=== PATIENT | male | born 1935 | race African-American/Black ===

== ENCOUNTER → 2016-08-02 | Outpatient (CLI) | payer MEDICARE, OTHER ==
--- NOTE | 2016-08-02 10:53 | US ---
EXAMINATION TYPE: US thyroid st tissue head/neck DATE OF EXAM: 08/02/2016 10:02 AM COMPARISON: 02/21/2015 CLINICAL HISTORY: E04.1 Thyroid Nodule. GLAND SIZE: Right Lobe: 6.2 x 4.3 x 4.3cm Overall Parenchyma: heterogeneous Left Lobe: 5.0 x 1.6 x 1.5cm Overall Parenchyma: heterogeneous Isthmus Thickness: 0.4cm NODULES RIGHT: # of nodules measured on right: 1 1. 4.5 X 4.3 x 4.2 cm hypoechoic solid nodule at the mid pole with well-defined margins. This nodul e is wider than tall and shows intranodular vascularity. Prior size: 4.3 x 3.6 x 3.7cm LEFT: # of nodules measured on left: 2 1. 0.6 X 0.5 x 0.3 cm hypoechoic cystic nodule at the mid pole with well-defined margins; present wi th microcalcifications. This nodule is wider than tall and shows no intranodular vascularity. Prior size: 0.4 x 0.3 x 0.4cm 2. 0.7 x 0.5 x 0.4 cm hypoechoic cystic nodule at the mid pole with well-defined margins. This nodul e is wider than tall and shows no intranodular vascularity. Prior size: 0.6 x 0.4 x 0.5cm ISTHMUS: # of nodules measured in the isthmus: 0 TECHNOLOGIST IMPRESSION: Bilateral neck scanned, no abnormal lymphadenopathy noted. IMPRESSION: 1. Large right thyroid lobe mass present previously
== END | disposition home or self-care (01) ==
LOC: RADUSWWP 09:30
PROVIDERS: ATTEND Otolaryngology
DX: E04.2 Nontoxic multinodular goiter (principal)
CPT/HCPCS: 76536

== ENCOUNTER 2016-10-25 11:02 | Emergency (ER) | payer MEDICARE, OTHER ==
[2016-10-25 11:23] VITALS: BP 136/71; PULSE 72; RESP 20; TEMP 98.2
--- NOTE | 2016-10-25 12:48 | ED ---
General Adult HPI - General Chief complaint: ENT Stated complaint: ear pain Time Seen by Provider: 10/25/16 12:13 Source: patient, RN notes reviewed Mode of arrival: ambulatory Limitations: no limitations - History of Present Illness Initial comments: 81-year-old male presenting for neck pain and ringing in his ears for the past 3 days. Patient states she's felt some stiffness in his left neck. He states he thinks this is causing ringing of ears. He states he's had similar symptoms in the past. He has not tried any medications for this at this point. He denies any injury or fall. Denies any dizziness associated. He denies any chest pain or shortness of breath. He denies any fevers or chills. - Related Data Home Medications Medication Instructions Recorded Confirmed Verapamil Sr [Isoptin Sr] 180 mg PO DAILY 02/20/16 10/25/16 Hydrocodone/Acetaminophen [[place] 1 tab PO TID PRN 05/19/16 10/25/16 7.5-325] Levothyroxine Sodium [Synthroid] 25 mcg PO DAILY 05/19/16 10/25/16 Atorvastatin Calcium [Lipitor] 40 mg PO HS 10/25/16 10/25/16 Donepezil [Aricept] 10 mg PO HS 10/25/16 10/25/16 Previous Rx's Medication Instructions Recorded Diazepam [Valium] 5 mg PO BID PRN #8 tab 10/25/16 HYDROcodone/APAP 5-325MG [[place] 1 tab PO Q6HR PRN #12 tab 10/25/16 5-325] Ibuprofen [Motrin] 600 mg PO Q8HR PRN #24 tab 10/25/16 Allergies Allergy/AdvReac Type Severity Reaction Status Date / Time latex Allergy Rash/Hives Verified 10/25/16 12:03 Review of Systems ROS Statement: Those systems with pertinent positive or pertinent negative responses have been documented in the HPI. ROS Other: All systems not noted in ROS Statement are negative. Past Medical History Past Medical History: Cancer, Hyperlipidemia, Hypertension, Myocardial Infarction ([place]), Thyroid Disorder Additional Past Medical History / Comment(s): back pain due sciatica, lung cancer Last Myocardial Infarction Date:: History of Any Multi-Drug Resistant Organisms: None Reported Additional Past Surgical History / Comment(s): lung ca removed Past Anesthesia/Blood Transfusion Reactions: No Reported Reaction Past Psychological History: No Psychological Hx Reported Smoking Status: Former smoker Past Alcohol Use History: None Reported Past Drug Use History: None Reported General Exam - General Exam Comments Initial Comments: General: Awake and Alert. No acute distress. Does not appear acutely ill. Eyes: ROXI, EOM intact. No nystagmus. No scleral icterus. HENT: Atraumatic, normocephalic. Mucous membranes moist. Trachea midline. Neck: The neck is supple, no JVD. Mild tenderness and spasm over the left posterior aspect of the neck. No midline neck tenderness. Cardiovascular: Regular rate and rhythm. No murmur, rub, or gallop is appreciated. Distal pulses intact. Respiratory: Lungs are clear to auscultation bilaterally. No wheezes, rales, rhonchi. No respiratory distress. Gastrointestinal: Soft, Nontender. No rebound or guarding. Non-distended. No masses or organomegaly noted. No CVA tenderness. Musculoskeletal: No tenderness. Normal ROM. No gross deformity. No strength deficits. Neurological: A&Ox3. CN II-XII grossly intact, There are no obvious motor or sensory deficits. Coordination appears grossly intact. Speech is normal. Skin: Skin is warm and dry and no rashes or lesions are noted. Psychiatric: Cooperative, appropriate mood & affect, normal judgment. Limitations: no limitations Course Vital Signs 10/25/16 11:21 Temperature 98.2 F Pulse Rate 72 Respiratory 20 Rate Blood Pressure 136/71 O2 Sat by Pulse 99 Oximetry Medical Decision Making - Medical Decision Making 81-year-old male presenting for neck pain and ringing of ears. Physical exam is grossly unremarkable other than mild tenderness and spasm in his left neck area. He states this is mildly tender to palpation. He denies any chest pain or shortness of breath. No other significant symptoms associated. Had discussion for management of his symptoms with medications. Discussed possible underlying tinnitus secondary to medication side effects and to review his current medications iwth his PCP has he is unable to tell me which medications he is on during exam. 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 Patient declines any medications in the emergency room at this time. Discussed close follow-up with PCP. Discussed follow up with ENT as well if symptoms persist. Discussed concerning signs symptoms for immediate return to the ED. Patient is agreeable to plan and discharge home. Disposition Clinical Impression: Neck pain, Ear ringing Disposition: HOME SELF-CARE Condition: Stable Instructions: Acute Neck Pain (ED), Tinnitus (ED) Prescriptions: Diazepam [Valium] 5 mg PO BID PRN #8 tab PRN Reason: neck pain HYDROcodone/APAP 5-325MG [[place] 5-325] 1 tab PO Q6HR PRN #12 tab PRN Reason: Pain Ibuprofen [Motrin] 600 mg PO Q8HR PRN #24 tab PRN Reason: Pain Referrals: Socorro Beckett MD [Primary Care Provider] - 1-2 days Pablo Monroe DO [Doctor of Osteopathic Medicine] - 1-2 days Time of Disposition: 12:47
== END 2016-10-25 12:56 | disposition home or self-care (01) ==
LOC: EC 11:02
DX: M54.2 Cervicalgia (principal); M62.838 Other muscle spasm; H93.19 Tinnitus, unspecified ear; E78.5 Hyperlipidemia, unspecified; I10 Essential (primary) hypertension; E07.9 Disorder of thyroid, unspecified; Z87.891 Personal history of nicotine dependence; Z79.899 Other long term (current) drug therapy; Z91.040 Latex allergy status
CPT/HCPCS: 99282

== ENCOUNTER 2016-11-06 16:55 | Emergency (ER) | payer MEDICARE, OTHER ==
[2016-11-06 17:30] VITALS: BP 104/66; PULSE 66; RESP 20; TEMP 98.4
--- NOTE | 2016-11-06 17:59 | ED ---
General Adult HPI - General Chief complaint: Urogenital Stated complaint: Male Time Seen by Provider: 11/06/16 17:46 Source: patient, RN notes reviewed Mode of arrival: ambulatory Limitations: no limitations - History of Present Illness Initial comments: Complaint and history of present illness this is an 81-year-old male to complaint of occasionally urinating on himself. Patient reports to go to the bathroom and then 5 minutes later sit down and in small bowel, out again. This been ongoing for several days. Patient states he wants to get an antibiotic. Patient denies having any prostate problems in the past he does follow-up with family physician. He was encouraged to make sure he has prostate exams plus his PSA drawn regularly. - Related Data Home Medications Medication Instructions Recorded Confirmed Verapamil Sr [Isoptin Sr] 180 mg PO DAILY 02/20/16 11/06/16 Levothyroxine Sodium [Synthroid] 25 mcg PO DAILY 05/19/16 11/06/16 Atorvastatin Calcium [Lipitor] 40 mg PO HS 10/25/16 11/06/16 Donepezil [Aricept] 10 mg PO HS 10/25/16 11/06/16 HYDROcodone/APAP 7.5-325MG [[place] 1 tab PO TID PRN 11/06/16 11/06/16 7.5-325] Allergies Allergy/AdvReac Type Severity Reaction Status Date / Time latex Allergy Rash/Hives Verified 11/06/16 17:38 Review of Systems ROS Statement: Those systems with pertinent positive or pertinent negative responses have been documented in the HPI. Review of systems no complaint of headache or visual acuity no chest pain denies any abdominal pain denies feeling bloated. He has chronic back pain In her vagina. No peripheral problems or neurological problems. No change in appetite. All systems are reviewed. Past medical problems lung cancer with surgery. Hyperlipidemia, hypertension, previous [place], low thyroid. Surgery lung cancer removed. Family history patient states her family. Quit smoking and drinking 30 years ago. ROS Other: All systems not noted in ROS Statement are negative. Past Medical History Past Medical History: Cancer, Hyperlipidemia, Hypertension, Myocardial Infarction ([place]), Thyroid Disorder Additional Past Medical History / Comment(s): back pain due sciatica, lung cancer Last Myocardial Infarction Date:: History of Any Multi-Drug Resistant Organisms: None Reported Additional Past Surgical History / Comment(s): lung ca removed Past Anesthesia/Blood Transfusion Reactions: No Reported Reaction Past Psychological History: No Psychological Hx Reported Smoking Status: Former smoker Past Alcohol Use History: None Reported Past Drug Use History: None Reported General Exam - General Exam Comments Initial Comments: General: The patient is awake and alert, in no distress, and does not appear acutely ill. Chief complaint of occasionally urinating on himself minutes after urinating. Vital signs show temperature 98.4 pulse 66 her story rate 20 pulse ox 99% room air blood pressure 104/66 Eye: Pupils are equal, round and reactive to light, extra-ocular movements are intact ; there is normal conjunctiva bilaterally. No signs of icterus. Arcus senilis Ears, nose, mouth and throat: There are moist mucous membranes and no oral lesions. Neck: The neck is supple, there is no tenderness . Cardiovascular: There is a regular rate and rhythm. No murmur, rub or gallop is appreciated. Respiratory: Lungs are clear to auscultation, respirations are non-labored, breath sounds are equal. No wheezes, stridor, rales, or rhonchi. Gastrointestinal: Soft, non-distended, non-tender abdomen without masses or organomegaly noted. There is no rebound or guarding present. No CVA tenderness. Bowel sounds are unremarkable. Bladder scan Back: Chronic back pain from a work-related injury years ago. Musculoskeletal: Normal ROM, no tenderness, There is no pedal edema. There is no calf tenderness or swelling. Sensation intact. Neurological: No complaint of or evidence of any neuro deficits. Patient walks without balance problems. Answers questions appropriately. Patient admits he is to return to forget things Skin: Skin is warm and dry and no rashes or lesions are noted. Limitations: no limitations Course Vital Signs 11/06/16 17:28 Temperature 98.4 F Pulse Rate 66 Respiratory 20 Rate Blood Pressure 104/66 O2 Sat by Pulse 99 Oximetry Medical Decision Making - Medical Decision Making Bladder scan was performed and the patient had only approximately 20 ML's in the bladder. Urinalysis shows 5 reds 2 whites no signs of infection. he will be referred back to his family physician. - Lab Data Lab Results 11/06/16 Range/Units 15:40 Urine Color Yellow Urine Appearance Cloudy (Clear) Urine pH 6.0 (5.0-8.0) Ur Specific [place] 1.019 (1.001-1.035) Urine Protein Negative (Negative) Urine Glucose (UA) Negative (Negative) Urine Ketones Trace H (Negative) Urine Blood Trace H (Negative) Urine Nitrite Negative (Negative) Urine Bilirubin Negative (Negative) Urine Urobilinogen 3.0 (<2.0) mg/dL Ur Leukocyte Esterase Negative (Negative) Urine RBC 5 (0-5) /hpf Urine WBC 2 (0-5) /hpf Urine Mucus Rare H (None) /hpf Disposition Clinical Impression: Incontinence of urine Disposition: HOME SELF-CARE Condition: Fair Instructions: Urinary Incontinence (ED) Additional Instructions: Follow-up with your family physician, have your PSA checked and in the meanwhile consider using protection, Depends, or other type of protection. Time of Disposition: 18:20
[2016-11-06 18:00] LABS: Appearance,Urine Cloudy (Clear); Bilirubin,Urine Negative (Negative); Glucose,Urine (UA) Negative (Negative); Ketones,Urine Trace (Negative); Leukocyte Esterase,Urine Negative (Negative); Mucus,Urine Rare /hpf; Nitrite,Urine Negative (Negative); Particle Count 1744; Protein,Urine Negative (Negative); RBC,Urine 5 /hpf (0-5); Specific Gravity,Urine 1.019 (1.001-1.035); UA Billing (MACRO vs. MICRO) MICRO; WBC,Urine 2 /hpf (0-5)
== END 2016-11-06 18:27 | disposition home or self-care (01) ==
LOC: EC 16:55
DX: R32 Unspecified urinary incontinence (principal); M54.5 Low back pain; G89.29 Other chronic pain; I10 Essential (primary) hypertension; E07.9 Disorder of thyroid, unspecified; E78.5 Hyperlipidemia, unspecified; Z87.891 Personal history of nicotine dependence; Z79.899 Other long term (current) drug therapy; Z91.040 Latex allergy status; Z85.118 Personal history of other malignant neoplasm of bronchus and lung; Z98.890 Other specified postprocedural states
CPT/HCPCS: 51798; 81001; 99284

== ENCOUNTER 2017-04-10 12:57 | Emergency (ER) | payer MEDICARE, OTHER ==
[2017-04-10 13:20] VITALS: RESP 20
--- NOTE | 2017-04-10 13:21 | ED ---
General Adult HPI - General Chief complaint: Shortness of Breath Stated complaint: Difficulty Breathing Time Seen by Provider: 04/10/17 13:15 Source: patient, RN notes reviewed Mode of arrival: ambulatory - History of Present Illness Initial comments: This is an 81-year-old male who presents emergency department stating he short of breath ever since he woke up this morning. Patient denies any chest pain or palpitations. Patient denies any history of atrial fibrillation atrial flutter. Patient denies any fever chills or cough. Patient denies any leg swelling or calf tenderness. Patient denies any headache patient denies numbness weakness. Patient denies lightheadedness or dizziness. Patient denies any abdominal pain patient denies nausea vomiting diarrhea. - Related Data Home Medications Medication Instructions Recorded Confirmed Verapamil Sr [Isoptin Sr] 180 mg PO DAILY 02/20/16 04/10/17 Levothyroxine Sodium [Synthroid] 25 mcg PO DAILY 05/19/16 04/10/17 Atorvastatin Calcium [Lipitor] 40 mg PO HS 10/25/16 04/10/17 Donepezil [Aricept] 10 mg PO HS 10/25/16 04/10/17 HYDROcodone/APAP 7.5-325MG [[place] 1 tab PO TID PRN 11/06/16 04/10/17 7.5-325] Baclofen [Lioresal] 10 mg PO TID PRN 04/10/17 04/10/17 Tamsulosin HCl [Flomax] 0.4 mg PO BID 04/10/17 04/10/17 Allergies Allergy/AdvReac Type Severity Reaction Status Date / Time latex Allergy Rash/Hives Verified 04/10/17 13:48 Review of Systems ROS Statement: Those systems with pertinent positive or pertinent negative responses have been documented in the HPI. ROS Other: All systems not noted in ROS Statement are negative. Past Medical History Past Medical History: Cancer, Hyperlipidemia, Hypertension, Myocardial Infarction ([place]), Thyroid Disorder Additional Past Medical History / Comment(s): back pain due sciatica, lung cancer Last Myocardial Infarction Date:: History of Any Multi-Drug Resistant Organisms: None Reported Additional Past Surgical History / Comment(s): lung ca removed from right lung Past Anesthesia/Blood Transfusion Reactions: No Reported Reaction Past Psychological History: No Psychological Hx Reported Smoking Status: Former smoker Past Alcohol Use History: None Reported Past Drug Use History: None Reported General Exam - General Exam Comments Initial Comments: GENERAL: Patient is well-developed and well-nourished. Patient is nontoxic and well- hydrated and is in mild distress. ENT: Neck is soft and supple. No significant lymphadenopathy is noted. Oropharynx is clear. Moist mucous membranes. Neck has full range of motion without eliciting any pain. EYES: The sclera were anicteric and conjunctiva were pink and moist. Extraocular movements were intact and pupils were equal round and reactive to light. Eyelids were unremarkable. PULMONARY: Unlabored respirations. Good breath sounds bilaterally. No audible rales rhonchi or wheezing was noted. CARDIOVASCULAR: Irregular rate ABDOMEN: Soft and nontender with normal bowel sounds. No palpable organomegaly was noted. There is no palpable pulsatile mass. SKIN: Skin is clear with no lesions or rashes and otherwise unremarkable. NEUROLOGIC: Patient is alert and oriented x3. Cranial nerves II through XII are grossly intact. Motor and sensory are also intact. Normal speech, volume and content. Symmetrical smile. MUSCULOSKELETAL: Normal extremities with adequate strength and full range of motion. No lower extremity swelling or edema. No calf tenderness. LYMPHATICS: No significant lymphadenopathy is noted PSYCHIATRIC: Normal psychiatric evaluation. Course Vital Signs 04/10/17 13:12 Temperature 97.9 F Pulse Rate 93 Respiratory 20 Rate Blood Pressure 124/74 O2 Sat by Pulse 99 Oximetry Medical Decision Making - Medical Decision Making EKG shows atrial fibrillation with rapid ventricular response at 103 bpm QRS and 6 QT interval 356 QTC TC is 466. Chest x-ray shows mild pulmonary edema. Patient has new-onset atrial fibrillation/started the patient on heparin. Patient's heart rate was right around the 100 side did not start any Cardizem. His The heparin going on the floor I talked with Dr. Quinn he agreed to admit admitted the patient and I wrote admitting orders - Lab Data Result diagrams: 04/10/17 13:15 04/10/17 13:15 Lab Results 04/10/17 04/10/17 04/10/17 Range/Units 13:15 13:15 13:15 WBC 6.5 (3.8-10.6) k/uL RBC 4.53 (4.30-5.90) m/uL Hgb 14.3 (13.0-17.5) gm/dL Hct 44.1 (39.0-53.0) % MCV 97.4 (80.0-100.0) fL MCH 31.5 (25.0-35.0) pg MCHC 32.4 (31.0-37.0) g/dL RDW 15.3 (11.5-15.5) % Plt Count 179 (150-450) k/uL Neutrophils % 85 % Lymphocytes % 10 % Monocytes % 3 % Eosinophils % 0 % Basophils % 0 % Neutrophils # 5.5 (1.3-7.7) k/uL Lymphocytes # 0.7 L (1.0-4.8) k/uL Monocytes # 0.2 (0-1.0) k/uL Eosinophils # 0.0 (0-0.7) k/uL Basophils # 0.0 (0-0.2) k/uL PT (9.0-12.0) sec INR (<1.2) APTT (22.0-30.0) sec Sodium 139 (137-145) mmol/L Potassium 3.8 (3.5-5.1) mmol/L Chloride 103 (98-107) mmol/L Carbon Dioxide 24 (22-30) mmol/L Anion Gap 12 mmol/L BUN 10 (9-20) mg/dL Creatinine 0.89 (0.66-1.25) mg/dL Est GFR (MDRD) Af Amer >60 (>60 ml/min/1.73 sqM) Est GFR (MDRD) Non-Af >60 (>60 ml/min/1.73 sqM) Glucose 196 H (74-99) mg/dL Calcium 10.6 H (8.4-10.2) mg/dL Total Bilirubin 0.8 (0.2-1.3) mg/dL AST 26 (17-59) U/L ALT 32 (21-72) U/L Alkaline Phosphatase 56 (38-126) U/L Total Creatine Kinase 128 (55-170) U/L CK-MB (CK-2) 0.9 (0.0-2.4) ng/mL CK-MB (CK-2) Rel Index 0.7 Troponin I <0.012 (0.000-0.034) ng/mL NT-Pro-B Natriuret Pep pg/mL Total Protein 6.6 (6.3-8.2) g/dL Albumin 3.7 (3.5-5.0) g/dL 04/10/17 04/10/17 Range/Units 13:15 13:15 WBC (3.8-10.6) k/uL RBC (4.30-5.90) m/uL Hgb (13.0-17.5) gm/dL Hct (39.0-53.0) % MCV (80.0-100.0) fL MCH (25.0-35.0) pg MCHC (31.0-37.0) g/dL RDW (11.5-15.5) % Plt Count (150-450) k/uL Neutrophils % % Lymphocytes % % Monocytes % % Eosinophils % % Basophils % % Neutrophils # (1.3-7.7) k/uL Lymphocytes # (1.0-4.8) k/uL Monocytes # (0-1.0) k/uL Eosinophils # (0-0.7) k/uL Basophils # (0-0.2) k/uL PT 11.9 (9.0-12.0) sec INR 1.2 H (<1.2) APTT 24.2 (22.0-30.0) sec Sodium (137-145) mmol/L Potassium (3.5-5.1) mmol/L Chloride (98-107) mmol/L Carbon Dioxide (22-30) mmol/L Anion Gap mmol/L BUN (9-20) mg/dL Creatinine (0.66-1.25) mg/dL Est GFR (MDRD) Af Amer (>60 ml/min/1.73 sqM) Est GFR (MDRD) Non-Af (>60 ml/min/1.73 sqM) Glucose (74-99) mg/dL Calcium (8.4-10.2) mg/dL Total Bilirubin (0.2-1.3) mg/dL AST (17-59) U/L ALT (21-72) U/L Alkaline Phosphatase (38-126) U/L Total Creatine Kinase (55-170) U/L CK-MB (CK-2) (0.0-2.4) ng/mL CK-MB (CK-2) Rel Index Troponin I (0.000-0.034) ng/mL NT-Pro-B Natriuret Pep 1590 pg/mL Total Protein (6.3-8.2) g/dL Albumin (3.5-5.0) g/dL Critical Care Time Critical Care Time: Yes Total Critical Care Time: 35 Disposition Clinical Impression: New onset atrial fibrillation, Pulmonary edema Disposition: ADMITTED IP TO THIS HOSP Referrals: Socorro Beckett MD [Primary Care Provider] - 1-2 days Time of Disposition: 14:25
[2017-04-10 13:38] LABS: Basophils % (A) 0 %; CH 32.8; CHCM 33.9; Eosinophils % (A) 0 %; HCT 44.1 % (39.0-53.0); HDW 3.06; HGB 14.3 gm/dL (13.0-17.5); Luc # (Auto) 0.04; Luc % (Auto) 1; Lymphocytes # (A) 0.7 k/uL (1.0-4.8); Lymphocytes % (A) 10 %; MCH 31.5 pg (25.0-35.0); MCHC 32.4 g/dL (31.0-37.0); MCV 97.4 fL (80.0-100.0); Mean Platelet Volume 8.4; Monocytes # (A) 0.2 k/uL (0-1.0); Monocytes % (A) 3 %; Neutrophils # (A) 5.5 k/uL (1.3-7.7); Neutrophils % (A) 85 %; RBC 4.53 m/uL (4.30-5.90); RDW 15.3 % (11.5-15.5); WBC 6.5 k/uL (3.8-10.6); WBC (Perox) 6.55
[2017-04-10 13:48] LABS: ALT 32 U/L (21-72); AST 26 U/L (17-59); Alkaline Phosphatase 56 U/L (38-126); Anion Gap 12 mmol/L; Blood Urea Nitrogen 10 mg/dL (9-20); Calcium 10.6 mg/dL (8.4-10.2); Carbon Dioxide 24 mmol/L (22-30); Chloride 103 mmol/L (98-107); Glucose 196 mg/dL (74-99); Non-African American GFR(MDRD) >60 (>60 ml/min/1.73 sqM); Potassium 3.8 mmol/L (3.5-5.1); Sodium 139 mmol/L (137-145); Total Bilirubin 0.8 mg/dL (0.2-1.3); Total Protein 6.6 g/dL (6.3-8.2)
[2017-04-10 13:55] LABS: INR 1.2 (<1.2); Partial Thromboplastin Time 24.2 sec (22.0-30.0); Prothrombin Time 11.9 sec (9.0-12.0)
[2017-04-10 14:00] LABS: Creatine Kinase 128 U/L (55-170)
--- NOTE | 2017-04-10 14:02 | XR ---
EXAMINATION TYPE: XR chest 2V DATE OF EXAM: 04/10/2017 HISTORY: difficulty breathing. REFERENCE: Previous study dated 07/28/2015. FINDINGS: The heart is mildly enlarged. There are diffuse increased markings throughout the chest. So me of these are chronic. I do not see evidence of vascular congestion. No definite pleural fluid is s een. IMPRESSION: 1. CARDIOMEGALY. 2. INCREASED INTERSTITIAL CHANGE. AT LEAST PART OF THIS IS CHRONIC. SUPERIMPOSED EDEMA OR ATYPICAL PN EUMONIA COULD NOT BE EXCLUDED.
[2017-04-10 14:12] LABS: Creatine Kinase MB 0.9 ng/mL (0.0-2.4); Troponin I <0.012 ng/mL (0.000-0.034)
[2017-04-10] MEDS ORDERED: HEPARIN SODIUM,PORCINE 5,000 UNIT/ML 1 ML VIAL IV ONE (14:22)
[2017-04-10] MEDS ORDERED: FUROSEMIDE 10 MG/ML 4 ML VIAL IV SCH (14:30)
[2017-04-10] MEDS ORDERED: HEPARIN SODIUM,PORCINE/D5W PMX 25,000 UNIT in DEXTROSE/WATER 1 500ML.BAG IV SCH (14:30)
[2017-04-10 14:51] VITALS: BP 149/85; PULSE 108; TEMP 98.8
[2017-04-10] MEDS ORDERED: NITROGLYCERIN OINT 1 INCH/GM PACKET TOPICAL SCH (18:00)
== END 2017-04-10 15:15 | disposition left against medical advice (07) ==
LOC: EC 12:57 → UNDOADMIN 14:26 → 6SEL 14:26 → EC 15:15
DX: I48.91 Unspecified atrial fibrillation (principal); J81.1 Chronic pulmonary edema; E78.5 Hyperlipidemia, unspecified; I10 Essential (primary) hypertension; E07.9 Disorder of thyroid, unspecified; I25.2 Old myocardial infarction; Z87.891 Personal history of nicotine dependence; Z79.899 Other long term (current) drug therapy; Z91.040 Latex allergy status; Z85.118 Personal history of other malignant neoplasm of bronchus and lung; Z98.890 Other specified postprocedural states; Z53.20 Procedure and treatment not carried out because of patient's decision for unspecified reasons
CPT/HCPCS: 99285 ×2; 96374 ×2; 96375 ×2; 36415; 93005; 83880; 80053; 82550; 82553; 84484; 85025; 85610; 85730; 71020; J1644; J1940

== ENCOUNTER 2017-04-14 13:54 | Inpatient (IN) | payer MEDICARE, OTHER ==
[2017-04-14] MEDS ORDERED: SODIUM CHLORIDE 0.9% 1,000 ML in EMPTY BAG 1 BAG IV ONE (14:54)
[2017-04-14] MEDS ORDERED: ALPRAZolam 0.5 MG TAB PO PRN (14:54)
[2017-04-14] MEDS ORDERED: NITROGLYCERIN SL TABS 0.4 MG TAB SUBLINGUAL PRN (14:54)
[2017-04-14] MEDS ORDERED: ALPRAZolam 0.25 MG TAB PO PRN (14:54)
[2017-04-14] MEDS ORDERED: ATORVASTATIN 80 MG TAB PO STA (14:57)
[2017-04-14] MEDS ORDERED: ASPIRIN 325 MG TAB PO STA (14:57)
[2017-04-14] MEDS ORDERED: HEPARIN SODIUM,PORCINE 5,000 UNIT/ML 1 ML VIAL IV PRN (15:39)
[2017-04-14 15:55] LABS: Basophils % (A) 0 %; CH 32.3; CHCM 32.8; Eosinophils % (A) 0 %; HCT 42.4 % (39.0-53.0); HDW 2.99; HGB 13.4 gm/dL (13.0-17.5); Luc # (Auto) 0.05; Luc % (Auto) 0; Lymphocytes # (A) 0.8 k/uL (1.0-4.8); Lymphocytes % (A) 5 %; MCH 31.2 pg (25.0-35.0); MCHC 31.5 g/dL (31.0-37.0); Macrocytosis Slight; Mean Platelet Volume 8.4; Monocytes # (A) 0.5 k/uL (0-1.0); Monocytes % (A) 3 %; Neutrophils # (A) 14.9 k/uL (1.3-7.7); Neutrophils % (A) 91 %; RBC 4.28 m/uL (4.30-5.90); RDW 15.7 % (11.5-15.5); WBC 16.4 k/uL (3.8-10.6)
[2017-04-14] MEDS ORDERED: HEPARIN SODIUM,PORCINE/D5W PMX 25,000 UNIT in DEXTROSE/WATER 1 500ML.BAG IV SCH (16:00)
[2017-04-14 16:10] LABS: INR 1.3 (<1.2); Prothrombin Time 12.4 sec (9.0-12.0)
[2017-04-14 16:13] LABS: Anion Gap 11 mmol/L; Blood Urea Nitrogen 15 mg/dL (9-20); Calcium 10.5 mg/dL (8.4-10.2); Carbon Dioxide 25 mmol/L (22-30); Chloride 101 mmol/L (98-107); Glucose 222 mg/dL (74-99); Non-African American GFR(MDRD) >60 (>60 ml/min/1.73 sqM); Potassium 3.6 mmol/L (3.5-5.1); Sodium 137 mmol/L (137-145)
[2017-04-14] MEDS ORDERED: HYDROcodone/APAP 7.5-325MG 1 EACH TAB PO PRN (17:35)
[2017-04-14] MEDS ORDERED: BACLOFEN 10 MG TAB PO PRN (17:35)
[2017-04-14] MEDS: TAMSULOSIN 0.4 MG CAP.ER.24H PO SCH (20:28)
[2017-04-14] MEDS: DILTIAZEM ORAL 60 MG TAB PO SCH (20:28)
[2017-04-14] MEDS: DONEPEZIL 10 MG TAB PO SCH (20:28)
[2017-04-15 03:48] LABS: Basophils % (A) 0 %; CH 32.4; CHCM 33.4; Eosinophils % (A) 0 %; HCT 40.4 % (39.0-53.0); HDW 2.96; HGB 13.1 gm/dL (13.0-17.5); Luc # (Auto) 0.11; Luc % (Auto) 1; Lymphocytes # (A) 1.2 k/uL (1.0-4.8); Lymphocytes % (A) 12 %; MCH 31.6 pg (25.0-35.0); MCHC 32.3 g/dL (31.0-37.0); MCV 97.9 fL (80.0-100.0); Macrocytosis Slight; Mean Platelet Volume 7.9; Monocytes # (A) 0.5 k/uL (0-1.0); Monocytes % (A) 5 %; Neutrophils # (A) 8.7 k/uL (1.3-7.7); Neutrophils % (A) 82 %; RBC 4.13 m/uL (4.30-5.90); RDW 15.7 % (11.5-15.5); WBC 10.6 k/uL (3.8-10.6); WBC (Perox) 11.51
[2017-04-15 03:54] LABS: Anion Gap 7 mmol/L; Blood Urea Nitrogen 14 mg/dL (9-20); Calcium 9.9 mg/dL (8.4-10.2); Carbon Dioxide 28 mmol/L (22-30); Chloride 103 mmol/L (98-107); Glucose 174 mg/dL (74-99); Non-African American GFR(MDRD) >60 (>60 ml/min/1.73 sqM); Potassium 3.9 mmol/L (3.5-5.1); Sodium 138 mmol/L (137-145)
[2017-04-15] MEDS: DILTIAZEM ORAL 60 MG TAB PO SCH (06:20)
[2017-04-15] MEDS: TAMSULOSIN 0.4 MG CAP.ER.24H PO SCH ×2 (06:20→20:54)
[2017-04-15] MEDS: FUROSEMIDE 20 MG TAB PO SCH (06:20)
[2017-04-15] MEDS: LEVOTHYROXINE 25 MCG TAB PO SCH (06:20)
[2017-04-15] MEDS ORDERED: IV FLUID CONTINUATION 1,000 ML IV ONE (11:30)
[2017-04-15] MEDS ORDERED: fentaNYL (PF) 50 MCG/ML 2 ML AMP ONE (11:30)
[2017-04-15] MEDS ORDERED: LIDOCAINE 2% INJ 20 MG/ML (20 ML MDV) ONE (11:30)
[2017-04-15] MEDS ORDERED: VERAPAMIL 2.5 MG/ML 2 ML AMP ONE (11:30)
[2017-04-15] MEDS ORDERED: HEPARIN SODIUM 1,000 UN/ML (10ML VL) ONE (11:30)
[2017-04-15] MEDS ORDERED: fentaNYL (PF) 50 MCG/ML 2 ML AMP IVP ONE (11:35)
[2017-04-15] MEDS ORDERED: LIDOCAINE 2% INJ 20 MG/ML SQ ONE (11:37)
[2017-04-15] MEDS ORDERED: VERAPAMIL SYRINGE (5 MG/10 ML) INTRAARTER ONE (11:39)
[2017-04-15] MEDS ORDERED: BIVALIRUDIN BOLUS 250 MG/50 ML IV ONE (11:53)
[2017-04-15] MEDS ORDERED: BIVALIRUDIN 250 MG in SODIUM CHLORIDE 0.9% 50 ML IV ONE (11:55)
[2017-04-15] MEDS ORDERED: NITROGLYCERIN 1000MCG/10ML SYRINGE INTRACORON ONE (11:56)
[2017-04-15] MEDS ORDERED: CLOPIDOGREL 75 MG TAB ONE (12:07)
[2017-04-15] MEDS ORDERED: CLOPIDOGREL 75 MG TAB PO ONE (12:10)
[2017-04-15] MEDS ORDERED: IOHEXOL 350 MG/ML 125ML BOTTLE INJ ONE (12:19)
[2017-04-15] MEDS ORDERED: ATROPINE SULFATE 0.1 MG/ML 10ML SYRINGE IV PRN (12:31)
[2017-04-15] MEDS ORDERED: ZOLPIDEM 5 MG TAB PO PRN (12:31)
[2017-04-15] MEDS ORDERED: MAG HYDROX/AL HYDROX/SIMETH 30 ML CUP PO PRN (12:31)
[2017-04-15] MEDS ORDERED: NITROGLYCERIN SL TABS 0.4 MG TAB SUBLINGUAL PRN (12:31)
[2017-04-15] MEDS ORDERED: RX INFO: IV CONTRAST WAS GIVEN 1 EACH MISC MISCELLANE PRN (12:31)
[2017-04-15] MEDS ORDERED: SODIUM CHLORIDE 0.9% 1,000 ML IV SCH (12:45)
--- NOTE | 2017-04-15 13:03 | CC ---
CARDIAC CATHETERIZATION REPORT Mr. Segal is an 81-year-old male with a known history of mild coronary artery disease and cardiomyopathy in 2009, who presented recently to [facility] with evidence of atrial fibrillation and chest discomfort. His troponin was elevated at 2. In view of that, he was transferred to [facility] to undergo cardiac catheterization. The procedure as well as the risks and the complications were discussed with the patient who is in full understanding and agreement. 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 Using Xylocaine anesthesia in the Seldinger technique, a 6-Turkish sheath was introduced in the right radial artery. Selective right and left coronary angiography performed using a 5- Turkish 3-1/2 bend right and left Kelly catheter. Multiple views of the coronary artery including hemiaxial views were obtained. Following that, 5-Turkish tight pigtail catheter was introduced into the left ventricle and a 30-degree DENNY view of the left ventricle was obtained. Following that, catheters were removed. Images were reviewed. FINDINGS: LEFT MAIN: This is a large-size vessel trifurcating into left anterior descending artery, ramus intermedius and the left circumflex. The left main has a 10% plaque distally. LEFT ANTERIOR DESCENDING ARTERY: This is a large-size vessel reaching toward the apex with a wraparound apex segment. The left anterior descending artery gives rise to a moderately sized diagonal branch. In the mid segment, the LAD has a 20% to 30% plaque in the mid segment without any evidence of high-grade stenosis. RAMUS INTERMEDIUS: This is a moderately-sized vessel reaching to the apical lateral wall and it has no evidence of high-grade stenosis. LEFT CIRCUMFLEX: This is a nondominant vessel giving rise to 2 obtuse marginal branches. The left circumflex has no evidence of high-grade stenosis. At the first obtuse marginal branch has a plaque of 30% to 40%. RIGHT CORONARY ARTERY: This is a large dominant vessel bifurcating distally in PDA and posterolateral segment and branches. The proximal segment of the has a 60% to 70% lesion that is hazy. The rest of the vessel has no evidence of high-grade stenosis. LEFT VENTRICULOGRAM: Left ventriculogram was performed in 30-degree DENNY view and revealed a dilated left ventricle with severe global hypokinesis. Ejection fraction estimated at 20%. There was arrhythmia induced mitral regurgitation HEMODYNAMICS: There was no gradient across the aortic valve. The left ventricle end- diastolic pressure was 20 to 24 mmHg. CONCLUSION: 1. Borderline significant lesion in the proximal right coronary artery. 2. Mild disease in circumflex and the LAD. 3. Severely impaired left ventricular systolic function. RECOMMENDATION: In view of the finding and the anatomy and the presentation, I would recommend proceeding with evaluation of the right coronary artery lesion by Doppler flow wire and depending on that, further recommendation will be made. Those findings and recommendation were discussed with the patient and he was in full understanding and agreement. MMODL / IJN: [id number] /
[2017-04-15] MEDS: SPIRONOLACTONE 25 MG TAB PO SCH (13:53)
--- NOTE | 2017-04-15 14:09 | PTCA ---
PERCUTANEOUSTRANS CORORONARY ANGIOGRAPHY Mr. Segal is an 81-year-old male who presented with symptoms of chest discomfort and was found to have severe cardiomyopathy and had a troponin elevation of 2. He underwent cardiac catheterization that revealed a borderline significant lesion in the proximal right coronary artery. In view of that, recommendation was made regarding Doppler flow wire evaluation and depending on that, angioplasty and stenting if needed. Those findings and recommendations were discussed with the patient and he was in full understanding and agreement. PROCEDURE: A 6-Portuguese FR3-1/2 bend guiding catheter was introduced in the system. After cannulating the right coronary ostium, a Doppler FloWire was introduced in the distal right coronary artery. Subsequently IFR was measured and it came at 0.85. At that point, a 3.0 x 15 mm Xience Alpine stent was deployed, post dilated at 16 atmospheres. After the last inflation, after appropriate wait, the balloon and the guidewire were withdrawn back in the guiding catheter. Images were obtained and repeated. Those images reveal stable successful stenting. At that point, the guiding catheter, the balloon and the guidewire were removed. The sheath was removed. Hemostasis was obtained with deployment of a TR band. There was no immediate complication. The patient was returned to his room in stable condition. Of note, the patient no chest discomfort or EKG changes with the inflations. He received Angiomax per protocol as well as oral loading dose of clopidogrel. RESULTS: Successful stenting of the proximal right coronary artery with reduction of stenosis from 70% with an IFR to 0%. RECOMMENDATION: The patient will be continued on aspirin, Plavix, beta blockers, JUDIT inhibitor and statin. The importance of dual antiplatelet treatment was discussed with the patient, who is in full understanding and agreement. The patient will require anticoagulation as well in view of his chronic atrial fibrillation. The duration of the procedure is 42 minutes. MMODL / IJN: [id number] /
--- NOTE | 2017-04-15 14:09 | LTR ---
Dear Dr. Rose: I had the pleasure to perform cardiac catheterization with coronary angioplasty and stenting on Mr. Segal at [facility] on April 15 and a full copy of the procedure note will be forwarded to you. In brief, he was found to have borderline significant stenosis involving the proximal right coronary artery. An IFR measurement was positive for a hemodynamically significant lesion. He underwent successful stenting of that vessel. I am hopeful that this procedure will stabilize his status and thank you again for allowing me to participate in his care. Please feel free to call for any questions. Sincerely yours, MMDORYL / IJN: [id number] /
[2017-04-15 14:36] VITALS: BMI 35.9
[2017-04-15] MEDS ORDERED: IPRATROPIUM-ALBUTEROL 3 ML NEB INHALATION PRN (15:09)
--- NOTE | 2017-04-15 15:22 | P.HPIM ---
History of Present Illness H&P Date: 04/15/17 Chief Complaint: Shortness of breath 81 years old male patient of Dr. Beckett with past medical history of chronic atrial fibrillation on Peridex, hypertension, hyperlipidemia, history of myocardial infarction, stents, COPD, chronic back pain, hypothyroidism who was transferred from [facility] after patient was found to be in atrial fibrillation and complaining of chest discomfort. Patient was initially admitted 2 days ago for complaints of shortness of breath associated with atrial fibrillation with RVR. Patient was also treated with antibiotic for concern of pneumonia. Patient left the next day against medical advise only to return after having episode of double vision and presyncope like symptoms. Patient drove himself to [facility]. Patient's troponin on admission was 2. Patient was transferred from [facility] for possible catheterization for N STEMI. Patient was seen post catheterization was doing well resting comfortably on the side of the bed. Denies any shortness of breath, chest pain, swelling in his lower extremities. Review of Systems Constitutional: Denies chills, Denies fever, Denies lethargy, Denies malaise, Denies poor appetite, Denies weakness, Denies weight loss Eyes: denies decreased vision, denies diplopia, denies discharge, denies pain Ears: deny: decreased hearing Ears, nose, mouth and throat: Denies dental pain, Denies headache, Denies nasal discharge, Denies nose pain Cardiovascular: Denies chest pain, Denies decreased exercise tolerance, Denies edema, Denies high blood pressure, Denies irregular heart beat, Denies palpitations, Denies paroxysmal nocturnal dyspnea, Denies rapid heart beat, Denies shortness of breath Respiratory: Denies congestion, Denies cough, Denies cough with sputum, Denies dyspnea, Denies home oxygen, Denies wheezing Gastrointestinal: Denies abdominal pain, Denies change in bowel habits, Denies coffee ground emesis, Denies early satiety, Denies excessive gas, Denies heartburn, Denies hematemesis, Denies hematochezia, Denies loss of appetite, Denies nausea, Denies vomiting Genitourinary: Denies dysuria, Denies flank pain, Denies kidney stones, Denies menorrhagia, Denies urgency, Denies urinary frequency Musculoskeletal: Denies gait dysfunction, Denies limitation of motion, Denies morning stiffness, Denies muscle cramps Integumentary: Denies rash, Denies wounds, Denies brittle nails, Denies change in hair/nails, Denies darkening of skin Neurological: Denies balance difficulties, Denies change in speech, Denies double vision, Denies gait dysfunction, Denies loss of vision, Denies motor disturbance, Denies numbness, Denies paralysis, Denies paresthesias, Denies seizures Psychiatric: Denies anxiety, Denies depression Endocrine: Denies excessive sweating, Denies excessive thirst, Denies high blood sugars, Denies palpitations Hematologic/Lymphatic: Denies easy bruising, Denies lymphadenopathy Past Medical History Past Medical History: Coronary Artery Disease (CAD), Cancer, COPD, Dementia, GERD/Reflux, Hyperlipidemia, Hypertension, Osteoarthritis (OA), Prostate Disorder, Thyroid Disorder Additional Past Medical History / Comment(s): back pain due sciatica, lung cancer Last Myocardial Infarction Date:: History of Any Multi-Drug Resistant Organisms: None Reported Additional Past Surgical History / Comment(s): lung ca removed from right lung Past Anesthesia/Blood Transfusion Reactions: No Reported Reaction Past Psychological History: No Psychological Hx Reported Smoking Status: Former smoker (patient quit 40 years ago, smoked half a pack a day for leisure before that.) Past Alcohol Use History: None Reported Past Drug Use History: None Reported - Past Family History Father History Unknown: Yes Medications and Allergies Home Medications Medication Instructions Recorded Confirmed Type Verapamil Sr [Isoptin Sr] 180 mg PO DAILY 02/20/16 04/14/17 History Levothyroxine Sodium [Synthroid] 25 mcg PO DAILY 05/19/16 04/14/17 History Atorvastatin Calcium [Lipitor] 40 mg PO HS 10/25/16 04/14/17 History Donepezil [Aricept] 10 mg PO HS 10/25/16 04/14/17 History HYDROcodone/APAP 7.5-325MG [[place] 1 tab PO TID PRN 11/06/16 04/14/17 History 7.5-325] Baclofen [Lioresal] 10 mg PO TID PRN 04/10/17 04/14/17 History Tamsulosin HCl [Flomax] 0.4 mg PO BID 04/10/17 04/14/17 History Dabigatran [Pradaxa] 150 mg PO BID 04/14/17 04/14/17 History Diltiazem Oral [Cardizem Oral] 60 mg PO TID 04/14/17 04/14/17 History Allergies Allergy/AdvReac Type Severity Reaction Status Date / Time latex Allergy Rash/Hives Verified 04/14/17 15:31 Physical Exam Vitals: Vital Signs Temp Pulse Resp BP Pulse Ox 04/15/17 08:00 96.7 F L 87 18 113/76 100 04/15/17 04:00 97.0 F L 72 20 128/75 100 04/15/17 00:00 83 16 126/79 98 04/14/17 20:00 97.1 F L 100 18 128/82 100 04/14/17 15:07 97.0 F L 101 H 18 111/59 100 Intake and Output 04/14/17 04/15/17 04/15/17 22:59 06:59 14:59 Intake Total 357.667 179.853 Output Total 550 450 Balance -192.333 -270.147 Intake: Intake, IV Titration 120.667 179.853 Amount Heparin Sodium,Porcine/ 120.667 179.853 D5w Pmx 25,000 unit In Dextrose/Water 1 500ml. bag @ 9.346 UNITS/KG/HR 20 mls/hr IV .Q24H [facility] Rx #:[id number] Oral 237 Output: Urine 550 450 Other: Voiding Method Urinal Urinal # Voids 1 1 Weight 107 kg 104 kg - Constitutional General appearance: cooperative, no acute distress, obese - EENT Eyes: anicteric sclerae, PERRLA, normal appearance ENT: hearing grossly normal - Neck Neck: no lymphadenopathy, normal ROM, no other, no rigidity, no stridor, no thyromegaly - Respiratory Respiratory: bilateral: CTA, negative: diminished, dullness, rales, rhonchi, no wheezing - Cardiovascular Rhythm: regular Heart sounds: normal: S1, S2 Abnormal Heart Sounds: no systolic murmur, no diastolic murmur, no rub, no S3 Gallop, no S4 Gallop, no click, no other - Gastrointestinal General gastrointestinal: normal bowel sounds, soft - Integumentary Integumentary: no rash - Neurologic Neurologic: CNII-XII intact - Musculoskeletal Musculoskeletal: gait normal, strength equal bilaterally - Psychiatric Psychiatric: A&O x's 3, appropriate affect Results CBC & Chem 7: 04/15/17 03:33 04/15/17 03:33 Labs: Abnormal Lab Results - Last 24 Hours (Table) 04/14/17 04/14/17 04/14/17 Range/Units 15:04 15:04 15:04 WBC 16.4 H (3.8-10.6) k/uL RBC 4.28 L (4.30-5.90) m/uL RDW 15.7 H (11.5-15.5) % Neutrophils # 14.9 H (1.3-7.7) k/uL Lymphocytes # 0.8 L (1.0-4.8) k/uL PT 12.4 H (9.0-12.0) sec INR 1.3 H (<1.2) APTT (22.0-30.0) sec Glucose 222 H (74-99) mg/dL Calcium 10.5 H (8.4-10.2) mg/dL Troponin I (0.000-0.034) ng/mL 04/14/17 04/14/17 04/15/17 Range/Units 21:20 21:20 03:33 WBC (3.8-10.6) k/uL RBC 4.13 L (4.30-5.90) m/uL RDW 15.7 H (11.5-15.5) % Neutrophils # 8.7 H (1.3-7.7) k/uL Lymphocytes # (1.0-4.8) k/uL PT (9.0-12.0) sec INR (<1.2) APTT 35.4 H (22.0-30.0) sec Glucose (74-99) mg/dL Calcium (8.4-10.2) mg/dL Troponin I 4.060 H* (0.000-0.034) ng/mL 04/15/17 04/15/17 04/15/17 Range/Units 03:33 03:33 03:33 WBC (3.8-10.6) k/uL RBC (4.30-5.90) m/uL RDW (11.5-15.5) % Neutrophils # (1.3-7.7) k/uL Lymphocytes # (1.0-4.8) k/uL PT (9.0-12.0) sec INR (<1.2) APTT 52.2 H (22.0-30.0) sec Glucose 174 H (74-99) mg/dL Calcium (8.4-10.2) mg/dL Troponin I 2.400 H* (0.000-0.034) ng/mL Thrombosis Risk Factor Assmnt - DVT/VTE Prophylaxis DVT/VTE Prophylaxis: Pharmacologic Prophylaxis ordered (1233) - Choose All That Apply Any of the Below Risk Factors Present?: Yes Each Factor Represents 1 point: Obesity (BMI >25) Other Risk Factors: Yes Each Risk Factor Represents 3 Points: Age 75 years or older Thrombosis Risk Factor Assessment Total Risk Factor Score: 4 Thrombosis Risk Factor Assessment Level: Moderate Risk Assessment and Plan Plan: #1 Increased troponin secondary to NSTEMI - Patient underwent cardiac catheterization today, stenting of the right coronary artery - Continue Coreg, Lipitor, aspirin, Plavix - Patient is asymptomatic now, troponin downtrending, continue telemetry #2 ischemic cardiomyopathy with EF of 20% as reported by the ventriculogram with BNP 1590 - Continue Coreg, Lipitor, aspirin and Lasix 20 mg twice a day - If patient's blood pressure tolerates and will start patient on lisinopril on discharge - Continue I&O's monitoring - Daily weights #3 chronic atrial fibrillation -Continue rate control with Coreg 25 mg twice a day - Continue oral anticoagulation with PRADEXA - Patient will be on triple antibiotic coagulation may need adjustment of the anticoagulation for increased risk of bleeding #4 hypertension continue Coreg 25 mg twice a day #5 degenerative disc disease continue Tylenol 3 and baclofen #6 hyperlipidemia continue Lipitor #7 dementia continue on donepezil #8 hypothyroidism continue home Synthyroid #9 BPH continue Flomax #10 DVT prophylaxis- continue pradexa #11 anxiety continue Xanax 0.25 every 6 hours #12 COPD/acute bronchitis- patient was getting treated with steroids and DuoNeb at [facility] for increased wheezing and COPD exacerbation, continue prednisone 40 mg by mouth daily along with azithromycin 250 mg for 4 days along with by mouth #13 CODE STATUS full code Disposition- patient is a likely discharge tomorrow if remains asymptomatic
[2017-04-15] MEDS: AZITHROMYCIN 250 MG TAB PO SCH (17:16)
[2017-04-15] MEDS: CARVEDILOL 12.5 MG TAB PO SCH (17:16)
[2017-04-15] MEDS: predniSONE 20 MG TAB PO SCH (17:16)
[2017-04-15] MEDS: ATORVASTATIN 40 MG TAB PO SCH (20:53)
[2017-04-15] MEDS: HEPARIN SODIUM,PORCINE 5,000 UNIT/ML 1 ML VIAL SQ SCH (20:54)
[2017-04-15] MEDS: DONEPEZIL 10 MG TAB PO SCH (20:54)
[2017-04-16] MEDS: LEVOTHYROXINE 25 MCG TAB PO SCH (06:22)
[2017-04-16 06:55] LABS: Anion Gap 7 mmol/L; Blood Urea Nitrogen 14 mg/dL (9-20); Calcium 10.3 mg/dL (8.4-10.2); Carbon Dioxide 28 mmol/L (22-30); Chloride 102 mmol/L (98-107); Glucose 167 mg/dL (74-99); Non-African American GFR(MDRD) >60 (>60 ml/min/1.73 sqM); Potassium 4.2 mmol/L (3.5-5.1); Sodium 137 mmol/L (137-145)
[2017-04-16] MEDS: CARVEDILOL 12.5 MG TAB PO SCH ×2 (07:24→17:50)
[2017-04-16] MEDS: FUROSEMIDE 20 MG TAB PO SCH (08:11)
[2017-04-16] MEDS: HEPARIN SODIUM,PORCINE 5,000 UNIT/ML 1 ML VIAL SQ SCH (08:12)
[2017-04-16] MEDS: AZITHROMYCIN 250 MG TAB PO SCH (08:12)
[2017-04-16] MEDS: predniSONE 20 MG TAB PO SCH (08:12)
[2017-04-16] MEDS: TAMSULOSIN 0.4 MG CAP.ER.24H PO SCH ×2 (08:12→20:48)
[2017-04-16] MEDS: ASPIRIN 81 MG PO SCH (08:13)
[2017-04-16] MEDS: SPIRONOLACTONE 25 MG TAB PO SCH (08:13)
[2017-04-16] MEDS ORDERED: LOSARTAN 25 MG TAB PO SCH (09:00)
[2017-04-16] MEDS: CLOPIDOGREL 75 MG TAB PO SCH (11:40)
[2017-04-16 11:59] LABS: Glucose,Whole Blood 158 mg/dL (75-99)
--- NOTE | 2017-04-16 13:22 | P.PN ---
Progress Note - Text PROGRESS NOTE The patient was transferred because of an abnormal troponin. He underwent cardiac catheterization that showed a borderline significant lesion in the RCA was positive IFR and underwent stenting of that vessel. He has a known history of severe cardiomyopathy. He had runs of nonsustained VT that were asymptomatic. He denies any symptoms of chest pain, dizziness or significant dyspnea. He continues to be on aspirin, Lipitor 40 mg daily, Coreg 25 mg twice a day, Plavix 75 mg daily, Lasix 20 mg daily, losartan 25 mg twice a day, Aldactone 25 mg daily. PHYSICAL EXAMINATION: Blood pressure 106/57 heart rate 80 LUNGS: Clear to auscultation HEART: Irregular rate and rhythm, S1, S2. No S3. systolic murmur ABDOMEN: Soft, nontender, no organomegaly EXTREMETIES: No edema Right radial pulse intact. LAB: Selected Entries 04/16/17 12:00 Blood Pressure 106/57 [Left Arm] Laboratory Tests 04/16/17 05:37 Sodium 137 Potassium 4.2 Chloride 102 Carbon Dioxide 28 Anion Gap 7 BUN 14 Creatinine 0.90 Est GFR (MDRD) Af Amer >60 Est GFR (MDRD) Non-Af >60 IMPRESSION: 1. Non-ST segment elevation MO, status post stenting of the RCA 2. Chronic atrial fibrillation 3. Severe cardiomyopathy, nonischemic 4. Nonsustained VT PLAN: I will continue present medical regimen, add amiodarone 400 mg twice a day, increase his level of activity and depending on his progress further recommendations will be made.
[2017-04-16] MEDS: AMIODARONE 200 MG TAB PO SCH ×2 (14:51→20:47)
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
[2017-04-16] MEDS: DABIGATRAN 150 MG CAP PO SCH (20:47)
[2017-04-16] MEDS: DONEPEZIL 10 MG TAB PO SCH (20:47)
[2017-04-16] MEDS: LOSARTAN 25 MG TAB PO SCH (20:47)
[2017-04-16] MEDS: ATORVASTATIN 40 MG TAB PO SCH (20:47)
[2017-04-17 06:05] LABS: Glucose,Whole Blood 136 mg/dL (75-99)
[2017-04-17 06:28] LABS: Basophils % (A) 0 %; CH 32.5; CHCM 33.3; Eosinophils % (A) 0 %; HCT 44.1 % (39.0-53.0); HDW 2.93; HGB 13.9 gm/dL (13.0-17.5); Luc # (Auto) 0.08; Luc % (Auto) 1; Lymphocytes # (A) 1.4 k/uL (1.0-4.8); Lymphocytes % (A) 16 %; MCHC 31.6 g/dL (31.0-37.0); MCV 98.1 fL (80.0-100.0); Macrocytosis Slight; Monocytes # (A) 0.4 k/uL (0-1.0); Monocytes % (A) 5 %; Neutrophils # (A) 6.7 k/uL (1.3-7.7); Neutrophils % (A) 78 %; RBC 4.49 m/uL (4.30-5.90); RDW 15.8 % (11.5-15.5); WBC 8.6 k/uL (3.8-10.6); WBC (Perox) 8.43
[2017-04-17 06:40] LABS: ALT 40 U/L (21-72); AST 16 U/L (17-59); Alkaline Phosphatase 54 U/L (38-126); Anion Gap 7 mmol/L; Blood Urea Nitrogen 18 mg/dL (9-20); Calcium 10.8 mg/dL (8.4-10.2); Carbon Dioxide 29 mmol/L (22-30); Chloride 100 mmol/L (98-107); Glucose 154 mg/dL (74-99); Non-African American GFR(MDRD) >60 (>60 ml/min/1.73 sqM); Potassium 3.8 mmol/L (3.5-5.1); Sodium 136 mmol/L (137-145); Total Bilirubin 0.8 mg/dL (0.2-1.3); Total Protein 5.7 g/dL (6.3-8.2)
[2017-04-17] MEDS: LEVOTHYROXINE 25 MCG TAB PO SCH (06:40)
[2017-04-17] MEDS: CARVEDILOL 12.5 MG TAB PO SCH ×2 (07:00→17:31)
[2017-04-17] MEDS: DABIGATRAN 150 MG CAP PO SCH ×2 (07:42→20:15)
[2017-04-17] MEDS: CLOPIDOGREL 75 MG TAB PO SCH (07:42)
[2017-04-17] MEDS: AMIODARONE 200 MG TAB PO SCH ×2 (07:42→20:14)
[2017-04-17] MEDS: LOSARTAN 25 MG TAB PO SCH ×2 (07:43→20:15)
[2017-04-17] MEDS: predniSONE 20 MG TAB PO SCH (07:43)
[2017-04-17] MEDS: SPIRONOLACTONE 25 MG TAB PO SCH (07:43)
[2017-04-17] MEDS: TAMSULOSIN 0.4 MG CAP.ER.24H PO SCH ×2 (07:44→20:14)
[2017-04-17] MEDS: ASPIRIN 81 MG PO SCH (07:44)
[2017-04-17] MEDS: FUROSEMIDE 20 MG TAB PO SCH (07:44)
[2017-04-17] MEDS: AZITHROMYCIN 250 MG TAB PO SCH (08:14)
--- NOTE | 2017-04-17 11:14 | PN ---
PROGRESS NOTE Mr. Segal is an 81-year-old male with a known history of severe cardiomyopathy, chronic atrial fibrillation, who presented with non ST-segment elevation myocardial infarction, underwent stenting of his proximal right coronary artery. He had an episode of nonsustained ventricular tachycardia and was started on amiodarone. He is doing well this morning. He has not been ambulating, but his breathing has been stable. He has not had any significant ventricular tachycardia. He has no dizziness or palpitation. No syncope. He continues to be on aspirin once a day, amiodarone 400 mg twice a day, Lipitor 40 mg daily, Coreg 25 mg twice a day, Plavix 75 mg daily. Pradaxa 150 mg daily, furosemide 20 mg daily, losartan 25 mg twice a day, and spironolactone 25 mg daily. PHYSICAL EXAMINATION: Blood pressure 116/60 with a heart in the 80s. LUNGS: Clear. Heart irregular regular S1, S2. No S3 with systolic murmur. No diastolic murmur. ABDOMEN: Soft, nontender. EXTREMITIES: No edema. LAB DATA: Hemoglobin 13.9. BUN and creatinine of 18 and 1.0. Magnesium of 2. IMPRESSION: 1. Status post non ST-segment elevation myocardial infarction with stenting of the right coronary artery. 2. Severe cardiomyopathy. 3. Nonsustained ventricular tachycardia. 4. Chronic atrial fibrillation. RECOMMENDATION: From the cardiac standpoint, I will continue present therapy. Increase his level of activity today. If he remains stable, I would expect he should be able to be discharged home tomorrow. MMODL / IJN: [id number] /
[2017-04-17] MEDS ORDERED: BENZOCAINE/MENTHOL LOZENG 1 EACH LOZENGE MUCOUS MEM PRN (14:13)
--- NOTE | 2017-04-17 18:19 | P.PN ---
Subjective Progress Note Date: 04/17/17 81 years old male patient of Dr. Beckett with past medical history of chronic atrial fibrillation on Peridex, hypertension, hyperlipidemia, history of myocardial infarction, stents, COPD, chronic back pain, hypothyroidism who was transferred from [facility] after patient was found to be in atrial fibrillation and complaining of chest discomfort. Patient was initially admitted 2 days ago for complaints of shortness of breath associated with atrial fibrillation with RVR. Patient was also treated with antibiotic for concern of pneumonia. Patient left the next day against medical advise only to return after having episode of double vision and presyncope like symptoms. Patient drove himself to [facility]. Patient's troponin on admission was 2. Patient was transferred from [facility] for possible catheterization for NSTEMI patient underwent stenting of the RCA after an IFR and the patient was admitted to the hospital. 04/16: Patient is doing better today he denies any chest pain at this time he denies any shortness with decubitus of increased pain in the lower back due to his prior accident, patient wanted to be discharged home however he is not ready and stable to go home he does have nonsustained ventricular tachycardia for which he was started on amiodarone 400 mg orally twice every day, without position of his treatment including adding spironolactone 25 mg orally twice every day, patient is doing better he will hopefully will patient over the next 24 hours. 04/17: Patient is feeling weak and wanted t go home , I had a long conversation with him that he will need HHC before he gets discharged from the hospital , also he had a 14 run V-Tach so he was kept in the hospital. Objective - Vital Signs Vital signs: Vital Signs Temp 98 F 04/17/17 08:00 Pulse 80 04/17/17 08:00 Resp 18 04/17/17 08:00 BP 116/64 04/17/17 08:00 Pulse Ox 99 04/17/17 08:00 Intake & Output 04/16/17 04/17/17 04/17/17 18:59 06:59 18:59 Intake Total 720 360 Output Total 950 325 300 Balance -230 -325 60 Weight 104.6 kg Intake: Oral 720 360 Output: Urine 950 325 300 Other: Voiding Method Toilet Toilet # Voids 1 1 # Bowel Movements 0 0 - Exam - Constitutional General appearance: Present: mild distress, obese - EENT Eyes: Present: anicteric sclerae, EOMI, PERRLA, normal appearance. Absent: ptosis, scleral icterus ENT: Present: hard of hearing, NA/AT, normal oropharynx. Absent: thrush Ears: bilateral: normal - Neck Neck: Present: normal ROM. Absent: lymphadenopathy, rigidity Carotids: bilateral: upstroke delayed Thyroid: bilateral: normal size - Respiratory Respiratory: bilateral: diminished, negative: dullness, rales, rhonchi, wheezing , prolonged expiration - Cardiovascular Rhythm: regular Heart sounds: normal: S1, S2 Abnormal Heart Sounds: Present: systolic murmur. Absent: S3 Gallop, S4 Gallop - Gastrointestinal General gastrointestinal: Present: normal bowel sounds, soft, splenomegaly, tenderness, umbilical hernia, ventral hernia - Integumentary Integumentary: Present: normal, normal turgor - Neurologic Neurologic: Present: CNII-XII intact - Musculoskeletal Musculoskeletal: Present: generalized weakness, strength equal bilaterally - Psychiatric Psychiatric: Present: A&O x's 3, appropriate affect, intact judgment & insight - Labs CBC & Chem 7: 04/17/17 05:49 04/17/17 05:49 Labs: Abnormal Lab Results - Last 24 Hours (Table) 04/16/17 04/17/17 04/17/17 Range/Units 11:38 05:49 05:49 RDW 15.8 H (11.5-15.5) % Sodium 136 L (137-145) mmol/L Glucose 154 H (74-99) mg/dL POC Glucose (mg/dL) 158 H (75-99) mg/dL Calcium 10.8 H (8.4-10.2) mg/dL AST 16 L (17-59) U/L Total Protein 5.7 L (6.3-8.2) g/dL Albumin 3.2 L (3.5-5.0) g/dL 04/17/17 Range/Units 06:03 RDW (11.5-15.5) % Sodium (137-145) mmol/L Glucose (74-99) mg/dL POC Glucose (mg/dL) 136 H (75-99) mg/dL Calcium (8.4-10.2) mg/dL AST (17-59) U/L Total Protein (6.3-8.2) g/dL Albumin (3.5-5.0) g/dL Assessment and Plan Plan: Assessment and plan: 1. Non-ST elevation myocardial infarction status post left heart catheterization with stenting of the RCA after IFR. Continue patient on aspirin 81 mg orally once every day, Plavix 75 mg orally once every day, Lipitor 40 mg orally once every day, Coreg 25 mg orally twice every day. 2. Nonischemic cardiomyopathy. Continue Coreg 25 mg orally twice every day, spironolactone 25 mg orally twice every day, amiodarone 400 mg orally twice every day, losartan 25 mg orally once every day, Lasix 20 mg orally once every day. 3. Hypertension and hypertensive cardiovascular disease. Continue losartan 25 mg orally once every day, Coreg 25 mg orally twice every day. 4. Hypothyroidism. Continue Synthroid 25 g orally once every day. 5. COPD/acute bronchitis. Continue DuoNeb 3 mL nebulization 4 times every day , oxygen support, prednisone 40 mg orally once every day, Zithromax 250 mg orally once every day. 6. Hyperlipidemia. Continue Lipitor 40 mg orally once every day. 7. Chronic low back pain secondary to spondylolisthesis. Continue patient on [place] as well as baclofen 10 mg orally 3 times every day. 8. Enlarged prostate. Continue Flomax 0.4 mg orally twice every day. 9. Dementia. Continue patient on Aricept 10 mg orally bedtime. 10. Anxiety disorder. Continue Xanax as needed. 11. Chronic atrial fibrillation. Continue patient on Coreg 25 mg orally twice every day as well as Pradaxa 150 mg orally twice every day. 12. DVT prophylaxis. Continue patient on Pradaxa 150 mg orally twice every day. 13. GI prophylaxis. Stable. 14. Hopefully home over the next 24 hours.
[2017-04-17] MEDS: DONEPEZIL 10 MG TAB PO SCH (20:14)
[2017-04-17] MEDS: ATORVASTATIN 40 MG TAB PO SCH (20:15)
[2017-04-18 05:39] VITALS: RESP 16
[2017-04-18 06:38] LABS: Basophils % (A) 0 %; CH 31.6; CHCM 32.5; Eosinophils % (A) 0 %; HCT 43.5 % (39.0-53.0); HDW 2.88; HGB 14.1 gm/dL (13.0-17.5); Luc % (Auto) 1; Lymphocytes # (A) 1.3 k/uL (1.0-4.8); Lymphocytes % (A) 16 %; MCH 31.8 pg (25.0-35.0); MCHC 32.5 g/dL (31.0-37.0); MCV 97.9 fL (80.0-100.0); Mean Platelet Volume 7.2; Monocytes # (A) 0.5 k/uL (0-1.0); Monocytes % (A) 6 %; Neutrophils # (A) 6.2 k/uL (1.3-7.7); Neutrophils % (A) 76 %; RBC 4.45 m/uL (4.30-5.90); RDW 14.4 % (11.5-15.5); WBC 8.2 k/uL (3.8-10.6); WBC (Perox) 8.43
[2017-04-18] MEDS: LEVOTHYROXINE 25 MCG TAB PO SCH (06:43)
[2017-04-18] MEDS: CARVEDILOL 12.5 MG TAB PO SCH (06:43)
[2017-04-18 06:51] LABS: ALT 41 U/L (21-72); AST 17 U/L (17-59); Alkaline Phosphatase 49 U/L (38-126); Anion Gap 6 mmol/L; Blood Urea Nitrogen 18 mg/dL (9-20); Calcium 10.9 mg/dL (8.4-10.2); Carbon Dioxide 32 mmol/L (22-30); Chloride 99 mmol/L (98-107); Glucose 148 mg/dL (74-99); Magnesium 2.1 mg/dL (1.6-2.3); Non-African American GFR(MDRD) >60 (>60 ml/min/1.73 sqM); Potassium 4.1 mmol/L (3.5-5.1); Sodium 137 mmol/L (137-145); Total Bilirubin 0.5 mg/dL (0.2-1.3); Total Protein 5.6 g/dL (6.3-8.2)
[2017-04-18] MEDS: AMIODARONE 200 MG TAB PO SCH (09:27)
[2017-04-18] MEDS: CLOPIDOGREL 75 MG TAB PO SCH (09:27)
[2017-04-18] MEDS: AZITHROMYCIN 250 MG TAB PO SCH (09:27)
[2017-04-18] MEDS: TAMSULOSIN 0.4 MG CAP.ER.24H PO SCH (09:27)
[2017-04-18] MEDS: DABIGATRAN 150 MG CAP PO SCH (09:28)
[2017-04-18] MEDS: predniSONE 20 MG TAB PO SCH (09:28)
[2017-04-18] MEDS: SPIRONOLACTONE 25 MG TAB PO SCH (09:29)
[2017-04-18] MEDS: LOSARTAN 25 MG TAB PO SCH (09:29)
[2017-04-18] MEDS: FUROSEMIDE 20 MG TAB PO SCH (09:29)
[2017-04-18] MEDS: ASPIRIN 81 MG PO SCH (09:31)
[2017-04-18 10:47] VITALS: TEMP 97.2
[2017-04-18 11:57] VITALS: BP 102/80; PULSE 85
--- NOTE | 2017-04-18 12:45 | PN ---
PROGRESS NOTE Mr. Segal is an 81-year-old male who presented with symptoms of non ST-segment elevation, myocardial infarction, underwent stenting of the proximal right coronary artery. He has severe nonischemic cardiomyopathy as well as prior atrial fibrillation. He had runs of nonsustained ventricular tachycardia. He converted back to sinus mechanism yesterday. He is feeling better today, ambulating without difficulty. Denying any chest pain or dizziness. He continued to be on amiodarone 400 mg twice a day, aspirin 81 mg daily, Plavix 75 mg daily, Coreg 25 mg twice a day, Pradaxa 150 mg twice a day, Lasix 20 mg daily, losartan 25 mg twice a day, spironolactone 25 mg daily. PHYSICAL EXAMINATION: Blood pressure 115/70 with a heart rate in the 70s. LUNGS: No wheezes. HEART: Regular rate and rhythm, S1, S2. No S3 with systolic murmur. No diastolic murmur. ABDOMEN: Soft, nontender. EXTREMITIES: No edema. LAB DATA: Revealed BUN and creatinine of 18 and 0.95, potassium 4.1. IMPRESSION: 1. Severe nonischemic cardiomyopathy. 2. Status post stenting of the proximal right coronary artery, post non STEMI. 3. Atrial fibrillation, back in sinus mechanism. 4. Nonsustained ventricular tachycardia. RECOMMENDATION: His activity will be increased and if he remains stable, I will expect he should be able to be discharged home today and followed as an outpatient. BUSTER / ROMULO: [id number] /
--- NOTE | 2017-04-20 09:59 | P.DS ---
Providers Date of admission: 04/14/17 14:51 Expected date of discharge: 04/18/17 Attending physician: Osbaldo Rose Consults: 04/15/17 04:41 Consult Physician Routine Consulting Provider: Lance Gay Consult Reason/Comments: nstemi Do you want consulting provider notified?: Yes 04/15/17 12:31 Consult Physician Routine Consulting Provider: [facility] Consult Reason/Comments: Post Interventional patient Do you want consulting provider notified?: Already Contacted Primary care physician: [facility] Course: 81 years old male patient of Dr. Beckett with past medical history of chronic atrial fibrillation on Peridex, hypertension, hyperlipidemia, history of myocardial infarction, stents, COPD, chronic back pain, hypothyroidism who was transferred from [facility] after patient was found to be in atrial fibrillation and complaining of chest discomfort. Patient was initially admitted 2 days ago for complaints of shortness of breath associated with atrial fibrillation with RVR. Patient was also treated with antibiotic for concern of pneumonia. Patient left the next day against medical advise only to return after having episode of double vision and presyncope like symptoms. Patient drove himself to [facility]. Patient's troponin on admission was 2. Patient was transferred from [facility] for possible catheterization for NSTEMI patient underwent stenting of the RCA after an IFR and the patient was admitted to the hospital. 04/16: Patient is doing better today he denies any chest pain at this time he denies any shortness with decubitus of increased pain in the lower back due to his prior accident, patient wanted to be discharged home however he is not ready and stable to go home he does have nonsustained ventricular tachycardia for which he was started on amiodarone 400 mg orally twice every day, without position of his treatment including adding spironolactone 25 mg orally twice every day, patient is doing better he will hopefully will patient over the next 24 hours. 04/17: Patient is feeling weak and wanted t go home , I had a long conversation with him that he will need HHC before he gets discharged from the hospital , also he had a 14 run V-Tach so he was kept in the hospital. 04/18: Patient is in a sinus rhythm. He has been cleared for discharge by Dr. Rdz. Patient will be discharged home today in stable condition. Discharge diagnoses: 1. Non-ST elevation myocardial infarction status post left heart catheterization with stenting of the RCA after IFR. 2. Nonischemic cardiomyopathy. 3. Hypertension and hypertensive cardiovascular disease. 4. Hypothyroidism. 5. COPD with acute bronchitis. 6. Hyperlipidemia. 7. Chronic low back pain secondary to spondylolisthesis. 8. Enlarged prostate. 9. Dementia. 10. Anxiety disorder, generalized. 11. Chronic atrial fibrillation. Discharge plan: Home with [facility] Impression and plan of care have been directed as dictated by the signing physician. Chioma Foreman nurse practitioner acting as scribe for signing physician. Patient Condition at Discharge: Good Plan - Discharge Summary New Discharge Prescriptions: New Amiodarone [Cordarone] 400 mg PO BID #60 tab Aspirin 81 mg PO DAILY Carvedilol [Coreg*] 25 mg PO BID-W/MEALS #120 tab Clopidogrel [Plavix] 75 mg PO DAILY #30 tab Furosemide [Lasix] 20 mg PO DAILY #30 tab Losartan [Cozaar] 25 mg PO BID #30 tab Nitroglycerin Sl Tabs [Nitrostat] 0.4 mg SUBLINGUAL Q5M PRN #25 tab PRN Reason: Chest Pain Spironolactone [Aldactone] 25 mg PO DAILY #30 tab Continue Levothyroxine Sodium [Synthroid] 25 mcg PO DAILY Donepezil [Aricept] 10 mg PO HS Atorvastatin Calcium [Lipitor] 40 mg PO HS HYDROcodone/APAP 7.5-325MG [[place] 7.5-325] 1 tab PO TID PRN PRN Reason: Pain Baclofen [Lioresal] 10 mg PO TID PRN PRN Reason: Spasms Tamsulosin HCl [Flomax] 0.4 mg PO BID Dabigatran [Pradaxa] 150 mg PO BID Discontinued Verapamil Sr [Isoptin Sr] 180 mg PO DAILY Diltiazem Oral [Cardizem Oral] 60 mg PO TID Discharge Medication List Levothyroxine Sodium [Synthroid] 25 mcg PO DAILY 05/19/16 [History] Atorvastatin Calcium [Lipitor] 40 mg PO HS 10/25/16 [History] Donepezil [Aricept] 10 mg PO HS 10/25/16 [History] HYDROcodone/APAP 7.5-325MG [[place] 7.5-325] 1 tab PO TID PRN 11/06/16 [History] Baclofen [Lioresal] 10 mg PO TID PRN 04/10/17 [History] Tamsulosin HCl [Flomax] 0.4 mg PO BID 04/10/17 [History] Dabigatran [Pradaxa] 150 mg PO BID 04/14/17 [History] Amiodarone [Cordarone] 400 mg PO BID #60 tab 04/18/17 [Rx] Aspirin 81 mg PO DAILY 04/18/17 [Rx] Carvedilol [Coreg*] 25 mg PO BID-W/MEALS #120 tab 04/18/17 [Rx] Clopidogrel [Plavix] 75 mg PO DAILY #30 tab 04/18/17 [Rx] Furosemide [Lasix] 20 mg PO DAILY #30 tab 04/18/17 [Rx] Losartan [Cozaar] 25 mg PO BID #30 tab 04/18/17 [Rx] Nitroglycerin Sl Tabs [Nitrostat] 0.4 mg SUBLINGUAL Q5M PRN #25 tab 04/18/17 [Rx ] Spironolactone [Aldactone] 25 mg PO DAILY #30 tab 04/18/17 [Rx] Follow up Appointment(s)/Referral(s): Calixto Rdz MD [STAFF PHYSICIAN] - 1 Week (Spoke to clerical receptionist. They will call you with appointment time.) Socorro Beckett MD [REFERRING] - 1 Week (OFFICE IS CURRENTLY CLOSED. PLEASE CALL TO MAKE APPOINTMENT) Patient Instructions/Handouts: *[facility] - After Heart Catheterization - [facility] Instructions, Left Heart Catheterization (DC) Discharge Disposition: HOME SELF-CARE
== END 2017-04-18 13:32 | disposition home or self-care (01) | DRG 247 ==
LOC: 6SEL 14:51
PROVIDERS: ADMIT Internal Medicine Geriatric Medicine; ATTEND Internal Medicine Geriatric Medicine
PROC: B2111ZZ Fluoroscopy of Multiple Coronary Arteries using Low Osmolar Contrast (ICD-10-PCS; 2017-04-15)
PROC: B2151ZZ Fluoroscopy of Left Heart using Low Osmolar Contrast (ICD-10-PCS; 2017-04-15)
PROC: 4A023N7 Measurement of Cardiac Sampling and Pressure, Left Heart, Percutaneous Approach (ICD-10-PCS; principal; 2017-04-15 11:20)
PROC: 027034Z Dilation of Coronary Artery, One Artery with Drug-eluting Intraluminal Device, Percutaneous Approach (ICD-10-PCS; 2017-04-15 11:20)
DX: I21.4 Non-ST elevation (NSTEMI) myocardial infarction (principal); I47.2 Ventricular tachycardia; J44.0 Chronic obstructive pulmonary disease with (acute) lower respiratory infection; F03.90 Unspecified dementia, unspecified severity, without behavioral disturbance, psychotic disturbance, mood disturbance, and anxiety; J20.9 Acute bronchitis, unspecified; J44.1 Chronic obstructive pulmonary disease with (acute) exacerbation; I11.9 Hypertensive heart disease without heart failure; I10 Essential (primary) hypertension; I48.2 Chronic atrial fibrillation; I25.5 Ischemic cardiomyopathy; E78.5 Hyperlipidemia, unspecified; E03.9 Hypothyroidism, unspecified; K21.9 Gastro-esophageal reflux disease without esophagitis; I25.10 Atherosclerotic heart disease of native coronary artery without angina pectoris; F41.1 Generalized anxiety disorder; G89.29 Other chronic pain; M43.10 Spondylolisthesis, site unspecified; N40.0 Benign prostatic hyperplasia without lower urinary tract symptoms; Z79.82 Long term (current) use of aspirin; Z79.02 Long term (current) use of antithrombotics/antiplatelets; Z79.899 Other long term (current) drug therapy; Z79.01 Long term (current) use of anticoagulants; Z79.891 Long term (current) use of opiate analgesic; Z87.891 Personal history of nicotine dependence; Z85.118 Personal history of other malignant neoplasm of bronchus and lung; I25.2 Old myocardial infarction
CPT/HCPCS: 80048; 80053; 83735; 84484; 85025; 85610; 85730; 93458

== ENCOUNTER 2017-05-28 11:33 | Emergency (ER) | payer MEDICARE, OTHER ==
[2017-05-28 11:42] VITALS: RESP 18
--- NOTE | 2017-05-28 12:45 | ED ---
General Adult HPI - General Chief complaint: Recheck/Abnormal Lab/Rx Stated complaint: Body Ache Time Seen by Provider: 05/28/17 11:57 Source: patient Mode of arrival: wheelchair Limitations: no limitations - History of Present Illness Initial comments: 81-year-old male patient presents to the emergency department today for evaluation of generalized body aches. He states that he feels "sore" from his head to his toes. Patient states that symptoms started on Tuesday. He states he has also had a hoarse voice for the last couple of days. Patient denies any falls or injuries. Denies any upper respiratory symptoms. Patient was admitted at the beginning of April for A. fib, pulmonary edema, and had a second admission in April for an NSTEMI. Patient denies being placed on any new medications during those admissions. Patient denies any recent fever, chills , shortness breath, chest pain, abdominal pain, nausea, vomiting, diarrhea, constipation, back pain, numbness, tingling, headache, visual changes, hematuria , dysuria, urinary frequency, urinary urgency, or any other complaints. - Related Data Home Medications Medication Instructions Recorded Confirmed Levothyroxine Sodium [Synthroid] 25 mcg PO DAILY 05/19/16 05/28/17 Atorvastatin Calcium [Lipitor] 40 mg PO HS 10/25/16 05/28/17 Donepezil [Aricept] 10 mg PO HS 10/25/16 05/28/17 HYDROcodone/APAP 7.5-325MG [[place] 1 tab PO TID PRN 11/06/16 05/28/17 7.5-325] Baclofen [Lioresal] 10 mg PO TID PRN 04/10/17 05/28/17 Tamsulosin HCl [Flomax] 0.4 mg PO BID 04/10/17 05/28/17 Dabigatran [Pradaxa] 150 mg PO BID 04/14/17 05/28/17 Previous Rx's Medication Instructions Recorded Amiodarone [Cordarone] 400 mg PO BID #60 tab 04/18/17 Aspirin 81 mg PO DAILY 04/18/17 Carvedilol [Coreg*] 25 mg PO BID-W/MEALS #120 tab 04/18/17 Clopidogrel [Plavix] 75 mg PO DAILY #30 tab 04/18/17 Furosemide [Lasix] 20 mg PO DAILY #30 tab 04/18/17 Losartan [Cozaar] 25 mg PO BID #30 tab 04/18/17 Nitroglycerin Sl Tabs [Nitrostat] 0.4 mg SUBLINGUAL Q5M PRN #25 tab 04/18/17 Spironolactone [Aldactone] 25 mg PO DAILY #30 tab 04/18/17 Ibuprofen 400 mg PO Q8H #20 tablet 05/28/17 Allergies Allergy/AdvReac Type Severity Reaction Status Date / Time latex Allergy Rash/Hives Verified 05/28/17 12:52 Review of Systems ROS Statement: Those systems with pertinent positive or pertinent negative responses have been documented in the HPI. ROS Other: All systems not noted in ROS Statement are negative. Past Medical History Past Medical History: Coronary Artery Disease (CAD), Cancer, COPD, Dementia, GERD/Reflux, Hyperlipidemia, Hypertension, Osteoarthritis (OA), Prostate Disorder, Thyroid Disorder Additional Past Medical History / Comment(s): back pain due sciatica, lung cancer Last Myocardial Infarction Date:: History of Any Multi-Drug Resistant Organisms: None Reported Additional Past Surgical History / Comment(s): lung ca removed from right lung Past Anesthesia/Blood Transfusion Reactions: No Reported Reaction Past Psychological History: No Psychological Hx Reported Smoking Status: Former smoker Past Alcohol Use History: None Reported Past Drug Use History: None Reported - Past Family History Father History Unknown: Yes General Exam Limitations: no limitations General appearance: alert, in no apparent distress, other (This is a well- developed, well-nourished adult male patient in no acute distress. Vital signs upon presentation were temperature 97.9F, pulse 57, respirations 18, blood pressure 119/56, pulse ox 98% on room air.) Eye exam: Present: normal appearance, PERRL, EOMI. Absent: scleral icterus, conjunctival injection, periorbital swelling Respiratory exam: Present: normal lung sounds bilaterally. Absent: respiratory distress, wheezes, rales, rhonchi, stridor Cardiovascular Exam: Present: regular rate, normal rhythm, normal heart sounds. Absent: systolic murmur, diastolic murmur, rubs, gallop, clicks GI/Abdominal exam: Present: soft, normal bowel sounds. Absent: distended, tenderness, guarding, rebound, rigid Neurological exam: Present: alert, oriented X3, CN II-XII intact Psychiatric exam: Present: normal affect, normal mood Skin exam: Present: warm, dry, intact, normal color. Absent: rash Course Vital Signs 05/28/17 05/28/17 05/28/17 11:38 13:17 14:28 Temperature 97.9 F 97.8 F 97.6 F Pulse Rate 57 L 52 L 53 L Respiratory 18 18 18 Rate Blood Pressure 119/56 111/55 112/59 O2 Sat by Pulse 98 100 98 Oximetry Medical Decision Making - Medical Decision Making 81-year-old male patient presented today for evaluation of general body aches. Physical exam is unremarkable. Patient was neurologically intact. Labs were performed and did not show any acute abnormalities. Urine was sent for culture. I did inform patient of findings. He is requesting to go home. I instructed him to take anti-inflammatory pain medication for symptom relief. He is instructed to follow-up with his primary care physician for recheck in 1- 2 days. He is instructed to return here [place] for any new, worsening, or concerning symptoms. He verbalizes understanding and agrees with this plan. Note: Pharmacy did call after patient had been discharged they were concerned due to patient's use of pradaxa and Plavix. I informed them to not fill the Motrin prescription and to tell and to take Tylenol. - Lab Data Result diagrams: 05/28/17 12:35 05/28/17 12:35 Lab Results 05/28/17 05/28/17 05/28/17 Range/Units 12:35 12:35 14:05 WBC 3.5 L (3.8-10.6) k/uL RBC 4.36 (4.30-5.90) m/uL Hgb 13.9 (13.0-17.5) gm/dL Hct 41.9 (39.0-53.0) % MCV 96.1 (80.0-100.0) fL MCH 31.9 (25.0-35.0) pg MCHC 33.2 (31.0-37.0) g/dL RDW 16.4 H (11.5-15.5) % Plt Count 154 (150-450) k/uL Neutrophils % 57 % Lymphocytes % 30 % Monocytes % 9 % Eosinophils % 2 % Basophils % 0 % Neutrophils # 2.0 (1.3-7.7) k/uL Lymphocytes # 1.0 (1.0-4.8) k/uL Monocytes # 0.3 (0-1.0) k/uL Eosinophils # 0.1 (0-0.7) k/uL Basophils # 0.0 (0-0.2) k/uL Anisocytosis Slight Macrocytosis Slight ESR 9 (0-15) mm/hr Sodium 141 (137-145) mmol/L Potassium 3.3 L (3.5-5.1) mmol/L Chloride 106 (98-107) mmol/L Carbon Dioxide 28 (22-30) mmol/L Anion Gap 7 mmol/L BUN 9 (9-20) mg/dL Creatinine 0.90 (0.66-1.25) mg/dL Est GFR (MDRD) Af Amer >60 (>60 ml/min/1.73 sqM) Est GFR (MDRD) Non-Af >60 (>60 ml/min/1.73 sqM) Glucose 102 H (74-99) mg/dL Calcium 10.1 (8.4-10.2) mg/dL Total Bilirubin 0.9 (0.2-1.3) mg/dL AST 21 (17-59) U/L ALT 31 (21-72) U/L Alkaline Phosphatase 47 (38-126) U/L Creatine Kinase 80 (55-170) U/L Total Protein 5.9 L (6.3-8.2) g/dL Albumin 3.4 L (3.5-5.0) g/dL Urine Color Yellow Urine Appearance Clear (Clear) Urine pH 6.5 (5.0-8.0) Ur Specific [place] 1.011 (1.001-1.035) Urine Protein Negative (Negative) Urine Glucose (UA) Negative (Negative) Urine Ketones Negative (Negative) Urine Blood Trace H (Negative) Urine Nitrite Negative (Negative) Urine Bilirubin Negative (Negative) Urine Urobilinogen 8.0 (<2.0) mg/dL Ur Leukocyte Esterase Small H (Negative) Urine RBC 3 (0-5) /hpf Urine WBC 11 H (0-5) /hpf Ur Squamous Epith Cells <1 (0-4) /hpf Urine Mucus Rare H (None) /hpf Disposition Clinical Impression: Body aches Disposition: HOME SELF-CARE Condition: Good Instructions: Arthralgia (ED) Additional Instructions: Take medication as directed. Take pills with food. Follow-up with her primary care physician for recheck in 1-2 days. Return here immediately for any new, worsening, or concerning symptoms. Prescriptions: Ibuprofen 400 mg PO Q8H #20 tablet Referrals: Socorro Beckett MD [Primary Care Provider] - 1-2 days Time of Disposition: 14:27
[2017-05-28 12:49] LABS: Anisocytosis Slight; Basophils % (A) 0 %; CH 32.2; CHCM 33.8; Eosinophils # (A) 0.1 k/uL (0-0.7); Eosinophils % (A) 2 %; HCT 41.9 % (39.0-53.0); HDW 3.12; HGB 13.9 gm/dL (13.0-17.5); Luc # (Auto) 0.07; Luc % (Auto) 2; Lymphocytes % (A) 30 %; MCH 31.9 pg (25.0-35.0); MCHC 33.2 g/dL (31.0-37.0); MCV 96.1 fL (80.0-100.0); Macrocytosis Slight; Mean Platelet Volume 8.2; Monocytes # (A) 0.3 k/uL (0-1.0); Monocytes % (A) 9 %; Neutrophils % (A) 57 %; RBC 4.36 m/uL (4.30-5.90); RDW 16.4 % (11.5-15.5); WBC 3.5 k/uL (3.8-10.6); WBC (Perox) 3.47
[2017-05-28 12:59] LABS: ALT 31 U/L (21-72); AST 21 U/L (17-59); Alkaline Phosphatase 47 U/L (38-126); Anion Gap 7 mmol/L; Blood Urea Nitrogen 9 mg/dL (9-20); Calcium 10.1 mg/dL (8.4-10.2); Carbon Dioxide 28 mmol/L (22-30); Chloride 106 mmol/L (98-107); Creatine Kinase 80 U/L (55-170); Glucose 102 mg/dL (74-99); Non-African American GFR(MDRD) >60 (>60 ml/min/1.73 sqM); Potassium 3.3 mmol/L (3.5-5.1); Sodium 141 mmol/L (137-145); Total Bilirubin 0.9 mg/dL (0.2-1.3); Total Protein 5.9 g/dL (6.3-8.2)
[2017-05-28 14:04] LABS: Erythrocyte Sedimentation Rate 9 mm/hr (0-15)
[2017-05-28 14:22] LABS: Appearance,Urine Clear (Clear); Bilirubin,Urine Negative (Negative); Glucose,Urine (UA) Negative (Negative); Ketones,Urine Negative (Negative); Leukocyte Esterase,Urine Small (Negative); Mucus,Urine Rare /hpf; Nitrite,Urine Negative (Negative); PH, Urine 6.5 (5.0-8.0); Particle Count 666; Protein,Urine Negative (Negative); RBC,Urine 3 /hpf (0-5); Specific Gravity,Urine 1.011 (1.001-1.035); Squamous Epithelial Cell,Urine <1 /hpf (0-4); UA Billing (MACRO vs. MICRO) MICRO; WBC,Urine 11 /hpf (0-5)
[2017-05-28 14:29] VITALS: BP 112/59; PULSE 53; TEMP 97.6
== END 2017-05-28 14:35 | disposition home or self-care (01) ==
LOC: EC 11:33
DX: R52 Pain, unspecified (principal); I25.10 Atherosclerotic heart disease of native coronary artery without angina pectoris; E78.5 Hyperlipidemia, unspecified; I10 Essential (primary) hypertension; E07.9 Disorder of thyroid, unspecified; F03.90 Unspecified dementia, unspecified severity, without behavioral disturbance, psychotic disturbance, mood disturbance, and anxiety; Z85.118 Personal history of other malignant neoplasm of bronchus and lung; Z87.891 Personal history of nicotine dependence; Z91.040 Latex allergy status; Z79.02 Long term (current) use of antithrombotics/antiplatelets; Z79.899 Other long term (current) drug therapy
CPT/HCPCS: 36415; 80053; 81001; 82550; 85025; 85652; 99283

== ENCOUNTER 2018-03-14 22:08 | Inpatient (IN) | payer MEDICARE, OTHER ==
--- NOTE | 2018-03-14 22:38 | ED ---
General Adult HPI - General Chief complaint: Altered Mental Status Stated complaint: Infection Time Seen by Provider: 03/14/18 22:19 Source: EMS, RN notes reviewed, old records reviewed Mode of arrival: EMS Limitations: altered mental status - History of Present Illness Initial comments: This is an 82-year-old male the ER with history of dementia presenting with cough congestion fever. Patient's poor historian unable to obtain give accurate history. Patient's history is obtained from EMS and patient's staff, patient's chart - Related Data Home Medications Medication Instructions Recorded Confirmed Levothyroxine Sodium [Synthroid] 25 mcg PO DAILY@0600 05/19/16 03/14/18 Atorvastatin Calcium [Lipitor] 40 mg PO HS@209910/25/16 03/14/18 Donepezil [Aricept] 10 mg PO HS@209910/25/16 03/14/18 HYDROcodone/APAP 7.5-325MG [[place] 1 tab PO TID PRN 11/06/16 03/14/18 7.5-325] Baclofen [Lioresal] 10 mg PO TID@0600,1400,2200 04/10/17 03/14/18 Tamsulosin HCl [Flomax] 0.4 mg PO BID@0900,2100 04/10/17 03/14/18 Dabigatran [Pradaxa] 150 mg PO BID@0900,2100 04/14/17 03/14/18 Fluticasone Nasal [place] [Flonase 2 spr EA NOSTRIL BID@0900,2100 07/06/17 Nasal [place]] Potassium Chloride ER [K-Dur 20] 20 meq PO BID@0900,1700 07/06/17 03/14/18 Acetaminophen [Tylenol Arthritis] 650 mg PO Q4HR PRN 03/14/18 03/14/18 Amiodarone [Cordarone] 200 mg PO DAILY@0900 03/14/18 03/14/18 Cefuroxime Axetil [Ceftin] 500 mg PO BID@0600,1800 03/14/18 03/14/18 Clopidogrel [Plavix] 75 mg PO DAILY@0900 03/14/18 03/14/18 Ergocalciferol [Vitamin D2] 50,000 unit PO Q14D 03/14/18 03/14/18 Etidronate Disodium 200 mg PO DAILY@0900 03/14/18 03/14/18 Furosemide [Lasix] 40 mg PO BID@0600,1400 03/14/18 03/14/18 Glimepiride [Amaryl] 1 mg PO DAILY@0603/14/18 03/14/18 INSULIN LISPRO (HumaLOG) [HumaLOG] See Protocol SQ TID@0800,1200,1700 03/14/18 03/14/18 Lactulose 20 gm PO BID@0600,1700 03/14/18 03/14/18 Losartan Potassium 50 mg PO DAILY@0903/14/18 03/14/18 Melatonin 10 mg PO HS@209903/14/18 03/14/18 Menthol [Nice Cough Drops] 1 lozenge PO Q2H PRN 03/14/18 03/14/18 Metoprolol Tartrate [Lopressor] 25 mg PO BID@0900,2100 03/14/18 03/14/18 Nitroglycerin [Nitroglycerin 1 spray TRANSLINGU Q5M PRN 03/14/18 03/14/18 400MCG [place]] Primidone [Mysoline] 50 mg PO BID@0900,2100 03/14/18 03/14/18 Sennosides [Senna] 8.6 mg PO DAILY PRN 03/14/18 03/14/18 Spironolactone [Aldactone] 25 mg PO DAILY@0903/14/18 03/14/18 Allergies Allergy/AdvReac Type Severity Reaction Status Date / Time latex Allergy Rash/Hives Verified 03/14/18 22:18 Review of Systems ROS Statement: Those systems with pertinent positive or pertinent negative responses have been documented in the HPI. ROS Other: All systems not noted in ROS Statement are negative. Past Medical History Past Medical History: Atrial Fibrillation, Coronary Artery Disease (CAD), Cancer , Chest Pain / Angina, COPD, Dementia, GERD/Reflux, Hyperlipidemia, Hypertension , Osteoarthritis (OA), Prostate Disorder, Thyroid Disorder Additional Past Medical History / Comment(s): back pain due sciatica, rt lung cancer, kidney stone, nstemi Last Myocardial Infarction Date:: History of Any Multi-Drug Resistant Organisms: None Reported Past Surgical History: Heart Catheterization With Stent Additional Past Surgical History / Comment(s): lung ca removed from right lung( lobectomy), necksx d/t to fx, "stent rt groin" Past Anesthesia/Blood Transfusion Reactions: No Reported Reaction Date of Last Stent Placement:: 2016 Past Psychological History: No Psychological Hx Reported Smoking Status: Former smoker - Past Family History Father History Unknown: Yes Mother History Unknown: Yes General Exam Limitations: altered mental status General appearance: alert, in no apparent distress, lethargic, in distress Head exam: Present: atraumatic, normocephalic, normal inspection Eye exam: Present: normal appearance, PERRL, EOMI. Absent: scleral icterus, conjunctival injection, periorbital swelling ENT exam: Present: normal exam, mucous membranes moist Neck exam: Present: normal inspection. Absent: tenderness, meningismus, lymphadenopathy Respiratory exam: Present: normal lung sounds bilaterally, rhonchi, accessory muscle use, decreased breath sounds, prolonged expiratory. Absent: respiratory distress, wheezes, rales, stridor Cardiovascular Exam: Present: normal rhythm, tachycardia, normal heart sounds. Absent: systolic murmur, diastolic murmur, rubs, gallop, clicks GI/Abdominal exam: Present: soft, normal bowel sounds. Absent: distended, tenderness, guarding, rebound, rigid Extremities exam: Present: normal inspection, full ROM, normal capillary refill. Absent: tenderness, pedal edema, joint swelling, calf tenderness Back exam: Present: normal inspection Neurological exam: Present: alert, oriented X3, CN II-XII intact Psychiatric exam: Present: normal affect, normal mood Skin exam: Present: warm, dry, intact, normal color. Absent: rash Course Vital Signs 03/14/18 03/14/18 03/14/18 22:09 23:10 23:19 Temperature 100.3 F H Pulse Rate 86 100 69 Respiratory 18 20 20 Rate Blood Pressure 85/52 89/53 105/56 O2 Sat by Pulse 96 99 99 Oximetry 03/14/18 23:27 Temperature Pulse Rate Respiratory 20 Rate Blood Pressure O2 Sat by Pulse Oximetry EKG Findings - EKG Comments: EKG Findings:: EKG shows sinus rhythm rate of 79, W[place] 228, QRS 160, QTc 467 Medical Decision Making - Medical Decision Making 82-year-old male the ER for evaluation of altered mental state positive fever positive septic infection. Patient will be admitted for IV antibiotics. - Lab Data Result diagrams: 03/14/18 22:35 03/14/18 22:35 Lab Results 03/14/18 03/14/18 03/14/18 Range/Units 22:35 22:35 22:35 WBC 15.4 H (3.8-10.6) k/uL RBC 3.77 L (4.30-5.90) m/uL Hgb 10.2 L (13.0-17.5) gm/dL Hct 33.0 L (39.0-53.0) % MCV 87.7 (80.0-100.0) fL MCH 27.0 (25.0-35.0) pg MCHC 30.8 L (31.0-37.0) g/dL RDW 14.0 (11.5-15.5) % Plt Count 252 (150-450) k/uL Neutrophils % 88 % Lymphocytes % 6 % Monocytes % 5 % Eosinophils % 0 % Basophils % 0 % Neutrophils # 13.5 H (1.3-7.7) k/uL Lymphocytes # 0.9 L (1.0-4.8) k/uL Monocytes # 0.8 (0-1.0) k/uL Eosinophils # 0.0 (0-0.7) k/uL Basophils # 0.0 (0-0.2) k/uL Hypochromasia Marked Poikilocytosis Slight PT (9.0-12.0) sec INR (<1.2) APTT (22.0-30.0) sec Sodium 133 L (137-145) mmol/L Potassium 5.0 (3.5-5.1) mmol/L Chloride 100 (98-107) mmol/L Carbon Dioxide 25 (22-30) mmol/L Anion Gap 8 mmol/L BUN 24 H (9-20) mg/dL Creatinine 1.40 H (0.66-1.25) mg/dL Est GFR (CKD-EPI)AfAm 54 (>60 ml/min/1.73 sqM) Est GFR (CKD-EPI)NonAf 47 (>60 ml/min/1.73 sqM) Glucose 236 H (74-99) mg/dL Plasma Lactic Acid Soto (0.7-2.0) mmol/L Calcium 11.9 H (8.4-10.2) mg/dL Phosphorus 3.2 (2.5-4.5) mg/dL Magnesium 1.8 (1.6-2.3) mg/dL Total Bilirubin 0.6 (0.2-1.3) mg/dL AST 22 (17-59) U/L ALT 30 (21-72) U/L Alkaline Phosphatase 55 (38-126) U/L Total Creatine Kinase 79 (55-170) U/L CK-MB (CK-2) <0.2 (0.0-2.4) ng/mL CK-MB (CK-2) Rel Index Troponin I <0.012 (0.000-0.034) ng/mL Total Protein 6.4 (6.3-8.2) g/dL Albumin 3.5 (3.5-5.0) g/dL 03/14/18 03/14/18 Range/Units 22:35 22:35 WBC (3.8-10.6) k/uL RBC (4.30-5.90) m/uL Hgb (13.0-17.5) gm/dL Hct (39.0-53.0) % MCV (80.0-100.0) fL MCH (25.0-35.0) pg MCHC (31.0-37.0) g/dL RDW (11.5-15.5) % Plt Count (150-450) k/uL Neutrophils % % Lymphocytes % % Monocytes % % Eosinophils % % Basophils % % Neutrophils # (1.3-7.7) k/uL Lymphocytes # (1.0-4.8) k/uL Monocytes # (0-1.0) k/uL Eosinophils # (0-0.7) k/uL Basophils # (0-0.2) k/uL Hypochromasia Poikilocytosis PT 12.2 H (9.0-12.0) sec INR 1.3 H (<1.2) APTT 33.8 H (22.0-30.0) sec Sodium (137-145) mmol/L Potassium (3.5-5.1) mmol/L Chloride (98-107) mmol/L Carbon Dioxide (22-30) mmol/L Anion Gap mmol/L BUN (9-20) mg/dL Creatinine (0.66-1.25) mg/dL Est GFR (CKD-EPI)AfAm (>60 ml/min/1.73 sqM) Est GFR (CKD-EPI)NonAf (>60 ml/min/1.73 sqM) Glucose (74-99) mg/dL Plasma Lactic Acid Soto 2.1 H* (0.7-2.0) mmol/L Calcium (8.4-10.2) mg/dL Phosphorus (2.5-4.5) mg/dL Magnesium (1.6-2.3) mg/dL Total Bilirubin (0.2-1.3) mg/dL AST (17-59) U/L ALT (21-72) U/L Alkaline Phosphatase (38-126) U/L Total Creatine Kinase (55-170) U/L CK-MB (CK-2) (0.0-2.4) ng/mL CK-MB (CK-2) Rel Index Troponin I (0.000-0.034) ng/mL Total Protein (6.3-8.2) g/dL Albumin (3.5-5.0) g/dL - Radiology Data Radiology results: report reviewed (Chest x-ray is positive for pneumonia), image reviewed Disposition Clinical Impression: Altered mental status, Febrile illness, acute, Dehydration, Renal insufficiency , Nosocomial pneumonia Disposition: ADMITTED IP TO THIS HOSP Condition: Fair Is patient prescribed a controlled substance at d/c from ED?: No Referrals: Katharine Israel MD [Primary Care Provider] - 1-2 days
[2018-03-14] MEDS ORDERED: PIPERACILLIN-TAZOBACTAM 3.375 GM in DEXTROSE/WATER 1 50ML.BAG IVPB STA (22:40)
[2018-03-14] MEDS ORDERED: IBUPROFEN 600 MG TAB PO STA (22:40)
[2018-03-14] MEDS ORDERED: ACETAMINOPHEN TAB 500 MG TAB PO STA (22:40)
[2018-03-14] MEDS ORDERED: SODIUM CHLORIDE 0.9% 1,000 ML IV STA ×2 (22:40)
[2018-03-14 23:00] LABS: Basophils % (A) 0 %; Eosinophils % (A) 0 %; HGB 10.2 gm/dL (13.0-17.5); Hypochromasia Marked; Lymphocytes # (A) 0.9 k/uL (1.0-4.8); Lymphocytes % (A) 6 %; MCHC 30.8 g/dL (31.0-37.0); MCV 87.7 fL (80.0-100.0); Mean Platelet Volume 7.4; Monocytes # (A) 0.8 k/uL (0-1.0); Monocytes % (A) 5 %; Neutrophils # (A) 13.5 k/uL (1.3-7.7); Neutrophils % (A) 88 %; Platelet Count 252 k/uL (150-450); Poikilocytosis Slight; RBC 3.77 m/uL (4.30-5.90); WBC 15.4 k/uL (3.8-10.6)
[2018-03-14 23:03] LABS: INR 1.3 (<1.2); Partial Thromboplastin Time 33.8 sec (22.0-30.0); Prothrombin Time 12.2 sec (9.0-12.0)
[2018-03-14 23:12] LABS: Albumin 3.5 g/dL (3.5-5.0); Calcium 11.9 mg/dL (8.4-10.2); Magnesium 1.8 mg/dL (1.6-2.3); Phosphorus 3.2 mg/dL (2.5-4.5); Total Bilirubin 0.6 mg/dL (0.2-1.3); Total Protein 6.4 g/dL (6.3-8.2)
[2018-03-14 23:23] LABS: Creatine Kinase 79 U/L (55-170)
[2018-03-14 23:36] LABS: Creatine Kinase MB <0.2 ng/mL (0.0-2.4); Troponin I <0.012 ng/mL (0.000-0.034)
[2018-03-14] MEDS ORDERED: LEVOFLOXACIN 750MG-D5W PMX 750 MG in DEXTROSE/WATER 1 150ML.BAG IVPB STA (23:53)
[2018-03-15] MEDS: SODIUM CHLORIDE 0.9% 1,000 ML IV SCH ×3 (00:08→18:32)
[2018-03-15] MEDS: SODIUM CHLORIDE 0.9% 500 ML IV SCH ×3 (00:08→01:45)
--- NOTE | 2018-03-15 00:13 | XR ---
EXAMINATION TYPE: XR chest 2V DATE OF EXAM: 03/14/2018 COMPARISON: 07/06/2017 HISTORY: Fever and cough TECHNIQUE: Frontal and lateral views of the chest are obtained. FINDINGS: There is poor inspiration. There are calcified granulomata at the pulmonary dafne. Thoracic aorta is atheromatous. There is no heart failure. There is crowding of the lung markings. There are chest leads. IMPRESSION: Poor inspiration that is slightly worse than last exam. No gross heart failure. 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
[2018-03-15 00:16] LABS: Amorphous Sediment,Urine Occasional /hpf; Appearance,Urine Cloudy (Clear); Bacteria,Urine Rare /hpf; Bilirubin,Urine Negative (Negative); Blood,Urine Moderate (Negative); Color,Urine Yellow; Glucose,Urine (UA) Negative (Negative); Hyaline Casts,Urine 130 /lpf (0-2); Ketones,Urine Negative (Negative); Leukocyte Esterase,Urine Large (Negative); Mucus,Urine Rare /hpf; Nitrite,Urine Negative (Negative); Protein,Urine 1+ (Negative); RBC,Urine 9 /hpf (0-5); Specific Gravity,Urine 1.017 (1.001-1.035); WBC,Urine 58 /hpf (0-5)
[2018-03-15] MEDS ORDERED: HYDROcodone/APAP 7.5-325MG 1 EACH TAB PO PRN (07:02)
[2018-03-15] MEDS: PIPERACILLIN-TAZOBACTAM 3.375 GM in DEXTROSE/WATER 1 50ML.BAG IVPB SCH ×2 (07:26→15:10)
[2018-03-15 07:56] LABS: Glucose,Whole Blood 104 mg/dL (75-99)
[2018-03-15] MEDS: INSULIN ASPART 100 UNIT/ML 1 ML 10 ML VIAL SQ SCH ×4 (08:27→21:07)
[2018-03-15] MEDS ORDERED: ENOXAPARIN 40 MG/0.4 ML SYRINGE SQ SCH (09:00)
[2018-03-15] MEDS ORDERED: PANTOPRAZOLE 40 MG/10 ML VIAL IV SCH (09:00)
[2018-03-15] MEDS ORDERED: LOSARTAN 50 MG TAB PO SCH (09:00)
[2018-03-15] MEDS: [UNRECOGNIZED DRUG - OTHER] PO SCH (09:19)
[2018-03-15] MEDS: SPIRONOLACTONE 25 MG TAB PO SCH ×2 (09:20→09:37)
[2018-03-15] MEDS: PRIMIDONE 50 MG TAB PO SCH ×2 (09:21→20:18)
[2018-03-15] MEDS: METOPROLOL TARTRATE 25 MG TAB PO SCH ×3 (09:21→20:16)
[2018-03-15] MEDS: TAMSULOSIN 0.4 MG CAP.ER.24H PO SCH ×2 (09:21→20:16)
[2018-03-15] MEDS: DABIGATRAN 150 MG CAP PO SCH ×2 (09:21→20:17)
[2018-03-15] MEDS: POTASSIUM CHLORIDE ER 20 MEQ TAB.ER PO SCH ×2 (09:22→18:27)
[2018-03-15] MEDS: AMIODARONE 200 MG TAB PO SCH ×2 (09:23→09:32)
[2018-03-15] MEDS: CLOPIDOGREL 75 MG TAB PO SCH (09:33)
[2018-03-15] MEDS: FLUTICASONE 50MCG/SPRAY NASAL 16GM EA NOSTRIL SCH ×2 (09:41→20:18)
[2018-03-15 10:04] LABS: Basophils % (A) 0 %; Eosinophils # (A) 0.1 k/uL (0-0.7); Eosinophils % (A) 1 %; HCT 28.3 % (39.0-53.0); HGB 8.7 gm/dL (13.0-17.5); Hypochromasia Marked; Lymphocytes # (A) 1.1 k/uL (1.0-4.8); Lymphocytes % (A) 11 %; MCH 27.1 pg (25.0-35.0); MCHC 30.8 g/dL (31.0-37.0); MCV 88.1 fL (80.0-100.0); Mean Platelet Volume 8.3; Monocytes # (A) 0.6 k/uL (0-1.0); Monocytes % (A) 6 %; Neutrophils # (A) 7.8 k/uL (1.3-7.7); Neutrophils % (A) 79 %; Platelet Count 196 k/uL (150-450); RBC 3.21 m/uL (4.30-5.90); RDW 14.2 % (11.5-15.5); WBC 9.8 k/uL (3.8-10.6)
[2018-03-15 10:17] LABS: Albumin 2.8 g/dL (3.5-5.0); Calcium 10.6 mg/dL (8.4-10.2); Potassium 4.3 mmol/L (3.5-5.1); Total Bilirubin 0.4 mg/dL (0.2-1.3); Total Protein 5.5 g/dL (6.3-8.2)
--- NOTE | 2018-03-15 11:16 | P.HPIM ---
History of Present Illness H&P Date: 03/15/18 This is an 82-year-old male patient of Dr. Israel with a past medical history of CAD s/p stent RCA April 2017, hypertension, hyperlipidemia, paroxysmal atrial fibrillation, GERD, chronic kidney disease, lung cancer s/p right lobectomy. Patient was transferred from [facility] in 2016 underwent stenting of the RCA , had non sustained V tach during that admission comes in this time with complaints of cough congestion and fever for last few days. Patient is a poor historian, and nobody is available at bedside to provide any history. He does appear very weak and is confused and lethargic and dozes off to sleep within few minutes of conversation. Patient had a temp of 100.3 on admission, blood pressure 85/52, pulse of 86 respiratory rate 20. EKG was obtained which showed sinus rhythm with a QTC of 469. Chest x-ray was obtained which suggested old granulomatous disease with poor inspiration effort and crowding of the lung parenchyma. Repeat chest x-ray ordered this morning. Urinalysis suggestive signs of infection with a WBC 58, positive leukocyte esterase and nitrates and hyaline cast. Patient received 1 L of IV fluid and was initiated on 100 mL/h of normal saline. Lactic acid on admission was 2. one which improved to 1.6 including resuscitation. Labs including CBC suggested leukocyte of 15.5, creatinine 1.4, glucose 236, calcium 11.9, troponin 1 is negative. Patient appears dehydrated on the labs are being continued on 75 mL/h of IV fluids. Antibiotics initiated in the form of Zosyn and levofloxacin. Review of Systems Constitutional: Reports anorexia, Reports daytime sleepiness, Reports fatigue, Reports fever, Reports lethargy, Reports poor appetite, Reports weakness Eyes: denies blurred vision, denies decreased vision, denies diplopia, denies dry eye Ears: deny: decreased hearing Ears, nose, mouth and throat: Denies ant. neck pain, Denies dental pain, Denies dysphagia, Denies epistaxis, Denies headache, Denies hoarseness, Denies nasal congestion, Denies nasal discharge, Denies nose pain, Denies post-nasal drip Cardiovascular: Reports decreased exercise tolerance, Reports dyspnea on exertion, Reports shortness of breath, Denies chest pain, Denies irregular heart beat, Denies leg edema, Denies lightheadedness, Denies orthopnea, Denies palpitations, Denies syncope Respiratory: Reports congestion, Reports cough, Reports cough with sputum, Reports dyspnea, Reports excessive sputum, Denies home oxygen, Denies wheezing Gastrointestinal: Reports constipation, Denies bloating, Denies BRBPR, Denies change in bowel habits, Denies nausea, Denies vomiting Genitourinary: Denies dysuria, Denies flank pain, Denies urinary frequency, Denies urinary hesitancy Musculoskeletal: Reports limitation of motion, Denies arm numbness/tingling, Denies atrophy, Denies fractures, Denies frequent falls Musculoskeletal: absent: ankle pain, elbow pain, foot pain Integumentary: Denies change in hair/nails, Denies foot/leg ulcers, Denies lesions, Denies rash Neurological: Reports confusion, Reports gait dysfunction, Denies ataxia, Denies change in speech, Denies convulsions, Denies double vision, Denies motor disturbance, Denies numbness, Denies paralysis, Denies paresthesias, Denies seizures Psychiatric: Reports change in appetite, Reports change in sleep habits, Reports disorientation, Denies anxiety attacks Endocrine: Denies excessive sweating, Denies excessive thirst, Denies fatigue Past Medical History Past Medical History: Atrial Fibrillation, Coronary Artery Disease (CAD), Cancer , Chest Pain / Angina, COPD, Dementia, GERD/Reflux, Hyperlipidemia, Hypertension , Osteoarthritis (OA), Prostate Disorder, Thyroid Disorder Additional Past Medical History / Comment(s): back pain due sciatica, rt lung cancer, kidney stone, nstemi Last Myocardial Infarction Date:: History of Any Multi-Drug Resistant Organisms: None Reported Past Surgical History: Heart Catheterization With Stent Additional Past Surgical History / Comment(s): lung ca removed from right lung( lobectomy), necksx d/t to fx, "stent rt groin" Past Anesthesia/Blood Transfusion Reactions: No Reported Reaction Date of Last Stent Placement:: 2016 Past Psychological History: No Psychological Hx Reported Additional Psychological History / Comment(s): pt stated he lives alone inown home, still drives. Smoking Status: Former smoker Past Alcohol Use History: None Reported, Occasional Additional Past Alcohol Use History / Comment(s): started smoking 1952 and quit 1967, past occ alcohol -none now Past Drug Use History: None Reported - Past Family History Father History Unknown: Yes Mother History Unknown: Yes Medications and Allergies Home Medications Medication Instructions Recorded Confirmed Type Levothyroxine Sodium [Synthroid] 25 mcg PO DAILY@0600 05/19/16 03/14/18 History Atorvastatin Calcium [Lipitor] 40 mg PO HS@209910/25/16 03/14/18 History Donepezil [Aricept] 10 mg PO HS@209910/25/16 03/14/18 History HYDROcodone/APAP 7.5-325MG [Treichlers 1 tab PO TID PRN 11/06/16 03/14/18 History 7.5-325] Baclofen [Lioresal] 10 mg PO TID@0600,1400,2200 04/10/17 03/14/18 History Tamsulosin HCl [Flomax] 0.4 mg PO BID@0900,2100 04/10/17 03/14/18 History Dabigatran [Pradaxa] 150 mg PO BID@0900,2100 04/14/17 03/14/18 History Fluticasone Nasal [place] [Flonase 2 spr EA NOSTRIL BID@0900,2100 07/06/17 History Nasal [place]] Potassium Chloride ER [K-Dur 20] 20 meq PO BID@0900,1700 07/06/17 03/14/18 History Acetaminophen [Tylenol Arthritis] 650 mg PO Q4HR PRN 03/14/18 03/14/18 History Amiodarone [Cordarone] 200 mg PO DAILY@0900 03/14/18 03/14/18 History Cefuroxime Axetil [Ceftin] 500 mg PO BID@0600,1800 03/14/18 03/14/18 History Clopidogrel [Plavix] 75 mg PO DAILY@89903/14/18 03/14/18 History Ergocalciferol [Vitamin D2] 50,000 unit PO Q14D 03/14/18 03/14/18 History Etidronate Disodium 200 mg PO DAILY@89903/14/18 03/14/18 History Furosemide [Lasix] 40 mg PO BID@0600,1400 03/14/18 03/14/18 History Glimepiride [Amaryl] 1 mg PO DAILY@0600 03/14/18 03/14/18 History INSULIN LISPRO (HumaLOG) [HumaLOG] See Protocol SQ TID@0800,1200,1700 03/14/18 03/14/18 History Lactulose 20 gm PO BID@0600,1700 03/14/18 03/14/18 History Losartan Potassium 50 mg PO DAILY@89903/14/18 03/14/18 History Melatonin 10 mg PO HS@209903/14/18 03/14/18 History Menthol [Nice Cough Drops] 1 lozenge PO Q2H PRN 03/14/18 03/14/18 History Metoprolol Tartrate [Lopressor] 25 mg PO BID@0900,209903/14/18 03/14/18 History Nitroglycerin [Nitroglycerin 1 spray TRANSLINGU Q5M PRN 03/14/18 03/14/18 History 400MCG [place]] Primidone [Mysoline] 50 mg PO BID@0900,209903/14/18 03/14/18 History Sennosides [Senna] 8.6 mg PO DAILY PRN 03/14/18 03/14/18 History Spironolactone [Aldactone] 25 mg PO DAILY@89903/14/18 03/14/18 History Allergies Allergy/AdvReac Type Severity Reaction Status Date / Time latex Allergy Rash/Hives Verified 03/14/18 22:18 Physical Exam Vitals: Vital Signs Temp Pulse Pulse Resp BP BP Pulse Ox 03/15/18 06:42 97.7 F 64 16 96/48 100 03/15/18 01:47 75 18 03/15/18 01:10 98 F 92 22 107/63 100 03/15/18 00:36 99.1 F 60 18 109/53 100 03/15/18 00:08 99 F 62 18 97/54 100 03/14/18 23:27 20 03/14/18 23:19 69 20 105/56 99 03/14/18 23:10 100 20 89/53 99 03/14/18 22:09 100.3 F H 86 18 85/52 96 Intake and Output 03/14/18 03/15/18 03/15/18 22:59 06:59 14:59 Intake Total 1849 Output Total 25 Balance 1824 Intake: Intake, IV Titration 1849 Amount Levofloxacin 750Mg-D5w 100 Pmx 750 mg In Dextrose/ Water 1 150ml.bag @ 100 mls/hr IVPB ONCE STA Rx#: [id number] Sodium Chloride 0.9% 1, 200 000 ml @ 100 mls/hr IV . Q10H STA Rx#:[id number] Sodium Chloride 0.9% 1, 500 000 ml @ 150 mls/hr IV . Q6H40M JUSTICE Rx#:[id number] Sodium Chloride 0.9% 1, 999 000 ml @ 999 mls/hr IV . Q1H1M STA Rx#:[id number] Sodium Chloride 0.9% 500 50 ml @ 1000 mls/hr IV Q35M JUSTICE Rx#:[id number] Output: Urine 25 Straight 25 Other: Voiding Method Diaper Incontinent Weight 113.398 kg 114.5 kg - Constitutional General appearance: mild distress, obese - EENT Eyes: no abnormal pupil, no anicteric sclerae, EOMI, PERRLA Ears: bilateral: normal - Neck Neck: no lymphadenopathy, normal ROM Carotids: bilateral: upstroke normal - Respiratory Respiratory: bilateral: diminished, dullness, negative: CTA, rales, rhonchi, wheezing, prolonged expiration - Cardiovascular Rhythm: regular Heart sounds: normal: S1, S2 Abnormal Heart Sounds: systolic murmur, no rub, no S3 Gallop, no S4 Gallop, no click - Gastrointestinal General gastrointestinal: no distended, normal bowel sounds, soft, no tenderness - Integumentary Integumentary: no calor, no cellulitis, no cyanotic, no decreased turgor, normal , normal turgor - Neurologic Neurologic: CNII-XII intact - Musculoskeletal Musculoskeletal: generalized weakness, strength equal bilaterally - Psychiatric Psychiatric: no A&O x's 3 (Patient is drowsy oriented 1), no intact judgment & insight Results CBC & Chem 7: 03/15/18 09:38 03/15/18 09:38 Labs: Abnormal Lab Results - Last 24 Hours (Table) 03/14/18 03/14/18 03/14/18 Range/Units 22:35 22:35 22:35 WBC 15.4 H (3.8-10.6) k/uL RBC 3.77 L (4.30-5.90) m/uL Hgb 10.2 L (13.0-17.5) gm/dL Hct 33.0 L (39.0-53.0) % MCHC 30.8 L (31.0-37.0) g/dL Neutrophils # 13.5 H (1.3-7.7) k/uL Lymphocytes # 0.9 L (1.0-4.8) k/uL PT (9.0-12.0) sec INR (<1.2) APTT (22.0-30.0) sec Sodium 133 L (137-145) mmol/L BUN 24 H (9-20) mg/dL Creatinine 1.40 H (0.66-1.25) mg/dL Glucose 236 H (74-99) mg/dL POC Glucose (mg/dL) (75-99) mg/dL Plasma Lactic Acid Soto 2.1 H* (0.7-2.0) mmol/L Calcium 11.9 H (8.4-10.2) mg/dL Urine Protein (Negative) Urine Blood (Negative) Ur Leukocyte Esterase (Negative) Urine RBC (0-5) /hpf Urine WBC (0-5) /hpf Urine WBC Clumps (None) /hpf Amorphous Sediment (None) /hpf Urine Bacteria (None) /hpf Hyaline Casts (0-2) /lpf Urine Mucus (None) /hpf 03/14/18 03/14/18 03/15/18 Range/Units 22:35 23:59 07:46 WBC (3.8-10.6) k/uL RBC (4.30-5.90) m/uL Hgb (13.0-17.5) gm/dL Hct (39.0-53.0) % MCHC (31.0-37.0) g/dL Neutrophils # (1.3-7.7) k/uL Lymphocytes # (1.0-4.8) k/uL PT 12.2 H (9.0-12.0) sec INR 1.3 H (<1.2) APTT 33.8 H (22.0-30.0) sec Sodium (137-145) mmol/L BUN (9-20) mg/dL Creatinine (0.66-1.25) mg/dL Glucose (74-99) mg/dL POC Glucose (mg/dL) 104 H (75-99) mg/dL Plasma Lactic Acid Soto (0.7-2.0) mmol/L Calcium (8.4-10.2) mg/dL Urine Protein 1+ H (Negative) Urine Blood Moderate H (Negative) Ur Leukocyte Esterase Large H (Negative) Urine RBC 9 H (0-5) /hpf Urine WBC 58 H (0-5) /hpf Urine WBC Clumps Many H (None) /hpf Amorphous Sediment Occasional H (None) /hpf Urine Bacteria Rare H (None) /hpf Hyaline Casts 130 H (0-2) /lpf Urine Mucus Rare H (None) /hpf Thrombosis Risk Factor Assmnt - DVT/VTE Prophylaxis DVT/VTE Prophylaxis: Pharmacologic Prophylaxis ordered - Choose All That Apply Any of the Below Risk Factors Present?: Yes Each Factor Represents 1 point: Acute CA, Medical pt on bed rest, Obesity (BMI > 25), Sepsis (< 1month) Other Risk Factors: Yes Each Risk Factor Represents 2 Points: Patient confined to bed Each Risk Factor Represents 3 Points: Age 75 years or older Other congenital or acquired thrombophilia - If yes, enter type in comment: No Thrombosis Risk Factor Assessment Total Risk Factor Score: 9 Thrombosis Risk Factor Assessment Level: High Risk Assessment and Plan Plan: #1 acute shortness of breath with cough production. Differential include acute CHF exacerbation versus community-acquired pneumonia as patient had an episode of fever. Chest x-ray didn't show any consolidation but did have central lung parenchyma that appeared Congested. BNP ordered stopped repeat echocardiogram. Previous echocardiogram suggested EF for 20-25%. #2 sepsis likely secondary to TIA about the differential included community- acquired pneumonia. Chest x-ray ordered continue Zosyn. Urine culture pending blood culture ordered. Lactic acid 2.1 on admission came down to 1.6. Patient is confused likely secondary to sepsis and dehydration #3 dehydration. Continue fluids at 50 mL per hour gentle hydration as patient has a history of CHF. Status. 1 L of IV fluids #4 history of coronary artery disease status post stenting of RCA in April 2017 - Continue Coreg, Lipitor, aspirin, Plavix - continue telemetry #5 ischemic cardiomyopathy with EF of 20% as reported by the ventriculogram with BNP pending - Continue metoprolol , Lipitor, aspirin -Blood pressure on the lower side, hold losartan, spironolactone and Lasix - Continue I&O's monitoring - Daily weights #6 chronic atrial fibrillation -Continue rate control with metoprolol twice a day - Continue oral anticoagulation with PRADEXA - Patient will be on triple coagulation may need adjustment of the anticoagulation for increased risk of bleeding #7 hypertension continue metoprolol 25 mg twice a day and hold losartan, spironolactone and Lasix for low blood pressure #8 degenerative disc disease continue Tylenol 3 and baclofen #9 hyperlipidemia continue Lipitor #10 dementia continue on donepezil #11 hypothyroidism continue home Synthyroid #12 BPH continue Flomax BID #13 acute kidney injury likely secondary from dehydration. Continue fluids at 50 mL per hour #14 DVT prophylaxis- continue pradexa #15 type 2 diabetes hold Amaryl continue insulin sliding scale while in the hospital #16 hypercalcemia PTH ordered. Currently on bisphosphonate etidronate for osteoporosis #13 CODE STATUS full code Disposition-patient be hospital 1-2 inpatient nights for stabilization
[2018-03-15 11:40] LABS: Glucose,Whole Blood 181 mg/dL (75-99)
--- NOTE | 2018-03-15 12:08 | XR ---
EXAMINATION TYPE: XR chest 1V portable DATE OF EXAM: 03/15/2018 COMPARISON: 03/14/2018 HISTORY: Cough TECHNIQUE: Single frontal view of the chest is obtained. FINDINGS: Elevated right hemidiaphragm with limited inspiration. Atherosclerotic change aorta. Right -sided subsegmental consolidation. Prominence the upper mediastinum on the right. Suspect calcified l ymph nodes in the left hilum. Underlying COPD suspected. No pneumothorax. Surgical clips in the right hilum noted. IMPRESSION: 1. Persistent elevated right hemidiaphragm suspected right basilar atelectasis or infiltrate with tin y effusion.
[2018-03-15] MEDS: BACLOFEN 10 MG TAB PO SCH ×2 (13:32→20:15)
[2018-03-15] MEDS ORDERED: FUROSEMIDE 40 MG TAB PO SCH (14:00)
[2018-03-15 16:09] LABS: Hemoglobin A1C 7.7 % (4.0-6.0)
[2018-03-15 17:36] LABS: Glucose,Whole Blood 148 mg/dL (75-99)
[2018-03-15] MEDS: LACTULOSE 20 GM/30 ML CUP PO SCH (18:27)
[2018-03-15] MEDS: DONEPEZIL 10 MG TAB PO SCH (20:16)
[2018-03-15] MEDS: ATORVASTATIN 40 MG TAB PO SCH (20:16)
[2018-03-15] MEDS: MELATONIN 5 MG TABLET PO SCH (20:17)
[2018-03-15 20:54] LABS: Glucose,Whole Blood 214 mg/dL (75-99)
[2018-03-16] MEDS: PIPERACILLIN-TAZOBACTAM 3.375 GM in DEXTROSE/WATER 1 50ML.BAG IVPB SCH ×4 (00:20→22:17)
[2018-03-16] MEDS: SODIUM CHLORIDE 0.9% 1,000 ML IV SCH (00:22)
[2018-03-16] MEDS: LACTULOSE 20 GM/30 ML CUP PO SCH ×2 (05:58→15:42)
[2018-03-16] MEDS: LEVOTHYROXINE 25 MCG TAB PO SCH (05:59)
[2018-03-16] MEDS ORDERED: GLIMEPIRIDE 1 MG TAB PO SCH (06:00)
[2018-03-16] MEDS: BACLOFEN 10 MG TAB PO SCH ×3 (06:35→21:36)
[2018-03-16 07:42] LABS: Glucose,Whole Blood 124 mg/dL (75-99)
[2018-03-16] MEDS: INSULIN ASPART 100 UNIT/ML 1 ML 10 ML VIAL SQ SCH ×4 (07:49→21:36)
[2018-03-16 07:50] LABS: Basophils % (A) 0 %; Eosinophils # (A) 0.5 k/uL (0-0.7); Eosinophils % (A) 5 %; HCT 28.5 % (39.0-53.0); HGB 8.8 gm/dL (13.0-17.5); Hypochromasia Marked; Lymphocytes # (A) 1.2 k/uL (1.0-4.8); Lymphocytes % (A) 13 %; MCH 27.7 pg (25.0-35.0); MCV 89.2 fL (80.0-100.0); Mean Platelet Volume 7.5; Monocytes # (A) 0.4 k/uL (0-1.0); Monocytes % (A) 5 %; Neutrophils # (A) 6.6 k/uL (1.3-7.7); Neutrophils % (A) 74 %; Platelet Count 196 k/uL (150-450); Poikilocytosis Slight; RDW 13.8 % (11.5-15.5); WBC 8.9 k/uL (3.8-10.6)
[2018-03-16 08:04] LABS: Albumin 2.7 g/dL (3.5-5.0); Calcium 10.6 mg/dL (8.4-10.2); Potassium 4.7 mmol/L (3.5-5.1); Total Bilirubin 0.3 mg/dL (0.2-1.3); Total Protein 5.3 g/dL (6.3-8.2)
[2018-03-16] MEDS: METOPROLOL TARTRATE 25 MG TAB PO SCH ×2 (08:11→22:08)
[2018-03-16] MEDS: AMIODARONE 200 MG TAB PO SCH (08:11)
[2018-03-16] MEDS: FLUTICASONE 50MCG/SPRAY NASAL 16GM EA NOSTRIL SCH ×2 (08:11→20:18)
[2018-03-16] MEDS: [UNRECOGNIZED DRUG - OTHER] PO SCH (08:11)
[2018-03-16] MEDS: DABIGATRAN 150 MG CAP PO SCH ×2 (08:12→20:17)
[2018-03-16] MEDS: POTASSIUM CHLORIDE ER 20 MEQ TAB.ER PO SCH ×2 (08:12→15:42)
[2018-03-16] MEDS: PANTOPRAZOLE 40 MG TABLET PO SCH (08:12)
[2018-03-16] MEDS: TAMSULOSIN 0.4 MG CAP.ER.24H PO SCH ×2 (08:12→20:18)
[2018-03-16] MEDS: PRIMIDONE 50 MG TAB PO SCH ×2 (08:13→20:18)
[2018-03-16] MEDS: CLOPIDOGREL 75 MG TAB PO SCH (08:13)
[2018-03-16] MEDS: SENNOSIDES 8.6 MG TAB PO SCH (08:13)
[2018-03-16] MEDS: ACETAMINOPHEN TAB 325 MG TAB PO PRN (08:16)
--- NOTE | 2018-03-16 11:20 | ECHOF ---
Referral Reason:SOB MEASUREMENTS -------- HEIGHT: 175.3 cm WEIGHT: 114.3 kg BP: 96/48 RVIDd: 3.2 cm (< 3.3) IVSd: 1.2 cm (0.6 - 1.1) LVIDd: 5.6 cm (3.9 - 5.3) LVPWd: 1.2 cm (0.6 - 1.1) IVSs: 1.5 cm LVIDs: 4.9 cm LVPWs: 1.7 cm LA Diam: 3.9 cm (2.7 - 3.8) LAESV Index (A-L): 40.56 ml/m Ao Diam: 3.5 cm (2.0 - 3.7) AV Cusp: 2.3 cm (1.5 - 2.6) MV EXCURSION: 16.963 mm (> 18.000) MV EF SLOPE: 44 mm/s (70 - 150) EPSS: 1.5 cm MV E Kilo: 0.95 m/s MV DecT: 305 ms MV A Kilo: 1.40 m/s MV E/A Ratio: 0.68 RAP: 5.00 mmHg RVSP: 17.49 mmHg FINDINGS -------- Sinus rhythm. This was a technically adequate study. The left ventricular size is normal. There is borderline concentric left ventricular hypertrophy. There is moderate global hypokinesis of LV . Overall left ventricular systolic function is mild-mo derately impaired with, an EF between 40 - 45 %. The right ventricle is normal in size. LA is severely dilated >40 ml/m2 The right atrium is normal in size. There is mild aortic valve sclerosis. Trace to mild aortic regurgitation. The mitral valve is normal. Mild tricuspid regurgitation present. Right ventricular systolic pressure is normal at < 35 mmHg. Trace/mild (physiologic) pulmonic regurgitation. The aortic root size is normal. IVC Not well visulized. There is no pericardial effusion. CONCLUSIONS -------- 1. Sinus rhythm. 2. This was a technically adequate study. 3. The left ventricular size is normal. 4. There is borderline concentric left ventricular hypertrophy. 5. Overall left ventricular systolic function is mild-moderately impaired with, an EF between 40 - 45 %. 6. The right ventricle is normal in size. 7. LA is severely dilated >40 ml/m2 8. The right atrium is normal in size. 9. There is mild aortic valve sclerosis. 10. Trace to mild aortic regurgitation. 11. The mitral valve is normal. 12. Mild tricuspid regurgitation present. 13. Right ventricular systolic pressure is normal at < 35 mmHg. 14. Trace/mild (physiologic) pulmonic regurgitation. 15. The aortic root size is normal. 16. IVC Not well visulized. 17. There is no pericardial effusion. ALL AROUND GEAR MACHINE OPERATOR: Mariella Monique RDCS
--- NOTE | 2018-03-16 12:16 | P.PN ---
Subjective This is an 82-year-old male patient of Dr. Israel with a past medical history of CAD s/p stent RCA April 2017, hypertension, hyperlipidemia, paroxysmal atrial fibrillation, GERD, chronic kidney disease, lung cancer s/p right lobectomy. Patient was transferred from [facility] in 2016 underwent stenting of the RCA , had non sustained V tach during that admission comes in this time with complaints of cough congestion and fever for last few days. Patient is a poor historian, and nobody is available at bedside to provide any history. He does appear very weak and is confused and lethargic and dozes off to sleep within few minutes of conversation. Patient had a temp of 100.3 on admission, blood pressure 85/52, pulse of 86 respiratory rate 20. EKG was obtained which showed sinus rhythm with a QTC of 469. Chest x-ray was obtained which suggested old granulomatous disease with poor inspiration effort and crowding of the lung parenchyma. Repeat chest x-ray ordered this morning. Urinalysis suggestive signs of infection with a WBC 58, positive leukocyte esterase and nitrates and hyaline cast. Patient received 1 L of IV fluid and was initiated on 100 mL/h of normal saline. Lactic acid on admission was 2. one which improved to 1.6 including resuscitation. Labs including CBC suggested leukocyte of 15.5, creatinine 1.4, glucose 236, calcium 11.9, troponin 1 is negative. Patient appears dehydrated on the labs are being continued on 75 mL/h of IV fluids. Antibiotics initiated in the form of Zosyn and levofloxacin. 03/16: Patient evaluated today on morning rounds. He is much more alert then yesterday, he is still confused, but alert and answering questions. Blood cultures show no growth to date. He still has low grade fever of 99.5, blood pressure stable at 109/55. He remains on Zosyn. Repeat chest xray showed persistent elevated right hemidiaphragm with suspected right basilar atelectasis or infiltrate with tiny effusion. Flu swab negative for A and B, procalcitonin was elevated. Echocardiogram showed borderline concentric left ventricular hypertrophy, EF of 40-45%, LA is severely dilated, mild aortic regurgitation and mild tricuspid regurgitation. Objective - Vital Signs Vital signs: Vital Signs Temp 99.5 F 03/16/18 06:52 Pulse 69 03/16/18 06:52 Resp 16 03/16/18 06:52 BP 109/55 03/16/18 06:52 Pulse Ox 100 03/16/18 06:52 Intake & Output 03/15/18 03/16/18 03/16/18 18:59 06:59 18:59 Intake Total 580 Balance 580 Intake: Intake, IV Titration 100 Amount Piperacillin-Tazobactam 3 100 .375 gm In Dextrose/Water 1 50ml.bag @ 12.5 mls/hr IVPB Q8H [facility] Rx#: [id number] Oral 480 Other: Voiding Method Diaper Incontinent # Voids 3 # Bowel Movements 0 - Exam - Constitutional General appearance: mild distress, obese - EENT Eyes: no abnormal pupil, no anicteric sclerae, EOMI, PERRLA Ears: bilateral: normal - Neck Neck: no lymphadenopathy, normal ROM Carotids: bilateral: upstroke normal - Respiratory Respiratory: bilateral: diminished, dullness, negative: CTA, rales, rhonchi, wheezing, prolonged expiration - Cardiovascular Rhythm: regular Heart sounds: normal: S1, S2 Abnormal Heart Sounds: systolic murmur, no rub, no S3 Gallop, no S4 Gallop, no click - Gastrointestinal General gastrointestinal: no distended, normal bowel sounds, soft, no tenderness - Integumentary Integumentary: no calor, no cellulitis, no cyanotic, no decreased turgor, normal , normal turgor - Neurologic Neurologic: CNII-XII intact - Musculoskeletal Musculoskeletal: generalized weakness, strength equal bilaterally - Psychiatric Psychiatric: no A&O x's 3 (Patient is drowsy oriented 1), no intact judgment & insight - Labs CBC & Chem 7: 03/16/18 07:19 03/16/18 07:19 Labs: Abnormal Lab Results - Last 24 Hours (Table) 03/14/18 03/15/18 03/15/18 Range/Units 22:35 09:38 09:38 RBC 3.21 L (4.30-5.90) m/uL Hgb 8.7 L (13.0-17.5) gm/dL Hct 28.3 L (39.0-53.0) % MCHC 30.8 L (31.0-37.0) g/dL Neutrophils # 7.8 H (1.3-7.7) k/uL Sodium 136 L (137-145) mmol/L BUN 21 H (9-20) mg/dL Glucose (74-99) mg/dL POC Glucose (mg/dL) (75-99) mg/dL Hemoglobin A1c 7.7 H (4.0-6.0) % Calcium 10.6 H (8.4-10.2) mg/dL Total Protein 5.5 L (6.3-8.2) g/dL Albumin 2.8 L (3.5-5.0) g/dL Procalcitonin (0.02-0.09) ng/mL 03/15/18 03/15/18 03/15/18 Range/Units 09:38 11:36 17:33 RBC (4.30-5.90) m/uL Hgb (13.0-17.5) gm/dL Hct (39.0-53.0) % MCHC (31.0-37.0) g/dL Neutrophils # (1.3-7.7) k/uL Sodium (137-145) mmol/L BUN (9-20) mg/dL Glucose (74-99) mg/dL POC Glucose (mg/dL) 181 H 148 H (75-99) mg/dL Hemoglobin A1c (4.0-6.0) % Calcium (8.4-10.2) mg/dL Total Protein (6.3-8.2) g/dL Albumin (3.5-5.0) g/dL Procalcitonin 0.15 H (0.02-0.09) ng/mL 03/15/18 03/16/18 03/16/18 Range/Units 20:53 07:19 07:19 RBC 3.20 L (4.30-5.90) m/uL Hgb 8.8 L (13.0-17.5) gm/dL Hct 28.5 L (39.0-53.0) % MCHC (31.0-37.0) g/dL Neutrophils # (1.3-7.7) k/uL Sodium (137-145) mmol/L BUN (9-20) mg/dL Glucose 115 H (74-99) mg/dL POC Glucose (mg/dL) 214 H (75-99) mg/dL Hemoglobin A1c (4.0-6.0) % Calcium 10.6 H (8.4-10.2) mg/dL Total Protein 5.3 L (6.3-8.2) g/dL Albumin 2.7 L (3.5-5.0) g/dL Procalcitonin (0.02-0.09) ng/mL 03/16/18 Range/Units 07:20 RBC (4.30-5.90) m/uL Hgb (13.0-17.5) gm/dL Hct (39.0-53.0) % MCHC (31.0-37.0) g/dL Neutrophils # (1.3-7.7) k/uL Sodium (137-145) mmol/L BUN (9-20) mg/dL Glucose (74-99) mg/dL POC Glucose (mg/dL) 124 H (75-99) mg/dL Hemoglobin A1c (4.0-6.0) % Calcium (8.4-10.2) mg/dL Total Protein (6.3-8.2) g/dL Albumin (3.5-5.0) g/dL Procalcitonin (0.02-0.09) ng/mL Microbiology - Last 24 Hours (Table) 03/14/18 22:35 Blood Culture - Preliminary Blood No Growth after 24 hours 03/14/18 23:59 Urine Culture - Preliminary Urine,Catheterized Assessment and Plan Plan: #1 acute shortness of breath with cough production. Differential include acute CHF exacerbation versus community-acquired pneumonia as patient had an episode of fever. Repeat chest xray showed infiltrate with effusion, echocardiogram shows EF of 40-45%. #2 sepsis likely secondary to TIA about the differential included community- acquired pneumonia. Chest x-ray ordered continue Zosyn. Urine culture pending blood culture ordered. Lactic acid 2.1 on admission came down to 1.6. Patient is confused likely secondary to sepsis and dehydration #3 dehydration. Continue fluids at 50 mL per hour gentle hydration as patient has a history of CHF. Status. 1 L of IV fluids #4 history of coronary artery disease status post stenting of RCA in April 2017 - Continue Coreg, Lipitor, aspirin, Plavix - continue telemetry #5 ischemic cardiomyopathy with EF of 40-45% as reported by echocardiogram - Continue metoprolol , Lipitor, aspirin -Blood pressure on the lower side, hold losartan, spironolactone and Lasix - Continue I&O's monitoring - Daily weights #6 chronic atrial fibrillation -Continue rate control with metoprolol twice a day - Continue oral anticoagulation with PRADEXA - Patient will be on triple coagulation may need adjustment of the anticoagulation for increased risk of bleeding #7 hypertension continue metoprolol 25 mg twice a day and hold losartan, spironolactone and Lasix for low blood pressure #8 degenerative disc disease continue Tylenol 3 and baclofen #9 hyperlipidemia continue Lipitor #10 dementia continue on donepezil #11 hypothyroidism continue home Synthyroid #12 BPH continue Flomax BID #13 acute kidney injury likely secondary from dehydration. Continue fluids at 50 mL per hour #14 DVT prophylaxis- continue pradexa #15 type 2 diabetes hold Amaryl continue insulin sliding scale while in the hospital #16 hypercalcemia PTH ordered. Currently on bisphosphonate etidronate for osteoporosis #13 CODE STATUS full code The above impression and plan of care have been discussed and directed by signing physician. Yahaira Hernandez nurse practitioner acting as scribe for signing physician.
[2018-03-16 12:50] LABS: Glucose,Whole Blood 175 mg/dL (75-99)
[2018-03-16] MEDS: FUROSEMIDE 40 MG TAB PO SCH (15:42)
[2018-03-16 17:19] LABS: Glucose,Whole Blood 133 mg/dL (75-99)
[2018-03-16] MEDS: DONEPEZIL 10 MG TAB PO SCH (20:17)
[2018-03-16] MEDS: ATORVASTATIN 40 MG TAB PO SCH (20:17)
[2018-03-16] MEDS: MELATONIN 5 MG TABLET PO SCH (20:18)
[2018-03-16 21:15] LABS: Glucose,Whole Blood 156 mg/dL (75-99)
[2018-03-17] MEDS ORDERED: LEVOFLOXACIN 750MG-D5W PMX 750 MG in DEXTROSE/WATER 1 150ML.BAG IVPB SCH (02:00)
[2018-03-17] MEDS: LEVOTHYROXINE 25 MCG TAB PO SCH (06:23)
[2018-03-17] MEDS: LACTULOSE 20 GM/30 ML CUP PO SCH ×2 (06:23→17:23)
[2018-03-17] MEDS: BACLOFEN 10 MG TAB PO SCH ×3 (06:23→21:11)
[2018-03-17] MEDS: PIPERACILLIN-TAZOBACTAM 3.375 GM in DEXTROSE/WATER 1 50ML.BAG IVPB SCH ×3 (06:23→22:44)
[2018-03-17 07:13] LABS: Glucose,Whole Blood 117 mg/dL (75-99)
[2018-03-17] MEDS: METOPROLOL TARTRATE 25 MG TAB PO SCH ×2 (08:17→21:11)
[2018-03-17] MEDS: POTASSIUM CHLORIDE ER 20 MEQ TAB.ER PO SCH ×2 (08:18→17:23)
[2018-03-17] MEDS: SENNOSIDES 8.6 MG TAB PO SCH (08:18)
[2018-03-17] MEDS: FLUTICASONE 50MCG/SPRAY NASAL 16GM EA NOSTRIL SCH ×2 (08:18→21:12)
[2018-03-17] MEDS: PANTOPRAZOLE 40 MG TABLET PO SCH (08:18)
[2018-03-17] MEDS: FUROSEMIDE 40 MG TAB PO SCH ×2 (08:18→15:36)
[2018-03-17] MEDS: DABIGATRAN 150 MG CAP PO SCH ×2 (08:18→21:11)
[2018-03-17] MEDS: PRIMIDONE 50 MG TAB PO SCH ×2 (08:18→21:11)
[2018-03-17] MEDS: TAMSULOSIN 0.4 MG CAP.ER.24H PO SCH ×2 (08:18→21:11)
[2018-03-17] MEDS: AMIODARONE 200 MG TAB PO SCH (08:18)
[2018-03-17] MEDS: INSULIN ASPART 100 UNIT/ML 1 ML 10 ML VIAL SQ SCH ×4 (08:19→21:12)
[2018-03-17] MEDS: CLOPIDOGREL 75 MG TAB PO SCH (08:19)
[2018-03-17 08:21] LABS: Basophils % (A) 0 %; Eosinophils # (A) 0.4 k/uL (0-0.7); Eosinophils % (A) 5 %; HCT 30.3 % (39.0-53.0); HGB 9.3 gm/dL (13.0-17.5); Hypochromasia Marked; Lymphocytes # (A) 1.1 k/uL (1.0-4.8); Lymphocytes % (A) 16 %; MCH 26.9 pg (25.0-35.0); MCHC 30.6 g/dL (31.0-37.0); MCV 87.8 fL (80.0-100.0); Mean Platelet Volume 7.6; Monocytes # (A) 0.3 k/uL (0-1.0); Monocytes % (A) 5 %; Neutrophils % (A) 71 %; Platelet Count 209 k/uL (150-450); RBC 3.45 m/uL (4.30-5.90); WBC 7.1 k/uL (3.8-10.6)
[2018-03-17 08:42] LABS: Albumin 3.1 g/dL (3.5-5.0); Potassium 4.1 mmol/L (3.5-5.1); Total Bilirubin 0.5 mg/dL (0.2-1.3)
[2018-03-17] MEDS: [UNRECOGNIZED DRUG - OTHER] PO SCH (10:06)
[2018-03-17 11:39] LABS: Glucose,Whole Blood 176 mg/dL (75-99)
--- NOTE | 2018-03-17 11:48 | P.DS ---
Providers Date of admission: 03/14/18 23:50 Attending physician: Katharine Israel Primary care physician: Katharine Israel [facility] Course: This is an 82-year-old male patient of Dr. Israel with a past medical history of CAD s/p stent RCA April 2017, hypertension, hyperlipidemia, paroxysmal atrial fibrillation, GERD, chronic kidney disease, lung cancer s/p right lobectomy. Patient was transferred from [facility] in 2016 underwent stenting of the RCA , had non sustained V tach during that admission comes in this time with complaints of cough congestion and fever for last few days. Patient is a poor historian, and nobody is available at bedside to provide any history. He does appear very weak and is confused and lethargic and dozes off to sleep within few minutes of conversation. Patient had a temp of 100.3 on admission, blood pressure 85/52, pulse of 86 respiratory rate 20. EKG was obtained which showed sinus rhythm with a QTC of 469. Chest x-ray was obtained which suggested old granulomatous disease with poor inspiration effort and crowding of the lung parenchyma. Repeat chest x-ray ordered this morning. Urinalysis suggestive signs of infection with a WBC 58, positive leukocyte esterase and nitrates and hyaline cast. Patient received 1 L of IV fluid and was initiated on 100 mL/h of normal saline. Lactic acid on admission was 2. one which improved to 1.6 including resuscitation. Labs including CBC suggested leukocyte of 15.5, creatinine 1.4, glucose 236, calcium 11.9, troponin 1 is negative. Patient appears dehydrated on the labs are being continued on 75 mL/h of IV fluids. Antibiotics initiated in the form of Zosyn and levofloxacin. 03/16: Patient evaluated today on morning rounds. He is much more alert then yesterday, he is still confused, but alert and answering questions. Blood cultures show no growth to date. He still has low grade fever of 99.5, blood pressure stable at 109/55. He remains on Zosyn. Repeat chest xray showed persistent elevated right hemidiaphragm with suspected right basilar atelectasis or infiltrate with tiny effusion. Flu swab negative for A and B, procalcitonin was elevated. Echocardiogram showed borderline concentric left ventricular hypertrophy, EF of 40-45%, LA is severely dilated, mild aortic regurgitation and mild tricuspid regurgitation. 03/17: Patient doing much better today, he remain afebrile. Mental status is at baseline. Blood cultures show no growth to date, urine culture positive for Escherichia coli. He will be discharged back to [facility] today with Ceftin. Discharge Diagnoses: #1 acute shortness of breath with cough production. #2 sepsis secondary to UTI #3 dehydration. #4 history of coronary artery disease status post stenting of RCA in April 2017 #5 ischemic cardiomyopathy #6 chronic atrial fibrillation #7 hypertension continue #8 degenerative disc disease #9 hyperlipidemia #10 dementia #11 hypothyroidism #12 BPH #13 acute kidney injury #14 type 2 diabetes hold #15 hypercalcemia The above impression and plan of care have been discussed and directed by signing physician. Yahaira Hernandez nurse practitioner acting as scribe for signing physician. Patient Condition at Discharge: Good Plan - Discharge Summary New Discharge Prescriptions: Continue Levothyroxine Sodium [Synthroid] 25 mcg PO DAILY@0600 Donepezil [Aricept] 10 mg PO HS@2100 Atorvastatin Calcium [Lipitor] 40 mg PO HS@2100 HYDROcodone/APAP 7.5-325MG [[place] 7.5-325] 1 tab PO TID PRN PRN Reason: Pain Baclofen [Lioresal] 10 mg PO TID@0600,1400,2200 Tamsulosin HCl [Flomax] 0.4 mg PO BID@0900,2100 Dabigatran [Pradaxa] 150 mg PO BID@0900,2100 Potassium Chloride ER [K-Dur 20] 20 meq PO BID@0900,1700 Fluticasone Nasal [place] [Flonase Nasal [place]] 2 spr EA NOSTRIL BID@0900,2100 Nitroglycerin [Nitroglycerin 400MCG [place]] 1 spray TRANSLINGU Q5M PRN PRN Reason: CHEST PAIN Menthol [Nice Cough Drops] 1 lozenge PO Q2H PRN PRN Reason: Sore Throat Acetaminophen [Tylenol Arthritis] 650 mg PO Q4HR PRN PRN Reason: Pain INSULIN LISPRO (HumaLOG) [humaLOG] See Protocol SQ TID@0800,1200,1700 Primidone [Mysoline] 50 mg PO BID@0900,2100 Metoprolol Tartrate [Lopressor] 25 mg PO BID@0900,2100 Lactulose 20 gm PO BID@0600,1700 Furosemide [Lasix] 40 mg PO BID@0600,1400 Spironolactone [Aldactone] 25 mg PO DAILY@0900 Melatonin 10 mg PO HS@2100 Losartan Potassium 50 mg PO DAILY@0900 Glimepiride [Amaryl] 1 mg PO DAILY@0600 Etidronate Disodium 200 mg PO DAILY@0900 Ergocalciferol [Vitamin D2 (DRISDOL)] 50,000 unit PO Q14D Clopidogrel [Plavix] 75 mg PO DAILY@0900 Amiodarone [Cordarone] 200 mg PO DAILY@0900 Sennosides [Senna] 8.6 mg PO DAILY PRN PRN Reason: Constipation Cefuroxime Axetil [Ceftin] 500 mg PO BID@0600,1800 #20 Discharge Medication List Levothyroxine Sodium [Synthroid] 25 mcg PO DAILY@0600 05/19/16 [History] Atorvastatin Calcium [Lipitor] 40 mg PO HS@209910/25/16 [History] Donepezil [Aricept] 10 mg PO HS@209910/25/16 [History] HYDROcodone/APAP 7.5-325MG [[place] 7.5-325] 1 tab PO TID PRN 11/06/16 [History] Baclofen [Lioresal] 10 mg PO TID@0600,1400,2200 04/10/17 [History] Tamsulosin HCl [Flomax] 0.4 mg PO BID@0900,2100 04/10/17 [History] Dabigatran [Pradaxa] 150 mg PO BID@0900,2100 04/14/17 [History] Fluticasone Nasal [place] [Flonase Nasal [place]] 2 spr EA NOSTRIL BID@0900,2100 [History] Potassium Chloride ER [K-Dur 20] 20 meq PO BID@0900,1700 07/06/17 [History] Acetaminophen [Tylenol Arthritis] 650 mg PO Q4HR PRN 03/14/18 [History] Amiodarone [Cordarone] 200 mg PO DAILY@0900 03/14/18 [History] Clopidogrel [Plavix] 75 mg PO DAILY@89903/14/18 [History] Ergocalciferol [Vitamin D2 (DRISDOL)] 50,000 unit PO Q14D 03/14/18 [History] Etidronate Disodium 200 mg PO DAILY@0903/14/18 [History] Furosemide [Lasix] 40 mg PO BID@0600,1400 03/14/18 [History] Glimepiride [Amaryl] 1 mg PO DAILY@59903/14/18 [History] INSULIN LISPRO (HumaLOG) [humaLOG] See Protocol SQ TID@0800,1200,1700 03/14/18 [ History] Lactulose 20 gm PO BID@0600,1700 03/14/18 [History] Losartan Potassium 50 mg PO DAILY@89903/14/18 [History] Melatonin 10 mg PO HS@209903/14/18 [History] Menthol [Nice Cough Drops] 1 lozenge PO Q2H PRN 03/14/18 [History] Metoprolol Tartrate [Lopressor] 25 mg PO BID@899,209903/14/18 [History] Nitroglycerin [Nitroglycerin 400MCG [place]] 1 spray TRANSLINGU Q5M PRN 03/14/18 [ History] Primidone [Mysoline] 50 mg PO BID@899,209903/14/18 [History] Sennosides [Senna] 8.6 mg PO DAILY PRN 03/14/18 [History] Spironolactone [Aldactone] 25 mg PO DAILY@89903/14/18 [History] Cefuroxime Axetil [Ceftin] 500 mg PO BID@0600,1800 #20 03/17/18 [Rx] Follow up Appointment(s)/Referral(s): Katharine Israel MD [Primary Care Provider] - 1-[address] [facility] [place], [NON-STAFF] - 1 Week Patient Instructions/Handouts: Urinary Tract Infection in Men (DC) Activity/Diet/Wound Care/Special Instructions: Cardiac, diabetic diet. 1:1 feed. Up with assist. Fall precautions. Discharge Disposition: TRANSFER TO SNF/ECF
[2018-03-17] MEDS: SPIRONOLACTONE 25 MG TAB PO SCH (12:40)
[2018-03-17] MEDS: LOSARTAN 50 MG TAB PO SCH (12:40)
[2018-03-17 17:14] LABS: Glucose,Whole Blood 158 mg/dL (75-99)
[2018-03-17] MEDS: ATORVASTATIN 40 MG TAB PO SCH (21:11)
[2018-03-17] MEDS: DONEPEZIL 10 MG TAB PO SCH (21:11)
[2018-03-17] MEDS: MELATONIN 5 MG TABLET PO SCH (21:11)
[2018-03-17 21:16] LABS: Glucose,Whole Blood 175 mg/dL (75-99)
[2018-03-18] MEDS: LEVOTHYROXINE 25 MCG TAB PO SCH (06:24)
[2018-03-18] MEDS: BACLOFEN 10 MG TAB PO SCH ×2 (06:24→13:16)
[2018-03-18] MEDS: LACTULOSE 20 GM/30 ML CUP PO SCH (06:24)
[2018-03-18 06:31] VITALS: BP 121/68; PULSE 60; RESP 20; TEMP 99.2
[2018-03-18 07:21] LABS: Glucose,Whole Blood 114 mg/dL (75-99)
[2018-03-18] MEDS: INSULIN ASPART 100 UNIT/ML 1 ML 10 ML VIAL SQ SCH ×2 (07:29→13:17)
[2018-03-18] MEDS: CLOPIDOGREL 75 MG TAB PO SCH (07:54)
[2018-03-18] MEDS: SPIRONOLACTONE 25 MG TAB PO SCH (07:55)
[2018-03-18] MEDS: DABIGATRAN 150 MG CAP PO SCH (07:55)
[2018-03-18] MEDS: PANTOPRAZOLE 40 MG TABLET PO SCH (07:55)
[2018-03-18] MEDS: PRIMIDONE 50 MG TAB PO SCH (07:55)
[2018-03-18] MEDS: AMIODARONE 200 MG TAB PO SCH (07:55)
[2018-03-18] MEDS: FUROSEMIDE 40 MG TAB PO SCH (07:55)
[2018-03-18] MEDS: TAMSULOSIN 0.4 MG CAP.ER.24H PO SCH (07:55)
[2018-03-18] MEDS: FLUTICASONE 50MCG/SPRAY NASAL 16GM EA NOSTRIL SCH (07:56)
[2018-03-18] MEDS: [UNRECOGNIZED DRUG - OTHER] PO SCH (07:56)
[2018-03-18] MEDS: LOSARTAN 50 MG TAB PO SCH (07:56)
[2018-03-18] MEDS: POTASSIUM CHLORIDE ER 20 MEQ TAB.ER PO SCH (07:57)
[2018-03-18] MEDS: SENNOSIDES 8.6 MG TAB PO SCH (07:57)
[2018-03-18 08:24] LABS: Basophils % (A) 0 %; Eosinophils # (A) 0.3 k/uL (0-0.7); Eosinophils % (A) 6 %; HCT 31.8 % (39.0-53.0); HGB 9.8 gm/dL (13.0-17.5); Hypochromasia Marked; Lymphocytes # (A) 1.3 k/uL (1.0-4.8); Lymphocytes % (A) 25 %; MCH 26.9 pg (25.0-35.0); MCHC 30.7 g/dL (31.0-37.0); MCV 87.8 fL (80.0-100.0); Mean Platelet Volume 7.9; Monocytes # (A) 0.4 k/uL (0-1.0); Monocytes % (A) 7 %; Neutrophils # (A) 3.1 k/uL (1.3-7.7); Neutrophils % (A) 59 %; Platelet Count 222 k/uL (150-450); RBC 3.62 m/uL (4.30-5.90); RDW 13.9 % (11.5-15.5); WBC 5.2 k/uL (3.8-10.6)
[2018-03-18 08:30] LABS: Albumin 3.2 g/dL (3.5-5.0); Calcium 11.2 mg/dL (8.4-10.2); Potassium 4.1 mmol/L (3.5-5.1); Total Bilirubin 0.4 mg/dL (0.2-1.3); Total Protein 6.1 g/dL (6.3-8.2)
[2018-03-18] MEDS: METOPROLOL TARTRATE 25 MG TAB PO SCH (08:30)
[2018-03-18] MEDS: ACETAMINOPHEN TAB 325 MG TAB PO PRN (08:31)
[2018-03-18] MEDS: PIPERACILLIN-TAZOBACTAM 3.375 GM in DEXTROSE/WATER 1 50ML.BAG IVPB SCH ×2 (10:36→14:52)
--- NOTE | 2018-03-18 12:11 | P.PN ---
Subjective Progress Note Date: 03/18/18 Principal diagnosis: Sepsis Patient continued to be hemodynamically stable overnight no major events reported by nursing staff patient is denying pain at this point following simple commands Objective - Vital Signs Vital signs: Vital Signs Temp 99.2 F 03/18/18 06:00 Pulse 60 03/18/18 06:00 Resp 20 03/18/18 06:00 BP 121/68 03/18/18 06:00 Pulse Ox 98 03/18/18 06:00 Intake & Output 03/17/18 03/18/18 03/18/18 18:59 06:59 18:59 Intake Total 50 100 50 Balance 50 100 50 Weight 114.5 kg 114.5 kg Intake: Intake, IV Titration 50 50 Amount Piperacillin-Tazobactam 3 50 50 .375 gm In Dextrose/Water 1 50ml.bag @ 12.5 mls/hr IVPB Q8H [facility] Rx#: [id number] Oral 100 Other: Voiding Method Diaper Diaper Diaper Incontinent Incontinent Incontinent # Voids 1 1 - Exam Gen.: in stated age, no acute distress Heart: Normal S1-S2 Lungs: Clear to auscultation bilaterally Abdomen: Soft, no tenderness, positive bowel sounds in all 4 quadrant no guarding or rebound Skin: No new rash Psych: Alert and following commands Neuro: No focal deficit - Labs CBC & Chem 7: 03/18/18 07:54 03/18/18 07:54 Labs: Abnormal Lab Results - Last 24 Hours (Table) 03/17/18 03/17/18 03/18/18 Range/Units 17:11 21:01 07:11 RBC (4.30-5.90) m/uL Hgb (13.0-17.5) gm/dL Hct (39.0-53.0) % MCHC (31.0-37.0) g/dL Sodium (137-145) mmol/L Glucose (74-99) mg/dL POC Glucose (mg/dL) 158 H 175 H 114 H (75-99) mg/dL Calcium (8.4-10.2) mg/dL Total Protein (6.3-8.2) g/dL Albumin (3.5-5.0) g/dL 03/18/18 03/18/18 Range/Units 07:54 07:54 RBC 3.62 L (4.30-5.90) m/uL Hgb 9.8 L (13.0-17.5) gm/dL Hct 31.8 L (39.0-53.0) % MCHC 30.7 L (31.0-37.0) g/dL Sodium 135 L (137-145) mmol/L Glucose 118 H (74-99) mg/dL POC Glucose (mg/dL) (75-99) mg/dL Calcium 11.2 H (8.4-10.2) mg/dL Total Protein 6.1 L (6.3-8.2) g/dL Albumin 3.2 L (3.5-5.0) g/dL Microbiology - Last 24 Hours (Table) 03/14/18 22:35 Blood Culture - Preliminary Blood No Growth after 72 hours 03/14/18 23:59 Urine Culture - Final Urine,Catheterized Escherichia coli Assessment and Plan Assessment: 1. Sepsis resolved. 2. He hydration improved. 3. Coronary artery disease area compensated. 4. Ischemic cardiomyopathy with ejection fraction 20%. Continue cardio protective medication. 5. Chronic atrial fibrillation. Rate is controlled we will continue per DEXA. 6. Debility and deconditioning area Plan for discharge to a rehab facility is arranged by case management or appropriate documentation signed and patient is scheduled to leave this afternoon
[2018-03-18 12:16] LABS: Glucose,Whole Blood 185 mg/dL (75-99)
--- NOTE | 2018-03-21 14:47 | CDI ---
Documentation Clarification Form Date: 03/21/2018 2:36:55 PM From: CHRISTY Rodriguez; Petra Mata Emergency Service Worker Phone: If you have a question about this query, please contact Petra Mata Emergency Service Worker at [phone] between 8am and 5pm. Admit Date: 03/14/2018 11:50:00 PM Patient Name: Jerman Segal Visit Number: [id number] Discharge Date: 03/18/2018 ATTENTION: The Clinical Documentation Specialists (CDI) and [facility] Coding Staff appreciate your assistance in clarifying documentation. Please respond to the clarification below the line at the bottom and electronically sign. The CDI & [facility] Coding staff will review the response and follow-up if needed. Please note: Queries are made part of the Legal Health Record. If you have any questions, please contact the author of this message via ITS. Minda Gonzales MD The patient is admitted with acute shortness of breath and cough production. CHF exacerbation versus pneumonia is in the differential diagnosis on the H&P. Patient history/risk factors: Admitted with sepsis due to UTI. Clinical Indicators: Dehydration, fever. Radiology findings: Chest x-ray right basilar atelectasis or infiltrate with tiny effusion. Vital Signs: temp 99.1, pulse 60, resp, 18, BP 109/53 Treatment: Zosyn. In your professional opinion, can you please clarify? Pneumonia ruled in? Pneumonia ruled out? Other, please specify Unable to determine pneumonia ruled in MTDD
--- NOTE | 2018-03-21 14:48 | CDI ---
Documentation Clarification Form Date: 03/21/2018 2:20:23 PM From: CHRISTY Rodriguez; Petra Mata Activities Aide Phone: If you have a question about this query, please contact Petra Mata Activities Aide at [phone] between 8am and 5pm. Admit Date: 03/14/2018 11:50:00 PM Patient Name: Jerman Segal Visit Number: [id number] Discharge Date: 03/18/2018 ATTENTION: The Clinical Documentation Specialists (CDI) and [facility] Coding Staff appreciate your assistance in clarifying documentation. Please respond to the clarification below the line at the bottom and electronically sign. The CDI & [facility] Coding staff will review the response and follow-up if needed. Please note: Queries are made part of the Legal Health Record. If you have any questions, please contact the author of this message via ITS. Minda Gonzales MD History/Risk Factors:. Admitted with acute shortness of breath with cough production, and sepsis due to UTI. Differential DX on H&P is acute CHF exacerbation versus pneumonia. Clinical Indicators: Dehydration, fever. BNP: 457 Echocardiogram Results: EF between 40-45% Chest X Ray: Persistent elevated right hemidiaphragm, suspected right basilar atelectasis or infiltrate and tiny effusions. In your professional opinion, can you please clarify? CHF exacerbation ruled in CHF exacerbation ruled out Please also clarify the dysfunction and acuity of the CHF: Systolic Heart Failure: Acute Chronic Acute on Chronic Diastolic Heart Failure: Acute Chronic Acute on Chronic Systolic & Diastolic Heart Failure: Acute Chronic Acute on Chronic Heart Failure Unable to Determine Other, please specify MTDD
== END 2018-03-18 15:49 | DRG 871 ==
LOC: EC 22:08 → 4MS4W 23:50
PROVIDERS: ADMIT Family Medicine; ATTEND Family Medicine
DX: A41.9 Sepsis, unspecified organism (principal); J18.9 Pneumonia, unspecified organism; I13.0 Hypertensive heart and chronic kidney disease with heart failure and stage 1 through stage 4 chronic kidney disease, or unspecified chronic kidney disease; N17.9 Acute kidney failure, unspecified; N39.0 Urinary tract infection, site not specified; J44.0 Chronic obstructive pulmonary disease with (acute) lower respiratory infection; E03.9 Hypothyroidism, unspecified; E11.22 Type 2 diabetes mellitus with diabetic chronic kidney disease; E78.5 Hyperlipidemia, unspecified; E83.52 Hypercalcemia; E86.0 Dehydration; F03.90 Unspecified dementia, unspecified severity, without behavioral disturbance, psychotic disturbance, mood disturbance, and anxiety; I08.2 Rheumatic disorders of both aortic and tricuspid valves; I25.10 Atherosclerotic heart disease of native coronary artery without angina pectoris; I25.2 Old myocardial infarction; I25.5 Ischemic cardiomyopathy; I48.2 Chronic atrial fibrillation; I50.9 Heart failure, unspecified; K21.9 Gastro-esophageal reflux disease without esophagitis; M81.0 Age-related osteoporosis without current pathological fracture; N18.9 Chronic kidney disease, unspecified; N40.0 Benign prostatic hyperplasia without lower urinary tract symptoms; Y95 Nosocomial condition; Z79.02 Long term (current) use of antithrombotics/antiplatelets; Z79.4 Long term (current) use of insulin; Z85.118 Personal history of other malignant neoplasm of bronchus and lung; Z87.442 Personal history of urinary calculi; Z87.891 Personal history of nicotine dependence; Z95.5 Presence of coronary angioplasty implant and graft; Z91.040 Latex allergy status; B96.20 Unspecified Escherichia coli [E. coli] as the cause of diseases classified elsewhere
CPT/HCPCS: 36415; 51701; 71045; 71046; 80053; 81001; 82550; 82553; 83036; 83605; 83735; 83880; 83970; 84100; 84145; 84484; 85025; 85610; 85730; 87040; 87077; 87086; 87186; 87502; 93005; 93306; 96365; 96366; 99285

== ENCOUNTER → 2018-10-19 | Outpatient (CLI) | payer MEDICARE, OTHER ==
--- NOTE | 2018-10-19 15:44 | CT ---
EXAMINATION TYPE: CT chest wo con DATE OF EXAM: 10/19/2018 COMPARISON: 07/06/2017 HISTORY: Personal history of other malignant neoplasm CT DLP: 196 mGycm, Automated exposure control for dose reduction was used. CONTRAST: None TECHNIQUE: Axial images were obtained at 1 mm thick sections at 10 mm intervals. This will limit po rtions of the examination which may not be visualized within the bjuka-qa-ubyk. Images were obtained in the prone and supine views. FINDINGS: Right lobe thyroid is enlarged. Within the iveuk-cq-kout is measures 4.3 x 4.0 cm. Conside r follow-up with ultrasound. This may be causing tracheal deviation towards the left. No suspicious lung nodules or focal infiltrates are present. No enlarged mediastinal or hilar adenopathy is evident. The ascending aorta diameter at the level o f the main pulmonary artery is 4.2 cm. The main pulmonary artery diameter at the bifurcation is 2.8 cm. Coronary artery calcifications present. Limited CT sections are obtained through the upper abdomen. Large cyst is likely within the caudate l obe liver measuring 3.5 cm. This was present previously IMPRESSIONS: 1. No suspicious acute changes high-resolution CT chest. 2. Probable large hepatic cyst. 3. Enlarged right lobe thyroid, doesn't previously. Follow-up with ultrasound. 4. This is a high resolution CT chest which has skipped areas which may make early metastatic lesions not visualized. If there is clinical concern for metastasis, standard CT chest with contrast would b e recommended. 5. Enlarging ascending thoracic aortic aneurysm currently measuring 4.2 cm AP. This has enlarged from 3.7 cm.
== END | disposition home or self-care (01) ==
LOC: RADCTMAIN 13:29
PROVIDERS: ATTEND Family Medicine
DX: D02.20 Carcinoma in situ of unspecified bronchus and lung (principal); E04.9 Nontoxic goiter, unspecified; I71.2 Thoracic aortic aneurysm, without rupture
CPT/HCPCS: 71250

== ENCOUNTER 2018-11-17 16:23 | Emergency (ER) | payer MEDICARE, OTHER ==
[2018-11-17] MEDS ORDERED: SODIUM CHLORIDE 0.9% 1,000 ML IV STA (16:49)
--- NOTE | 2018-11-17 17:19 | ED ---
Fall HPI - General Chief Complaint: Fall Stated Complaint: fall Time Seen by Provider: 11/17/18 16:36 Source: EMS, RN notes reviewed, old records reviewed, Caregiver Mode of arrival: EMS Limitations: physical limitation - History of Present Illness Initial Comments: This is a 83-year-old male the ER for evaluation. Patient comes in for evaluation found down. Patient's poor strain history obtained from patient's family EMS as well as transfer paperwork. Patient was trying to get himself into his bed was unable to make needed fall. Patient himself is without complaint no headache no chest pain or shortness breath or abdominal pain. 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: yes, by living facility staff Place Fall Occurred: assisted/SNF Loss of Consciousness: none Prolonged Down Time?: no Symptoms Prior to Fall: none Location: head (Laceration) Severity: mild Context: tripped/slipped Associated Symptoms: denies - Related Data Home Medications Medication Instructions Recorded Confirmed Levothyroxine Sodium [Synthroid] 25 mcg PO DAILY@0600 05/19/16 11/17/18 Atorvastatin Calcium [Lipitor] 40 mg PO HS@209910/25/16 11/17/18 Donepezil [Aricept] 10 mg PO HS@209910/25/16 11/17/18 Baclofen [Lioresal] 10 mg PO TID@0600,1400,2200 04/10/17 11/17/18 Tamsulosin HCl [Flomax] 0.4 mg PO BID@0900,209904/10/17 11/17/18 Dabigatran [Pradaxa] 150 mg PO BID@0900,209904/14/17 11/17/18 Potassium Chloride ER [K-Dur 20] 20 meq PO TID@0900,1300,2100 07/06/17 11/17/18 Acetaminophen [Tylenol Arthritis] 650 mg PO Q4HR PRN 03/14/18 11/17/18 Amiodarone [Cordarone] 200 mg PO DAILY@0900 03/14/18 11/17/18 Clopidogrel [Plavix] 75 mg PO DAILY@0900 03/14/18 11/17/18 Ergocalciferol [Vitamin D2 50,000 unit PO FR@0900 09/04/18 05/10/19 (DRISDOL)] Lactulose 20 gm PO BID@0600,1700 03/14/18 11/17/18 Melatonin 10 mg PO HS@209903/14/18 11/17/18 Metoprolol Tartrate [Lopressor] 25 mg PO BID@0900,209903/14/18 11/17/18 Nitroglycerin [Nitroglycerin 1 spray TRANSLINGU Q5M PRN 03/14/18 11/17/18 400MCG Maddock] Primidone [Mysoline] 50 mg PO BID@0900,209903/14/18 11/17/18 Sennosides [Senna] 8.6 mg PO DAILY PRN 03/14/18 11/17/18 Alendronate Sodium 70 mg PO TH@59909/28/18 11/17/18 Budesonide [Pulmicort] 0.5 mg INHALATION BID@00,209909/28/18 11/17/18 Carboxymethylcellulose Sodium 1 drop BOTH EYES BID@00,209909/28/18 11/17/18 [Refresh Tears] Cetirizine HCl 10 mg PO HS@209909/28/18 11/17/18 Cinacalcet HCl [Sensipar] 60 mg PO DAILY@89909/28/18 11/17/18 INSULIN ASPART (NovoLOG) [NovoLOG See Protocol SQ TID@0900,1300,1900 09/28/18 11/17/18 (formulary)] Metolazone [Zaroxolyn] 2.5 mg PO TUTH@89909/28/18 11/17/18 Midodrine HCl [ProAmatine] 10 mg PO TID@0900,1300,209909/28/18 11/17/18 Montelukast [Singulair] 10 mg PO HS@209909/28/18 11/17/18 Polyethylene Glycol 3350 17 gm PO WESA@89909/28/18 11/17/18 guaiFENesin-DM 100-10MG/5ML 10 ml PO Q6H PRN 09/28/18 11/17/18 [Robitussin DM] Dronabinol [Marinol] 2.5 mg PO DAILY@1100 11/17/18 11/17/18 Famotidine [Pepcid] 20 mg PO DAILY@0900 11/17/18 11/17/18 Hydrophilic Cream [Triad Cream] 1 applic TOPICAL Q72H 11/17/18 11/17/18 Insulin Glargine,Hum.rec.anlog 17 unit SQ HS@2100 11/17/18 11/17/18 [Basaglar Amirapen U-100] Previous Rx's Medication Instructions Recorded Furosemide [Lasix] 40 mg PO BID@0900,1400 #0 10/02/18 HYDROcodone/APAP 7.5-325MG [[place] 1 tab PO TID@0600,1400,2200 PRN #9 10/02/18 7.5-325] tab Ipratropium-Albuterol Nebulize 3 ml INHALATION RT-TID ampul.neb 10/02/18 [Duoneb 0.5 mg-3 mg/3 ml Soln] Spironolactone [Aldactone] 12.5 mg PO DAILY@0900 #0 10/02/18 Allergies Allergy/AdvReac Type Severity Reaction Status Date / Time latex Allergy Rash/Hives Verified 11/17/18 17:06 Review of Systems ROS Statement: Those systems with pertinent positive or pertinent negative responses have been documented in the HPI. ROS Other: All systems not noted in ROS Statement are negative. Past Medical History Past Medical History: Atrial Fibrillation, Coronary Artery Disease (CAD), Cance r, Chest Pain / Angina, COPD, Dementia, Diabetes Mellitus, GERD/Reflux, Hyperlipidemia, Hypertension, Memory Impairment, Osteoarthritis (OA), Prostate Disorder, Thyroid Disorder Additional Past Medical History / Comment(s): Back pain r/t sciatica, right lung cancer, kidney stone, NSTEMI, dysphagia, BPH, hypothyroid, dementia, hyperparathyroidism, impaired gait. Last Myocardial Infarction Date:: History of Any Multi-Drug Resistant Organisms: None Reported Past Surgical History: Heart Catheterization With Stent Additional Past Surgical History / Comment(s): Lung ca removed from right lung (lobectomy), neck sx d/t to fx, stent to right groin. Past Anesthesia/Blood Transfusion Reactions: No Reported Reaction Date of Last Stent Placement:: 2016 Past Psychological History: No Psychological Hx Reported Smoking Status: Former smoker Past Alcohol Use History: None Reported, Occasional Past Drug Use History: None Reported - Past Family History Father History Unknown: Yes Mother History Unknown: Yes General Exam - General Exam Comments Initial Comments: 1 cm laceration above left eye Limitations: altered mental status General appearance: alert, in no apparent distress Head exam: Present: atraumatic, normocephalic, normal inspection Eye exam: Present: normal appearance, PERRL, EOMI. Absent: scleral icterus, conjunctival injection, periorbital swelling ENT exam: Present: normal exam, mucous membranes moist Neck exam: Present: normal inspection. Absent: tenderness, meningismus, lymphadenopathy Respiratory exam: Present: normal lung sounds bilaterally. Absent: respiratory distress, wheezes, rales, rhonchi, stridor Cardiovascular Exam: Present: regular rate, normal rhythm, normal heart sounds. Absent: systolic murmur, diastolic murmur, rubs, gallop, clicks GI/Abdominal exam: Present: soft, normal bowel sounds. Absent: distended, tenderness, guarding, rebound, rigid Extremities exam: Present: normal inspection, full ROM, normal capillary refill. Absent: tenderness, pedal edema, joint swelling, calf tenderness Back exam: Present: normal inspection Neurological exam: Present: alert, oriented X3, CN II-XII intact Psychiatric exam: Present: normal affect, normal mood Skin exam: Present: warm, dry, intact, normal color. Absent: rash Course Vital Signs 11/17/18 11/17/18 11/17/18 16:24 17:29 19:11 Temperature 99.2 F 98.4 F Pulse Rate 67 66 66 Respiratory 16 18 17 Rate Blood Pressure 130/64 131/66 128/67 O2 Sat by Pulse 98 99 99 Oximetry - Reevaluation(s) Reevaluation #1: 11/17/18 19:47 medical record reviewed Medical Decision Making - Medical Decision Making 81 male the ER for evaluation, patient had troponin fall with unknown downtime. Patient is laceration above left eye with no other injury noted. Lab work and CT scans are normal patient can be discharged home - Lab Data Result diagrams: 11/17/18 17:15 11/17/18 17:15 Lab Results 11/17/18 11/17/18 11/17/18 Range/Units 17:15 17:15 17:15 WBC 7.2 (3.8-10.6) k/uL RBC 4.07 L (4.30-5.90) m/uL Hgb 12.2 L (13.0-17.5) gm/dL Hct 38.5 L (39.0-53.0) % MCV 94.5 (80.0-100.0) fL MCH 29.8 (25.0-35.0) pg MCHC 31.6 (31.0-37.0) g/dL RDW 15.8 H (11.5-15.5) % Plt Count 256 (150-450) k/uL Neutrophils % 66 % Lymphocytes % 19 % Monocytes % 6 % Eosinophils % 5 % Basophils % 0 % Neutrophils # 4.8 (1.3-7.7) k/uL Lymphocytes # 1.4 (1.0-4.8) k/uL Monocytes # 0.4 (0-1.0) k/uL Eosinophils # 0.4 (0-0.7) k/uL Basophils # 0.0 (0-0.2) k/uL Hypochromasia Slight PT (9.0-12.0) sec INR (<1.2) APTT (22.0-30.0) sec Sodium 139 (137-145) mmol/L Potassium 3.7 (3.5-5.1) mmol/L Chloride 101 (98-107) mmol/L Carbon Dioxide 31 H (22-30) mmol/L Anion Gap 7 mmol/L BUN 26 H (9-20) mg/dL Creatinine 1.14 (0.66-1.25) mg/dL Est GFR (CKD-EPI)AfAm 69 (>60 ml/min/1.73 sqM) Est GFR (CKD-EPI)NonAf 60 (>60 ml/min/1.73 sqM) Glucose 183 H (74-99) mg/dL Calcium 10.0 (8.4-10.2) mg/dL Phosphorus 2.9 (2.5-4.5) mg/dL Magnesium 1.3 L (1.6-2.3) mg/dL Total Bilirubin 0.5 (0.2-1.3) mg/dL AST 32 (17-59) U/L ALT 25 (21-72) U/L Alkaline Phosphatase 61 (38-126) U/L Creatine Kinase 49 L (55-170) U/L CK-MB (CK-2) <0.2 (0.0-2.4) ng/mL Troponin I <0.012 (0.000-0.034) ng/mL Total Protein 7.2 (6.3-8.2) g/dL Albumin 4.1 (3.5-5.0) g/dL 11/17/18 Range/Units 17:15 WBC (3.8-10.6) k/uL RBC (4.30-5.90) m/uL Hgb (13.0-17.5) gm/dL Hct (39.0-53.0) % MCV (80.0-100.0) fL MCH (25.0-35.0) pg MCHC (31.0-37.0) g/dL RDW (11.5-15.5) % Plt Count (150-450) k/uL Neutrophils % % Lymphocytes % % Monocytes % % Eosinophils % % Basophils % % Neutrophils # (1.3-7.7) k/uL Lymphocytes # (1.0-4.8) k/uL Monocytes # (0-1.0) k/uL Eosinophils # (0-0.7) k/uL Basophils # (0-0.2) k/uL Hypochromasia PT 11.8 (9.0-12.0) sec INR 1.1 (<1.2) APTT 36.9 H (22.0-30.0) sec Sodium (137-145) mmol/L Potassium (3.5-5.1) mmol/L Chloride (98-107) mmol/L Carbon Dioxide (22-30) mmol/L Anion Gap mmol/L BUN (9-20) mg/dL Creatinine (0.66-1.25) mg/dL Est GFR (CKD-EPI)AfAm (>60 ml/min/1.73 sqM) Est GFR (CKD-EPI)NonAf (>60 ml/min/1.73 sqM) Glucose (74-99) mg/dL Calcium (8.4-10.2) mg/dL Phosphorus (2.5-4.5) mg/dL Magnesium (1.6-2.3) mg/dL Total Bilirubin (0.2-1.3) mg/dL AST (17-59) U/L ALT (21-72) U/L Alkaline Phosphatase (38-126) U/L Creatine Kinase (55-170) U/L CK-MB (CK-2) (0.0-2.4) ng/mL Troponin I (0.000-0.034) ng/mL Total Protein (6.3-8.2) g/dL Albumin (3.5-5.0) g/dL - Radiology Data Radiology results: report reviewed (CT brain cspine is negative for acute disease, CXR pelvisXR engative for traumatc disease), image reviewed Disposition Clinical Impression: Fall, Scalp laceration Disposition: HOME SELF-CARE Condition: Good Instructions (If sedation given, give patient instructions): Fall Prevention for Older Adults (ED), Laceration (ED) Is patient prescribed a controlled substance at d/c from ED?: No Referrals: Katharine Israel MD [Primary Care Provider] - 1-2 days
[2018-11-17 17:26] LABS: Basophils % (A) 0 %; Eosinophils # (A) 0.4 k/uL (0-0.7); Eosinophils % (A) 5 %; HCT 38.5 % (39.0-53.0); HGB 12.2 gm/dL (13.0-17.5); Hypochromasia Slight; Lymphocytes # (A) 1.4 k/uL (1.0-4.8); Lymphocytes % (A) 19 %; MCH 29.8 pg (25.0-35.0); MCHC 31.6 g/dL (31.0-37.0); MCV 94.5 fL (80.0-100.0); Mean Platelet Volume 8.6; Monocytes # (A) 0.4 k/uL (0-1.0); Monocytes % (A) 6 %; Neutrophils # (A) 4.8 k/uL (1.3-7.7); Neutrophils % (A) 66 %; Platelet Count 256 k/uL (150-450); RBC 4.07 m/uL (4.30-5.90); RDW 15.8 % (11.5-15.5); WBC 7.2 k/uL (3.8-10.6)
[2018-11-17 17:34] LABS: INR 1.1 (<1.2); Partial Thromboplastin Time 36.9 sec (22.0-30.0); Prothrombin Time 11.8 sec (9.0-12.0)
[2018-11-17 17:39] LABS: Albumin 4.1 g/dL (3.5-5.0); Magnesium 1.3 mg/dL (1.6-2.3); Phosphorus 2.9 mg/dL (2.5-4.5); Potassium 3.7 mmol/L (3.5-5.1); Total Bilirubin 0.5 mg/dL (0.2-1.3); Total Protein 7.2 g/dL (6.3-8.2)
[2018-11-17 17:51] LABS: Creatine Kinase MB <0.2 ng/mL (0.0-2.4); Troponin I <0.012 ng/mL (0.000-0.034)
--- NOTE | 2018-11-17 18:21 | CT ---
EXAMINATION TYPE: CT brain [place] wo con DATE OF EXAM: 11/17/2018 COMPARISON: CT brain 05/02/2015 CT scan cervical spine 04/04/2013. HISTORY: Fall today with frontal laceration CT DLP: 1537 mGycm Automated exposure control for dose reduction was used. TECHNIQUE: CT scan of the head and cervical spine are performed without contrast. FINDINGS: There is diffuse cerebral cortical atrophy. There is enlargement of the ventricles. There is no mass effect nor midline shift. There is no sign of intracranial hemorrhage. There is more noti ceable encephalomalacia right temporal and parietal lobe. Calvarium is intact. There is mucosal thick ening right maxillary sinus. There are spondylotic changes in the mid cervical spine. Vertebra have normal alignment. Disc spaces are fairly normal for age. Posterior elements are intact. I see no focal bone destruction in the cerv ical spine. The skull base is intact. IMPRESSION: Cerebral atrophy. Hydrocephalus. There is moderate atrophy and overall not a significant change in th e appearance of the brain compared to old exam. No acute intracranial abnormality. There are mild spondylotic changes in the cervical spine for the patient's age. No fracture. No signi ficant change.
[2018-11-17] MEDS ORDERED: MAGNESIUM OXIDE 400 MG TAB PO STA (19:02)
--- NOTE | 2018-11-17 19:10 | XR ---
EXAMINATION TYPE: XR pelvis AP view DATE OF EXAM: 11/17/2018 COMPARISON: 09/28/2018 HISTORY: Pain TECHNIQUE: Single view FINDINGS: Pelvic ring is intact. Proximal femurs are intact. There is no sign of hip dysplasia. There is mild acetabular spurring. Sacroiliac joints are intact. IMPRESSION: No acute abnormality of the pelvis. No fracture.
--- NOTE | 2018-11-17 19:26 | XR ---
EXAMINATION TYPE: XR chest 1V DATE OF EXAM: 11/17/2018 COMPARISON: 09/28/2018 HISTORY: Chest pain TECHNIQUE: Single frontal view of the chest is obtained. FINDINGS: There is slight elevated right diaphragm. Thoracic aorta is atheromatous. There is no hear t failure. Heart appears slightly enlarged. There is calcified granulomata at the pulmonary dafne. IMPRESSION: Chronic elevated right diaphragm that could relate to paralysis. No acute lung disease. Old granulomatous disease. There is overall improved aeration of the lungs compared to last exam.
[2018-11-17] MEDS ORDERED: TOPICAL SKIN ADHESIVE 1 EACH AMP TOPICAL ONE (20:03)
[2018-11-17 21:09] VITALS: BP 122/78; PULSE 68; RESP 18; TEMP 97.9
== END 2018-11-17 21:01 | disposition home or self-care (01) ==
LOC: EC 16:23
DX: S01.01XA Laceration without foreign body of scalp, initial encounter (principal); S01.81XA Laceration without foreign body of other part of head, initial encounter; F03.90 Unspecified dementia, unspecified severity, without behavioral disturbance, psychotic disturbance, mood disturbance, and anxiety; E11.9 Type 2 diabetes mellitus without complications; J44.9 Chronic obstructive pulmonary disease, unspecified; I10 Essential (primary) hypertension; E21.3 Hyperparathyroidism, unspecified; I48.91 Unspecified atrial fibrillation; I25.119 Atherosclerotic heart disease of native coronary artery with unspecified angina pectoris; N40.0 Benign prostatic hyperplasia without lower urinary tract symptoms; E78.5 Hyperlipidemia, unspecified; E03.9 Hypothyroidism, unspecified; I25.2 Old myocardial infarction; K21.9 Gastro-esophageal reflux disease without esophagitis; Z87.891 Personal history of nicotine dependence; Z91.040 Latex allergy status; Z79.4 Long term (current) use of insulin; Z79.01 Long term (current) use of anticoagulants; Z79.02 Long term (current) use of antithrombotics/antiplatelets; Z79.51 Long term (current) use of inhaled steroids; Z79.890 Hormone replacement therapy; Z79.899 Other long term (current) drug therapy; Z85.118 Personal history of other malignant neoplasm of bronchus and lung; Z90.2 Acquired absence of lung [part of]; Z95.5 Presence of coronary angioplasty implant and graft; Z87.39 Personal history of other diseases of the musculoskeletal system and connective tissue; W01.0XXA Fall on same level from slipping, tripping and stumbling without subsequent striking against object, initial encounter; Y93.89 Activity, other specified; Y92.129 Unspecified place in nursing home as the place of occurrence of the external cause
CPT/HCPCS: 36415; 70450; 71045; 72125; 72170; 80053; 82550; 82553; 83605; 83735; 84100; 84484; 85025; 85610; 85730; 93005; 96360; 99285

== ENCOUNTER 2019-07-22 11:30 | Inpatient (IN) | payer MEDICARE, OTHER ==
[2019-07-22 20:52] LABS: Glucose,Whole Blood 116 mg/dL (75-99)
[2019-07-22] MEDS ORDERED: oxyCODONE-APAP 5-325MG 1 EACH TAB PO PRN (22:33)
[2019-07-22] MEDS ORDERED: NALOXONE 0.4 MG/ML 1 ML VIAL IV PRN (22:33)
[2019-07-22] MEDS: PIPERACILLIN-TAZOBACTAM 3.375 GM in SODIUM CHLORIDE 0.9% 100 ML IVPB SCH (23:16)
[2019-07-22] MEDS: DEXTROSE 5% IN WATER 1,000 ML IV SCH (23:17)
[2019-07-22] MEDS ORDERED: ACETAMINOPHEN TAB 325 MG TAB PO PRN (23:33)
[2019-07-22] MEDS ORDERED: SENNOSIDES 8.6 MG TAB PO PRN (23:57)
[2019-07-23] MEDS: MELATONIN 3 MG TABLET PO SCH ×2 (00:41→21:07)
[2019-07-23] MEDS: ATORVASTATIN 40 MG TAB PO SCH ×2 (00:41→21:07)
[2019-07-23] MEDS: DONEPEZIL 10 MG TAB PO SCH ×2 (00:41→21:07)
[2019-07-23] MEDS: DABIGATRAN 150 MG CAP PO SCH ×3 (00:42→21:27)
[2019-07-23] MEDS: METOPROLOL TARTRATE 25 MG TAB PO SCH ×3 (00:43→21:07)
[2019-07-23 06:09] LABS: Glucose,Whole Blood 133 mg/dL (75-99)
[2019-07-23 06:19] LABS: Basophils % (A) 0 %; Eosinophils # (A) 0.1 k/uL (0-0.7); Eosinophils % (A) 2 %; HCT 32.9 % (39.0-53.0); HGB 9.7 gm/dL (13.0-17.5); Hypochromasia Marked; Lymphocytes # (A) 1.2 k/uL (1.0-4.8); Lymphocytes % (A) 20 %; MCH 27.2 pg (25.0-35.0); MCHC 29.3 g/dL (31.0-37.0); MCV 92.7 fL (80.0-100.0); Mean Platelet Volume 7.6; Monocytes # (A) 0.3 k/uL (0-1.0); Monocytes % (A) 5 %; Neutrophils # (A) 4.3 k/uL (1.3-7.7); Neutrophils % (A) 70 %; Platelet Count 261 k/uL (150-450); RBC 3.55 m/uL (4.30-5.90); RDW 15.8 % (11.5-15.5); WBC 6.2 k/uL (3.8-10.6)
[2019-07-23] MEDS: INSULIN ASPART (NovoLOG) 100 UNIT/ML VIAL SQ SCH ×4 (06:29→21:07)
[2019-07-23] MEDS: LEVOTHYROXINE 25 MCG TAB PO SCH (06:34)
[2019-07-23] MEDS: MIDODRINE 5 MG TAB PO SCH ×3 (06:34→17:39)
[2019-07-23 06:35] LABS: African American GFR (CKD) >90 (>60 ml/min/1.73 sqM); Anion Gap 2 mmol/L; Blood Urea Nitrogen 14 mg/dL (9-20); Calcium 11.9 mg/dL (8.4-10.2); Carbon Dioxide 29 mmol/L (22-30); Chloride 114 mmol/L (98-107); Glucose 124 mg/dL (74-99); Non-African American GFR(CKD) 80 (>60 ml/min/1.73 sqM); Sodium 145 mmol/L (137-145)
[2019-07-23] MEDS ORDERED: BUDESONIDE 0.25 MG/2 ML NEBU INHALATION SCH (08:00)
[2019-07-23] MEDS: BUDESONIDE 0.5 MG/2 ML NEBU INHALATION SCH ×2 (08:00→21:09)
[2019-07-23] MEDS: IPRATROPIUM-ALBUTEROL 3 ML NEB INHALATION SCH ×4 (08:00→21:08)
[2019-07-23] MEDS: PIPERACILLIN-TAZOBACTAM 3.375 GM in SODIUM CHLORIDE 0.9% 100 ML IVPB SCH ×2 (08:53→15:50)
[2019-07-23] MEDS: LACTULOSE 20 GM/30 ML CUP PO SCH ×2 (08:53→21:07)
[2019-07-23] MEDS: PRIMIDONE 250 MG TAB PO SCH ×2 (08:54→17:40)
[2019-07-23] MEDS: MAGNESIUM OXIDE 400 MG TAB PO SCH ×2 (08:55→21:07)
[2019-07-23] MEDS: FUROSEMIDE 40 MG TAB PO SCH ×2 (08:55→17:39)
[2019-07-23] MEDS: CLOPIDOGREL 75 MG TAB PO SCH (08:55)
[2019-07-23] MEDS: AMIODARONE 200 MG TAB PO SCH (08:55)
[2019-07-23] MEDS: LISINOPRIL 2.5 MG TAB PO SCH (08:55)
[2019-07-23] MEDS: FAMOTIDINE 20 MG TAB PO SCH (08:55)
[2019-07-23] MEDS: TAMSULOSIN 0.4 MG CAP.ER.24H PO SCH ×2 (08:55→17:39)
[2019-07-23] MEDS: ALLOPURINOL 300 MG TAB PO SCH (08:55)
[2019-07-23] MEDS: SPIRONOLACTONE 25 MG TAB PO SCH (08:56)
[2019-07-23] MEDS ORDERED: METOPROLOL TARTRATE 25 MG TAB PO SCH (09:00)
--- NOTE | 2019-07-23 09:14 | CT ---
EXAMINATION TYPE: CT chest wo con DATE OF EXAM: 07/23/2019 COMPARISON: CT chest October 19, 2018 and older study 2015 and 2012 HISTORY: Aspiration pneumonia CT DLP: 417.3 mGycm. Automated Exposure Control for Dose Reduction was Utilized. TECHNIQUE: CT scan of the thorax is performed without IV contrast. Exam was performed under high-res olution protocol with attempted 1 mm sequences in 10 mm intervals utilizing prone and supine techniqu e. FINDINGS: Examination was suboptimal as patient unable to perform prone imaging today. In addition serafin victoria is unable to lift arms over head for ideal imaging and to hold still due to Parkinson's. LUNGS: Technique limits evaluation for nodules. In addition there is motion artifact degradation pres ent. There is background low lung volumes and elevated right hemidiaphragm redemonstrated. Focus of l inear scarring right lower lung near elevated anterior aspect right hemidiaphragm again seen. No sign ificant peripheral fibrosis or reticulation identified. No new suspicious focal consolidation. No ple ural effusion or pneumothorax. Background Mild emphysematous change redemonstrated. MEDIASTINUM: No significant pericardial effusion is seen. Cardiomegaly is redemonstrated. Coronary artery calcification again seen which is noted marked underlying coronary artery disease. Surgical c hanges right hilar regions are present. Persistent heterogeneous enlarged right thyroid lobe or goite r causing mass effect on trachea. OTHER: Significant bilateral gynecomastia shows increased prominence from older studies. The gallblad lissette has distended margins. Low dense lesions scattered throughout the liver favor simple thin-walled cyst. Low dense thickening through both adrenal glands favored benign lipid rich hyperplasia. IMPRESSION: Suboptimal study. Surgical changes to right lung with mild fibrosis. No significant new p eripheral fibrosis. No suspicious consolidation to suggest acute pneumonia. Mild emphysematous change with chronic changes redemonstrated.
[2019-07-23 11:50] LABS: Glucose,Whole Blood 150 mg/dL (75-99)
[2019-07-23 11:57] VITALS: BMI 37.3
[2019-07-23 12:00] LABS: Glucose,Whole Blood 210 mg/dL (75-99)
[2019-07-23] MEDS: CINACALCET 30 MG TAB PO SCH (12:19)
--- NOTE | 2019-07-23 14:55 | P.HPIM ---
History of Present Illness H&P Date: 07/23/19 This is an 84-year-old male patient of Dr. Israel resides at home with son LUIS ANTONIO, with a past medical history of CAD s/p stent RCA April 2017, hypertension, hyperlipidemia, paroxysmal atrial fibrillation, GERD, chronic kidney disease, lung cancer s/p right lobectomy Parkinson's. He was transferred from [facility], secondary to LUIS ANTONIO 's behavior. Apparently the son was given a No trespassing [employer] as he was very belligerent and confrontational to nursing staff and medical personnel at [facility]. Patient was being treated for aspiration pneumonia, he had a modified by swallow eval that shows mechanical soft diet, nectar thick liquids, pills to be taken with applesauce, whole not crushed. Speech therapy is also following patient over there, patient is basically bed bound with transfers [facility], otherwise he sees me in the office to a wheelchair transportation through bus , for which he misses often his visits with me. Patient denies any pain or dysarthria, patient is nonverbal however he shakes yesterday no to your answers, he can follow commands, at baseline. Upon his transfer here, we have requested speech to see him, as he often chokes on liquid s, CAT scan of the chest showing focus of linear scarring right lower lung, with elevated right hemidiaphragm, no significant peripheral fibrosis or reticulation, no new suspicious focal consolidation, no pleural effusion, no pneumothorax, background mild COPD changes, there is cardiomegaly without any pericardial effusion, coronary calcifications seen, enlarged right thyroid lobe or goiter causing mass effect on the trachea which is persistent, bilateral gynecomastia has increased, gallbladder has distended margins, pindolol to assist in the liver, adrenals favoring benign lipid rich hyperplasia, there is surgical changes to the right lung with mild fibrosis. Labs shows WBC 6.2, hemoglobin 9.7, creatinine 0.9, glucose between 130 to 210, pro-calcitonin is 0.05normal, calcium elevated at 11.9. Review of Systems ROS unobtainable: due to mental status Constitutional: Reports as per HPI, Reports anorexia, Reports chills, Reports chronic headaches, Reports chronic pain, Reports daytime sleepiness, Reports fatigue, Reports fever, Reports lethargy, Reports malaise, Reports night sweats, Reports poor appetite, Reports sweats, Reports weakness, Reports weight gain, Reports weight loss Ears, nose, mouth and throat: Reports as per HPI Cardiovascular: Reports as per HPI Respiratory: Reports as per HPI, Reports cough, Denies congestion, Denies cough with sputum, Denies dyspnea, Denies excessive sputum, Denies hemoptysis, Denies home oxygen, Denies pain, Denies pain on inspiration, Denies pleurisy, Denies respiratory infections, Denies sleep apnea, Denies snoring, Denies wheezing Gastrointestinal: Reports as per HPI, Denies abdominal pain, Denies belching, Denies bloating, Denies BRBPR, Denies change in bowel habits, Denies coffee ground emesis, Denies constipation, Denies diarrhea, Denies dyspepsia, Denies early satiety, Denies heartburn, Denies indigestion, Denies jaundice, Denies lactose intolerance, Denies loss of appetite, Denies melena, Denies nausea, Denies vomiting Genitourinary: Reports as per HPI Musculoskeletal: Reports as per HPI Integumentary: Reports as per HPI Neurological: Reports as per HPI, Reports gait dysfunction, Reports hearing difficulties, Reports lack of coordination, Reports memory loss Psychiatric: Reports as per HPI Endocrine: Reports as per HPI Hematologic/Lymphatic: Reports as per HPI Allergic/Immunologic: Reports as per HPI Past Medical History Past Medical History: Atrial Fibrillation, Coronary Artery Disease (CAD), Cancer, Chest Pain / Angina, COPD, Dementia, Diabetes Mellitus, GERD/Reflux, Hyperlipidemia, Hypertension, Memory Impairment, Osteoarthritis (OA), Prostate Disorder, Thyroid Disorder Additional Past Medical History / Comment(s): Back pain r/t sciatica, right lung cancer, kidney stone, NSTEMI, dysphagia, BPH, hypothyroid, dementia, hyperparathyroidism, impaired gait. Last Myocardial Infarction Date:: History of Any Multi-Drug Resistant Organisms: None Reported Past Surgical History: Heart Catheterization With Stent Additional Past Surgical History / Comment(s): Lung ca removed from right lung (lobectomy), neck sx d/t to fx, stent to right groin. Past Anesthesia/Blood Transfusion Reactions: No Reported Reaction Date of Last Stent Placement:: 2016 Past Psychological History: No Psychological Hx Reported Additional Psychological History / Comment(s): Pt. resides at [facility]. Son is legal guardian. Patient dementia - very poor historian. Smoking Status: Former smoker Past Alcohol Use History: None Reported, Occasional Additional Past Alcohol Use History / Comment(s): Started smoking 1952 and quit 1967, past occasional alcohol - none now Past Drug Use History: None Reported - Past Family History Father History Unknown: Yes Mother History Unknown: Yes Medications and Allergies Home Medications Medication Instructions Recorded Confirmed Type Levothyroxine Sodium [Synthroid] 25 mcg PO DAILY@0600 05/19/16 07/23/19 History Atorvastatin Calcium [Lipitor] 40 mg PO HS@209910/25/16 07/23/19 History Donepezil [Aricept] 10 mg PO HS@209910/25/16 07/23/19 History Baclofen [Lioresal] 10 mg PO TID@0600,1400,2200 04/10/17 07/23/19 History Tamsulosin HCl [Flomax] 0.4 mg PO BID@0900,209904/10/17 07/23/19 History Dabigatran [Pradaxa] 150 mg PO BID@0900,209904/14/17 07/23/19 History Potassium Chloride ER [K-Dur 20] 20 meq PO TID@0900,1300,2100 07/06/17 07/23/19 History Amiodarone [Cordarone] 200 mg PO DAILY@0900 03/14/18 07/23/19 History Clopidogrel [Plavix] 75 mg PO DAILY@0900 03/14/18 07/23/19 History Ergocalciferol [Vitamin D2 50,000 unit PO FR@89903/14/18 07/23/19 History (DRISDOL)] Melatonin 10 mg PO HS@209903/14/18 07/23/19 History Metoprolol Tartrate [Lopressor] 25 mg PO BID@0900,209903/14/18 07/23/19 History Nitroglycerin [Nitroglycerin 1 spray TRANSLINGU Q5M PRN 03/14/18 07/23/19 History 400MCG [place]] Alendronate Sodium 70 mg PO TH@0600 09/28/18 07/23/19 History Budesonide [Pulmicort] 0.5 mg INHALATION RT-BID 09/28/18 07/23/19 History Carboxymethylcellulose Sodium 1 drop BOTH EYES BID@0900,209909/28/18 07/23/19 History [Refresh Tears] Cinacalcet HCl [Sensipar] 60 mg PO DAILY@0900 09/28/18 07/23/19 History INSULIN ASPART (NovoLOG) [NovoLOG See Protocol SQ TID@0900,1300,1900 09/28/18 07/23/19 History (formulary)] Metolazone [Zaroxolyn] 2.5 mg PO TUTH@0909/28/18 07/23/19 History Midodrine HCl [ProAmatine] 10 mg PO TID@0900,1300,209909/28/18 07/23/19 History Montelukast [Singulair] 10 mg PO HS@209909/28/18 07/23/19 History Ipratropium-Albuterol Nebulize 3 ml INHALATION RT-TID ampul.neb 10/02/18 07/23/19 Rx [Duoneb 0.5 mg-3 mg/3 ml Soln] Spironolactone [Aldactone] 12.5 mg PO DAILY@0900 #0 10/02/18 07/23/19 Rx Famotidine [Pepcid] 20 mg PO DAILY@0900 11/17/18 07/23/19 History Insulin Glargine,Hum.rec.anlog 17 unit SQ HS@209911/17/18 07/23/19 History [Basaglar Kwikpen U-100] Allopurinol [Zyloprim] 300 mg PO DAILY 07/23/19 07/23/19 History Furosemide [Lasix] 40 mg PO BID 07/23/19 07/23/19 History HYDROcodone/APAP 7.5-325MG [[place] 1 tab PO BID 07/23/19 07/23/19 History 7.5-325] Magnesium Oxide [Mag-Ox] 400 mg PO BID 07/23/19 07/23/19 History Pramox-Calamine 1-8% Lotion 1 applic TOPICAL HS 07/23/19 07/23/19 History [Caladryl] Primidone [Mysoline] 250 mg PO TID 07/23/19 07/23/19 History Allergies Allergy/AdvReac Type Severity Reaction Status Date / Time latex Allergy Rash/Hives Verified 01/13/20 12:10 Physical Exam Vitals: Vital Signs Temp Pulse Pulse Resp BP Pulse Ox 07/23/19 11:42 70 07/23/19 11:33 72 07/23/19 11:30 60 18 135/64 93 L 07/23/19 08:50 99 F 72 16 143/63 99 07/23/19 08:13 74 07/23/19 08:03 76 07/23/19 03:20 98.4 F 71 18 117/57 98 07/23/19 00:00 97 07/22/19 23:12 98.4 F 79 18 132/76 100 07/22/19 20:32 97.9 F 81 16 115/56 98 Intake and Output 07/22/19 07/23/19 07/23/19 22:59 06:59 14:59 Intake Total 100 160 Balance 100 160 Intake: Intake, IV Titration 100 160 Amount Dextrose 5% in Water 1, 60 000 ml @ 20 mls/hr IV . Q24H [facility] Rx#:[id number] Piperacillin-Tazobactam 3 100 100 .375 gm In Sodium Chloride 0.9% 100 ml @ 25 mls/hr IVPB Q8HR [facility] Rx# :[id number] Oral 0 Other: # Voids 2 Weight 93.7 kg 118 kg 118 kg - Constitutional General appearance: cooperative, no acute distress - EENT Eyes: anicteric sclerae, EOMI, PERRLA, dentition normal, normal appearance ENT: hard of hearing, NA/AT, normal oropharynx - Neck Neck: normal ROM - Respiratory Respiratory: bilateral: CTA, negative: diminished, dullness, rales - Cardiovascular Rhythm: regular Heart sounds: normal: S1, S2 Abnormal Heart Sounds: no systolic murmur, no diastolic murmur, no rub, no S3 Gallop, no S4 Gallop, no click, no other - Gastrointestinal General gastrointestinal: normal bowel sounds, soft - Integumentary Integumentary: decreased turgor, normal - Musculoskeletal Musculoskeletal: gait normal, strength equal bilaterally - Psychiatric Psychiatric: A&O x's 3 (x1 non verbal) Results CBC & Chem 7: 07/23/19 05:59 07/23/19 05:59 Labs: Abnormal Lab Results - Last 24 Hours (Table) 07/22/19 07/23/19 07/23/19 Range/Units 20:51 05:59 05:59 RBC 3.55 L (4.30-5.90) m/uL Hgb 9.7 L (13.0-17.5) gm/dL Hct 32.9 L (39.0-53.0) % MCHC 29.3 L (31.0-37.0) g/dL RDW 15.8 H (11.5-15.5) % Chloride 114 H (98-107) mmol/L Glucose 124 H (74-99) mg/dL POC Glucose (mg/dL) 116 H (75-99) mg/dL Calcium 11.9 H (8.4-10.2) mg/dL 07/23/19 07/23/19 07/23/19 Range/Units 06:08 11:38 11:58 RBC (4.30-5.90) m/uL Hgb (13.0-17.5) gm/dL Hct (39.0-53.0) % MCHC (31.0-37.0) g/dL RDW (11.5-15.5) % Chloride (98-107) mmol/L Glucose (74-99) mg/dL POC Glucose (mg/dL) 133 H 150 H 210 H (75-99) mg/dL Calcium (8.4-10.2) mg/dL Laboratory Results WBC 6.2 k/uL (3.8-10.6) 07/23/19 05:59 RBC 3.55 m/uL (4.30-5.90) L 07/23/19 05:59 Hgb 9.7 gm/dL (13.0-17.5) L 07/23/19 05:59 Hct 32.9 % (39.0-53.0) L 07/23/19 05:59 MCV 92.7 fL (80.0-100.0) 07/23/19 05:59 MCH 27.2 pg (25.0-35.0) 07/23/19 05:59 MCHC 29.3 g/dL (31.0-37.0) L 07/23/19 05:59 RDW 15.8 % (11.5-15.5) H 07/23/19 05:59 Plt Count 261 k/uL (150-450) 07/23/19 05:59 Neutrophils % 70 % 07/23/19 05:59 Lymphocytes % 20 % 07/23/19 05:59 Monocytes % 5 % 07/23/19 05:59 Eosinophils % 2 % 07/23/19 05:59 Basophils % 0 % 07/23/19 05:59 Neutrophils # 4.3 k/uL (1.3-7.7) 07/23/19 05:59 Lymphocytes # 1.2 k/uL (1.0-4.8) 07/23/19 05:59 Monocytes # 0.3 k/uL (0-1.0) 07/23/19 05:59 Eosinophils # 0.1 k/uL (0-0.7) 07/23/19 05:59 Basophils # 0.0 k/uL (0-0.2) 07/23/19 05:59 Hypochromasia Marked 07/23/19 05:59 Sodium 145 mmol/L (137-145) 07/23/19 05:59 Potassium 4.0 mmol/L (3.5-5.1) 07/23/19 05:59 Chloride 114 mmol/L (98-107) H 07/23/19 05:59 Carbon Dioxide 29 mmol/L (22-30) 07/23/19 05:59 Anion Gap 2 mmol/L 07/23/19 05:59 BUN 14 mg/dL (9-20) 07/23/19 05:59 Creatinine 0.86 mg/dL (0.66-1.25) 07/23/19 05:59 Est GFR (CKD-EPI)AfAm >90 (>60 ml/min/1.73 sqM) 07/23/19 05:59 Est GFR (CKD-EPI)NonAf 80 (>60 ml/min/1.73 sqM) 07/23/19 05:59 Glucose 124 mg/dL (74-99) H 07/23/19 05:59 POC Glucose (mg/dL) 210 mg/dL (75-99) H 07/23/19 11:58 POC Glu Community Education Coordinator ANABELL Brown Nalini 07/23/19 11:58 Calcium 11.9 mg/dL (8.4-10.2) H 07/23/19 05:59 Procalcitonin 0.05 ng/mL (0.02-0.09) 07/23/19 05:59 Thrombosis Risk Factor Assmnt - DVT/VTE Prophylaxis DVT/VTE Prophylaxis: Pharmacologic Prophylaxis ordered - Choose All That Apply Any of the Below Risk Factors Present?: Yes Each Factor Represents 1 point: Sepsis (< 1month), Serious lung disease incl. pneumonia (< 1month) Other Risk Factors: No Each Risk Factor Represents 2 Points: Patient confined to bed Each Risk Factor Represents 3 Points: Age 75 years or older Other congenital or acquired thrombophilia - If yes, enter type in comment: No Thrombosis Risk Factor Assessment Total Risk Factor Score: 7 Thrombosis Risk Factor Assessment Level: High Risk Assessment and Plan Plan: 1. Right lower lobe pneumonia, possible aspiration. Patient is on IV Zosyn, pro-calcitonin level is normal, he failed his modified barium swallow eval performed at [facility], patient requires mechanical soft diet, with nectar thickened liquids, no straws, meds can be taken whole with apple sauce. PT OT is going to see the patient while here, CAT scan of the chest failed to reveal any new consolidation, 2. Hypercalcemia, unknown etiology, PTH to be done, thyroid ultrasound to be done, this was addressed during his last few years, and is on Sensipar 60 mg daily, Lasix 40 mg daily, hold off any calcium supplementation 3. Chronic atrial fibrillation. Continue. Amiodarone 200 mg daily, Pradaxa 150 mg twice daily, Lopressor 25 mg twice daily. 4. Ischemic cardiomyopathy with known EF of 20% with chronic systolic heart failure and history of non-ST elevated myocardial infarction. Continue Lasix decreased to 80 mg daily versus twice daily, continue Lopressor, Zaroxolyn and Plavix, Pradaxa. stents placed on April 2017 currently asymptomatic 5. Right Large goiter suspected, with slight mass effect to the trachea, a thyroid ultrasound to be done, 5. Hypertension, hypertensive cardiovascular disease. Patient is currently on beta draining at the senior care. Continue Lopressor. 6. Hyperlipidemia. Continue atorvastatin 40 mg at bedtime. 7. Benign prostatic hypertrophy. Continue Flomax. 8. Hypothyroidism. Continue levothyroxine 25 g daily. 9. Coronary artery disease status post stent. 10. COPD. Continue Singulair, DuoNeb treatments and Pulmicort. 11. Gastroesophageal reflux disease, gastrointestinal prophylaxis. Pepcid. 12. Chronic back pain. On [place] when necessary 13. History of lung cancer status post right lobectomy. 14. Parkinson's with Dementia no behaviors,. Continue Aricept 10 mg at bedtime. Mysoline 250 mg 3 times a day 15. Diabetes mellitus type 2. NovoLog scale for now. Patient is normally on scheduled NovoLog but will be held due to poor oral intake. 16. DVT prophylaxis. Continue Pradaxa. CODE STATUS: Full code
--- NOTE | 2019-07-23 16:32 | US ---
EXAMINATION TYPE: US thyroid st tissue head/neck DATE OF EXAM: 07/23/2019 COMPARISON: Previous dated 08/02/2016 CLINICAL HISTORY: large goiter. Extremely difficult and limited exam due to patient's inability to mo ve or turn his head and deep thyroid position GLAND SIZE: Right Lobe: 6.1 x 4.6 x5.0 cm Overall Parenchyma: Very little thyroid tissue visualized Left Lobe: 4.7 x 1.6 x 1.6 cm Overall Parenchyma: homogeneous Isthmus Thickness: 0.7 cm NODULES RIGHT: # of nodules measured on right: 1 1. 4.7 X 4.3 x 4.2 cm hypoechoic solid nodule at the mid pole with well-defined margins; . This no dule is wider than tall and shows intranodular vascularity. Prior size: 4.5 X 4.3 x 4.2 cm LEFT: # of nodules measured on left: 1 1. 0.6 X 0.6 x 0.4 cm hypoechoic cystic nodule at the mid pole with well-defined margins; . This n odule is wider than tall and shows no intranodular vascularity. Prior size: 0.6 X 0.5 x 0.3 cm ISTHMUS: # of nodules measured in the isthmus: 0 IMPRESSION: Multinodular goiter. Dominant nodule within the right lobe of the gland
[2019-07-23 16:55] LABS: Glucose,Whole Blood 128 mg/dL (75-99)
[2019-07-23 20:33] LABS: Glucose,Whole Blood 264 mg/dL (75-99)
[2019-07-24] MEDS: PRIMIDONE 250 MG TAB PO SCH ×4 (00:41→20:37)
[2019-07-24] MEDS: MONTELUKAST 10 MG TAB PO SCH ×2 (00:41→20:37)
[2019-07-24] MEDS: PIPERACILLIN-TAZOBACTAM 3.375 GM in SODIUM CHLORIDE 0.9% 100 ML IVPB SCH ×2 (00:41→09:30)
[2019-07-24] MEDS: DEXTROSE 5% IN WATER 1,000 ML IV SCH (00:42)
[2019-07-24 06:14] LABS: Glucose,Whole Blood 134 mg/dL (75-99)
[2019-07-24] MEDS: MIDODRINE 5 MG TAB PO SCH ×3 (06:32→17:00)
[2019-07-24] MEDS: INSULIN ASPART (NovoLOG) 100 UNIT/ML VIAL SQ SCH ×4 (06:32→21:58)
[2019-07-24] MEDS: LEVOTHYROXINE 25 MCG TAB PO SCH (06:32)
[2019-07-24] MEDS: BUDESONIDE 0.5 MG/2 ML NEBU INHALATION SCH ×2 (07:59→18:47)
[2019-07-24] MEDS: IPRATROPIUM-ALBUTEROL 3 ML NEB INHALATION SCH ×4 (07:59→18:47)
[2019-07-24] MEDS: FAMOTIDINE 20 MG TAB PO SCH (09:30)
[2019-07-24] MEDS: CLOPIDOGREL 75 MG TAB PO SCH (09:30)
[2019-07-24] MEDS: LACTULOSE 20 GM/30 ML CUP PO SCH ×2 (09:30→20:37)
[2019-07-24] MEDS: MAGNESIUM OXIDE 400 MG TAB PO SCH ×2 (09:30→20:37)
[2019-07-24] MEDS: LISINOPRIL 2.5 MG TAB PO SCH (09:30)
[2019-07-24] MEDS: FUROSEMIDE 40 MG TAB PO SCH ×2 (09:30→17:00)
[2019-07-24] MEDS: AMIODARONE 200 MG TAB PO SCH (09:30)
[2019-07-24] MEDS: ALLOPURINOL 300 MG TAB PO SCH (09:30)
[2019-07-24] MEDS: TAMSULOSIN 0.4 MG CAP.ER.24H PO SCH ×2 (09:30→17:00)
[2019-07-24] MEDS: DABIGATRAN 150 MG CAP PO SCH ×2 (09:30→20:37)
[2019-07-24] MEDS: SPIRONOLACTONE 25 MG TAB PO SCH (09:30)
[2019-07-24] MEDS: METOPROLOL TARTRATE 25 MG TAB PO SCH ×2 (09:30→20:37)
--- NOTE | 2019-07-24 10:56 | P.CONS ---
History of Present Illness - Reason for Consult Consult date: 07/24/19 Wound care - History of Present Illness This is a 84-year-old patient of Dr. Zacarias being seen by wound care for a nonhealing ulceration to the sacrum. Patient also has a healed ulceration to the right hip. Patient's past medical history is significant for coronary artery disease with stent to the RCA a in April 2017, hypertension, hyperlipidemia, proximal arterial fibrillation, GERD, chronic kidney disease, lung cancer status post right lobe lobectomy, Parkinson's. Patient was transferred from [facility] due to the patient's POA's behavior. She was being treated for aspiration pneumonia. Patient states that the ulceration to his sacrum has been there for a couple years now. It heals and then reappears. Patient spends the majority of this time sitting or lying in bed. Patient denies that any treatment has been done recently. Ulceration to the sacrum measures approximately 3 x 4 x 0.1 cm with subcutaneous layer exposed, wound bed shows granulation throughout with adherent Slough, no undermining or tunneling noted. Periwound is attached to wound VAC. Right hip ulceration is healed. Review of Systems Review Of Systems: Constitutional: No fever, no chills, no night sweats. No weight change. No weakness, fatigue or lethargy. No daytime sleepiness. Integumentary:reports wounds, no lesions. No rash or pruritus. No unusual bruising. No change in hair or nails. Past Medical History Past Medical History: Atrial Fibrillation, Coronary Artery Disease (CAD), Cancer, Chest Pain / Angina, COPD, Dementia, Diabetes Mellitus, GERD/Reflux, Hyperlipidemia, Hypertension, Memory Impairment, Osteoarthritis (OA), Prostate Disorder, Thyroid Disorder Additional Past Medical History / Comment(s): Back pain r/t sciatica, right lung cancer, kidney stone, NSTEMI, dysphagia, BPH, hypothyroid, dementia, hyperparathyroidism, impaired gait. Last Myocardial Infarction Date:: History of Any Multi-Drug Resistant Organisms: None Reported Past Surgical History: Heart Catheterization With Stent Additional Past Surgical History / Comment(s): Lung ca removed from right lung (lobectomy), neck sx d/t to fx, stent to right groin. Past Anesthesia/Blood Transfusion Reactions: No Reported Reaction Date of Last Stent Placement:: 2016 Past Psychological History: No Psychological Hx Reported Additional Psychological History / Comment(s): Pt. resides at [facility]. Son is legal guardian. Patient dementia - very poor historian. Smoking Status: Former smoker Past Alcohol Use History: None Reported, Occasional Additional Past Alcohol Use History / Comment(s): Started smoking 1952 and quit 1967, past occasional alcohol - none now Past Drug Use History: None Reported - Past Family History Father History Unknown: Yes Mother History Unknown: Yes Medications and Allergies Home Medications Medication Instructions Recorded Confirmed Type Levothyroxine Sodium [Synthroid] 25 mcg PO DAILY@0600 05/19/16 07/23/19 History Atorvastatin Calcium [Lipitor] 40 mg PO HS@209910/25/16 07/23/19 History Donepezil [Aricept] 10 mg PO HS@209910/25/16 07/23/19 History Baclofen [Lioresal] 10 mg PO TID@0600,1400,2200 04/10/17 07/23/19 History Tamsulosin HCl [Flomax] 0.4 mg PO BID@0900,209904/10/17 07/23/19 History Dabigatran [Pradaxa] 150 mg PO BID@0900,2100 04/14/17 07/23/19 History Potassium Chloride ER [K-Dur 20] 20 meq PO TID@0900,1300,2100 07/06/17 07/23/19 History Amiodarone [Cordarone] 200 mg PO DAILY@0900 03/14/18 07/23/19 History Clopidogrel [Plavix] 75 mg PO DAILY@89903/14/18 07/23/19 History Ergocalciferol [Vitamin D2 50,000 unit PO FR@89903/14/18 07/23/19 History (DRISDOL)] Melatonin 10 mg PO HS@209903/14/18 07/23/19 History Metoprolol Tartrate [Lopressor] 25 mg PO BID@0900,209903/14/18 07/23/19 History Nitroglycerin [Nitroglycerin 1 spray TRANSLINGU Q5M PRN 03/14/18 07/23/19 History 400MCG [place]] Alendronate Sodium 70 mg PO TH@0600 09/28/18 07/23/19 History Budesonide [Pulmicort] 0.5 mg INHALATION RT-BID 09/28/18 07/23/19 History Carboxymethylcellulose Sodium 1 drop BOTH EYES BID@0900,2100 09/28/18 07/23/19 History [Refresh Tears] Cinacalcet HCl [Sensipar] 60 mg PO DAILY@0900 09/28/18 07/23/19 History INSULIN ASPART (NovoLOG) [NovoLOG See Protocol SQ TID@0900,1300,1900 09/28/18 07/23/19 History (formulary)] Metolazone [Zaroxolyn] 2.5 mg PO TUTH@0900 09/28/18 07/23/19 History Midodrine HCl [ProAmatine] 10 mg PO TID@0900,1300,209909/28/18 07/23/19 History Montelukast [Singulair] 10 mg PO HS@209909/28/18 07/23/19 History Ipratropium-Albuterol Nebulize 3 ml INHALATION RT-TID ampul.neb 10/02/18 07/23/19 Rx [Duoneb 0.5 mg-3 mg/3 ml Soln] Spironolactone [Aldactone] 12.5 mg PO DAILY@0900 #0 10/02/18 07/23/19 Rx Famotidine [Pepcid] 20 mg PO DAILY@0900 11/17/18 07/23/19 History Insulin Glargine,Hum.rec.anlog 17 unit SQ HS@209911/17/18 07/23/19 History [Basaglar Kwikpen U-100] Allopurinol [Zyloprim] 300 mg PO DAILY 07/23/19 07/23/19 History Furosemide [Lasix] 40 mg PO BID 07/23/19 07/23/19 History HYDROcodone/APAP 7.5-325MG [[place] 1 tab PO BID 07/23/19 07/23/19 History 7.5-325] Magnesium Oxide [Mag-Ox] 400 mg PO BID 07/23/19 07/23/19 History Pramox-Calamine 1-8% Lotion 1 applic TOPICAL HS 07/23/19 07/23/19 History [Caladryl] Primidone [Mysoline] 250 mg PO TID 07/23/19 07/23/19 History Allergies Allergy/AdvReac Type Severity Reaction Status Date / Time latex Allergy Rash/Hives Verified 07/23/19 12:10 Physical Exam Vitals: Vital Signs Temp Pulse Pulse Resp BP Pulse Ox 07/24/19 08:11 66 07/24/19 07:59 68 07/24/19 04:00 98.4 F 73 16 115/56 97 07/24/19 00:00 99.6 F 70 16 118/56 97 07/23/19 21:38 98.8 F 92 16 131/60 98 07/23/19 21:18 72 07/23/19 21:09 70 07/23/19 16:06 68 07/23/19 15:55 66 07/23/19 15:45 98.3 F 64 16 108/63 97 07/23/19 11:42 70 07/23/19 11:33 72 07/23/19 11:30 60 18 135/64 93 L Intake and Output 07/23/19 07/24/19 07/24/19 22:59 06:59 14:59 Intake Total 120 150 120 Balance 120 150 120 Intake: Intake, IV Titration 100 Amount Dextrose 5% in Water 1, 100 000 ml @ 20 mls/hr IV . Q24H [facility] Rx#:[id number] Oral 120 50 120 Other: Voiding Method Diaper Incontinent Incontinent # Voids 2 1 Weight 113.5 kg Physical exam: General Appearance: Alert, cooperative, no distress, appears stated age. Skin: See HPI all other Skin color, texture, tugor normal, no rashes or lesions. Results CBC & Chem 7: 07/23/19 05:59 07/23/19 05:59 Labs: Abnormal Lab Results - Last 24 Hours (Table) 07/23/19 07/23/19 07/23/19 Range/Units 11:38 11:58 16:54 POC Glucose (mg/dL) 150 H 210 H 128 H (75-99) mg/dL Ionized Calcium Jun (4.5-5.3) mg/dL 07/23/19 07/24/19 07/24/19 Range/Units 20:32 05:45 06:13 POC Glucose (mg/dL) 264 H 134 H (75-99) mg/dL Ionized Calcium Jun 7.0 H* (4.5-5.3) mg/dL Assessment and Plan (1) Pressure ulcer of sacral region, stage 2 Current Visit: Yes Status: Acute Code(s): L89.152 - PRESSURE ULCER OF SACRAL REGION, STAGE 2 SNOMED Code(s): 358111808 (2) Pressure ulcer of trochanteric region of right hip, stage 1 Current Visit: Yes Status: Acute Code(s): L89.211 - PRESSURE ULCER OF RIGHT HIP, STAGE 1 SNOMED Code(s): 194985000 Plan: Apply Honey alginate, saline moistened gauze, dry gauze, border gauze foam. Change Tuesday. May change outer foam dressing if soiled keep Honey alginate and place until time to change. Continue to offload utilize waffle cushion for sitting. Discussed with patient he may follow up in outpatient setting with the wound care center. Thank you for the consultation any questions please contact the wound care center. DNP note has been reviewed and discussed with Dr. Guillaume and the impression and plan of care has been directed as dictated.
[2019-07-24 11:34] LABS: Glucose,Whole Blood 154 mg/dL (75-99)
[2019-07-24] MEDS: CINACALCET 30 MG TAB PO SCH ×2 (12:51→20:37)
--- NOTE | 2019-07-24 14:51 | P.PN ---
Subjective Progress Note Date: 07/24/19 This is an 84-year-old male patient of Dr. Israel resides at home with son LUIS ANTONIO, with a past medical history of CAD s/p stent RCA April 2017, hypertension, hyperlipidemia, paroxysmal atrial fibrillation, GERD, chronic kidney disease, lung cancer s/p right lobectomy Parkinson's. He was transferred from [facility], secondary to LUIS ANTONIO 's behavior. Apparently the son was given a No trespassing [employer] as he was very belligerent and confrontational to nursing staff and medical personnel at [facility]. Patient was being treated for aspiration pneumonia, he had a modified by swallow eval that shows mechanical soft diet, nectar thick liquids, pills to be taken with applesauce, whole not crushed. Speech therapy is also following patient over there, patient is basically bed bound with transfers [facility], otherwise he sees me in the office to a wheelchair transportation through bus , for which he misses often his visits with me. Patient denies any pain or dysarthria, patient is nonverbal however he shakes yesterday no to your answers, he can follow commands, at baseline. Upon his transfer here, we have requested speech to see him, as he often chokes on liquids, CAT scan of the chest showing focus of linear scarring right lower lung, with elevated right hemidiaphragm, no significant peripheral fibrosis or reticulation, no new suspicious focal consolidation, no pleural effusion, no pneumothorax, background mild COPD changes, there is cardiomegaly without any pericardial effusion, coronary calcifications seen, enlarged right thyroid lobe or goiter causing mass effect on the trachea which is persistent, bilateral gynecomastia has increased, gallbladder has distended margins, pindolol to assist in the liver, adrenals favoring benign lipid rich hyperplasia, there is surgical changes to the right lung with mild fibrosis. Labs shows WBC 6.2, hemoglobin 9.7, creatinine 0.9, glucose between 130 to 210, pro-calcitonin is 0.05normal, calcium elevated at 11.9. 07/24: Discussed case with manager rn case, patient lives at home with son and and they provide 24-hour care, patient is wheelchair bound. Plan is for patient to return home with family. He has been afebrile, blood pressure 115/56, pulse ox 97% on room air, heart rate 68. Ionized calcium is 7.0, blood sugars running between 134 and 264. Parathyroid hormone intact is 230.8. Semsipar 60mg daily increased to twice daily. Patient has been evaluated by PT, OT and speech therapy. Speech therapy is recommending chopped diet, nectar thick liquids, sitting upright 90, no straws, liquids from cups, small bites and sips, direct supervision. Family will be picking the patient up tomorrow. Review of Systems ROS unobtainable: due to mental status Objective - Vital Signs Vital signs: Vital Signs Temp 98.9 F 07/24/19 12:00 Pulse 64 07/24/19 12:08 Resp 16 07/24/19 12:00 BP 118/59 07/24/19 12:00 Pulse Ox 95 07/24/19 12:00 Intake & Output 07/23/19 07/24/19 07/24/19 18:59 06:59 18:59 Intake Total 380 150 240 Balance 380 150 240 Weight 118 kg 113.5 kg Intake: Intake, IV Titration 260 100 Amount Dextrose 5% in Water 1, 160 100 000 ml @ 20 mls/hr IV . Q24H [facility] Rx#:[id number] Piperacillin-Tazobactam 3 100 .375 gm In Sodium Chloride 0.9% 100 ml @ 25 mls/hr IVPB Q8HR [facility] Rx# :[id number] Oral 120 50 240 Other: Voiding Method Incontinent Incontinent # Voids 2 1 - Exam - Constitutional General appearance: cooperative, no acute distress - EENT Eyes: anicteric sclerae, EOMI, PERRLA, dentition normal, normal appearance ENT: hard of hearing, NA/AT, normal oropharynx - Neck Neck: normal ROM - Respiratory Respiratory: bilateral: CTA, negative: diminished, dullness, rales - Cardiovascular Rhythm: regular Heart sounds: normal: S1, S2 Abnormal Heart Sounds: no systolic murmur, no diastolic murmur, no rub, no S3 Gallop, no S4 Gallop, no click, no other - Gastrointestinal General gastrointestinal: normal bowel sounds, soft - Integumentary Integumentary: decreased turgor, normal - Musculoskeletal Musculoskeletal: gait normal, strength equal bilaterally - Psychiatric Psychiatric: A&O x's 1 non verbal - Labs CBC & Chem 7: 07/23/19 05:59 07/23/19 05:59 Labs: Abnormal Lab Results - Last 24 Hours (Table) 07/23/19 07/23/19 07/24/19 Range/Units 16:54 20:32 05:45 POC Glucose (mg/dL) 128 H 264 H (75-99) mg/dL Ionized Calcium Jun (4.5-5.3) mg/dL PTH Intact 230.8 H (14.0-72.0) pg/mL 07/24/19 07/24/19 07/24/19 Range/Units 05:45 06:13 11:33 POC Glucose (mg/dL) 134 H 154 H (75-99) mg/dL Ionized Calcium Jun 7.0 H* (4.5-5.3) mg/dL PTH Intact (14.0-72.0) pg/mL Assessment and Plan Plan: 1. Aspiration tracheobronchitis with possible chemical pneumonitis, right lower lobe pneumonia has been ruled out. Continue mechanical soft diet, with nectar thickened liquids, no straws, meds can be taken whole with apple sauce. CAT scan of the chest failed to reveal any new consolidation. Zosyn transitioned to Augmentin 2. Hypercalcemia, unknown etiology, PTH to be done, thyroid ultrasound to be done, this was addressed during his last few years, and is on Sensipar 60 mg daily, Lasix 40 mg daily, hold off any calcium supplementation 3. Chronic atrial fibrillation. Continue. Amiodarone 200 mg daily, Pradaxa 150 mg twice daily, Lopressor 25 mg twice daily. 4. Ischemic cardiomyopathy with known EF of 20% with chronic systolic heart failure and history of non-ST elevated myocardial infarction. Continue Lasix 40 mg daily twice daily, continue Lopressor, Zaroxolyn and Plavix, Pradaxa. stents placed on April 2017 currently asymptomatic 5. 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 5. Hypertension, hypertensive cardiovascular disease. Continue Lopressor. 6. Hyperlipidemia. Continue atorvastatin 40 mg at bedtime. 7. Benign prostatic hypertrophy. Continue Flomax. 8. Hypothyroidism. Continue levothyroxine 25 g daily. 9. Coronary artery disease status post stent. 10. COPD. Continue Singulair, DuoNeb treatments and Pulmicort. 11. Gastroesophageal reflux disease, gastrointestinal prophylaxis. Pepcid. 12. Chronic back pain. On [place] when necessary 13. History of lung cancer status post right lobectomy. 14. Parkinson's with Dementia no behaviors,. Continue Aricept 10 mg at bedtime. Mysoline 250 mg 3 times a day 15. Diabetes mellitus type 2. NovoLog scale for now. Patient is normally on scheduled NovoLog but will be held due to poor oral intake. 16. DVT prophylaxis. Continue Pradaxa. CODE STATUS: NO code Discharge plan: Home with family, 24-hour care on Tuesday Impression and plan of care have been directed as dictated by the signing physician. Cihoma Foreman nurse practitioner acting as scribe for signing physician.
[2019-07-24 16:37] LABS: Glucose,Whole Blood 155 mg/dL (75-99)
[2019-07-24] MEDS: AMOXIC-POT CLAV 200-28.5MG/5ML 100 ML BOTTLE PO SCH (20:36)
[2019-07-24] MEDS: ATORVASTATIN 40 MG TAB PO SCH (20:37)
[2019-07-24] MEDS: DONEPEZIL 10 MG TAB PO SCH (20:37)
[2019-07-24] MEDS: MELATONIN 3 MG TABLET PO SCH (20:37)
[2019-07-24 22:08] LABS: Glucose,Whole Blood 230 mg/dL (75-99)
[2019-07-25 07:28] LABS: Glucose,Whole Blood 141 mg/dL (75-99)
[2019-07-25] MEDS: LISINOPRIL 2.5 MG TAB PO SCH (07:53)
[2019-07-25] MEDS: LACTULOSE 20 GM/30 ML CUP PO SCH (07:55)
[2019-07-25] MEDS: DABIGATRAN 150 MG CAP PO SCH (07:55)
[2019-07-25] MEDS: CINACALCET 30 MG TAB PO SCH (07:55)
[2019-07-25] MEDS: INSULIN ASPART (NovoLOG) 100 UNIT/ML VIAL SQ SCH ×2 (07:55→13:17)
[2019-07-25] MEDS: MIDODRINE 5 MG TAB PO SCH ×2 (07:55→13:16)
[2019-07-25] MEDS: PRIMIDONE 250 MG TAB PO SCH (07:56)
[2019-07-25] MEDS: SPIRONOLACTONE 25 MG TAB PO SCH (07:56)
[2019-07-25] MEDS: FAMOTIDINE 20 MG TAB PO SCH (07:56)
[2019-07-25] MEDS: METOPROLOL TARTRATE 25 MG TAB PO SCH (07:56)
[2019-07-25] MEDS: TAMSULOSIN 0.4 MG CAP.ER.24H PO SCH (07:56)
[2019-07-25] MEDS: ALLOPURINOL 300 MG TAB PO SCH (07:57)
[2019-07-25] MEDS: FUROSEMIDE 40 MG TAB PO SCH (07:57)
[2019-07-25] MEDS: AMIODARONE 200 MG TAB PO SCH (07:57)
[2019-07-25] MEDS: LEVOTHYROXINE 25 MCG TAB PO SCH (07:57)
[2019-07-25] MEDS: MAGNESIUM OXIDE 400 MG TAB PO SCH (07:57)
[2019-07-25] MEDS: CLOPIDOGREL 75 MG TAB PO SCH (07:57)
[2019-07-25 08:05] VITALS: RESP 17; TEMP 98.6
[2019-07-25] MEDS: IPRATROPIUM-ALBUTEROL 3 ML NEB INHALATION SCH ×2 (09:08→12:16)
[2019-07-25] MEDS: BUDESONIDE 0.5 MG/2 ML NEBU INHALATION SCH (09:08)
[2019-07-25] MEDS: AMOXIC-POT CLAV 200-28.5MG/5ML 100 ML BOTTLE PO SCH (11:57)
[2019-07-25 12:00] LABS: Glucose,Whole Blood 221 mg/dL (75-99)
[2019-07-25 12:29] VITALS: PULSE 72
[2019-07-25 13:16] VITALS: BP 112/61
--- NOTE | 2019-07-25 15:34 | P.DS ---
Providers Date of admission: 07/22/19 19:12 Expected date of discharge: 07/25/19 Attending physician: Katharine Israel Primary care physician: Katharine Israel [facility] Course: This is an 84-year-old male patient of Dr. Israel resides at home with son LUIS ANTONIO, with a past medical history of CAD s/p stent RCA April 2017, hypertension, hyperlipidemia, paroxysmal atrial fibrillation, GERD, chronic kidney disease, lung cancer s/p right lobectomy Parkinson's. He was transferred from [facility], secondary to LUIS ANTONIO 's behavior. Apparently the son was given a No trespassing [employer]pace as he was very belligerent and confrontational to nursing [facility] and medical personnel at [facility]. Patient was being treated for aspiration pneumonia, he had a modified by swallow eval that shows mechanical soft diet, nectar thick liquids, pills to be taken with applesauce, whole not crushed. Speech therapy is also following patient over there, patient is basically bed bound with transfers [facility], otherwise he sees me in the office to a wheelchair transportation through bus , for which he misses often his visits with me. Patient denies any pain or dysarthria, patient is nonverbal however he shakes yesterday no to your answers, he can follow commands, at baseline. Upon his transfer here, we have requested speech to see him, as he often chokes on liquids, CAT scan of the chest showing focus of linear scarring right lower l trang, with elevated right hemidiaphragm, no significant peripheral fibrosis or reticulation, no new suspicious focal consolidation, no pleural effusion, no pneumothorax, background mild COPD changes, there is cardiomegaly without any pericardial effusion, coronary calcifications seen, enlarged right thyroid lobe or goiter causing mass effect on the trachea which is persistent, bilateral gynecomastia has increased, gallbladder has distended margins, pindolol to assist in the liver, adrenals favoring benign lipid rich hyperplasia, there is surgical changes to the right lung with mild fibrosis. Labs shows WBC 6.2, hemoglobin 9.7, creatinine 0.9, glucose between 130 to 210, pro-calcitonin is 0.05normal, calcium elevated at 11.9. 07/24: Discussed case with nurse outreach case manager, patient lives at home with son and and they provide 24-hour care, patient is wheelchair bound. Plan is for patient to return home with family. He has been afebrile, blood pressure 115/56, pulse ox 97% on room air, heart rate 68. Ionized calcium is 7.0, blood sugars running between 134 and 264. Parathyroid hormone intact is 230.8. Semsipar 60mg daily increased to twice daily. Patient has been evaluated by PT, OT and speech therapy. Speech therapy is recommending chopped diet, nectar thick liquids, sitting upright 90, no straws, liquids from cups, small bites and sips, direct supervision. Family will be picking the patient up tomorrow. 07/25: Patient is scheduled for discharge home today. Yesterday, nurse outreach case managertool crib manager alternating pressure. In pump secondary to immobility from dementia. Otherwise patient has all DME in place. The patient has no new concerns today. Home care will be arranged as well as wheelchair van by nurse outreach case manager. Patient will be discharged home today in stable condition. Discharge diagnoses: 1. Aspiration tracheobronchitis with possible chemical pneumonitis, right lower lobe pneumonia has been ruled out. 2. Hypercalcemia, secondary to hyperparathyroidism 3. Chronic atrial fibrillation. 4. Ischemic cardiomyopathy with known EF of 20% with chronic systolic heart failure and history of non-ST elevated myocardial infarction. 5. 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 5. Hypertension, hypertensive cardiovascular disease. 6. Hyperlipidemia. 7. Benign prostatic hypertrophy. 8. Hypothyroidism. 9. Coronary artery disease status post stent. 10. COPD. 11. Gastroesophageal reflux disease 12. Chronic back pain. 13. History of lung cancer status post right lobectomy. 14. Parkinson's with Dementia 15. Diabetes mellitus type 2. 16. Chronic kidney disease stage I Discharge plan: Home with family, 24-hour supervision, VNA Impression and plan of care have been directed as dictated by the signing physician. Chioma Foreman nurse practitioner acting as scribe for signing physician. Patient Condition at Discharge: Good Plan - Discharge Summary New Discharge Prescriptions: New Amoxic-Pot Clav 600-42.9MG/5Ml [Augmentin 600-42.9 mg/5 ml Liquid] 5 ml PO Q12H #100 ml Sennosides [Senokot] 8.6 mg PO DAILY PRN tab PRN Reason: Constipation Lisinopril [Zestril] 2.5 mg PO DAILY #30 tab Continue Levothyroxine Sodium [Synthroid] 25 mcg PO DAILY@0600 Donepezil [Aricept] 10 mg PO HS@2100 Atorvastatin Calcium [Lipitor] 40 mg PO HS@2100 Baclofen [Lioresal] 10 mg PO TID@0600,1400,2200 Tamsulosin HCl [Flomax] 0.4 mg PO BID@0900,2100 Dabigatran [Pradaxa] 150 mg PO BID@0900,2100 Potassium Chloride ER [K-Dur 20] 20 meq PO TID@0900,1300,2100 Nitroglycerin [Nitroglycerin 400MCG [place]] 1 spray TRANSLINGU Q5M PRN PRN Reason: CHEST PAIN Metoprolol Tartrate [Lopressor] 25 mg PO BID@0900,2100 Melatonin 10 mg PO HS@2100 Ergocalciferol [Vitamin D2 (DRISDOL)] 50,000 unit PO FR@0900 Clopidogrel [Plavix] 75 mg PO DAILY@0900 Amiodarone [Cordarone] 200 mg PO DAILY@0900 INSULIN ASPART (NovoLOG) [NovoLOG (formulary)] See Protocol SQ TID@0900,1300,1900 Midodrine HCl [ProAmatine] 10 mg PO TID@0900,1300,2100 Carboxymethylcellulose Sodium [Refresh Tears] 1 drop BOTH EYES BID@0900,2100 Budesonide [Pulmicort] 0.5 mg INHALATION RT-BID Metolazone [Zaroxolyn] 2.5 mg PO TUTH@0900 Montelukast [Singulair] 10 mg PO HS@2100 Ipratropium-Albuterol Nebulize [Duoneb 0.5 mg-3 mg/3 ml Soln] 3 ml INHALATION RT-TID ampul.neb Spironolactone [Aldactone] 12.5 mg PO DAILY@0900 #0 Insulin Glargine,Hum.rec.anlog [Basaglar Kwikpen U-100] 17 unit SQ HS@2100 Famotidine [Pepcid] 20 mg PO DAILY@0900 Allopurinol [Zyloprim] 300 mg PO DAILY Furosemide [Lasix] 40 mg PO BID HYDROcodone/APAP 7.5-325MG [[place] 7.5-325] 1 tab PO BID Magnesium Oxide [Mag-Ox] 400 mg PO BID Pramox-Calamine 1-8% Lotion [Caladryl] 1 applic TOPICAL HS Primidone [Mysoline] 250 mg PO TID Changed Cinacalcet HCl [Sensipar] 60 mg PO BID #0 Discontinued Alendronate Sodium 70 mg PO TH@0600 Discharge Medication List Levothyroxine Sodium [Synthroid] 25 mcg PO DAILY@0600 05/19/16 [History] Atorvastatin Calcium [Lipitor] 40 mg PO HS@209910/25/16 [History] Donepezil [Aricept] 10 mg PO HS@209910/25/16 [History] Baclofen [Lioresal] 10 mg PO TID@0600,1400,2200 04/10/17 [History] Tamsulosin HCl [Flomax] 0.4 mg PO BID@0900,209904/10/17 [History] Dabigatran [Pradaxa] 150 mg PO BID@0900,209904/14/17 [History] Potassium Chloride ER [K-Dur 20] 20 meq PO TID@0900,1300,209907/06/17 [History] Amiodarone [Cordarone] 200 mg PO DAILY@0903/14/18 [History] Clopidogrel [Plavix] 75 mg PO DAILY@89903/14/18 [History] Ergocalciferol [Vitamin D2 (DRISDOL)] 50,000 unit PO FR@89903/14/18 [History] Melatonin 10 mg PO HS@209903/14/18 [History] Metoprolol Tartrate [Lopressor] 25 mg PO BID@0900,209903/14/18 [History] Nitroglycerin [Nitroglycerin 400MCG [place]] 1 spray TRANSLINGU Q5M PRN 03/14/18 [History] Budesonide [Pulmicort] 0.5 mg INHALATION RT-BID 09/28/18 [History] Carboxymethylcellulose Sodium [Refresh Tears] 1 drop BOTH EYES BID@00,209909/28/18 [History] INSULIN ASPART (NovoLOG) [NovoLOG (formulary)] See Protocol SQ TID@0900,1300,1900 09/28/18 [History] Metolazone [Zaroxolyn] 2.5 mg PO TUTH@0909/28/18 [History] Midodrine HCl [ProAmatine] 10 mg PO TID@0900,1300,2100 09/28/18 [History] Montelukast [Singulair] 10 mg PO HS@209909/28/18 [History] Ipratropium-Albuterol Nebulize [Duoneb 0.5 mg-3 mg/3 ml Soln] 3 ml INHALATION RT-TID ampul.neb 10/02/18 [Rx] Spironolactone [Aldactone] 12.5 mg PO DAILY@0900 #0 10/02/18 [Rx] Famotidine [Pepcid] 20 mg PO DAILY@0900 11/17/18 [History] Insulin Glargine,Hum.rec.anlog [Basaglar Kwikpen U-100] 17 unit SQ HS@209911/17/18 [History] Allopurinol [Zyloprim] 300 mg PO DAILY 07/23/19 [History] Furosemide [Lasix] 40 mg PO BID 07/23/19 [History] HYDROcodone/APAP 7.5-325MG [[place] 7.5-325] 1 tab PO BID 07/23/19 [History] Magnesium Oxide [Mag-Ox] 400 mg PO BID 07/23/19 [History] Pramox-Calamine 1-8% Lotion [Caladryl] 1 applic TOPICAL HS 07/23/19 [History] Primidone [Mysoline] 250 mg PO TID 07/23/19 [History] Amoxic-Pot Clav 600-42.9MG/5Ml [Augmentin 600-42.9 mg/5 ml Liquid] 5 ml PO Q12H #100 ml 07/24/19 [Rx] Cinacalcet HCl [Sensipar] 60 mg PO BID #0 07/24/19 [Rx] Lisinopril [Zestril] 2.5 mg PO DAILY #30 tab 07/24/19 [Rx] Sennosides [Senokot] 8.6 mg PO DAILY PRN tab 07/24/19 [Rx] Follow up Appointment(s)/Referral(s): Katharine Israel MD [Primary Care Provider] - 1 Week (office will call with appointment time) Activity/Diet/Wound Care/Special Instructions: [facility]: #[phone] Patient requires an alternating pressure pad and pump secondary to immobility from dementia Chopped diet with nectar-thick liquids, no straws, one-to-one supervision Discharge Disposition: HOME WITH HOME HEALTH SERVICES
[2019-07-25 21:19] LABS: Hemoglobin A1C 6.4 % (4.0-6.0)
[2019-07-27] MEDS ORDERED: ERGOCALCIFEROL 50,000 UNIT CAP PO SCH (09:00)
== END 2019-07-25 15:35 | disposition home health service (06) | DRG 178 ==
LOC: 3SCARD 19:12 → INTOOBSV 19:12 → OBSVTOIN 22:33 → 4SSUR 07-24 21:33
PROVIDERS: ADMIT Family Medicine; ATTEND Family Medicine
DX: J69.0 Pneumonitis due to inhalation of food and vomit (principal); I13.0 Hypertensive heart and chronic kidney disease with heart failure and stage 1 through stage 4 chronic kidney disease, or unspecified chronic kidney disease; I50.22 Chronic systolic (congestive) heart failure; J68.0 Bronchitis and pneumonitis due to chemicals, gases, fumes and vapors; L89.152 Pressure ulcer of sacral region, stage 2; L89.211 Pressure ulcer of right hip, stage 1; E11.22 Type 2 diabetes mellitus with diabetic chronic kidney disease; F02.80 Dementia in other diseases classified elsewhere, unspecified severity, without behavioral disturbance, psychotic disturbance, mood disturbance, and anxiety; G20 Parkinson's disease; E03.9 Hypothyroidism, unspecified; E04.9 Nontoxic goiter, unspecified; E21.3 Hyperparathyroidism, unspecified; E78.5 Hyperlipidemia, unspecified; G89.29 Other chronic pain; I25.10 Atherosclerotic heart disease of native coronary artery without angina pectoris; I25.2 Old myocardial infarction; I25.5 Ischemic cardiomyopathy; I48.0 Paroxysmal atrial fibrillation; J44.9 Chronic obstructive pulmonary disease, unspecified; K21.9 Gastro-esophageal reflux disease without esophagitis; N18.1 Chronic kidney disease, stage 1; N40.0 Benign prostatic hyperplasia without lower urinary tract symptoms; M19.90 Unspecified osteoarthritis, unspecified site; R13.10 Dysphagia, unspecified; R26.9 Unspecified abnormalities of gait and mobility; M54.9 Dorsalgia, unspecified; R32 Unspecified urinary incontinence; H91.90 Unspecified hearing loss, unspecified ear; J84.10 Pulmonary fibrosis, unspecified; Z74.01 Bed confinement status; Z79.01 Long term (current) use of anticoagulants; Z79.02 Long term (current) use of antithrombotics/antiplatelets; Z79.890 Hormone replacement therapy; Z79.899 Other long term (current) drug therapy; Z79.4 Long term (current) use of insulin; Z91.040 Latex allergy status; Z99.3 Dependence on wheelchair; Z85.118 Personal history of other malignant neoplasm of bronchus and lung; Z87.442 Personal history of urinary calculi; Z87.891 Personal history of nicotine dependence; Z90.2 Acquired absence of lung [part of]; Z95.5 Presence of coronary angioplasty implant and graft
CPT/HCPCS: 71250; 76536; 80048; 82330; 83036; 83970; 84145; 85025; 94640

== ENCOUNTER 2019-08-03 13:23 | Inpatient (IN) | payer MEDICARE, OTHER ==
[2019-08-05] MEDS ORDERED: METOPROLOL TARTRATE 5 MG/5 ML VIAL IVP PRN (16:31)
[2019-08-05] MEDS ORDERED: DEXTROSE 5% IN WATER 1,000 ML IV ONE (16:32)
[2019-08-05] MEDS ORDERED: HEPARIN SODIUM,PORCINE 5,000 UNIT/ML 1 ML VIAL IV ONE (16:35)
[2019-08-05] MEDS ORDERED: HEPARIN SODIUM,PORCINE 5,000 UNIT/ML 1 ML VIAL IV PRN (16:35)
[2019-08-05] MEDS ORDERED: HEPARIN SOD,PORK IN 0.45% NACL 25,000 UNIT in 0.45% NACL 1 250ML.BAG IV SCH (16:45)
[2019-08-05 16:53] LABS: Glucose,Whole Blood 114 mg/dL (75-99)
[2019-08-05 17:27] LABS: INR 1.5 (<1.2); Prothrombin Time 14.9 sec (9.0-12.0)
[2019-08-05] MEDS: INSULIN ASPART (NovoLOG) 100 UNIT/ML VIAL SQ SCH (18:22)
[2019-08-05 20:27] LABS: Glucose,Whole Blood 138 mg/dL (75-99)
[2019-08-06 06:07] LABS: Glucose,Whole Blood 144 mg/dL (75-99)
[2019-08-06] MEDS: INSULIN ASPART (NovoLOG) 100 UNIT/ML VIAL SQ SCH ×5 (06:15→20:38)
[2019-08-06 06:41] LABS: Basophils % (A) 1 %; Eosinophils # (A) 0.2 k/uL (0-0.7); Eosinophils % (A) 4 %; HCT 31.6 % (39.0-53.0); HGB 9.4 gm/dL (13.0-17.5); Hypochromasia Marked; Lymphocytes # (A) 1.4 k/uL (1.0-4.8); Lymphocytes % (A) 23 %; MCH 27.2 pg (25.0-35.0); MCHC 29.6 g/dL (31.0-37.0); MCV 91.7 fL (80.0-100.0); Mean Platelet Volume 7.8; Monocytes # (A) 0.2 k/uL (0-1.0); Monocytes % (A) 4 %; Neutrophils % (A) 67 %; Platelet Count 280 k/uL (150-450); RBC 3.44 m/uL (4.30-5.90); RDW 15.8 % (11.5-15.5)
[2019-08-06 07:41] LABS: ALT 9 U/L (4-49); AST 20 U/L (17-59); African American GFR (CKD) >90 (>60 ml/min/1.73 sqM); Albumin 2.5 g/dL (3.5-5.0); Alkaline Phosphatase 53 U/L (38-126); Anion Gap 2 mmol/L; Blood Urea Nitrogen 5 mg/dL (9-20); Calcium 10.8 mg/dL (8.4-10.2); Carbon Dioxide 27 mmol/L (22-30); Chloride 113 mmol/L (98-107); Glucose 142 mg/dL (74-99); Non-African American GFR(CKD) 88 (>60 ml/min/1.73 sqM); Potassium 3.9 mmol/L (3.5-5.1); Sodium 142 mmol/L (137-145); Total Bilirubin 0.3 mg/dL (0.2-1.3); Total Protein 5.6 g/dL (6.3-8.2)
[2019-08-06] MEDS ORDERED: LEVOTHYROXINE IVP 100 MCG/5 ML VIAL IV SCH (09:00)
[2019-08-06 11:18] VITALS: BMI 27.1
[2019-08-06 11:55] LABS: Glucose,Whole Blood 209 mg/dL (75-99)
--- NOTE | 2019-08-06 12:45 | P.CONS ---
History of Present Illness - Reason for Consult Consult date: 08/06/19 Wound care - History of Present Illness This is an 84-year-old patient of Dr. Israel'eddie being seen by the wound care for nonhealing ulcerations of the sacrum. Patient's past medical history significant for coronary artery disease with stent to RCA in April 2017, hypertension, hyperlipidemia, proximal atrial fibrillation, GERD, chronic kidney disease, lung cancer status post right lobectomy, and Parkinson's. The patient has been previously seen apparently 2 weeks ago for the same nonhealing ulceration. At the time is recommended to utilize honey alginate and to see wound care center on outpatient basis for treatment. Patient patient declined outpatient wound care treatment. No dressings were continued upon discharge. Patient states that the ulceration has been there for a few years. It will heal and then reappear. Patient spends the majority of his time sitting or lying in bed. He does not utilize any offloading equipment. Review of Systems Review Of Systems: Constitutional: No fever, no chills, no night sweats. No weight change. No weakness, fatigue or lethargy. No daytime sleepiness. Integumentary:reports wounds, no lesions. No rash or pruritus. No unusual bruising. No change in hair or nails. Past Medical History Past Medical History: Atrial Fibrillation, Coronary Artery Disease (CAD), Cancer, Chest Pain / Angina, COPD, Dementia, Diabetes Mellitus, GERD/Reflux, Hyperlipidemia, Hypertension, Memory Impairment, Osteoarthritis (OA), Prostate Disorder, Thyroid Disorder Additional Past Medical History / Comment(s): Back pain r/t sciatica, right lung cancer, kidney stone, NSTEMI, dysphagia, BPH, hypothyroid, dementia, hyperparathyroidism, impaired gait. Last Myocardial Infarction Date:: History of Any Multi-Drug Resistant Organisms: None Reported Past Surgical History: Heart Catheterization With Stent Additional Past Surgical History / Comment(s): Lung ca removed from right lung (lobectomy), neck sx d/t to fx, stent to right groin. Past Anesthesia/Blood Transfusion Reactions: No Reported Reaction Date of Last Stent Placement:: 2016 Past Psychological History: No Psychological Hx Reported Additional Psychological History / Comment(s): Patient lives at home with sonJerman. Per son since last discharge the patient has been "comatosed" and not able to eat, drink and or talk. Patient is now choking on his own secretions Smoking Status: Former smoker Past Alcohol Use History: None Reported, Occasional Additional Past Alcohol Use History / Comment(s): Started smoking 1952 and quit 1967, past occasional alcohol - none now Past Drug Use History: None Reported - Past Family History Father History Unknown: Yes Mother History Unknown: Yes Medications and Allergies Home Medications Medication Instructions Recorded Confirmed Type Levothyroxine Sodium [Synthroid] 25 mcg PO DAILY@0600 05/19/16 08/05/19 History Atorvastatin Calcium [Lipitor] 40 mg PO HS@209910/25/16 08/05/19 History Donepezil [Aricept] 10 mg PO HS@209910/25/16 08/05/19 History Baclofen [Lioresal] 10 mg PO TID@0600,1400,2200 04/10/17 08/05/19 History Tamsulosin HCl [Flomax] 0.4 mg PO BID@0900,209904/10/17 08/05/19 History Dabigatran [Pradaxa] 150 mg PO BID@0900,209904/14/17 08/05/19 History Potassium Chloride ER [K-Dur 20] 20 meq PO TID@0900,1300,2100 07/06/17 08/05/19 History Amiodarone [Cordarone] 200 mg PO DAILY@0900 03/14/18 08/05/19 History Clopidogrel [Plavix] 75 mg PO DAILY@0900 03/14/18 08/05/19 History Ergocalciferol [Vitamin D2 50,000 unit PO FR@89903/14/18 08/05/19 History (DRISDOL)] Melatonin 10 mg PO HS@209903/14/18 08/05/19 History Metoprolol Tartrate [Lopressor] 25 mg PO BID@0900,209903/14/18 08/05/19 History Nitroglycerin [Nitroglycerin 1 spray TRANSLINGU Q5M PRN 03/14/18 08/05/19 History 400MCG [place]] Budesonide [Pulmicort] 0.5 mg INHALATION RT-BID 09/28/18 08/05/19 History Carboxymethylcellulose Sodium 1 drop BOTH EYES BID@0900,209909/28/18 08/05/19 History [Refresh Tears] INSULIN ASPART (NovoLOG) [NovoLOG See Protocol SQ TID@0900,1300,1900 09/28/18 08/05/19 History (formulary)] Metolazone [Zaroxolyn] 2.5 mg PO TUTH@0900 09/28/18 08/05/19 History Midodrine HCl [ProAmatine] 10 mg PO TID@0900,1300,2100 09/28/18 08/05/19 History Montelukast [Singulair] 10 mg PO HS@209909/28/18 08/05/19 History Ipratropium-Albuterol Nebulize 3 ml INHALATION RT-TID ampul.neb 10/02/18 08/05/19 Rx [Duoneb 0.5 mg-3 mg/3 ml Soln] Spironolactone [Aldactone] 12.5 mg PO DAILY@0900 #0 10/02/18 08/05/19 Rx Famotidine [Pepcid] 20 mg PO DAILY@0900 11/17/18 08/05/19 History Insulin Glargine,Hum.rec.anlog 17 unit SQ HS@209911/17/18 08/05/19 History [Basaglar Kwikpen U-100] Allopurinol [Zyloprim] 300 mg PO DAILY 07/23/19 08/05/19 History Furosemide [Lasix] 40 mg PO BID 07/23/19 08/05/19 History HYDROcodone/APAP 7.5-325MG [[place] 1 tab PO BID 07/23/19 08/05/19 History 7.5-325] Magnesium Oxide [Mag-Ox] 400 mg PO BID 07/23/19 08/05/19 History Pramox-Calamine 1-8% Lotion 1 applic TOPICAL HS 07/23/19 08/05/19 History [Caladryl] Primidone [Mysoline] 250 mg PO TID 07/23/19 08/05/19 History Cinacalcet HCl [Sensipar] 60 mg PO BID #0 07/24/19 08/05/19 Rx Lisinopril [Zestril] 2.5 mg PO DAILY #30 tab 07/24/19 08/05/19 Rx Sennosides [Senokot] 8.6 mg PO DAILY PRN tab 07/24/19 08/05/19 Rx Allergies Allergy/AdvReac Type Severity Reaction Status Date / Time latex Allergy Rash/Hives Verified 08/05/19 18:20 Physical Exam Vitals: Vital Signs Temp Pulse Resp BP Pulse Ox 08/06/19 08:00 98.9 F 77 20 108/58 100 08/06/19 04:00 98.7 F 73 18 114/57 98 08/06/19 00:00 98.5 F 84 18 136/72 93 L 08/05/19 20:00 99.1 F 85 18 134/69 94 L 08/05/19 16:00 18 08/05/19 15:40 99.2 F 80 18 101/59 92 L Intake and Output 08/05/19 08/06/19 08/06/19 22:59 06:59 14:59 Intake Total 122.358 Output Total 1500 Balance -1500 122.358 Intake: Intake, IV Titration 122.358 Amount Heparin Sod,Pork in 0.45% 122.358 NaCl 25,000 unit In 0.45 % NaCl 1 250ml.bag @ 11. 63 UNITS/KG/HR 10.002 mls /hr IV .Q24H [facility] Rx#: [id number] Output: Urine 1500 Other: Voiding Method Indwelling Catheter Indwelling Catheter Indwelling Catheter Weight 86 kg 86 kg Physical exam: General Appearance: Alert, cooperative, no distress, appears stated age. Skin: Sacral ulceration: Measuring approximately 3 x 4 x 0.1 width subcutaneous layer exposed, wound bed shows granulation throughout with adherent Slough. No undermining or tunneling noted. The wound edges attached to the wound bed. all other Skin color, texture, tugor normal, no rashes or lesions. Neurologic: Alert oriented x3 Results CBC & Chem 7: 08/06/19 06:09 08/06/19 06:09 Labs: Abnormal Lab Results - Last 24 Hours (Table) 08/05/19 08/05/19 08/05/19 Range/Units 16:51 16:56 20:27 RBC (4.30-5.90) m/uL Hgb (13.0-17.5) gm/dL Hct (39.0-53.0) % MCHC (31.0-37.0) g/dL RDW (11.5-15.5) % PT 14.9 H (9.0-12.0) sec INR 1.5 H (<1.2) APTT 41.0 H (22.0-30.0) sec Chloride (98-107) mmol/L BUN (9-20) mg/dL Glucose (74-99) mg/dL POC Glucose (mg/dL) 114 H 138 H (75-99) mg/dL Calcium (8.4-10.2) mg/dL Total Protein (6.3-8.2) g/dL Albumin (3.5-5.0) g/dL 08/06/19 08/06/19 08/06/19 Range/Units 01:15 06:06 06:09 RBC 3.44 L (4.30-5.90) m/uL Hgb 9.4 L (13.0-17.5) gm/dL Hct 31.6 L (39.0-53.0) % MCHC 29.6 L (31.0-37.0) g/dL RDW 15.8 H (11.5-15.5) % PT (9.0-12.0) sec INR (<1.2) APTT 68.1 H (22.0-30.0) sec Chloride (98-107) mmol/L BUN (9-20) mg/dL Glucose (74-99) mg/dL POC Glucose (mg/dL) 144 H (75-99) mg/dL Calcium (8.4-10.2) mg/dL Total Protein (6.3-8.2) g/dL Albumin (3.5-5.0) g/dL 08/06/19 08/06/19 Range/Units 06:09 11:54 RBC (4.30-5.90) m/uL Hgb (13.0-17.5) gm/dL Hct (39.0-53.0) % MCHC (31.0-37.0) g/dL RDW (11.5-15.5) % PT (9.0-12.0) sec INR (<1.2) APTT (22.0-30.0) sec Chloride 113 H (98-107) mmol/L BUN 5 L (9-20) mg/dL Glucose 142 H (74-99) mg/dL POC Glucose (mg/dL) 209 H (75-99) mg/dL Calcium 10.8 H (8.4-10.2) mg/dL Total Protein 5.6 L (6.3-8.2) g/dL Albumin 2.5 L (3.5-5.0) g/dL Assessment and Plan Assessment: 1. Pressure ulcer of sacral region, stage II Plan: Apply honey alginate, saline moistened gauze, dry gauze, border gauze foam. Change Tuesday. May change the outer foam dressing if soiled. Keep honey alginate in place until it is time for the dressing change. Utilize offloading equipment such as waffle cushion for sitting Turn every 2 hours. Further recommend outpatient wound care therapy. Thank you kindly for the consultation. Any questions please contact the wound care center. DNP note has been reviewed and discussed with Dr. Guillaume and the impression and plan of care has been directed as dictated.
--- NOTE | 2019-08-06 13:19 | P.HPIM ---
History of Present Illness H&P Date: 08/06/19 Chief Complaint: Metabolic encephalopathy, transferred from [facility] This is an 84-year-old male patient of Dr. Israel resides at home with son LUIS ANTONIO, with a past medical history of CAD s/p stent RCA April 2017, hypertension, hyperlipidemia, paroxysmal atrial fibrillation, GERD, chronic kidney disease, lung cancer s/p right lobectomy, chronic back pain, COPD, dementia, diabetes mellitus type 2, benign prostatic hypertrophy, hyperlipidemia, chronic systolic heart failure with EF of 20-25 %, Parkinson's. Patient was recently admitted at [facility] from July 22 - July 25 as he was transferred from [facility], secondary to LUIS ANTONIO 's behavior at [facility] and there was a no trespassing order on the [place]. He was very belligerent and confrontational to nursing staff and medical personnel at [facility]. Patient was treated for aspiration tracheobronchitis with possible chemical pneumonitis and discharged to return home on July 25. Patient had VNA and 24-hour supervision in place. Patient presented to [facility] on August 01 as patient had lab work that revealed a sodium of 161, chloride 123, creatinine 1.3, CO2 32, glucose 188, albumin 2.3. WBC 14.4, hemoglobin 10.4, platelet count 351. Magnesium 1.9, phosphorus 1.5. ABGs pH 7.4 pCO2 43, O2 99.9, bicarb 27, base excess 2.5. Osmolality 246, urine osmolality 607, urine creatinine 158, urine sodium 14, urinalysis negative for infection. Urine drug screen positive for barbiturates. Chest x-ray showed persistent suboptimal expiratory effort with slight diminution in the density at the lung bases compared to prior study. Persistent triangular density in the retrocardiac region on the left side. This raises possibility of atelectasis or infiltrate. No pneumothorax. CAT scan of the brain revealed no acute findings. There is possible normal pressure hydrocephalus. Persistent atrophy. Patient was admitted to the hospital and seen by nephrology. Patient had decreased responsiveness and obtundation and was monitored in the intensive care unit. Patient was placed on IV fluids at D5 W to improve sodium.. Over the following days, patient had improvement of his mental status and was able to answer questions and follow simple commands. The patient had a Peres catheter placed at [facility]. He was noted to have tremors of the right hand. He failed speech bedside swallow and was started on Lovenox for DVT prophylaxis. Patient was transferred to [facility] as a direct admit for neurology evaluation of metabolic encephalopathy. Patient was also noted to have a stage II/3 decubitus ulcer to large area of both buttocks and Wound Care Team is following the patient. Speech therapy is on consult and social work consult in place with concern for patient's current living situation. EEG has been ordered. Patient does meet criteria for palliative care but son was very resistant to this on last admission. Patient is followed by case management social worker and social work. Review of Systems ROS unobtainable: due to mental status Past Medical History Past Medical History: Atrial Fibrillation, Coronary Artery Disease (CAD), Cancer, Chest Pain / Angina, COPD, Dementia, Diabetes Mellitus, GERD/Reflux, Hyperlipidemia, Hypertension, Memory Impairment, Osteoarthritis (OA), Prostate Disorder, Thyroid Disorder Additional Past Medical History / Comment(s): Back pain r/t sciatica, right lung cancer, kidney stone, NSTEMI, dysphagia, BPH, hypothyroid, dementia, hyperp arathyroidism, impaired gait. Last Myocardial Infarction Date:: History of Any Multi-Drug Resistant Organisms: None Reported Past Surgical History: Heart Catheterization With Stent Additional Past Surgical History / Comment(s): Lung ca removed from right lung (lobectomy), neck sx d/t to fx, stent to right groin. Past Anesthesia/Blood Transfusion Reactions: No Reported Reaction Date of Last Stent Placement:: 2016 Past Psychological History: No Psychological Hx Reported Additional Psychological History / Comment(s): Patient lives at home with sonJerman. Per son since last discharge the patient has been "comatosed" and not able to eat, drink and or talk. Patient is now choking on his own secretions Smoking Status: Former smoker Past Alcohol Use History: None Reported, Occasional Additional Past Alcohol Use History / Comment(s): Started smoking 1952 and quit 1967, past occasional alcohol - none now Past Drug Use History: None Reported - Past Family History Father History Unknown: Yes Mother History Unknown: Yes Medications and Allergies Home Medications Medication Instructions Recorded Confirmed Type Levothyroxine Sodium [Synthroid] 25 mcg PO DAILY@0600 05/19/16 08/05/19 History Atorvastatin Calcium [Lipitor] 40 mg PO HS@209910/25/16 08/05/19 History Donepezil [Aricept] 10 mg PO HS@209910/25/16 08/05/19 History Baclofen [Lioresal] 10 mg PO TID@0600,1400,2200 04/10/17 08/05/19 History Tamsulosin HCl [Flomax] 0.4 mg PO BID@0900,209904/10/17 08/05/19 History Dabigatran [Pradaxa] 150 mg PO BID@0900,209904/14/17 08/05/19 History Potassium Chloride ER [K-Dur 20] 20 meq PO TID@0900,1300,209907/06/17 08/05/19 History Amiodarone [Cordarone] 200 mg PO DAILY@89903/14/18 08/05/19 History Clopidogrel [Plavix] 75 mg PO DAILY@89903/14/18 08/05/19 History Ergocalciferol [Vitamin D2 50,000 unit PO FR@89903/14/18 08/05/19 History (DRISDOL)] Melatonin 10 mg PO HS@209903/14/18 08/05/19 History Metoprolol Tartrate [Lopressor] 25 mg PO BID@0900,209903/14/18 08/05/19 History Nitroglycerin [Nitroglycerin 1 spray TRANSLINGU Q5M PRN 03/14/18 08/05/19 History 400MCG [place]] Budesonide [Pulmicort] 0.5 mg INHALATION RT-BID 09/28/18 08/05/19 History Carboxymethylcellulose Sodium 1 drop BOTH EYES BID@0900,209909/28/18 08/05/19 History [Refresh Tears] INSULIN ASPART (NovoLOG) [NovoLOG See Protocol SQ TID@0900,1300,1900 09/28/18 08/05/19 History (formulary)] Metolazone [Zaroxolyn] 2.5 mg PO TUTH@0900 09/28/18 08/05/19 History Midodrine HCl [ProAmatine] 10 mg PO TID@0900,1300,209909/28/18 08/05/19 History Montelukast [Singulair] 10 mg PO HS@2100 09/28/18 08/05/19 History Ipratropium-Albuterol Nebulize 3 ml INHALATION RT-TID ampul.neb 10/02/18 08/05/19 Rx [Duoneb 0.5 mg-3 mg/3 ml Soln] Spironolactone [Aldactone] 12.5 mg PO DAILY@0900 #0 10/02/18 08/05/19 Rx Famotidine [Pepcid] 20 mg PO DAILY@0900 11/17/18 08/05/19 History Insulin Glargine,Hum.rec.anlog 17 unit SQ HS@209911/17/18 08/05/19 History [Basaglar Kwikpen U-100] Allopurinol [Zyloprim] 300 mg PO DAILY 07/23/19 08/05/19 History Furosemide [Lasix] 40 mg PO BID 07/23/19 08/05/19 History HYDROcodone/APAP 7.5-325MG [[place] 1 tab PO BID 07/23/19 08/05/19 History 7.5-325] Magnesium Oxide [Mag-Ox] 400 mg PO BID 07/23/19 08/05/19 History Pramox-Calamine 1-8% Lotion 1 applic TOPICAL HS 07/23/19 08/05/19 History [Caladryl] Primidone [Mysoline] 250 mg PO TID 07/23/19 08/05/19 History Cinacalcet HCl [Sensipar] 60 mg PO BID #0 07/24/19 08/05/19 Rx Lisinopril [Zestril] 2.5 mg PO DAILY #30 tab 07/24/19 08/05/19 Rx Sennosides [Senokot] 8.6 mg PO DAILY PRN tab 07/24/19 08/05/19 Rx Allergies Allergy/AdvReac Type Severity Reaction Status Date / Time latex Allergy Rash/Hives Verified 08/05/19 18:20 Physical Exam Vitals: Vital Signs Temp Pulse Resp BP Pulse Ox 08/06/19 08:00 98.9 F 77 20 108/58 100 08/06/19 04:00 98.7 F 73 18 114/57 98 08/06/19 00:00 98.5 F 84 18 136/72 93 L 08/05/19 20:00 99.1 F 85 18 134/69 94 L 08/05/19 16:00 18 08/05/19 15:40 99.2 F 80 18 101/59 92 L Intake and Output 08/05/19 08/06/19 08/06/19 22:59 06:59 14:59 Intake Total 122.358 Output Total 1500 Balance -1500 122.358 Intake: Intake, IV Titration 122.358 Amount Heparin Sod,Pork in 0.45% 122.358 NaCl 25,000 unit In 0.45 % NaCl 1 250ml.bag @ 11. 63 UNITS/KG/HR 10.002 mls /hr IV .Q24H [facility] Rx#: [id number] Output: Urine 1500 Other: Voiding Method Indwelling Catheter Indwelling Catheter Indwelling Catheter Weight 86 kg 86 kg - Constitutional General appearance: cooperative, no acute distress - EENT Eyes: anicteric sclerae, EOMI, PERRLA, dentition normal, normal appearance ENT: hard of hearing, NA/AT, normal oropharynx - Neck Neck: normal ROM - Respiratory Respiratory: bilateral: CTA, negative: diminished, dullness, rales - Cardiovascular Rhythm: regular Heart sounds: normal: S1, S2 Abnormal Heart Sounds: no systolic murmur, no diastolic murmur, no rub, no S3 Gallop, no S4 Gallop, no click, no other - Gastrointestinal General gastrointestinal: normal bowel sounds, soft - Integumentary Integumentary: decreased turgor, normal - Musculoskeletal Musculoskeletal: gait normal, strength equal bilaterally - Psychiatric Psychiatric: A&O x's 1 non verbal Results CBC & Chem 7: 08/06/19 06:09 08/06/19 06:09 Labs: Abnormal Lab Results - Last 24 Hours (Table) 08/05/19 08/05/19 08/05/19 Range/Units 16:51 16:56 20:27 RBC (4.30-5.90) m/uL Hgb (13.0-17.5) gm/dL Hct (39.0-53.0) % MCHC (31.0-37.0) g/dL RDW (11.5-15.5) % PT 14.9 H (9.0-12.0) sec INR 1.5 H (<1.2) APTT 41.0 H (22.0-30.0) sec Chloride (98-107) mmol/L BUN (9-20) mg/dL Glucose (74-99) mg/dL POC Glucose (mg/dL) 114 H 138 H (75-99) mg/dL Calcium (8.4-10.2) mg/dL Total Protein (6.3-8.2) g/dL Albumin (3.5-5.0) g/dL 08/06/19 08/06/19 08/06/19 Range/Units 01:15 06:06 06:09 RBC 3.44 L (4.30-5.90) m/uL Hgb 9.4 L (13.0-17.5) gm/dL Hct 31.6 L (39.0-53.0) % MCHC 29.6 L (31.0-37.0) g/dL RDW 15.8 H (11.5-15.5) % PT (9.0-12.0) sec INR (<1.2) APTT 68.1 H (22.0-30.0) sec Chloride (98-107) mmol/L BUN (9-20) mg/dL Glucose (74-99) mg/dL POC Glucose (mg/dL) 144 H (75-99) mg/dL Calcium (8.4-10.2) mg/dL Total Protein (6.3-8.2) g/dL Albumin (3.5-5.0) g/dL 08/06/19 08/06/19 Range/Units 06:09 11:54 RBC (4.30-5.90) m/uL Hgb (13.0-17.5) gm/dL Hct (39.0-53.0) % MCHC (31.0-37.0) g/dL RDW (11.5-15.5) % PT (9.0-12.0) sec INR (<1.2) APTT (22.0-30.0) sec Chloride 113 H (98-107) mmol/L BUN 5 L (9-20) mg/dL Glucose 142 H (74-99) mg/dL POC Glucose (mg/dL) 209 H (75-99) mg/dL Calcium 10.8 H (8.4-10.2) mg/dL Total Protein 5.6 L (6.3-8.2) g/dL Albumin 2.5 L (3.5-5.0) g/dL Thrombosis Risk Factor Assmnt - DVT/VTE Prophylaxis DVT/VTE Prophylaxis: Pharmacologic Prophylaxis ordered - Choose All That Apply Each Factor Represents 1 point: Medical pt on bed rest Other Risk Factors: Yes Each Risk Factor Represents 2 Points: Patient confined to bed Each Risk Factor Represents 3 Points: Age 75 years or older Other congenital or acquired thrombophilia - If yes, enter type in comment: No Thrombosis Risk Factor Assessment Total Risk Factor Score: 6 Thrombosis Risk Factor Assessment Level: High Risk Assessment and Plan Plan: 1. Acute metabolic encephalopathy. Patient was seen at [facility] and transferred here for neurology evaluation. EEG ordered. CAT scan done at [facility] showed no acute findings. 2. Hyperkalemia contributing to mental status changes. Sodium is currently normal. 3. Acute kidney injury with chronic kidney disease stage II, stable. 4. Recent hospitalization for aspiration tracheobronchitis with possible chemical pneumonitis, right lower lobe pneumonia has been ruled out. 5. Stage II decubitus ulcer to bilateral buttocks. Wound Center team consult appreciated. Local wound care. Peres catheter to be maintained to aid in healing. 6. Hypercalcemia, chronic secondary to primary hyperparathyroidism. 7. Paroxysmal atrial fibrillation. Hold Amiodarone 200 mg daily, Pradaxa 150 mg twice daily, Lopressor 25 mg twice daily. Patient is currently on IV Lopressor for rate control and heparin drip. 8. Ischemic cardiomyopathy with known EF of 20% with chronic systolic heart failure and history of non-ST elevated myocardial infarction. Hold Lasix 40 mg daily twice daily, continue Lopressor, Zaroxolyn and Plavix, Pradaxa. stents placed on April 2017 currently asymptomatic 9. 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 10. Hypertension, hypertensive cardiovascular disease. Continue Lopressor. 11. Hyperlipidemia. Hold atorvastatin 40 mg at bedtime. 12. Benign prostatic hypertrophy. Hold Flomax. 13. Hypothyroidism. Continue levothyroxine 12.5 g daily. 14. Coronary artery disease status post stent. 15. COPD. Continue Singulair, DuoNeb treatments and Pulmicort. 16. Gastroesophageal reflux disease, gastrointestinal prophylaxis. Pepcid IV. 17. Chronic back pain. 18. History of lung cancer status post right lobectomy. 19. Parkinson's with Dementia no behaviors. Hold Aricept 10 mg at bedtime, Mysoline 250 mg 3 times a day 20. Diabetes mellitus type 2. NovoLog scale for now. Patient is normally on scheduled NovoLog but will be held due to poor oral intake. 21. Poor oral intake, moderate protein calorie malnutrition. Patient was on Marinol as outpatient. 22. DVT prophylaxis. Continue heparin CODE STATUS: Full code Patient met the hospital for a minimum of 2 nights stay. Discharge plan: To be determined. Social work and case management social worker following. Patient was previously discharged to home with family, 24-hour care on Tuesday Impression and plan of care have been directed as dictated by the signing physician. Chioma Foreman nurse practitioner acting as scribe for signing physician.
[2019-08-06] MEDS ORDERED: SENNOSIDES 8.6 MG TAB PO PRN (13:33)
[2019-08-06] MEDS ORDERED: BACLOFEN 10 MG TAB PO PRN (13:33)
--- NOTE | 2019-08-06 15:23 | P.CNPUL ---
History of Present Illness Consult date: 08/06/19 Reason for consult: pneumonia Chief complaint: Shortness of breath, pneumonia History of present illness: This is a 84-year-old male well-known to me seen and evaluated examined on third floor patient well-known to me from [facility] admitted with severe altered mental status changes and hypernatremia, patient transferred to [facility] from [facility] per family wishes, patient with a past medical history of CAD s/p stent RCA April 2017, hypertension, hyperlipidemia, paroxysmal atrial fibrillation, GERD, chronic kidney disease, lung cancer s/p right lobectomy, chronic back pain, COPD, dementia, diabetes mellitus type 2, benign prostatic hypertrophy, hyperlipidemia, chronic systolic heart failure with EF of 20-25 %, Parkinson's. Patient was recently admitted at [facility] from July 22 - July 25 as he was transferred from [facility], secondary to POA 's behavior at [facility] and there was a no trespassing order on the POA. He was very belligerent and confrontational to nursing staff and medical personnel at [facility]. Patient was treated for aspiration tracheobronchitis with possible chemical pneumonitis and discharged to return home on July 25. Patient had VNA and 24-hour supervision in place. Patient presented to [facility] on August 01 as patient had lab work that revealed a sodium of 161, chloride 123, creatinine 1.3, CO2 32, glucose 188, albumin 2.3. WBC 14.4, hemoglobin 10.4, platelet count 351. Magnesium 1.9, phosphorus 1.5. ABGs pH 7.4 pCO2 43, O2 99.9, bicarb 27, base excess 2.5. Osmolality 246, urine osmolality 607, urine creatinine 158, urine sodium 14, urinalysis negative for infection. Urine drug screen positive for barbiturates. Chest x-ray showed persistent suboptimal expiratory effort with slight diminution in the density at the lung bases compared to prior study. Persistent triangular density in the retrocardiac region on the left side. This raises possibility of atelectasis or infiltrate. No pneumothorax. CAT scan of the brain revealed no acute findings. There is possible normal pressure hydrocephalus. Persistent atrophy. Patient was admitted to the hospital and seen by nephrology. Patient had decreased responsiveness and obtundation and was monitored in the intensive care unit. Patient was placed on IV fluids at D5 W to improve sodium.. Over the following days, patient had improvement of his mental status and was able to answer questions and follow simple commands. The patient had a Peres catheter placed at [facility]. He was noted to have tremors of the right hand. He failed speech bedside swallow and was started on Lovenox for DVT prophylaxis. Patient was transferred to [facility] as a direct admit for neurology evaluation of metabolic encephalopathy. Patient was also noted to have a stage II/3 decubitus ulcer to large area of both buttocks and Wound Care Team is following the patient. Speech therapy is on consult and social work consult in place with concern for patient's current living situation. EEG has been ordered. Patient does meet criteria for palliative care but son was very resistant to this on last admission. Patient is followed by casework specialist and social work. Review of Systems All systems: negative Past Medical History Past Medical History: Atrial Fibrillation, Coronary Artery Disease (CAD), Cancer, Chest Pain / Angina, COPD, Dementia, Diabetes Mellitus, GERD/Reflux, Hyperlipidemia, Hypertension, Memory Impairment, Osteoarthritis (OA), Prostate Disorder, Thyroid Disorder Additional Past Medical History / Comment(s): Back pain r/t sciatica, right lung cancer, kidney stone, NSTEMI, dysphagia, BPH, hypothyroid, dementia, hyperparathyroidism, impaired gait. Last Myocardial Infarction Date:: History of Any Multi-Drug Resistant Organisms: None Reported Past Surgical History: Heart Catheterization With Stent Additional Past Surgical History / Comment(s): Lung ca removed from right lung (lobectomy), neck sx d/t to fx, stent to right groin. Past Anesthesia/Blood Transfusion Reactions: No Reported Reaction Date of Last Stent Placement:: 2016 Past Psychological History: No Psychological Hx Reported Additional Psychological History / Comment(s): Patient lives at home with sonJerman. Per son since last discharge the patient has been "comatosed" and not able to eat, drink and or talk. Patient is now choking on his own secretions Smoking Status: Former smoker Past Alcohol Use History: None Reported, Occasional Additional Past Alcohol Use History / Comment(s): Started smoking 1952 and quit 1967, past occasional alcohol - none now Past Drug Use History: None Reported - Past Family History Father History Unknown: Yes Mother History Unknown: Yes Medications and Allergies Home Medications Medication Instructions Recorded Confirmed Type Levothyroxine Sodium [Synthroid] 25 mcg PO DAILY@0600 05/19/16 08/05/19 History Atorvastatin Calcium [Lipitor] 40 mg PO HS@209910/25/16 08/05/19 History Donepezil [Aricept] 10 mg PO HS@209910/25/16 08/05/19 History Baclofen [Lioresal] 10 mg PO TID@0600,1400,2200 04/10/17 08/05/19 History Tamsulosin HCl [Flomax] 0.4 mg PO BID@0900,209904/10/17 08/05/19 History Dabigatran [Pradaxa] 150 mg PO BID@0900,209904/14/17 08/05/19 History Potassium Chloride ER [K-Dur 20] 20 meq PO TID@0900,1300,2100 07/06/17 08/05/19 History Amiodarone [Cordarone] 200 mg PO DAILY@0900 03/14/18 08/05/19 History Clopidogrel [Plavix] 75 mg PO DAILY@0900 03/14/18 08/05/19 History Ergocalciferol [Vitamin D2 50,000 unit PO FR@89903/14/18 08/05/19 History (DRISDOL)] Melatonin 10 mg PO HS@209903/14/18 08/05/19 History Metoprolol Tartrate [Lopressor] 25 mg PO BID@0900,209903/14/18 08/05/19 History Nitroglycerin [Nitroglycerin 1 spray TRANSLINGU Q5M PRN 03/14/18 08/05/19 History 400MCG [place]] Budesonide [Pulmicort] 0.5 mg INHALATION RT-BID 09/28/18 08/05/19 History Carboxymethylcellulose Sodium 1 drop BOTH EYES BID@0900,209909/28/18 08/05/19 History [Refresh Tears] INSULIN ASPART (NovoLOG) [NovoLOG See Protocol SQ TID@0900,1300,1900 09/28/18 08/05/19 History (formulary)] Metolazone [Zaroxolyn] 2.5 mg PO TUTH@0900 09/28/18 08/05/19 History Midodrine HCl [ProAmatine] 10 mg PO TID@0900,1300,2100 09/28/18 08/05/19 History Montelukast [Singulair] 10 mg PO HS@209909/28/18 08/05/19 History Ipratropium-Albuterol Nebulize 3 ml INHALATION RT-TID ampul.neb 10/02/18 08/05/19 Rx [Duoneb 0.5 mg-3 mg/3 ml Soln] Spironolactone [Aldactone] 12.5 mg PO DAILY@0900 #0 10/02/18 08/05/19 Rx Famotidine [Pepcid] 20 mg PO DAILY@0900 11/17/18 08/05/19 History Insulin Glargine,Hum.rec.anlog 17 unit SQ HS@209911/17/18 08/05/19 History [Basaglar Kwikpen U-100] Allopurinol [Zyloprim] 300 mg PO DAILY 07/23/19 08/05/19 History Furosemide [Lasix] 40 mg PO BID 07/23/19 08/05/19 History HYDROcodone/APAP 7.5-325MG [[place] 1 tab PO BID 07/23/19 08/05/19 History 7.5-325] Magnesium Oxide [Mag-Ox] 400 mg PO BID 07/23/19 08/05/19 History Pramox-Calamine 1-8% Lotion 1 applic TOPICAL HS 07/23/19 08/05/19 History [Caladryl] Primidone [Mysoline] 250 mg PO TID 07/23/19 08/05/19 History Cinacalcet HCl [Sensipar] 60 mg PO BID #0 07/24/19 08/05/19 Rx Lisinopril [Zestril] 2.5 mg PO DAILY #30 tab 07/24/19 08/05/19 Rx Sennosides [Senokot] 8.6 mg PO DAILY PRN tab 07/24/19 08/05/19 Rx Allergies Allergy/AdvReac Type Severity Reaction Status Date / Time latex Allergy Rash/Hives Verified 08/05/19 18:20 Physical Exam Vitals: Vital Signs Temp Pulse Resp BP Pulse Ox 08/06/19 12:00 98.4 F 78 20 116/64 95 08/06/19 08:00 98.9 F 77 20 108/58 100 08/06/19 04:00 98.7 F 73 18 114/57 98 08/06/19 00:00 98.5 F 84 18 136/72 93 L 08/05/19 20:00 99.1 F 85 18 134/69 94 L 08/05/19 16:00 18 08/05/19 15:40 99.2 F 80 18 101/59 92 L Intake and Output 08/06/19 08/06/19 08/06/19 06:59 14:59 22:59 Intake Total 122.358 Output Total 1500 Balance -1500 122.358 Intake: Intake, IV Titration 122.358 Amount Heparin Sod,Pork in 0.45% 122.358 NaCl 25,000 unit In 0.45 % NaCl 1 250ml.bag @ 11. 63 UNITS/KG/HR 10.002 mls /hr IV .Q24H [facility] Rx#: [id number] Output: Urine 1500 Other: Voiding Method Indwelling Catheter Indwelling Catheter Weight 86 kg - Constitutional General appearance: cooperative, no acute distress - EENT Eyes: anicteric sclerae, EOMI, PERRLA, dentition normal, normal appearance ENT: hard of hearing, NA/AT, normal oropharynx - Neck Neck: normal ROM - Respiratory Respiratory: bilateral: CTA, negative: diminished, dullness, rales - Cardiovascular Rhythm: regular Heart sounds: normal: S1, S2 Abnormal Heart Sounds: no systolic murmur, no diastolic murmur, no rub, no S3 Gallop, no S4 Gallop, no click, no other - Gastrointestinal General gastrointestinal: normal bowel sounds, soft - Integumentary Integumentary: decreased turgor, normal - Musculoskeletal Musculoskeletal: gait normal, strength equal bilaterally - Psychiatric Psychiatric: A&O x's 1 non verbal Results - Laboratory Findings CBC and BMP: 08/06/19 06:09 08/06/19 06:09 PT/INR, D-dimer PT 14.9 sec (9.0-12.0) H 08/05/19 16:56 INR 1.5 (<1.2) H 08/05/19 16:56 Abnormal lab findings: Abnormal Labs 01/26/20 01/26/20 01/26/20 16:51 16:56 20:27 RBC Hgb Hct MCHC RDW PT 14.9 H INR 1.5 H APTT 41.0 H Chloride BUN Glucose POC Glucose (mg/dL) 114 H 138 H Calcium Total Protein Albumin 08/06/19 08/06/19 08/06/19 01:15 06:06 06:09 RBC 3.44 L Hgb 9.4 L Hct 31.6 L MCHC 29.6 L RDW 15.8 H PT INR APTT 68.1 H Chloride BUN Glucose POC Glucose (mg/dL) 144 H Calcium Total Protein Albumin 08/06/19 08/06/19 06:09 11:54 RBC Hgb Hct MCHC RDW PT INR APTT Chloride 113 H BUN 5 L Glucose 142 H POC Glucose (mg/dL) 209 H Calcium 10.8 H Total Protein 5.6 L Albumin 2.5 L Assessment and Plan Assessment: Altered mental status and anabolic encephalopathy, workup is in process patient is undergoing EEG Electrolyte imbalance with severe hypernatremia and hyperkalemia, sodium has improved and normalize mild elevation in potassium has been noted which is being observed Stage II chronic renal disease Aspiration pneumonia Hyperparathyroidism and hypercalcemia Ischemic cardiomyopathy with baseline ejection fraction 20% Sacral decubitus ulcer Paroxysmal atrial fibrillation Plan: Continue breathing treatments continue home medications Observe off of antibiotics Repeat chest x-ray tomorrow Further workup and plan of care as per clinical response of the patient Time with Patient: Greater than 30
[2019-08-06] MEDS: DABIGATRAN 150 MG CAP PO SCH (16:04)
[2019-08-06] MEDS: MIDODRINE 5 MG TAB PO SCH (16:04)
[2019-08-06] MEDS: PRIMIDONE 250 MG TAB PO SCH ×2 (16:04→20:46)
[2019-08-06] MEDS: FUROSEMIDE 40 MG TAB PO SCH (16:04)
[2019-08-06 17:15] LABS: Glucose,Whole Blood 111 mg/dL (75-99)
--- NOTE | 2019-08-06 17:56 | XR ---
EXAMINATION TYPE: XR chest 1V DATE OF EXAM: 08/06/2019 COMPARISON: Prior chest x-ray 11/17/2018 HISTORY: Congestive heart failure TECHNIQUE: Single frontal view of the chest is obtained. FINDINGS: Findings are stable. Right hemidiaphragm remains elevated. Heart is enlarged. Aorta is den se and aneurysmal. No evident pneumothorax or pleural effusion. Calcified left hilar node again noted . Deviated trachea is due to patient's thyroid goiter. Postop changes noted in the right hilar region . No evident airspace disease. IMPRESSION: Postop changes, cardiomegaly, aortic aneurysm. Old granulomatous disease.
[2019-08-06] MEDS: BUDESONIDE 0.5 MG/2 ML NEBU INHALATION SCH (20:18)
[2019-08-06] MEDS: IPRATROPIUM-ALBUTEROL 3 ML NEB INHALATION PRN (20:18)
--- NOTE | 2019-08-06 20:23 | P.CNNES ---
History of Present Illness Consult date: 08/06/19 Reason for Consult: AMS, R-sided tremor History of Present Illness: HISTORY OF PRESENT ILLNESS: Thank you for allowing me to evaluate Mr. Jerman Segal. Mr. Segal is an 84 year-old man with PMhx of Atrial fibrillation, coronary artery disease, chest pain, COPD, dementia, diabetes, GERD, hyperlipidemia, hypertension, osteoarthritis, hypothyroidism, back pain, lung cancer, BPH, hyperparathyroidism, Parkinson's, consulting Neurology for AMS and R hand tremor. No family at bedside for corroborating information. Patient is able to say his name only. Follow most simple commands. Per note, patient was transferred from [facility] as he was being belligerent. Patient recently admitted to [facility] for metabolic encephalopathy, and mental status improved. Unknown baseline but patient with dementia. PAST MEDICAL HISTORY: Atrial fibrillation, coronary artery disease, chest pain, COPD, dementia, di abetes, GERD, hyperlipidemia, hypertension, osteoarthritis, hypothyroidism, back pain, lung cancer, BPH, hyperparathyroidism, Parkinson/s PAST SURGICAL HISTORY: Heart catheterization with stent, right lung lobectomy, neck surgery due to fracture, stent in the right groin HOME MEDICATIONS: [place], spironolactone, symmetrical, primidone, KCl, Singulair, midodrine, metoprolol, metolazone, melatonin, magnesium oxide, lisinopril, levothyroxine, DuoNeb, insulin, Lasix, famotidine, vitamin D, donepezil, dabigatran, Plavix, Cinacalcet, budesonide, baclofen, atorvastatin, amiodarone, allopurinol ALLERGIES: Latex SOCIAL HISTORY: Former smoker, occasional alcohol use, no illicit drug abuse history REVIEW OF SYSTEMS: The 14 systems are reviewed and no additional points are identified compared to the review of systems documented history and physical PHYSICAL EXAMINATION: VITAL SIGNS: T 98.9 HR 77 RR 20 BP 108/58 O2 sat 100% on RA GEN.: NAD HEENT: NCAT, sclera without icterus NECK: Supple SKIN AND EXTREMITIES: Warm to touch, no edema NEURO: MENTAL STATUS: Patient alert and oriented to self only. Following most simple commands CRANIAL NERVES II THROUGH XII: II: Pupils are equal and reactive to light symmetrically. Visual monique are intact to confrontation. III, IV, : No ptosis. Extraocular movements full. V: Facial sensation intact from V1-3. VII. No clear facial asymmetry. IX, X: Symmetric palate elevation. XI: Shoulder shrug intact. XII: Tongue midline, tongue tremor when patient tries to move his tongue MOTOR: Increased tone in b/l UE. Resting tremor L hand more than R hand, but improved with time during evaluation. Moves all 4 extremities against gravity, but b/l UE more spontaneously than LE SENSORY: Intact to light touch in all 4 extremities REFLEXES: 1+ throughout. Toes are downgoing. COORDINATION: Finger to nose intact with his RUE. LUE less agile. No dysmetria. GAIT: not assessed DIAGNOSTIC TESTING: LABORATORY: WBC 6.0 Hgb 9.4 Platelet 280 Na 142 K 3.9 Cl 113 CO2 27 BUN 5 Cr 0.69 IMAGING: No head imaging available at this time ASSESSMENT: 84 year-old man with PMhx of Atrial fibrillation, coronary artery disease, chest pain, COPD, dementia, diabetes, GERD, hyperlipidemia, hypertension, osteoarthritis, hypothyroidism, back pain, lung cancer, BPH, hyperparathyroidism, Parkinson's, consulting Neurology for AMS and R hand abbi mor. Patient with underlying dementia, and R-hand tremor likely from patient's history of Parkinson's. Possible metabolic etiology of increased confusion, but will need to speak to son about patient's baseline. RECOMMENDATIONS: 1. f/u final EEG read 2. will order TSH, vitamin B12, ammonia 3. Neurology will continue to follow Past Medical History Past Medical History: Atrial Fibrillation, Coronary Artery Disease (CAD), C ancer, Chest Pain / Angina, COPD, Dementia, Diabetes Mellitus, GERD/Reflux, Hyperlipidemia, Hypertension, Memory Impairment, Osteoarthritis (OA), Prostate Disorder, Thyroid Disorder Additional Past Medical History / Comment(s): Back pain r/t sciatica, right lung cancer, kidney stone, NSTEMI, dysphagia, BPH, hypothyroid, dementia, hyperparathyroidism, impaired gait. Last Myocardial Infarction Date:: History of Any Multi-Drug Resistant Organisms: None Reported Past Surgical History: Heart Catheterization With Stent Additional Past Surgical History / Comment(s): Lung ca removed from right lung (lobectomy), neck sx d/t to fx, stent to right groin. Past Anesthesia/Blood Transfusion Reactions: No Reported Reaction Date of Last Stent Placement:: 2016 Past Psychological History: No Psychological Hx Reported Additional Psychological History / Comment(s): Patient lives at home with son, Jerman. Per son since last discharge the patient has been "comatosed" and not able to eat, drink and or talk. Patient is now choking on his own secretions Smoking Status: Former smoker Past Alcohol Use History: None Reported, Occasional Additional Past Alcohol Use History / Comment(s): Started smoking 1952 and quit 1967, past occasional alcohol - none now Past Drug Use History: None Reported - Past Family History Father History Unknown: Yes Mother History Unknown: Yes Medications and Allergies Home Medications Medication Instructions Recorded Confirmed Type Levothyroxine Sodium [Synthroid] 25 mcg PO DAILY@0600 05/19/16 08/05/19 History Atorvastatin Calcium [Lipitor] 40 mg PO HS@209910/25/16 08/05/19 History Donepezil [Aricept] 10 mg PO HS@209910/25/16 08/05/19 History Baclofen [Lioresal] 10 mg PO TID@0600,1400,2200 04/10/17 08/05/19 History Tamsulosin HCl [Flomax] 0.4 mg PO BID@0900,209904/10/17 08/05/19 History Dabigatran [Pradaxa] 150 mg PO BID@0900,209904/14/17 08/05/19 History Potassium Chloride ER [K-Dur 20] 20 meq PO TID@0900,1300,2100 07/06/17 08/05/19 History Amiodarone [Cordarone] 200 mg PO DAILY@89903/14/18 08/05/19 History Clopidogrel [Plavix] 75 mg PO DAILY@89903/14/18 08/05/19 History Ergocalciferol [Vitamin D2 50,000 unit PO FR@89903/14/18 08/05/19 History (DRISDOL)] Melatonin 10 mg PO HS@209903/14/18 08/05/19 History Metoprolol Tartrate [Lopressor] 25 mg PO BID@0900,209903/14/18 08/05/19 History Nitroglycerin [Nitroglycerin 1 spray TRANSLINGU Q5M PRN 03/14/18 08/05/19 History 400MCG [place]] Budesonide [Pulmicort] 0.5 mg INHALATION RT-BID 09/28/18 08/05/19 History Carboxymethylcellulose Sodium 1 drop BOTH EYES BID@0900,2100 09/28/18 08/05/19 History [Refresh Tears] INSULIN ASPART (NovoLOG) [NovoLOG See Protocol SQ TID@0900,1300,1900 09/28/18 08/05/19 History (formulary)] Metolazone [Zaroxolyn] 2.5 mg PO TUTH@0900 09/28/18 08/05/19 History Midodrine HCl [ProAmatine] 10 mg PO TID@0900,1300,209909/28/18 08/05/19 History Montelukast [Singulair] 10 mg PO HS@209909/28/18 08/05/19 History Ipratropium-Albuterol Nebulize 3 ml INHALATION RT-TID ampul.neb 10/02/18 08/05/19 Rx [Duoneb 0.5 mg-3 mg/3 ml Soln] Spironolactone [Aldactone] 12.5 mg PO DAILY@0900 #0 10/02/18 08/05/19 Rx Famotidine [Pepcid] 20 mg PO DAILY@0900 11/17/18 08/05/19 History Insulin Glargine,Hum.rec.anlog 17 unit SQ HS@209911/17/18 08/05/19 History [Basaglar Kwikpen U-100] Allopurinol [Zyloprim] 300 mg PO DAILY 07/23/19 08/05/19 History Furosemide [Lasix] 40 mg PO BID 07/23/19 08/05/19 History HYDROcodone/APAP 7.5-325MG [[place] 1 tab PO BID 07/23/19 08/05/19 History 7.5-325] Magnesium Oxide [Mag-Ox] 400 mg PO BID 07/23/19 08/05/19 History Pramox-Calamine 1-8% Lotion 1 applic TOPICAL HS 07/23/19 08/05/19 History [Caladryl] Primidone [Mysoline] 250 mg PO TID 07/23/19 08/05/19 History Cinacalcet HCl [Sensipar] 60 mg PO BID #0 07/24/19 08/05/19 Rx Lisinopril [Zestril] 2.5 mg PO DAILY #30 tab 07/24/19 08/05/19 Rx Sennosides [Senokot] 8.6 mg PO DAILY PRN tab 07/24/19 08/05/19 Rx Allergies Allergy/AdvReac Type Severity Reaction Status Date / Time latex Allergy Rash/Hives Verified 08/05/19 18:20 Physical Examination - Vital Signs Vital Signs: Vital Signs Temp Pulse Resp BP Pulse Ox 08/06/19 08:00 98.9 F 77 20 108/58 100 08/06/19 04:00 98.7 F 73 18 114/57 98 08/06/19 00:00 98.5 F 84 18 136/72 93 L 08/05/19 20:00 99.1 F 85 18 134/69 94 L 08/05/19 16:00 18 08/05/19 15:40 99.2 F 80 18 101/59 92 L Intake and Output 08/05/19 08/06/19 08/06/19 22:59 06:59 14:59 Intake Total 122.358 Output Total 1500 Balance -1500 122.358 Intake: Intake, IV Titration 122.358 Amount Heparin Sod,Pork in 0.45% 122.358 NaCl 25,000 unit In 0.45 % NaCl 1 250ml.bag @ 11. 63 UNITS/KG/HR 10.002 mls /hr IV .Q24H [facility] Rx#: [id number] Output: Urine 1500 Other: Voiding Method Indwelling Catheter Indwelling Catheter Weight 86 kg Results - Laboratory Findings CBC and BMP: 08/06/19 06:09 08/06/19 06:09 Abnormal Lab Findings: Abnormal Labs 08/05/19 08/05/19 08/05/19 16:51 16:56 20:27 RBC Hgb Hct MCHC RDW PT 14.9 H INR 1.5 H APTT 41.0 H Chloride BUN Glucose POC Glucose (mg/dL) 114 H 138 H Calcium Total Protein Albumin 08/06/19 08/06/19 08/06/19 01:15 06:06 06:09 RBC 3.44 L Hgb 9.4 L Hct 31.6 L MCHC 29.6 L RDW 15.8 H PT INR APTT 68.1 H Chloride BUN Glucose POC Glucose (mg/dL) 144 H Calcium Total Protein Albumin 08/06/19 06:09 RBC Hgb Hct MCHC RDW PT INR APTT Chloride 113 H BUN 5 L Glucose 142 H POC Glucose (mg/dL) Calcium 10.8 H Total Protein 5.6 L Albumin 2.5 L
[2019-08-06 20:30] LABS: Glucose,Whole Blood 148 mg/dL (75-99)
[2019-08-06] MEDS: DONEPEZIL 10 MG TAB PO SCH (20:46)
[2019-08-06] MEDS: MONTELUKAST 10 MG TAB PO SCH (20:46)
[2019-08-06] MEDS: METOPROLOL TARTRATE 25 MG TAB PO SCH (20:46)
[2019-08-06] MEDS: INSULIN DETEMIR (LEVEMIR) 100 UNIT/ML SYR SQ SCH (20:46)
[2019-08-06] MEDS: MELATONIN 5 MG TABLET PO SCH (20:46)
[2019-08-06] MEDS: MAGNESIUM OXIDE 400 MG TAB PO SCH (20:46)
[2019-08-06] MEDS: POTASSIUM CHLORIDE ER 20 MEQ TAB.ER PO SCH (20:46)
[2019-08-06] MEDS: TAMSULOSIN 0.4 MG CAP.ER.24H PO SCH (20:46)
[2019-08-06] MEDS: ATORVASTATIN 40 MG TAB PO SCH (20:46)
[2019-08-06] MEDS: ARTIFICIAL TEARS-HYPROMELLOSE DROPS 15 ML BTL BOTH EYES SCH (20:55)
--- NOTE | 2019-08-06 21:49 | CONS ---
CONSULTATION REASON FOR CONSULT: Hypernatremia. HISTORY OF PRESENT ILLNESS: Patient is an 84-year-old male who was admitted with mental status changes. The patient initially presented to [facility] and was found to have a sodium of 161. He has cardiomyopathy with EF of 20-25%. During his admission there patient was being treated for possible pneumonia as well. He is maintained on D5W. Mentation seems to have improved. He had been belligerent. Sodium this morning was down to 142. The patient is also maintained on oral Lasix. His blood pressure has been marginal with systolic around 101-122 mmHg. The patient has an indwelling Peres catheter with 24 hour urine output of about 1500 mL. There is no ongoing diarrhea, nausea, vomiting. PAST MEDICAL HISTORY: Significant for hypertension, history of lung cancer status post right lobectomy, chronic back pain, COPD, atrial fibrillation, type 2 diabetes, BPH, hypertension, systolic heart failure, cardiomyopathy, EF 20-25%, dementia, recent hospitalization for altered mentation to [facility]. PAST SURGICAL HISTORY: Cardiac catheterization, coronary stent placement, right lobectomy for cancer, neck surgery for fracture. SOCIAL HISTORY: Negative for smoking, drug abuse or alcohol abuse. Patient is a former smoker. MEDICATIONS: Medications prior to admission included Synthroid, Lipitor, Aricept, Flomax, Pradaxa, amiodarone, Plavix, Lopressor melatonin, Pulmicort, insulin, Zaroxolyn, midodrine, Singulair, Aldactone Pepcid, Zyloprim, Lasix, magnesium oxide, Sensipar, Zestril, Senokot. ALLERGIES: LATEX causes rash and hives. PHYSICAL EXAMINATION: On examination, patient is currently comfortable, he is not in any acute distress. Blood pressure this morning was 108/58, heart rate 77 per minute, he is afebrile. Examination of the heart S1, S2. Examination of the lungs, bilateral breath sounds are heard. Abdomen is soft, nontender. Examination of the lower extremities shows no evidence of edema. CUSTOMER ACCOUNT REPRESENTATIVE exam shows patient does respond slightly to verbal stimuli, however, he is not able to carry on a conversation with me this morning. LABS: Show sodium 142, potassium 3.9, chloride, CO2 113, BUN 5, creatinine 0.69. ASSESSMENT: 1. Hypernatremia, currently improved. D5W is now discontinued. Repeat labs in a.m. The patient is maintained on p.o. Lasix which we can continue for now. I will check a chest x-ray in a.m. along with repeat electrolyte panel. 2. Metabolic encephalopathy, now improved. 3. Paroxysmal atrial fibrillation maintained on anticoagulation and amiodarone. 4. Cardiomyopathy, ejection fraction 20-25%. 5. Recent aspiration pneumonia. 6. Hypercalcemia associated with primary hyperparathyroidism, maintained on Sensipar. Currently, calcium is 10.8. I will continue with the current dose of Sensipar. 7. Hypertension, maintained on low-dose JUDIT inhibitors. PLAN: May continue with the Lasix. Repeat labs in a.m. Repeat chest x-ray in a.m. MMODL / IJN: [id number] /
--- NOTE | 2019-08-07 01:26 | EEG ---
ELECTROENCEPHALOGRAM REPORT PROCEDURE DATE: 08/06/2019. ELECTROENCEPHALOGRAM (EEG) REPORT: TECHNIQUE: A routine 18 channel EEG was performed with video using the 10/20 international electrode placement system. HISTORY: Tremors. CURRENT MEDICATIONS: Synthroid, NovoLog, heparin. Please note that per site damage prevention technician annotation, the patient was noted to be sweaty. Impedances were also suboptimal during this recording. Consequently, quality of this recording was limited for the above-mentioned reasons. In addition, muscle artifact was seen during the recording. STUDY DURATION: 25 minutes. During the course of this recording, the patient was noted to have a right hand tremor at 14:03:55, a left hand tremor at 14:08:23, a right hand tremor at 14:10:16 and again another right hand tremor at 14:11:27. Muscle artifact was seen at these points. There was no associated epileptiform activity. BACKGROUND: The background activity consisted of 7 to 8 hertz rhythmic waveforms, symmetrically seen through both posterior quadrants. ACTIVATION: Hyperventilation: Not performed. Photic stimulation: Not performed. Sleep: Drowsy. ABNORMALITIES: None. IMPRESSION: Normal EEG. No epileptiform activity was present. No seizures were recorded. Please note that background frequencies did not exceed 8 hertz. This can be considered within normal limits given the patient's age. Numerous episodes of left hand as well as right hand tremoring were recorded. These were not associated with epileptiform activity. CHRISTINL / IJN: [id number] /
[2019-08-07 06:10] LABS: Glucose,Whole Blood 139 mg/dL (75-99)
[2019-08-07] MEDS: INSULIN ASPART (NovoLOG) 100 UNIT/ML VIAL SQ SCH ×4 (06:15→21:28)
[2019-08-07] MEDS: LEVOTHYROXINE 25 MCG TAB PO SCH (06:17)
[2019-08-07] MEDS: MIDODRINE 5 MG TAB PO SCH ×3 (06:17→17:50)
[2019-08-07 06:42] LABS: Anisocytosis Slight; HCT 32.6 % (39.0-53.0); HGB 9.6 gm/dL (13.0-17.5); Hypochromasia Marked; MCH 27.2 pg (25.0-35.0); MCHC 29.3 g/dL (31.0-37.0); MCV 92.8 fL (80.0-100.0); Mean Platelet Volume 7.9; Platelet Count 271 k/uL (150-450); RBC 3.52 m/uL (4.30-5.90); RDW 16.4 % (11.5-15.5); WBC 6.4 k/uL (3.8-10.6)
[2019-08-07 06:58] LABS: African American GFR (CKD) >90 (>60 ml/min/1.73 sqM); Anion Gap 4 mmol/L; Blood Urea Nitrogen 6 mg/dL (9-20); Calcium 11.2 mg/dL (8.4-10.2); Carbon Dioxide 30 mmol/L (22-30); Chloride 111 mmol/L (98-107); Glucose 129 mg/dL (74-99); Non-African American GFR(CKD) 83 (>60 ml/min/1.73 sqM); Sodium 145 mmol/L (137-145)
--- NOTE | 2019-08-07 08:10 | XR ---
EXAMINATION TYPE: XR chest 1V portable DATE OF EXAM: 08/07/2019 COMPARISON: Prior chest x-ray 08/06/2019 HISTORY: Pneumonia TECHNIQUE: Single frontal view of the chest is obtained. FINDINGS: Findings are similar to prior exam. The heart is enlarged. There is evidence of old granul omatous disease. Right hemidiaphragm remains elevated. No evident pneumothorax or pleural effusion. N o evident airspace disease. Aorta is dense and dilated. Coronary present in the superior mediastinum on the right. Patient is rotated. There may be minimal subsegmental basilar atelectatic changes. Post op changes noted in the right. IMPRESSION: Cardiomegaly and aortic aneurysm.
[2019-08-07] MEDS: IPRATROPIUM-ALBUTEROL 3 ML NEB INHALATION PRN ×2 (08:22→15:08)
[2019-08-07] MEDS: BUDESONIDE 0.5 MG/2 ML NEBU INHALATION SCH ×2 (08:22→20:34)
[2019-08-07] MEDS ORDERED: FAMOTIDINE 20 MG TAB PO SCH (09:00)
[2019-08-07] MEDS ORDERED: FAMOTIDINE 20 MG/2 ML VIAL IV SCH (09:00)
[2019-08-07] MEDS: METOPROLOL TARTRATE 25 MG TAB PO SCH ×2 (09:39→21:28)
[2019-08-07] MEDS: TAMSULOSIN 0.4 MG CAP.ER.24H PO SCH ×2 (09:39→21:27)
[2019-08-07] MEDS: CLOPIDOGREL 75 MG TAB PO SCH (09:39)
[2019-08-07] MEDS: SPIRONOLACTONE 25 MG TAB PO SCH (09:39)
[2019-08-07] MEDS: AMIODARONE 200 MG TAB PO SCH (09:39)
[2019-08-07] MEDS: POTASSIUM CHLORIDE ER 20 MEQ TAB.ER PO SCH ×3 (09:39→21:27)
[2019-08-07] MEDS: ALLOPURINOL 300 MG TAB PO SCH (09:40)
[2019-08-07] MEDS: PRIMIDONE 250 MG TAB PO SCH ×3 (09:40→21:25)
[2019-08-07] MEDS: ARTIFICIAL TEARS-HYPROMELLOSE DROPS 15 ML BTL BOTH EYES SCH ×2 (09:40→21:28)
[2019-08-07] MEDS: DABIGATRAN 150 MG CAP PO SCH ×2 (09:40→21:25)
[2019-08-07] MEDS: METOLAZONE 2.5 MG TAB PO SCH (09:52)
[2019-08-07] MEDS: FUROSEMIDE 40 MG TAB PO SCH ×2 (09:52→17:50)
[2019-08-07] MEDS: MAGNESIUM OXIDE 400 MG TAB PO SCH ×2 (09:52→21:28)
[2019-08-07 12:02] LABS: Glucose,Whole Blood 169 mg/dL (75-99)
[2019-08-07] MEDS: LISINOPRIL 2.5 MG TAB PO SCH (12:45)
--- NOTE | 2019-08-07 14:33 | P.PN ---
Subjective Progress Note Date: 08/07/19 This is an 84-year-old male patient of Dr. Israel resides at home with son LUIS ANTONIO, with a past medical history of CAD s/p stent RCA April 2017, hypertension, hyperlipidemia, paroxysmal atrial fibrillation, GERD, chronic kidney disease, lung cancer s/p right lobectomy, chronic back pain, COPD, dementia, diabetes mellitus type 2, benign prostatic hypertrophy, hyperlipidemia, chronic systolic heart failure with EF of 20-25 %, Parkinson's. Patient was recently admitted at [facility] from July 22 - July 25 as he was transferred from [facility], secondary to POEllyn 's behavior at [facility] and there was a no trespassing order on the A. He was very belligerent and confrontational to nursing staff and medical personnel at [facility]. Patient was treated for aspiration tracheobronchitis with possible chemical pneumonitis and discharged to return home on July 25. Patient had VNA and 24-hour supervision in place. Patient presented to [facility] on August 01 as patient had lab work that revealed a sodium of 161, chloride 123, creatinine 1.3, CO2 32, glucose 188, albumin 2.3. WBC 14.4, hemoglobin 10.4, platelet count 351. Magnesium 1.9, phosphorus 1.5. ABGs pH 7.4 pCO2 43, O2 99.9, bicarb 27, base excess 2.5. Osmolality 246, urine osmolality 607, urine creatinine 158, urine sodium 14, urinalysis negative for infection. Urine drug screen positive for barbiturates. Chest x-ray showed persistent suboptimal expiratory effort with slight diminution in the density at the lung bases compared to prior study. P ersistent triangular density in the retrocardiac region on the left side. This raises possibility of atelectasis or infiltrate. No pneumothorax. CAT scan of the brain revealed no acute findings. There is possible normal pressure hydrocephalus. Persistent atrophy. Patient was admitted to the hospital and seen by nephrology. Patient had decreased responsiveness and obtundation and was monitored in the intensive care unit. Patient was placed on IV fluids at D5 W to improve sodium.. Over the following days, patient had improvement of his mental status and was able to answer questions and follow simple commands. The patient had a Peres catheter placed at [facility]. He was noted to have tremors of the right hand. He failed speech bedside swallow and was started on Lovenox for DVT prophylaxis. Patient was transferred to [facility] as a direct admit for neurology evaluation of metabolic encephalopathy. Patient was also noted to have a stage II/3 decubitus ulcer to large area of both buttocks and Wound Care Team is following the patient. Speech therapy is on consult and social work consult in place with concern for patient's current living situation. EEG has been ordered. Patient does meet criteria for palliative care but son was very resistant to this on last admission. Patient is followed by rifle case repairer and social work. 08/07: The patient is awake with eyes open. He is nodding to answer questions. He has been afebrile, heart rate 85, blood pressure 147/77, pulse ox 100% on room air. Repeat lab work reveals that he DC 6.4, hemoglobin 9.6, creatinine 0.81, blood sugars running between 129-169, ammonia level less than 9, calcium 11.2. Patient has been seen in consultation by neurology, Dr. Rosa with recommendations for EEG, TSH vitamin B12, ammonia level. EEG was normal. Chest x-ray reveals cardiomegaly and aortic aneurysm. Discharge plan will be to [facility]. PT and OT have been added. Anticipate discharge tomorrow. Objective - Vital Signs Vital signs: Vital Signs Temp 99 F 08/07/19 08:00 Pulse 86 08/07/19 08:36 Resp 20 08/07/19 08:00 BP 125/73 08/07/19 08:00 Pulse Ox 95 08/07/19 08:00 Intake & Output 08/06/19 08/07/19 08/07/19 18:59 06:59 18:59 Intake Total 986.358 240 Output Total 400 700 Balance 586.358 -460 Weight 86 kg Intake: IV 664 Dextrose 5% in Water 1, 600 000 ml @ 75 mls/hr IV . [id number] ONE Rx#:[id number] Heparin Sod,Pork in 0.45% 64 NaCl 25,000 unit In 0.45 % NaCl 1 250ml.bag @ 11. 63 UNITS/KG/HR 10.002 mls /hr IV .Q24H [facility] Rx#: [id number] Intake, IV Titration 122.358 Amount Heparin Sod,Pork in 0.45% 122.358 NaCl 25,000 unit In 0.45 % NaCl 1 250ml.bag @ 11. 63 UNITS/KG/HR 10.002 mls /hr IV .Q24H [facility] Rx#: [id number] Oral 200 240 Output: Urine 400 700 Other: Voiding Method Indwelling Catheter Indwelling Catheter # Bowel Movements 1 - Exam - Constitutional General appearance: cooperative, no acute distress - EENT Eyes: anicteric sclerae, EOMI, PERRLA, dentition normal, normal appearance ENT: hard of hearing, NA/AT, normal oropharynx - Neck Neck: normal ROM - Respiratory Respiratory: bilateral: CTA, negative: diminished, dullness, rales - Cardiovascular Rhythm: regular Heart sounds: normal: S1, S2 Abnormal Heart Sounds: no systolic murmur, no diastolic murmur, no rub, no S3 Gallop, no S4 Gallop, no click, no other - Gastrointestinal General gastrointestinal: normal bowel sounds, soft - Integumentary Integumentary: decreased turgor, normal - Musculoskeletal Musculoskeletal: gait normal, strength equal bilaterally - Psychiatric Psychiatric: A&O x's 1 non verbal, nods to answer questions - Labs CBC & Chem 7: 08/07/19 05:36 08/07/19 05:36 Labs: Abnormal Lab Results - Last 24 Hours (Table) 08/06/19 08/06/19 08/06/19 Range/Units 11:54 15:03 16:56 RBC (4.30-5.90) m/uL Hgb (13.0-17.5) gm/dL Hct (39.0-53.0) % MCHC (31.0-37.0) g/dL RDW (11.5-15.5) % APTT 78.5 H (22.0-30.0) sec Chloride (98-107) mmol/L BUN (9-20) mg/dL Glucose (74-99) mg/dL POC Glucose (mg/dL) 209 H 111 H (75-99) mg/dL Calcium (8.4-10.2) mg/dL 08/06/19 08/07/19 08/07/19 Range/Units 20:28 05:36 05:36 RBC 3.52 L (4.30-5.90) m/uL Hgb 9.6 L (13.0-17.5) gm/dL Hct 32.6 L (39.0-53.0) % MCHC 29.3 L (31.0-37.0) g/dL RDW 16.4 H (11.5-15.5) % APTT (22.0-30.0) sec Chloride 111 H (98-107) mmol/L BUN 6 L (9-20) mg/dL Glucose 129 H (74-99) mg/dL POC Glucose (mg/dL) 148 H (75-99) mg/dL Calcium 11.2 H (8.4-10.2) mg/dL 08/07/19 Range/Units 06:09 RBC (4.30-5.90) m/uL Hgb (13.0-17.5) gm/dL Hct (39.0-53.0) % MCHC (31.0-37.0) g/dL RDW (11.5-15.5) % APTT (22.0-30.0) sec Chloride (98-107) mmol/L BUN (9-20) mg/dL Glucose (74-99) mg/dL POC Glucose (mg/dL) 139 H (75-99) mg/dL Calcium (8.4-10.2) mg/dL Assessment and Plan Plan: 1. Acute metabolic encephalopathy. Patient was seen at [facility] and transferred here for neurology evaluation. EEG as above. CAT scan done at [facility] showed no acute findings. Consult with neurology appreciated. 2. Hypernatremia contributing to mental status changes. Sodium is currently normal. 3. Acute kidney injury with chronic kidney disease stage II, stable. 4. Recent hospitalization for aspiration tracheobronchitis with possible chemical pneumonitis, right lower lobe pneumonia has been ruled out. 5. Stage II decubitus ulcer to bilateral buttocks. Wound Center team consult appreciated. Local wound care. Peres catheter to be maintained to aid in healing. 6. Hypercalcemia, chronic secondary to primary hyperparathyroidism. 7. Paroxysmal atrial fibrillation. Hold Amiodarone 200 mg daily, Pradaxa 150 mg twice daily, Lopressor 25 mg twice daily. Patient is currently on IV Lopressor for rate control and heparin drip. 8. Ischemic cardiomyopathy with known EF of 20% with chronic systolic heart failure and history of non-ST elevated myocardial infarction. Hold Lasix 40 mg daily twice daily, continue Lopressor, Zaroxolyn and Plavix, Pradaxa. stents placed on April 2017 currently asymptomatic 9. 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 10. Hypertension, hypertensive cardiovascular disease. Continue Lopressor. 11. Hyperlipidemia. Hold atorvastatin 40 mg at bedtime. 12. Benign prostatic hypertrophy. Hold Flomax. 13. Hypothyroidism. Continue levothyroxine 12.5 g daily. 14. Coronary artery disease status post stent. 15. COPD. Continue Singulair, DuoNeb treatments and Pulmicort. 16. Gastroesophageal reflux disease, gastrointestinal prophylaxis. Pepcid IV. 17. Chronic back pain. 18. History of lung cancer status post right lobectomy. 19. Parkinson's with Dementia no behaviors. Hold Aricept 10 mg at bedtime, Mysoline 250 mg 3 times a day 20. Diabetes mellitus type 2. NovoLog scale for now. Patient is normally on scheduled NovoLog but will be held due to poor oral intake. 21. Poor oral intake, moderate protein calorie malnutrition. Patient was on Marinol as outpatient. 22. DVT prophylaxis. Continue heparin CODE STATUS: Full code Patient met the hospital for a minimum of 2 nights stay. Discharge plan: [place] on Tuesday. PT and OT added.. Social work and rifle case repairer following. Patient was previously discharged to home with family, 24- hour care on Tuesday Impression and plan of care have been directed as dictated by the signing physician. Chioma Foreman nurse practitioner acting as scribe for signing physician.
[2019-08-07 16:55] LABS: T4, Free (Free Thyroxine) 2.4 ng/dL (0.78-2.19)
[2019-08-07 17:00] LABS: Glucose,Whole Blood 173 mg/dL (75-99)
--- NOTE | 2019-08-07 20:27 | PN ---
PROGRESS NOTE Patient is seen for followup for hypernatremia. His serum sodium has improved significantly. Currently patient is being diuresed and his sodium is staying at 142 to 145 mEq/L. PHYSICAL EXAMINATION: On examination this morning, mentation has improved. Blood pressure was 147/77, heart rate 85 per minute. Patient is afebrile. EXAMINATION OF THE HEART: S1 and S2. EXAMINATION OF LUNGS: Bilateral breath sounds are heard. ABDOMEN: Soft, non-tender. Examination of lower extremities shows edema 1+ bilaterally. Patient is not moving his left leg. He does have weakness on his upper extremities as well, left more than the right. But he is able to move his upper extremities. LABS: Sodium 145, potassium 4.0, chloride 111, BUN 6, creatinine 0.8, hemoglobin 9.6 g/dL. Calcium was 11.2. ASSESSMENT: 1. Hypernatremia associated with free water deficit, currently improved. 2. Hypercalcemia, not on any calcium supplements. I will check a PTH level and serum and urine immunofixation. 3. Mental status changes associated with severe hypernatremia, currently improved. 4. Recent hospitalization with tracheobronchitis. 5. Paroxysmal atrial fibrillation. 6. Severe cardiomyopathy, ejection fraction 25%. PLAN: Check PTH levels, vitamin D levels, serum and urine immunofixation. May continue with the Lasix for now. If calcium level continues to worsen, I will give a dose of pamidronate. The patient does have a history of lung cancer, status post right lobectomy previously. MMODL / IJN: [id number] /
[2019-08-07 20:31] LABS: Glucose,Whole Blood 156 mg/dL (75-99)
--- NOTE | 2019-08-07 21:00 | P.PN ---
Progress Note - Text Progress Note Date: 08/07/19 SUBJECTIVE/INTERVAL EVENTS: No acute overnight events. Patient more alert today. Able to say place. Denies pain. PHYSICAL EXAMINATION: VITAL SIGNS: T 98.8 HR 85 RR 20 BP 147/77 O2 sat 100% on RA GEN.: NAD HEENT: NCAT, sclera without icterus NECK: Supple SKIN AND EXTREMITIES: Warm to touch, no edema NEURO: MENTAL STATUS: Patient alert and oriented to self and place. Following most simple commands CRANIAL NERVES II THROUGH XII: II: Pupils are equal and reactive to light symmetrically. Visual monique are intact to confrontation. III, IV, : No ptosis. Extraocular movements full. V: Facial sensation intact from V1-3. VII. No clear facial asymmetry. IX, X: Symmetric palate elevation. XI: Shoulder shrug intact. XII: Tongue midline, tongue tremor when patient tries to move his tongue MOTOR: Increased tone in b/l UE. No tremor noted today. Moves all 4 extremities against gravity, but b/l UE more spontaneously than LE SENSORY: Intact to light touch in all 4 extremities REFLEXES: 1+ throughout. Toes are downgoing. COORDINATION: Finger to nose intact with his RUE. LUE less agile. No dysmetria. GAIT: not assessed DIAGNOSTIC TESTING: LABORATORY: WBC 6.0 Hgb 9.4 Platelet 280 Na 142 K 3.9 Cl 113 CO2 27 BUN 5 Cr 0.69 IMAGING: No head imaging available at this time EEG 08/06/2019: Normal EEG ASSESSMENT: 84 year-old man with PMhx of Atrial fibrillation, coronary artery disease, chest pain, COPD, dementia, diabetes, GERD, hyperlipidemia, hypertension, osteoarthritis, hypothyroidism, back pain, lung cancer, BPH, hyperpar athyroidism, Parkinson's, consulting Neurology for AMS and R hand tremor. Patient with underlying dementia, and R-hand tremor likely from patient's history of Parkinson's. Possible metabolic etiology of increased confusion, but will need to speak to son about patient's baseline. EEG unremarkable. RECOMMENDATIONS: 1. TSH 0.222 (low) fT4 2.40 (high), vitamin B12 977, ammonia <9 2. Recommend primary team to work-up patient for abnormal TSH/fT4 levels 3. Neurology will sign off at this time. Please feel free to contact Neurology again if with additional questions or concerns.
[2019-08-07] MEDS: INSULIN DETEMIR (LEVEMIR) 100 UNIT/ML SYR SQ SCH (21:25)
[2019-08-07] MEDS: MONTELUKAST 10 MG TAB PO SCH (21:27)
[2019-08-07] MEDS: MELATONIN 5 MG TABLET PO SCH (21:27)
[2019-08-07] MEDS: ATORVASTATIN 40 MG TAB PO SCH (21:27)
[2019-08-07] MEDS: DONEPEZIL 10 MG TAB PO SCH (21:27)
[2019-08-08 05:43] LABS: Glucose,Whole Blood 113 mg/dL (75-99)
[2019-08-08] MEDS: INSULIN ASPART (NovoLOG) 100 UNIT/ML VIAL SQ SCH ×4 (06:25→20:46)
[2019-08-08] MEDS: MIDODRINE 5 MG TAB PO SCH ×3 (06:25→17:18)
[2019-08-08] MEDS: LEVOTHYROXINE 25 MCG TAB PO SCH (06:25)
[2019-08-08] MEDS: IPRATROPIUM-ALBUTEROL 3 ML NEB INHALATION PRN ×2 (08:03→19:55)
[2019-08-08] MEDS: BUDESONIDE 0.5 MG/2 ML NEBU INHALATION SCH ×2 (08:03→19:55)
[2019-08-08] MEDS: AMIODARONE 200 MG TAB PO SCH (09:56)
[2019-08-08] MEDS: ALLOPURINOL 300 MG TAB PO SCH (09:56)
[2019-08-08] MEDS: METOPROLOL TARTRATE 25 MG TAB PO SCH ×2 (09:56→20:44)
[2019-08-08] MEDS: LISINOPRIL 2.5 MG TAB PO SCH (09:56)
[2019-08-08] MEDS: SPIRONOLACTONE 25 MG TAB PO SCH (09:56)
[2019-08-08] MEDS: CLOPIDOGREL 75 MG TAB PO SCH (09:56)
[2019-08-08] MEDS: TAMSULOSIN 0.4 MG CAP.ER.24H PO SCH ×2 (09:57→20:44)
[2019-08-08] MEDS: PRIMIDONE 250 MG TAB PO SCH ×3 (09:57→20:44)
[2019-08-08] MEDS: FAMOTIDINE 20 MG TAB PO SCH (09:57)
[2019-08-08] MEDS: MAGNESIUM OXIDE 400 MG TAB PO SCH ×2 (09:57→20:44)
[2019-08-08] MEDS: POTASSIUM CHLORIDE ER 20 MEQ TAB.ER PO SCH ×3 (09:57→20:44)
[2019-08-08] MEDS: ARTIFICIAL TEARS-HYPROMELLOSE DROPS 15 ML BTL BOTH EYES SCH ×2 (09:57→20:43)
[2019-08-08] MEDS: DABIGATRAN 150 MG CAP PO SCH ×2 (09:57→20:44)
[2019-08-08] MEDS: FUROSEMIDE 40 MG TAB PO SCH ×2 (09:57→17:19)
--- NOTE | 2019-08-08 11:26 | P.PN ---
Subjective Progress Note Date: 08/07/19 Principal diagnosis: Altered mental status and anabolic encephalopathy, workup is in process patient is undergoing EEG Electrolyte imbalance with severe hypernatremia and hyperkalemia, sodium has improved and normalize mild elevation in potassium has been noted which is being observed Stage II chronic renal disease Aspiration pneumonia Hyperparathyroidism and hypercalcemia Ischemic cardiomyopathy with baseline ejection fraction 20% Sacral decubitus ulcer Paroxysmal atrial fibrillation 08/07/2019, patient seen eval examined during the rounds labs reviewed medications reviewed awake and alert, responding to simple question, remains afebrile and hemodynamically stable at room air oxygen is 98 200%, labs reviewed, This is a 84-year-old male well-known to me seen and evaluated examined on third floor patient well-known to me from [facility] admitted with severe altered mental status changes and hypernatremia, patient transferred to [facility] from [facility] per family wishes, patient with a past medical history of CAD s/p stent RCA April 2017, hypertension, hyperlipidemia, paroxysmal atrial fibrillation, GERD, chronic kidney disease, lung cancer s/p right lobectomy, chronic back pain, COPD, dementia, diabetes mellitus type 2, benign prostatic hypertrophy, hyperlipidemia, chronic systolic heart failure with EF of 20-25 %, Parkinson's. Patient was recently admitted at [facility] from July 22 - July 25 as he was transferred from [facility], secondary to POA 's behavior at [facility] and there was a no trespassing order on the POA. He was very belligerent and confrontational to nursing staff and medical personnel at [facility]. Patient was treated for aspiration tracheobronchitis with possible chemical pneumonitis and discharged to return home on July 25. Patient had VNA and 24-hour supervision in place. Patient presented to [facility] on August 01 as patient had lab work that revealed a sodium of 161, chloride 123, creatinine 1.3, CO2 32, glucose 188, albumin 2.3. WBC 14.4, hemoglobin 10.4, platelet count 351. Magnesium 1.9, phosphorus 1.5. ABGs pH 7.4 pCO2 43, O2 99.9, bicarb 27, base excess 2.5. Osmolality 246, urine osmolality 607, urine creatinine 158, urine sodium 14, urinalysis negative for infection. Urine drug screen positive for barbiturates. Chest x-ray showed persistent suboptimal expiratory effort with slight diminution in the density at the lung bases compared to prior study. Persistent triangular density in the retrocardiac region on the left side. This raises possibility of atelectasis or infiltrate. No pneumothorax. CAT scan of the brain revealed no acute findings. There is possible normal pressure hydrocephalus. Persistent atrophy. Patient was admitted to the hospital and seen by nephrology. Patient had decreased responsiveness and obtundation and was monitored in the intensive care unit. Patient was placed on IV fluids at D5 W to improve sodium.. Over the following days, patient had improvement of his mental status and was able to answer questions and follow simple commands. The patient had a Peres catheter placed at [facility]. He was noted to have tremors of the right hand. He failed speech bedside swallow and was started on Lovenox for DVT prophylaxis. Patient was transferred to [facility] as a direct admit for neurology evaluation of metabolic encephalopathy. Patient was also noted to have a stage II/3 decubitus ulcer to large area of both buttocks and Wound Care Team is following the patient. Speech therapy is on consult and social work consult in place with concern for patient's current living situation. EEG has been ordered. Patient does meet criteria for palliative care but son was very resistant to this on last a dmission. Patient is followed by machine adjuster leader case trim and social work. Objective - Vital Signs Vital signs: Vital Signs Temp 98.6 F 08/07/19 15:38 Pulse 87 08/07/19 15:38 Resp 20 08/07/19 15:38 BP 108/65 08/07/19 15:38 Pulse Ox 94 L 08/07/19 15:38 Intake & Output 08/06/19 08/07/19 08/07/19 18:59 06:59 18:59 Intake Total 986.358 240 100 Output Total 400 700 Balance 586.358 -460 100 Weight 86 kg Intake: IV 664 Dextrose 5% in Water 1, 600 000 ml @ 75 mls/hr IV . [id number] ONE Rx#:[id number] Heparin Sod,Pork in 0.45% 64 NaCl 25,000 unit In 0.45 % NaCl 1 250ml.bag @ 11. 63 UNITS/KG/HR 10.002 mls /hr IV .Q24H [facility] Rx#: [id number] Intake, IV Titration 122.358 Amount Heparin Sod,Pork in 0.45% 122.358 NaCl 25,000 unit In 0.45 % NaCl 1 250ml.bag @ 11. 63 UNITS/KG/HR 10.002 mls /hr IV .Q24H [facility] Rx#: [id number] Oral 200 240 100 Output: Urine 400 700 Other: Voiding Method Indwelling Catheter Indwelling Catheter Indwelling Catheter # Bowel Movements 1 1 - Exam - Constitutional General appearance: cooperative, no acute distress - EENT Eyes: anicteric sclerae, EOMI, PERRLA, dentition normal, normal appearance ENT: hard of hearing, NA/AT, normal oropharynx - Neck Neck: normal ROM - Respiratory Respiratory: bilateral: CTA, negative: diminished, dullness, rales - Cardiovascular Rhythm: regular Heart sounds: normal: S1, S2 Abnormal Heart Sounds: no systolic murmur, no diastolic murmur, no rub, no S3 Gallop, no S4 Gallop, no click, no other - Gastrointestinal General gastrointestinal: normal bowel sounds, soft - Integumentary Integumentary: decreased turgor, normal - Musculoskeletal Musculoskeletal: gait normal, strength equal bilaterally - Psychiatric Psychiatric: A&O x's 1 non verbal - Labs CBC & Chem 7: 08/07/19 05:36 08/07/19 05:36 Labs: Abnormal Lab Results - Last 24 Hours (Table) 08/06/19 08/07/19 08/07/19 Range/Units 20:28 05:36 05:36 RBC 3.52 L (4.30-5.90) m/uL Hgb 9.6 L (13.0-17.5) gm/dL Hct 32.6 L (39.0-53.0) % MCHC 29.3 L (31.0-37.0) g/dL RDW 16.4 H (11.5-15.5) % Chloride 111 H (98-107) mmol/L BUN 6 L (9-20) mg/dL Glucose 129 H (74-99) mg/dL POC Glucose (mg/dL) 148 H (75-99) mg/dL Calcium 11.2 H (8.4-10.2) mg/dL TSH (0.465-4.680) mIU/L Free T4 (0.78-2.19) ng/dL 08/07/19 08/07/19 08/07/19 Range/Units 06:09 11:45 13:34 RBC (4.30-5.90) m/uL Hgb (13.0-17.5) gm/dL Hct (39.0-53.0) % MCHC (31.0-37.0) g/dL RDW (11.5-15.5) % Chloride (98-107) mmol/L BUN (9-20) mg/dL Glucose (74-99) mg/dL POC Glucose (mg/dL) 139 H 169 H (75-99) mg/dL Calcium (8.4-10.2) mg/dL TSH 0.222 L (0.465-4.680) mIU/L Free T4 2.40 H (0.78-2.19) ng/dL 08/07/19 Range/Units 16:57 RBC (4.30-5.90) m/uL Hgb (13.0-17.5) gm/dL Hct (39.0-53.0) % MCHC (31.0-37.0) g/dL RDW (11.5-15.5) % Chloride (98-107) mmol/L BUN (9-20) mg/dL Glucose (74-99) mg/dL POC Glucose (mg/dL) 173 H (75-99) mg/dL Calcium (8.4-10.2) mg/dL TSH (0.465-4.680) mIU/L Free T4 (0.78-2.19) ng/dL Assessment and Plan Assessment: Altered mental status and anabolic encephalopathy, workup is in process patient is undergoing EEG Electrolyte imbalance with severe hypernatremia and hyperkalemia, sodium has improved and normalize mild elevation in potassium has been noted which is being observed Stage II chronic renal disease Aspiration pneumonia Hyperparathyroidism and hypercalcemia Ischemic cardiomyopathy with baseline ejection fraction 20% Sacral decubitus ulcer Paroxysmal atrial fibrillation Plan: Continue breathing treatments continue home medications Observe off of antibiotics Repeat chest x-ray reviewed, continue show cardiomegaly no active infiltrate with aneurysm-like changes Further workup and plan of care as per clinical response of the patient Time with Patient: Greater than 30
--- NOTE | 2019-08-08 11:27 | P.PN ---
Subjective Progress Note Date: 08/08/19 Principal diagnosis: Altered mental status and anabolic encephalopathy, workup is in process patient is undergoing EEG Electrolyte imbalance with severe hypernatremia and hyperkalemia, sodium has improved and normalize mild elevation in potassium has been noted which is being observed Stage II chronic renal disease Aspiration pneumonia Hyperparathyroidism and hypercalcemia Ischemic cardiomyopathy with baseline ejection fraction 20% Sacral decubitus ulcer Paroxysmal atrial fibrillation 08/08/2019, patient appears well sitting upright on the bed remains on room air, denies any shortness of breath denies any cough or sputum production, mostly nonverbal but does respond in no [facility] more awake and alert than previously my agree with discharge planning 08/07/2019, patient seen eval examined during the rounds labs reviewed medications reviewed awake and alert, responding to simple question, remains afebrile and hemodynamically stable at room air oxygen is 98 100%, labs reviewed, This is a 84-year-old male well-known to me seen and evaluated examined on third floor patient well-known to me from [facility] admitted with severe altered mental status changes and hypernatremia, patient transferred to [facility] from [facility] per family wishes, patient with a past medical history of CAD s/p stent RCA April 2017, hypertension, hyperlipidemia, paroxysmal atrial fibrillation, GERD, chronic kidney disease, lung cancer s/p right lobectomy, chronic back pain, COPD, dementia, diabetes mellitus type 2, benign prostatic hypertrophy, hyperlipidemia, chronic systolic heart failure with EF of 20-25 %, Parkinson's. Patient was recently admitted at [facility] from July 22 - July 25 as he was transferred from [facility], secondary to POA 's behavior at [facility] and there was a no trespassing order on the POA. He was very belligerent and confrontational to nursing staff and medical personnel at [facility]. Patient was treated for aspiration tracheobronchitis with possible chemical pneumonitis and discharged to return home on July 25. Patient had VNA and 24-hour supervision in place. Patient presented to [facility] on August 01 as patient had lab work that revealed a sodium of 161, chloride 123, creatinine 1.3, CO2 32, glucose 188, albumin 2.3. WBC 14.4, hemoglobin 10.4, platelet count 351. Magnesium 1.9, phosphorus 1.5. ABGs pH 7.4 pCO2 43, O2 99.9, bicarb 27, base excess 2.5. Osmolality 246, urine osmolality 607, urine creatinine 158, urine sodium 14, urinalysis negative for infection. Urine drug screen positive for barbiturates. Chest x-ray showed persistent suboptimal expiratory effort with slight diminution in the density at the lung bases compared to prior study. Persistent triangular density in the retrocardiac region on the left side. This raises possibility of atelectasis or infiltrate. No pneumothorax. CAT scan of the brain revealed no acute findings. There is possible normal pressure hydrocephalus. Persistent atrophy. Patient was admitted to the hospital and seen by nephrology. Patient had decreased responsiveness and obtundation and was monitored in the intensive care unit. Patient was placed on IV fluids at D5 W to improve sodium.. Over the following days, patient had improvement of his mental status and was able to answer questions and follow simple commands. The patient had a Peres catheter placed at [facility]. He was noted to have tremors of the right hand. He failed speech bedside swallow and was started on Lovenox for DVT prophylaxis. Patient was transferred to [facility] as a direct admit for neurology evaluation of metabolic enceph alopathy. Patient was also noted to have a stage II/3 decubitus ulcer to large area of both buttocks and Wound Care Team is following the patient. Speech therapy is on consult and social work consult in place with concern for patient's current living situation. EEG has been ordered. Patient does meet criteria for palliative care but son was very resistant to this on last admission. Patient is followed by piano case and bench assembler and social work. Objective - Vital Signs Vital signs: Vital Signs Temp 98.6 F 08/08/19 08:30 Pulse 94 08/08/19 08:30 Resp 18 08/08/19 08:30 BP 121/68 08/08/19 08:30 Pulse Ox 98 08/08/19 08:30 Intake & Output 08/07/19 08/08/19 08/08/19 18:59 06:59 18:59 Intake Total 100 Output Total 600 2250 Balance -500 -2250 Weight 43.5 kg Intake: Oral 100 Output: Urine 600 2250 Other: Voiding Method Indwelling Catheter Indwelling Catheter Indwelling Catheter - Exam - Constitutional General appearance: cooperative, no acute distress - EENT Eyes: anicteric sclerae, EOMI, PERRLA, dentition normal, normal appearance ENT: hard of hearing, NA/AT, normal oropharynx - Neck Neck: normal ROM - Respiratory Respiratory: bilateral: CTA, negative: diminished, dullness, rales - Cardiovascular Rhythm: regular Heart sounds: normal: S1, S2 Abnormal Heart Sounds: no systolic murmur, no diastolic murmur, no rub, no S3 Gallop, no S4 Gallop, no click, no other - Gastrointestinal General gastrointestinal: normal bowel sounds, soft - Integumentary Integumentary: decreased turgor, normal - Musculoskeletal Musculoskeletal: gait normal, strength equal bilaterally - Psychiatric Psychiatric: A&O x's 1 non verbal - Labs CBC & Chem 7: 08/07/19 05:36 08/07/19 05:36 Labs: Abnormal Lab Results - Last 24 Hours (Table) 08/07/19 08/07/19 08/07/19 Range/Units 05:36 11:45 13:34 POC Glucose (mg/dL) 169 H (75-99) mg/dL Vitamin B12 977.0 H (200.0-944.0) pg/mL TSH 0.222 L (0.465-4.680) mIU/L Free T4 2.40 H (0.78-2.19) ng/dL PTH Intact 220.6 H (14.0-72.0) pg/mL 08/07/19 08/07/19 08/08/19 Range/Units 16:57 20:29 05:42 POC Glucose (mg/dL) 173 H 156 H 113 H (75-99) mg/dL Vitamin B12 (200.0-944.0) pg/mL TSH (0.465-4.680) mIU/L Free T4 (0.78-2.19) ng/dL PTH Intact (14.0-72.0) pg/mL Assessment and Plan Assessment: Altered mental status and anabolic encephalopathy, workup is in process patient is undergoing EEG Electrolyte imbalance with severe hypernatremia and hyperkalemia, sodium has improved and normalize mild elevation in potassium has been noted which is being observed Stage II chronic renal disease Aspiration pneumonia Hyperparathyroidism and hypercalcemia Ischemic cardiomyopathy with baseline ejection fraction 20% Sacral decubitus ulcer Paroxysmal atrial fibrillation Plan: Continue breathing treatments continue home medications Observe off of antibiotics Repeat chest x-ray reviewed, continue show cardiomegaly no active infiltrate with aneurysm-like changes Further workup and plan of care as per clinical response of the patient Time with Patient: Greater than 30
[2019-08-08 11:30] LABS: Glucose,Whole Blood 210 mg/dL (75-99)
--- NOTE | 2019-08-08 12:30 | CDI ---
Documentation Clarification Form Date: 08/08/2019 12:24:10 PM From: Cary Ramirez RN, CCDS Admit Date: 08/05/2019 03:28:00 PM Patient Name: Jerman Segal Visit Number: [id number] ATTENTION: The Clinical Documentation Specialists (CDI) and [facility] Coding Staff appreciate your assistance in clarifying documentation. Please respond to the clarification below the line at the bottom and electronically sign. The CDI & [facility] Coding staff will review the response and follow-up if needed. Please note: Queries are made part of the Legal Health Record. If you have any questions, please contact the author of this message via ITS. Dr. Katharine Ragland declining Hgb and Hct have been noted and lacks specificity to accurately reflect your patients severity of condition and clarification is needed. History/Risk Factors: Stage 2 chronic renal disease, hyperparathyroidism, Atrial Fib on Po Plavix and pradaxa Clinical indicators: Hemoglobin: 9.4/9.6 Hematocrit: 31.6/32.6 Treatment: monitoring labs In order to capture the severity of condition, please clarify the clinical significance of the low Hgb and Hct and etiology if known: Acute blood loss anemia Acute on chronic blood loss anemia Chronic blood loss anemia Iron deficiency anemia Drug induced anemia Anemia due to malignancy Nutritional anemia Anemia of chronic kidney disease Unable to determine Other, please specify (Last Revision: April 2017) anemia due to chronic kidney dis MTDD
--- NOTE | 2019-08-08 13:35 | P.DS ---
Providers Date of admission: 08/05/19 15:28 Expected date of discharge: 08/08/19 Attending physician: Katharine Israel Consults: 08/05/19 16:40 Consult Physician Routine Consulting Provider: Junior Cruz Consult Reason/Comments: hyponatremia Do you want consulting provider notified?: Yes 08/05/19 16:41 Consult Physician Routine Consulting Provider: Derek Amin Consult Reason/Comments: Pneumonia Do you want consulting provider notified?: Yes 08/05/19 16:43 Consult Physician Routine Consulting Provider: Mayra Parkinson Consult Reason/Comments: Altered mental status; tremors right side Do you want consulting provider notified?: Yes Primary care physician: Katharine Israel [facility] Course: This is an 84-year-old male patient of Dr. Israel resides at home with son LUIS ANTONIO, with a past medical history of CAD s/p stent RCA April 2017, hypertension, hyperlipidemia, paroxysmal atrial fibrillation, GERD, chronic kidney disease, lung cancer s/p right lobectomy, chronic back pain, COPD, dementia, diabetes mellitus type 2, benign prostatic hypertrophy, hyperlipidemia, chronic systolic heart failure with EF of 20-25 %, Parkinson's. Patient was recently admitted at [facility] from July 22 - July 25 as he was transferred from [facility], secondary to LUIS ANTONIO 's behavior at [facility] and there was a no trespassing order on the [facility]. He was very belligerent and confrontational to nursing staff and medical personnel at [facility]. Patient was treated for aspiration tracheobronchitis with possible chemical pneumonitis and discharged to return home on July 25. Patient had VNA and 24-hour supervision in place. Patient presented to [facility] on August 01 as patient had lab work that revealed a sodium of 161, chloride 123, creatinine 1.3, CO2 32, glucose 188, albumin 2.3. WBC 14.4, hemoglobin 10.4, platelet count 351. Magnesium 1.9, phosphorus 1.5. ABGs pH 7.4 pCO2 43, O2 99.9, bicarb 27, base excess 2.5. Osmolality 246, urine osmolality 607, urine creatinine 158, urine sodium 14, urinalysis negative for infection. Urine drug screen positive for barbiturates. Chest x-ray showed persistent suboptimal expiratory effort with slight diminution in the density at the lung bases compared to prior study. Persistent triangular density in the retrocardiac region on the left side. This raises possibility of atelectasis or infiltrate. No pneumothorax. CAT scan of the brain revealed no acute findings. There is possible normal pressure hydrocephalus. Persistent atrophy. Patient was admitted to the hospital and seen by nephrology. Patient had decreased responsiveness and obtundation and was monitored in the intensive care unit. Patient was placed on IV fluids at D5 W to improve sodium.. Over the following days, patient had improvement of his mental status and was able to answer questions and follow simple commands. The patient had a Peres catheter placed at [facility]. He was noted to have tremors of the right hand. He failed speech bedside swallow and was started on Lovenox for DVT prophylaxis. Patient was transferred to [facility] as a direct admit for neurology evaluation of metabolic encephalopathy. Patient was also noted to have a stage II/3 decubitus ulcer to large area of both buttocks and Wound Care Team is following the patient. Speech therapy is on consult and social work consult in place with concern for patient's current living situation. EEG has been ordered. Patient does meet criteria for palliative care but son was very resistant to this on last admission. Patient is followed by case planner and social work. 08/07: The patient is awake with eyes open. He is nodding to answer questions. He has been afebrile, heart rate 85, blood pressure 147/77, pulse ox 100% on room air. Repeat lab work reveals that he DC 6.4, hemoglobin 9.6, creatinine 0.81, blood sugars running between 129-169, ammonia level less than 9, calcium 11.2. Patient has been seen in consultation by neurology, Dr. Rosa with recommendations for EEG, TSH vitamin B12, ammonia level. EEG was normal. Chest x-ray reveals cardiomegaly and aortic aneurysm. Discharge plan will be to [facility]. PT and OT have been added. Anticipate discharge tomorrow. 08/08: TSH 0.222, free T4 2 0.4, vitamin B12 977, ammonia level less than 9. Amrita rologist recommended follow-up on TSH. Patient hasn't seen and followed by nephrology. One dose of pamidronate ordered. Parathyroid hormone intact is 220.6. Patient's mental status is back to baseline. [facility] has reviewed case and will not accept patient. Patient is being evaluated by [facility] for subacute rehab. Son is in agreement. Patient will be discharged once arrangements are completed. Discharge diagnoses: 1. Acute metabolic encephalopathy secondary to hypernatremia. 2. Hypernatremia contributing to mental status changes. 3. Acute kidney injury with chronic kidney disease stage II, stable. 4. Recent hospitalization for aspiration tracheobronchitis with possible chemical pneumonitis, right lower lobe pneumonia has been ruled out. 5. Stage II decubitus ulcer to bilateral buttocks. 6. Hypercalcemia, chronic secondary to primary hyperparathyroidism. 7. Paroxysmal atrial fibrillation. 8. Ischemic cardiomyopathy with known EF of 20% with chronic systolic heart failure and history of non-ST elevated myocardial infarction. 9. 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 10. Hypertension, hypertensive cardiovascular disease. 11. Hyperlipidemia. 12. Benign prostatic hypertrophy. 13. Hypothyroidism. 14. Coronary artery disease status post stent. 15. COPD. 16. Gastroesophageal reflux disease 17. Chronic back pain. 18. History of lung cancer status post right lobectomy. 19. Parkinson's with Dementia 20. Diabetes mellitus type 2. 21. Poor oral intake, moderate protein calorie malnutrition. 22. Anemia of chronic disease. Discharge plan: Subacute rehab Impression and plan of care have been directed as dictated by the signing physician. Chioma Foreman nurse practitioner acting as scribe for signing physician. Plan - Discharge Summary Discharge Rx Participant: Yes New Discharge Prescriptions: Continue Levothyroxine Sodium [Synthroid] 25 mcg PO DAILY@0600 Donepezil [Aricept] 10 mg PO HS@2100 Atorvastatin Calcium [Lipitor] 40 mg PO HS@2100 Baclofen [Lioresal] 10 mg PO TID@0600,1400,2200 Tamsulosin HCl [Flomax] 0.4 mg PO BID@0900,2100 Dabigatran [Pradaxa] 150 mg PO BID@0900,2100 Potassium Chloride ER [K-Dur 20] 20 meq PO TID@0900,1300,2100 Nitroglycerin [Nitroglycerin 400MCG Delmar] 1 spray TRANSLINGU Q5M PRN PRN Reason: CHEST PAIN Metoprolol Tartrate [Lopressor] 25 mg PO BID@0900,2100 Melatonin 10 mg PO HS@2100 Ergocalciferol [Vitamin D2 (DRISDOL)] 50,000 unit PO FR@0900 Clopidogrel [Plavix] 75 mg PO DAILY@0900 Amiodarone [Cordarone] 200 mg PO DAILY@0900 INSULIN ASPART (NovoLOG) [NovoLOG (formulary)] See Protocol SQ TID@0900,1300,1900 Midodrine HCl [ProAmatine] 10 mg PO TID@0900,1300,2100 Carboxymethylcellulose Sodium [Refresh Tears] 1 drop BOTH EYES BID@0900,2100 Budesonide [Pulmicort] 0.5 mg INHALATION RT-BID Metolazone [Zaroxolyn] 2.5 mg PO TUTH@0900 Montelukast [Singulair] 10 mg PO HS@2100 Ipratropium-Albuterol Nebulize [Duoneb 0.5 mg-3 mg/3 ml Soln] 3 ml INHALATION RT-TID ampul.neb Spironolactone [Aldactone] 12.5 mg PO DAILY@0900 #0 Insulin Glargine,Hum.rec.anlog [Basaglar Kwikpen U-100] 17 unit SQ HS@2100 Famotidine [Pepcid] 20 mg PO DAILY@0900 Allopurinol [Zyloprim] 300 mg PO DAILY Furosemide [Lasix] 40 mg PO BID Magnesium Oxide [Mag-Ox] 400 mg PO BID Pramox-Calamine 1-8% Lotion [Caladryl] 1 applic TOPICAL HS Primidone [Mysoline] 250 mg PO TID Sennosides [Senokot] 8.6 mg PO DAILY PRN tab PRN Reason: Constipation Lisinopril [Zestril] 2.5 mg PO DAILY #30 tab Cinacalcet HCl [Sensipar] 60 mg PO BID #0 Discontinued HYDROcodone/APAP 7.5-325MG [Wilmot 7.5-325] 1 tab PO BID Discharge Medication List Levothyroxine Sodium [Synthroid] 25 mcg PO DAILY@0600 05/19/16 [History] Atorvastatin Calcium [Lipitor] 40 mg PO HS@2100 10/25/16 [History] Donepezil [Aricept] 10 mg PO HS@2100 10/25/16 [History] Baclofen [Lioresal] 10 mg PO TID@0600,1400,2200 04/10/17 [History] Tamsulosin HCl [Flomax] 0.4 mg PO BID@09,209904/10/17 [History] Dabigatran [Pradaxa] 150 mg PO BID@0900,209904/14/17 [History] Potassium Chloride ER [K-Dur 20] 20 meq PO TID@0900,1300,209907/06/17 [History] Amiodarone [Cordarone] 200 mg PO DAILY@89903/14/18 [History] Clopidogrel [Plavix] 75 mg PO DAILY@89903/14/18 [History] Ergocalciferol [Vitamin D2 (DRISDOL)] 50,000 unit PO FR@89903/14/18 [History] Melatonin 10 mg PO HS@209903/14/18 [History] Metoprolol Tartrate [Lopressor] 25 mg PO BID@899,209903/14/18 [History] Nitroglycerin [Nitroglycerin 400MCG Delmar] 1 spray TRANSLINGU Q5M PRN 03/14/18 [History] Budesonide [Pulmicort] 0.5 mg INHALATION RT-BID 09/28/18 [History] Carboxymethylcellulose Sodium [Refresh Tears] 1 drop BOTH EYES BID@899,209909/28/18 [History] INSULIN ASPART (NovoLOG) [NovoLOG (formulary)] See Protocol SQ TID@0900,1300,1900 09/28/18 [History] Metolazone [Zaroxolyn] 2.5 mg PO TUTH@89909/28/18 [History] Midodrine HCl [ProAmatine] 10 mg PO TID@0900,1300,209909/28/18 [History] Montelukast [Singulair] 10 mg PO HS@209909/28/18 [History] Ipratropium-Albuterol Nebulize [Duoneb 0.5 mg-3 mg/3 ml Soln] 3 ml INHALATION RT-TID ampul.neb 10/02/18 [Rx] Spironolactone [Aldactone] 12.5 mg PO DAILY@0900 #0 10/02/18 [Rx] Famotidine [Pepcid] 20 mg PO DAILY@0900 11/17/18 [History] Insulin Glargine,Hum.rec.anlog [Luchoagltheodore Zepeda U-100] 17 unit SQ HS@2100 11/17/18 [History] Allopurinol [Zyloprim] 300 mg PO DAILY 07/23/19 [History] Furosemide [Lasix] 40 mg PO BID 07/23/19 [History] Magnesium Oxide [Mag-Ox] 400 mg PO BID 07/23/19 [History] Pramox-Calamine 1-8% Lotion [Caladryl] 1 applic TOPICAL HS 07/23/19 [History] Primidone [Mysoline] 250 mg PO TID 07/23/19 [History] Cinacalcet HCl [Sensipar] 60 mg PO BID #0 07/24/19 [Rx] Lisinopril [Zestril] 2.5 mg PO DAILY #30 tab 07/24/19 [Rx] Sennosides [Senokot] 8.6 mg PO DAILY PRN tab 07/24/19 [Rx] Follow up Appointment(s)/Referral(s): Katharine Israel MD [Primary Care Provider] - 1 Week (at [facility] or one week after discharge is patient goes to [facility]) Discharge Disposition: TRANSFER TO SNF/ECF
[2019-08-08 16:28] LABS: Glucose,Whole Blood 207 mg/dL (75-99)
--- NOTE | 2019-08-08 18:10 | PN ---
PROGRESS NOTE Patient is seen for followup for hypernatremia. His sodium levels have improved significantly. Mentation is also improved. I do not have any labs from today. Currently patient is maintained on a small dose of oral Lasix. PHYSICAL EXAMINATION: On examination, blood pressure was 121/68, heart rate 94 per minute. He is afebrile. EXAMINATION OF THE HEART: S1 and S2. EXAMINATION OF LUNGS: Decreased breath sounds at bases. ABDOMEN: Soft, non-tender. Examination of lower extremities shows no trace edema bilaterally. CAR CHASER exam shows patient has generalized weakness. However, he is not able to move his left leg at all. LABS: Not available from today. Yesterday sodium was 145. ASSESSMENT: 1. Hypernatremia associated with free water deficit, now improved. 2. Mild hypervolemia, maintained on small dose of Lasix. Repeat labs in a.m. if patient is not discharged today. Otherwise, follow up with labs to be done as outpatient. 3. Encephalopathy associated with electrolyte disorders, currently improved. 4. Paroxysmal atrial fibrillation. 5. Cardiomyopathy; ejection fraction 25%. MMODL / IJN: [id number] /
[2019-08-08 20:29] LABS: Glucose,Whole Blood 227 mg/dL (75-99)
[2019-08-08] MEDS: MONTELUKAST 10 MG TAB PO SCH (20:44)
[2019-08-08] MEDS: MELATONIN 5 MG TABLET PO SCH (20:44)
[2019-08-08] MEDS: DONEPEZIL 10 MG TAB PO SCH (20:44)
[2019-08-08] MEDS: ATORVASTATIN 40 MG TAB PO SCH (20:44)
[2019-08-08] MEDS: INSULIN DETEMIR (LEVEMIR) 100 UNIT/ML SYR SQ SCH (20:55)
[2019-08-09 07:07] LABS: Glucose,Whole Blood 218 mg/dL (75-99)
[2019-08-09] MEDS: INSULIN ASPART (NovoLOG) 100 UNIT/ML VIAL SQ SCH ×4 (07:58→20:58)
[2019-08-09] MEDS: SPIRONOLACTONE 25 MG TAB PO SCH (07:59)
[2019-08-09] MEDS: METOPROLOL TARTRATE 25 MG TAB PO SCH ×2 (07:59→20:59)
[2019-08-09] MEDS: LEVOTHYROXINE 25 MCG TAB PO SCH (07:59)
[2019-08-09] MEDS: MAGNESIUM OXIDE 400 MG TAB PO SCH ×2 (07:59→20:59)
[2019-08-09] MEDS: LISINOPRIL 2.5 MG TAB PO SCH (07:59)
[2019-08-09] MEDS: MIDODRINE 5 MG TAB PO SCH ×3 (07:59→16:58)
[2019-08-09] MEDS: CLOPIDOGREL 75 MG TAB PO SCH (07:59)
[2019-08-09] MEDS: ALLOPURINOL 300 MG TAB PO SCH (07:59)
[2019-08-09] MEDS: FAMOTIDINE 20 MG TAB PO SCH (07:59)
[2019-08-09] MEDS: AMIODARONE 200 MG TAB PO SCH (07:59)
[2019-08-09] MEDS: ARTIFICIAL TEARS-HYPROMELLOSE DROPS 15 ML BTL BOTH EYES SCH ×2 (08:00→20:57)
[2019-08-09] MEDS: DABIGATRAN 150 MG CAP PO SCH ×2 (08:00→20:58)
[2019-08-09] MEDS: PRIMIDONE 250 MG TAB PO SCH ×3 (08:00→20:59)
[2019-08-09] MEDS: TAMSULOSIN 0.4 MG CAP.ER.24H PO SCH ×2 (08:00→20:59)
[2019-08-09] MEDS: FUROSEMIDE 40 MG TAB PO SCH ×2 (08:00→16:59)
[2019-08-09] MEDS: METOLAZONE 2.5 MG TAB PO SCH (08:00)
[2019-08-09] MEDS: POTASSIUM CHLORIDE ER 20 MEQ TAB.ER PO SCH ×3 (08:00→20:59)
[2019-08-09] MEDS: IPRATROPIUM-ALBUTEROL 3 ML NEB INHALATION PRN (09:10)
[2019-08-09] MEDS: BUDESONIDE 0.5 MG/2 ML NEBU INHALATION SCH ×2 (09:10→18:58)
[2019-08-09 12:00] LABS: Glucose,Whole Blood 197 mg/dL (75-99)
--- NOTE | 2019-08-09 15:18 | P.PN ---
Subjective Progress Note Date: 08/09/19 Principal diagnosis: Altered mental status and anabolic encephalopathy, workup is in process patient is undergoing EEG Electrolyte imbalance with severe hypernatremia and hyperkalemia, sodium has improved and normalize mild elevation in potassium has been noted which is being observed Stage II chronic renal disease Aspiration pneumonia Hyperparathyroidism and hypercalcemia Ischemic cardiomyopathy with baseline ejection fraction 20% Sacral decubitus ulcer Paroxysmal atrial fibrillation 08/09/2019, patient seen eval examined during the rounds labs reviewed medications reviewed, mental status is back to baseline agree with discharge to [facility] 08/08/2019, patient appears well sitting upright on the bed remains on room air, denies any shortness of breath denies any cough or sputum production, mostly nonverbal but does respond in no [facility] more awake and alert than previously my agree with discharge planning 08/07/2019, patient seen eval examined during the rounds labs reviewed medications reviewed awake and alert, responding to simple question, remains afebrile and hemodynamically stable at room air oxygen is 98 100%, labs reviewed, This is a 84-year-old male well-known to me seen and evaluated examined on third floor patient well-known to me from [facility] admitted with severe altered mental status changes and hypernatremia, patient transferred to [facility] from [facility] per family wishes, patient with a past me dical history of CAD s/p stent RCA April 2017, hypertension, hyperlipidemia, paroxysmal atrial fibrillation, GERD, chronic kidney disease, lung cancer s/p right lobectomy, chronic back pain, COPD, dementia, diabetes mellitus type 2, benign prostatic hypertrophy, hyperlipidemia, chronic systolic heart failure with EF of 20-25 %, Parkinson's. Patient was recently admitted at [facility] from July 22 - July 25 as he was transferred from [facility], secondary to POA 's behavior at [facility] and there was a no trespassing order on the POA. He was very belligerent and confrontational to nursing staff and medical personnel at [facility]. Patient was treated for aspiration tracheobronchitis with possible chemical pneumonitis and discharged to return home on July 25. Patient had VNA and 24-hour supervision in place. Patient presented to [facility] on August 01 as patient had lab work that revealed a sodium of 161, chloride 123, creatinine 1.3, CO2 32, glucose 188, albumin 2.3. WBC 14.4, hemoglobin 10.4, platelet count 351. Magnesium 1.9, phosphorus 1.5. ABGs pH 7.4 pCO2 43, O2 99.9, bicarb 27, base e xcess 2.5. Osmolality 246, urine osmolality 607, urine creatinine 158, urine sodium 14, urinalysis negative for infection. Urine drug screen positive for barbiturates. Chest x-ray showed persistent suboptimal expiratory effort with slight diminution in the density at the lung bases compared to prior study. Persistent triangular density in the retrocardiac region on the left side. This raises possibility of atelectasis or infiltrate. No pneumothorax. CAT scan of the brain revealed no acute findings. There is possible normal pressure hydrocephalus. Persistent atrophy. Patient was admitted to the hospital and seen by nephrology. Patient had decreased responsiveness and obtundation and was monitored in the intensive care unit. Patient was placed on IV fluids at D5 W to improve sodium.. Over the following days, patient had improvement of his mental status and was able to answer questions and follow simple commands. The patient had a Peres catheter placed at [facility]. He was noted to have tremors of the right hand. He failed speech bedside swallow and was st arted on Lovenox for DVT prophylaxis. Patient was transferred to [facility] as a direct admit for neurology evaluation of metabolic encephalopathy. Patient was also noted to have a stage II/3 decubitus ulcer to large area of both buttocks and Wound Care Team is following the patient. Speech therapy is on consult and social work consult in place with concern for patient's current living situation. EEG has been ordered. Patient does meet criteria for palliative care but son was very resistant to this on last admission. Patient is followed by case finishing machine adjuster and social work. Objective - Vital Signs Vital signs: Vital Signs Temp 98 F 08/09/19 08:05 Pulse 69 08/09/19 09:24 Resp 16 08/09/19 08:05 BP 106/62 08/09/19 08:05 Pulse Ox 100 08/09/19 09:30 Intake & Output 08/08/19 08/09/19 08/09/19 18:59 06:59 18:59 Intake Total 840 100 Output Total 775 100 Balance 65 -100 100 Intake: Oral 840 100 Output: Urine 775 100 Other: Voiding Method Indwelling Catheter Indwelling Catheter Indwelling Catheter # Voids 1 - Exam - Constitutional General appearance: cooperative, no acute distress - EENT Eyes: anicteric sclerae, EOMI, PERRLA, dentition normal, normal appearance ENT: hard of hearing, NA/AT, normal oropharynx - Neck Neck: normal ROM - Respiratory Respiratory: bilateral: CTA, negative: diminished, dullness, rales - Cardiovascular Rhythm: regular Heart sounds: normal: S1, S2 Abnormal Heart Sounds: no systolic murmur, no diastolic murmur, no rub, no S3 Gallop, no S4 Gallop, no click, no other - Gastrointestinal General gastrointestinal: normal bowel sounds, soft - Integumentary Integumentary: decreased turgor, normal - Musculoskeletal Musculoskeletal: gait normal, strength equal bilaterally - Psychiatric Psychiatric: A&O x's 1 non verbal - Labs CBC & Chem 7: 08/07/19 05:36 08/07/19 05:36 Labs: Abnormal Lab Results - Last 24 Hours (Table) 08/08/19 08/08/19 08/09/19 Range/Units 16:26 20:28 06:55 POC Glucose (mg/dL) 207 H 227 H 218 H (75-99) mg/dL 08/09/19 Range/Units 11:58 POC Glucose (mg/dL) 197 H (75-99) mg/dL Assessment and Plan Assessment: Altered mental status and anabolic encephalopathy, workup is in process patient is undergoing EEG Electrolyte imbalance with severe hypernatremia and hyperkalemia, sodium has improved and normalize mild elevation in potassium has been noted which is being observed Stage II chronic renal disease Aspiration pneumonia Hyperparathyroidism and hypercalcemia Ischemic cardiomyopathy with baseline ejection fraction 20% Sacral decubitus ulcer Paroxysmal atrial fibrillation Plan: Continue breathing treatments continue home medications Observe off of antibiotics Repeat chest x-ray reviewed, continue show cardiomegaly no active infiltrate with aneurysm-like changes Further workup and plan of care as per clinical response of the patient
--- NOTE | 2019-08-09 15:55 | P.PN ---
Subjective Progress Note Date: 08/08/19 This is an 84-year-old male patient of Dr. Israel resides at home with son LUIS ANTONIO, with a past medical history of CAD s/p stent RCA April 2017, hypertension, hyperlipidemia, paroxysmal atrial fibrillation, GERD, chronic kidney disease, lung cancer s/p right lobectomy, chronic back pain, COPD, dementia, diabetes mellitus type 2, benign prostatic hypertrophy, hyperlipidemia, chronic systolic heart failure with EF of 20-25 %, Parkinson's. Patient was recently admitted at [facility] from July 22 - July 25 as he was transferred from [facility], secondary to POEllyn 's behavior at [facility] and there was a no trespassing order on the A. He was very belligerent and confrontational to nursing staff and medical personnel at [facility]. Patient was treated for aspiration tracheobronchitis with possible chemical pneumonitis and discharged to return home on July 25. Patient had VNA and 24-hour supervision in place. Patient presented to [facility] on August 01 as patient had lab work that revealed a sodium of 161, chloride 123, creatinine 1.3, CO2 32, glucose 188, albumin 2.3. WBC 14.4, hemoglobin 10.4, platelet count 351. Magnesium 1.9, phosphorus 1.5. ABGs pH 7.4 pCO2 43, O2 99.9, bicarb 27, base excess 2.5. Osmolality 246, urine osmolality 607, urine creatinine 158, urine sodium 14, urinalysis negative for infection. Urine drug screen positive for barbiturates. Chest x-ray showed persistent suboptimal expiratory effort with slight diminution in the density at the lung bases compared to prior study. P ersistent triangular density in the retrocardiac region on the left side. This raises possibility of atelectasis or infiltrate. No pneumothorax. CAT scan of the brain revealed no acute findings. There is possible normal pressure hydrocephalus. Persistent atrophy. Patient was admitted to the hospital and seen by nephrology. Patient had decreased responsiveness and obtundation and was monitored in the intensive care unit. Patient was placed on IV fluids at D5 W to improve sodium.. Over the following days, patient had improvement of his mental status and was able to answer questions and follow simple commands. The patient had a Peres catheter placed at [facility]. He was noted to have tremors of the right hand. He failed speech bedside swallow and was started on Lovenox for DVT prophylaxis. Patient was transferred to [facility] as a direct admit for neurology evaluation of metabolic encephalopathy. Patient was also noted to have a stage II/3 decubitus ulcer to large area of both buttocks and Wound Care Team is following the patient. Speech therapy is on consult and social work consult in place with concern for patient's current living situation. EEG has been ordered. Patient does meet criteria for palliative care but son was very resistant to this on last admission. Patient is followed by family preservation caseworker and social work. 08/07: The patient is awake with eyes open. He is nodding to answer questions. He has been afebrile, heart rate 85, blood pressure 147/77, pulse ox 100% on room air. Repeat lab work reveals that he DC 6.4, hemoglobin 9.6, creatinine 0.81, blood sugars running between 129-169, ammonia level less than 9, calcium 11.2. Patient has been seen in consultation by neurology, Dr. Rosa with recommendations for EEG, TSH vitamin B12, ammonia level. EEG was normal. Chest x-ray reveals cardiomegaly and aortic aneurysm. Discharge plan will be to [facility]. PT and OT have been added. Anticipate discharge tomorrow. 08/08: TSH 0.222, free T4 2 0.4, vitamin B12 977, ammonia level less than 9. Neurologist recommended follow-up on TSH. Patient hasn't seen and followed by nephrology. One dose of pamidronate ordered. Parathyroid hormone intact is 220.6. Patient's mental status is back to baseline. [facility] has reviewed case and will not accept patient. Patient is being evaluated by [facility] for subacute rehab. Son is in agreement. Patient will be discharged once arrangements are completed. Objective - Vital Signs Vital signs: Vital Signs Temp 98 F 08/09/19 08:05 Pulse 71 08/09/19 09:14 Resp 16 08/09/19 08:05 BP 106/62 08/09/19 08:05 Pulse Ox 100 08/09/19 08:05 Intake & Output 08/08/19 08/09/19 08/09/19 18:59 06:59 18:59 Intake Total 840 Output Total 775 100 Balance 65 -100 Intake: Oral 840 Output: Urine 775 100 Other: Voiding Method Indwelling Catheter Indwelling Catheter # Voids 1 - Exam - Constitutional General appearance: cooperative, no acute distress, patient resting comfortably - EENT Eyes: anicteric sclerae, EOMI, PERRLA, dentition normal, normal appearance ENT: hard of hearing, NA/AT, normal oropharynx - Neck Neck: normal ROM - Respiratory Respiratory: bilateral: CTA, negative: diminished, dullness, rales - Cardiovascular Rhythm: regular Heart sounds: normal: S1, S2 Abnormal Heart Sounds: no systolic murmur, no diastolic murmur, no rub, no S3 Gallop, no S4 Gallop, no click, no other - Gastrointestinal General gastrointestinal: normal bowel sounds, soft - Integumentary Integumentary: decreased turgor, normal - Musculoskeletal Musculoskeletal: gait normal, strength equal bilaterally - Psychiatric Psychiatric: A&O x's 1 non verbal, nods to answer questions - Labs CBC & Chem 7: 08/07/19 05:36 08/07/19 05:36 Labs: Abnormal Lab Results - Last 24 Hours (Table) 08/08/19 08/08/19 08/08/19 Range/Units 11:29 16:26 20:28 POC Glucose (mg/dL) 210 H 207 H 227 H (75-99) mg/dL 08/09/19 Range/Units 06:55 POC Glucose (mg/dL) 218 H (75-99) mg/dL Assessment and Plan Plan: 1. Acute metabolic encephalopathy. Patient was seen at [facility] and transferred here for neurology evaluation. EEG as above. CAT scan done at [facility] showed no acute findings. Consult with neurology appreciated. 2. Hypernatremia contributing to mental status changes. Sodium is currently normal. 3. Acute kidney injury with chronic kidney disease stage II, stable. 4. Recent hospitalization for aspiration tracheobronchitis with possible chemical pneumonitis, right lower lobe pneumonia has been ruled out. 5. Stage II decubitus ulcer to bilateral buttocks. Wound Center team consult appreciated. Local wound care. Peres catheter to be maintained to aid in healing. 6. Hypercalcemia, chronic secondary to primary hyperparathyroidism. 7. Paroxysmal atrial fibrillation. Hold Amiodarone 200 mg daily, Pradaxa 150 mg twice daily, Lopressor 25 mg twice daily. Patient is currently on IV Lopressor for rate control and heparin drip. 8. Ischemic cardiomyopathy with known EF of 20% with chronic systolic heart failure and history of non-ST elevated myocardial infarction. Hold Lasix 40 mg daily twice daily, continue Lopressor, Zaroxolyn and Plavix, Pradaxa. stents placed on April 2017 currently asymptomatic 9. 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 10. Hypertension, hypertensive cardiovascular disease. Continue Lopressor. 11. Hyperlipidemia. Hold atorvastatin 40 mg at bedtime. 12. Benign prostatic hypertrophy. Hold Flomax. 13. Hypothyroidism. Continue levothyroxine 12.5 g daily. 14. Coronary artery disease status post stent. 15. COPD. Continue Singulair, DuoNeb treatments and Pulmicort. 16. Gastroesophageal reflux disease, gastrointestinal prophylaxis. Pepcid IV. 17. Chronic back pain. 18. History of lung cancer status post right lobectomy. 19. Parkinson's with Dementia no behaviors. Hold Aricept 10 mg at bedtime, Mysoline 250 mg 3 times a day 20. Diabetes mellitus type 2. NovoLog scale for now. Patient is normally on scheduled NovoLog but will be held due to poor oral intake. 21. Poor oral intake, moderate protein calorie malnutrition. Patient was on Marinol as outpatient. 22. DVT prophylaxis. Continue heparin CODE STATUS: Full code Patient met the hospital for a minimum of 2 nights stay. Discharge plan: Subacute rehab Impression and plan of care have been directed as dictated by the signing physician. Chioma Foreman nurse practitioner acting as scribe for signing physician.
--- NOTE | 2019-08-09 15:57 | P.PN ---
Subjective Progress Note Date: 08/09/19 This is an 84-year-old male patient of Dr. Israel resides at home with son LUIS ANTONIO, with a past medical history of CAD s/p stent RCA April 2017, hypertension, hyperlipidemia, paroxysmal atrial fibrillation, GERD, chronic kidney disease, lung cancer s/p right lobectomy, chronic back pain, COPD, dementia, diabetes mellitus type 2, benign prostatic hypertrophy, hyperlipidemia, chronic systolic heart failure with EF of 20-25 %, Parkinson's. Patient was recently admitted at [facility] from July 22 - July 25 as he was transferred from [facility], secondary to POEllyn 's behavior at [facility] and there was a no trespassing order on the A. He was very belligerent and confrontational to nursing staff and medical personnel at [facility]. Patient was treated for aspiration tracheobronchitis with possible chemical pneumonitis and discharged to return home on July 25. Patient had VNA and 24-hour supervision in place. Patient presented to [facility] on August 01 as patient had lab work that revealed a sodium of 161, chloride 123, creatinine 1.3, CO2 32, glucose 188, albumin 2.3. WBC 14.4, hemoglobin 10.4, platelet count 351. Magnesium 1.9, phosphorus 1.5. ABGs pH 7.4 pCO2 43, O2 99.9, bicarb 27, base excess 2.5. Osmolality 246, urine osmolality 607, urine creatinine 158, urine sodium 14, urinalysis negative for infection. Urine drug screen positive for barbiturates. Chest x-ray showed persistent suboptimal expiratory effort with slight diminution in the density at the lung bases compared to prior study. P ersistent triangular density in the retrocardiac region on the left side. This raises possibility of atelectasis or infiltrate. No pneumothorax. CAT scan of the brain revealed no acute findings. There is possible normal pressure hydrocephalus. Persistent atrophy. Patient was admitted to the hospital and seen by nephrology. Patient had decreased responsiveness and obtundation and was monitored in the intensive care unit. Patient was placed on IV fluids at D5 W to improve sodium.. Over the following days, patient had improvement of his mental status and was able to answer questions and follow simple commands. The patient had a Peres catheter placed at [facility]. He was noted to have tremors of the right hand. He failed speech bedside swallow and was started on Lovenox for DVT prophylaxis. Patient was transferred to [facility] as a direct admit for neurology evaluation of metabolic encephalopathy. Patient was also noted to have a stage II/3 decubitus ulcer to large area of both buttocks and Wound Care Team is following the patient. Speech therapy is on consult and social work consult in place with concern for patient's current living situation. EEG has been ordered. Patient does meet criteria for palliative care but son was very resistant to this on last admission. Patient is followed by case technician and social work. 08/07: The patient is awake with eyes open. He is nodding to answer questions. He has been afebrile, heart rate 85, blood pressure 147/77, pulse ox 100% on room air. Repeat lab work reveals that he DC 6.4, hemoglobin 9.6, creatinine 0.81, blood sugars running between 129-169, ammonia level less than 9, calcium 11.2. Patient has been seen in consultation by neurology, Dr. Rosa with recommendations for EEG, TSH vitamin B12, ammonia level. EEG was normal. Chest x-ray reveals cardiomegaly and aortic aneurysm. Discharge plan will be to [facility]. PT and OT have been added. Anticipate discharge tomorrow. 08/08: TSH 0.222, free T4 2 0.4, vitamin B12 977, ammonia level less than 9. Neurologist recommended follow-up on TSH. Patient hasn't seen and followed by nephrology. One dose of pamidronate ordered. Parathyroid hormone intact is 220.6. Patient's mental status is back to baseline. [facility] has reviewed case and will not accept patient. Patient is being evaluated by [facility] for subacute rehab. Son is in agreement. Patient will be discharged once arrangements are completed. 08/09: Patient is seen on the MedSurg floor. Patient has been afebrile, heart rate 78, blood pressure 106/62, pulse ox 100% on 2 L nasal cannula. Blood sugars are running between 197 and 227. Patient's mental status is at his baseline. Social work is working with the patient's guardian/son but patient has not been accepted to any nursing homes in the [facility]. Objective - Vital Signs Vital signs: Vital Signs Temp 98 F 08/09/19 08:05 Pulse 69 08/09/19 09:24 Resp 16 08/09/19 08:05 BP 106/62 08/09/19 08:05 Pulse Ox 100 08/09/19 09:30 Intake & Output 08/08/19 08/09/19 08/09/19 18:59 06:59 18:59 Intake Total 840 100 Output Total 775 100 Balance 65 -100 100 Intake: Oral 840 100 Output: Urine 775 100 Other: Voiding Method Indwelling Catheter Indwelling Catheter Indwelling Catheter # Voids 1 - Exam - Constitutional General appearance: cooperative, no acute distress, patient resting comfortably - EENT Eyes: anicteric sclerae, EOMI, PERRLA, dentition normal, normal appearance ENT: hard of hearing, NA/AT, normal oropharynx - Neck Neck: normal ROM - Respiratory Respiratory: bilateral: CTA, negative: diminished, dullness, rales - Cardiovascular Rhythm: regular Heart sounds: normal: S1, S2 Abnormal Heart Sounds: no systolic murmur, no diastolic murmur, no rub, no S3 Gallop, no S4 Gallop, no click, no other - Gastrointestinal General gastrointestinal: normal bowel sounds, soft - Integumentary Integumentary: decreased turgor, normal - Musculoskeletal Musculoskeletal: gait none, strength equal and weak bilaterally - Psychiatric Psychiatric: A&O x's 1 non verbal, nods to answer questions, generalized weakness - Labs CBC & Chem 7: 08/07/19 05:36 08/07/19 05:36 Labs: Abnormal Lab Results - Last 24 Hours (Table) 08/08/19 08/08/19 08/09/19 Range/Units 16:26 20:28 06:55 POC Glucose (mg/dL) 207 H 227 H 218 H (75-99) mg/dL 08/09/19 Range/Units 11:58 POC Glucose (mg/dL) 197 H (75-99) mg/dL Assessment and Plan Plan: 1. Acute metabolic encephalopathy. Patient was seen at [facility] and transferred here for neurology evaluation. EEG as above. CAT scan done at [facility] showed no acute findings. Consult with neurology appreciated. 2. Hypernatremia contributing to mental status changes. Sodium is currently normal. 3. Acute kidney injury with chronic kidney disease stage II, stable. 4. Recent hospitalization for aspiration tracheobronchitis with possible chemical pneumonitis, right lower lobe pneumonia has been ruled out. 5. Stage II decubitus ulcer to bilateral buttocks. Wound Center team consult appreciated. Local wound care. Peres catheter to be maintained to aid in healing. 6. Hypercalcemia, chronic secondary to primary hyperparathyroidism. 7. Paroxysmal atrial fibrillation. Hold Amiodarone 200 mg daily, Pradaxa 150 mg twice daily, Lopressor 25 mg twice daily. Patient is currently on IV Lopressor for rate control and heparin drip. 8. Ischemic cardiomyopathy with known EF of 20% with chronic systolic heart failure and history of non-ST elevated myocardial infarction. Hold Lasix 40 mg daily twice daily, continue Lopressor, Zaroxolyn and Plavix, Pradaxa. stents placed on April 2017 currently asymptomatic 9. 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 10. Hypertension, hypertensive cardiovascular disease. Continue Lopressor. 11. Hyperlipidemia. Hold atorvastatin 40 mg at bedtime. 12. Benign prostatic hypertrophy. Hold Flomax. 13. Hypothyroidism. Continue levothyroxine 12.5 g daily. 14. Coronary artery disease status post stent. 15. COPD. Continue Singulair, DuoNeb treatments and Pulmicort. 16. Gastroesophageal reflux disease, gastrointestinal prophylaxis. Pepcid IV. 17. Chronic back pain. 18. History of lung cancer status post right lobectomy. 19. Parkinson's with Dementia no behaviors. Hold Aricept 10 mg at bedtime, Mysoline 250 mg 3 times a day 20. Diabetes mellitus type 2. NovoLog scale for now. Patient is normally on scheduled NovoLog but will be held due to poor oral intake. 21. Poor oral intake, moderate protein calorie malnutrition. Patient was on Marinol as outpatient. 22. DVT prophylaxis. Continue heparin CODE STATUS: Full code Discharge plan: Subacute rehab once arrangements are completed Impression and plan of care have been directed as dictated by the signing physician. Chioma Foreman nurse practitioner acting as scribe for signing physician.
[2019-08-09 16:44] LABS: Glucose,Whole Blood 133 mg/dL (75-99)
[2019-08-09 16:49] LABS: African American GFR (CKD) >90 (>60 ml/min/1.73 sqM); Anion Gap 4 mmol/L; Blood Urea Nitrogen 12 mg/dL (9-20); Calcium 12.6 mg/dL (8.4-10.2); Carbon Dioxide 31 mmol/L (22-30); Chloride 104 mmol/L (98-107); Glucose 151 mg/dL (74-99); Non-African American GFR(CKD) 84 (>60 ml/min/1.73 sqM); Potassium 4.6 mmol/L (3.5-5.1); Sodium 139 mmol/L (137-145)
--- NOTE | 2019-08-09 17:20 | PN ---
PROGRESS NOTE Patient is seen for followup for hypernatremia. His sodium level has improved. I do not see any labs from today. Basic metabolic panel has been ordered. Patient is currently awake, comfortable. He is not in any acute distress. Mentation has improved significantly. PHYSICAL EXAMINATION: On examination today, blood pressure was 106/62, heart rate 78 per minute. He is afebrile. EXAMINATION OF THE HEART: S1 and S2. EXAMINATION OF LUNGS: Decreased breath sounds at bases. ABDOMEN: Soft, non-tender. Examination of lower extremities shows no significant edema. [employer] exam shows patient is not able to move his left leg. He is weak in his bilateral upper extremities and the right leg. LABS: Sodium 145 on 08/07 pending. Calcium was 11.2 on 08/07. ASSESSMENT: 1. Hypernatremia associated with free water deficit, now improved. Check labs today. 2. Hypercalcemia. Patient is not on any calcium supplements. Check repeat labs today. PTH was elevated, suggesting underlying primary hyperparathyroidism. Vitamin D levels were not elevated and serum immunofixation does not show any evidence of monoclonal proteins. Patient will benefit from Sensipar. PLAN: Check labs today. May continue with the Lasix and add Sensipar for the hypercalcemia from primary hyperparathyroidism. This will need further followup as outpatient. MMODL / IJN: [id number] /
[2019-08-09 20:52] LABS: Glucose,Whole Blood 183 mg/dL (75-99)
[2019-08-09] MEDS: INSULIN DETEMIR (LEVEMIR) 100 UNIT/ML SYR SQ SCH (20:58)
[2019-08-09] MEDS: ATORVASTATIN 40 MG TAB PO SCH (20:58)
[2019-08-09] MEDS: DONEPEZIL 10 MG TAB PO SCH (20:58)
[2019-08-09] MEDS: MONTELUKAST 10 MG TAB PO SCH (20:59)
[2019-08-09] MEDS: MELATONIN 5 MG TABLET PO SCH (20:59)
[2019-08-10 07:15] LABS: Glucose,Whole Blood 174 mg/dL (75-99)
[2019-08-10] MEDS: ARTIFICIAL TEARS-HYPROMELLOSE DROPS 15 ML BTL BOTH EYES SCH (08:16)
[2019-08-10] MEDS: SPIRONOLACTONE 25 MG TAB PO SCH (08:16)
[2019-08-10] MEDS: INSULIN ASPART (NovoLOG) 100 UNIT/ML VIAL SQ SCH (08:16)
[2019-08-10] MEDS: LEVOTHYROXINE 25 MCG TAB PO SCH (08:17)
[2019-08-10] MEDS: CLOPIDOGREL 75 MG TAB PO SCH (08:17)
[2019-08-10] MEDS: METOPROLOL TARTRATE 25 MG TAB PO SCH (08:17)
[2019-08-10] MEDS: FAMOTIDINE 20 MG TAB PO SCH (08:17)
[2019-08-10] MEDS: FUROSEMIDE 40 MG TAB PO SCH (08:17)
[2019-08-10] MEDS: POTASSIUM CHLORIDE ER 20 MEQ TAB.ER PO SCH (08:17)
[2019-08-10] MEDS: ALLOPURINOL 300 MG TAB PO SCH (08:17)
[2019-08-10] MEDS: DABIGATRAN 150 MG CAP PO SCH (08:17)
[2019-08-10] MEDS: AMIODARONE 200 MG TAB PO SCH (08:17)
[2019-08-10] MEDS: MAGNESIUM OXIDE 400 MG TAB PO SCH (08:17)
[2019-08-10] MEDS: TAMSULOSIN 0.4 MG CAP.ER.24H PO SCH (08:17)
[2019-08-10] MEDS: PRIMIDONE 250 MG TAB PO SCH (08:17)
[2019-08-10] MEDS: MIDODRINE 5 MG TAB PO SCH (08:17)
[2019-08-10] MEDS: LISINOPRIL 2.5 MG TAB PO SCH (08:17)
[2019-08-10 08:47] VITALS: BP 116/78; RESP 16; TEMP 98.5
[2019-08-10] MEDS ORDERED: CINACALCET 30 MG TAB PO SCH (09:00)
[2019-08-10] MEDS: IPRATROPIUM-ALBUTEROL 3 ML NEB INHALATION PRN (09:17)
[2019-08-10] MEDS: BUDESONIDE 0.5 MG/2 ML NEBU INHALATION SCH (09:18)
[2019-08-10 09:35] VITALS: PULSE 100
--- NOTE | 2019-08-10 10:37 | P.PN ---
Subjective Progress Note Date: 08/03/19 Principal diagnosis: Altered mental status and anabolic encephalopathy, workup is in process patient is undergoing EEG Electrolyte imbalance with severe hypernatremia and hyperkalemia, sodium has improved and normalize mild elevation in potassium has been noted which is being observed Stage II chronic renal disease Aspiration pneumonia Hyperparathyroidism and hypercalcemia Ischemic cardiomyopathy with baseline ejection fraction 20% Sacral decubitus ulcer Paroxysmal atrial fibrillation 08/10/2019, patient seen eval examined during the rounds labs reviewed medications reviewed him a patient is awaiting placement respiratory status has been stable on room air 08/09/2019, patient seen eval examined during the rounds labs reviewed medications reviewed, mental status is back to baseline agree with discharge to [facility] 08/08/2019, patient appears well sitting upright on the bed remains on room air, denies any shortness of breath denies any cough or sputum production, mostly nonverbal but does respond in no [facility] more awake and alert than previously my agree with discharge planning 08/07/2019, patient seen eval examined during the rounds labs reviewed medications reviewed awake and alert, responding to simple question, remains afebrile and hemodynamically stable at room air oxygen is 98 100%, labs reviewed, This is a 84-year-old male well-known to me seen and evaluated examined on third floor patient well-known to me from [facility] admitted with severe altered mental status changes and hypernatremia, patient transferred to [facility] from [facility] per family wishes, patient with a past medical history of CAD s/p stent RCA April 2017, hypertension, hyperlipidemia, paroxysmal atrial fibrillation, GERD, chronic kidney disease, lung cancer s/p right lobectomy, chronic back pain, COPD, dementia, diabetes mellitus type 2, benign prostatic hypertrophy, hyperlipidemia, chronic systolic heart failure with EF of 20-25 %, Parkinson's. Patient was recently admitted at [facility] from July 22 - July 25 as he was transferred from [facility], secondary to POA 's behavior at [facility] and there was a no trespassing order on the POA. He was very belligerent and conf rontational to nursing staff and medical personnel at [facility]. Patient was treated for aspiration tracheobronchitis with possible chemical pneumonitis and discharged to return home on July 25. Patient had VNA and 24-hour supervision in place. Patient presented to [facility] on August 01 as patient had lab work that revealed a sodium of 161, chloride 123, creatinine 1.3, CO2 32, glucose 188, albumin 2.3. WBC 14.4, hemoglobin 10.4, platelet count 351. Ma gnesium 1.9, phosphorus 1.5. ABGs pH 7.4 pCO2 43, O2 99.9, bicarb 27, base excess 2.5. Osmolality 246, urine osmolality 607, urine creatinine 158, urine sodium 14, urinalysis negative for infection. Urine drug screen positive for barbiturates. Chest x-ray showed persistent suboptimal expiratory effort with slight diminution in the density at the lung bases compared to prior study. Persistent triangular density in the retrocardiac region on the left side. This raises possibility of atelectasis or infiltrate. No pneumothorax. CAT scan of the brain revealed no acute findings. There is possible normal pressure hydrocephalus. Persistent atrophy. Patient was admitted to the hospital and seen by nephrology. Patient had decreased responsiveness and obtundation and was monitored in the intensive care unit. Patient was placed on IV fluids at D5 W to improve sodium.. Over the following days, patient had improvement of his mental status and was able to answer questions and follow simple commands. The patient had a Peres catheter placed at [facility]. He was noted to have tremors of the right hand. He failed speech bedside swallow and was started on Lovenox for DVT prophylaxis. Patient was transferred to [facility] as a direct admit for neurology evaluation of metabolic encephalopathy. Patient was also noted to have a stage II/3 decubitus ulcer to large area of both buttocks and Wound Care Team is following the patient. Speech therapy is on consult and social work consult in place with concern for patient's current living situation. EEG has been ordered. Patient does meet criteria for palliative care but son was very resistant to this on last admission. Patient is followed by adult protective caseworker and social work. Objective - Vital Signs Vital signs: Vital Signs Temp 98.5 F 08/10/19 07:00 Pulse 100 08/10/19 09:34 Resp 16 08/10/19 07:00 BP 116/78 08/10/19 07:00 Pulse Ox 100 08/10/19 09:20 Intake & Output 08/09/19 08/10/19 08/10/19 18:59 06:59 18:59 Intake Total 100 Output Total 1000 Balance 100 -1000 Intake: Oral 100 Output: Urine 1000 Other: Voiding Method Indwelling Catheter Indwelling Catheter - Exam - Constitutional General appearance: cooperative, no acute distress - EENT Eyes: anicteric sclerae, EOMI, PERRLA, dentition normal, normal appearance ENT: hard of hearing, NA/AT, normal oropharynx - Neck Neck: normal ROM - Respiratory Respiratory: bilateral: CTA, negative: diminished, dullness, rales - Cardiovascular Rhythm: regular Heart sounds: normal: S1, S2 Abnormal Heart Sounds: no systolic murmur, no diastolic murmur, no rub, no S3 Gallop, no S4 Gallop, no click, no other - Gastrointestinal General gastrointestinal: normal bowel sounds, soft - Integumentary Integumentary: decreased turgor, normal - Musculoskeletal Musculoskeletal: gait normal, strength equal bilaterally - Psychiatric Psychiatric: A&O x's 1 non verbal - Labs CBC & Chem 7: 08/07/19 05:36 08/09/19 16:07 Labs: Abnormal Lab Results - Last 24 Hours (Table) 08/09/19 08/09/19 08/09/19 Range/Units 11:58 16:07 16:41 Carbon Dioxide 31 H (22-30) mmol/L Glucose 151 H (74-99) mg/dL POC Glucose (mg/dL) 197 H 133 H (75-99) mg/dL Calcium 12.6 H (8.4-10.2) mg/dL 08/09/19 08/10/19 Range/Units 20:50 07:14 Carbon Dioxide (22-30) mmol/L Glucose (74-99) mg/dL POC Glucose (mg/dL) 183 H 174 H (75-99) mg/dL Calcium (8.4-10.2) mg/dL Assessment and Plan Assessment: Altered mental status and anabolic encephalopathy, workup is in process patient is undergoing EEG Electrolyte imbalance with severe hypernatremia and hyperkalemia, sodium has improved and normalize mild elevation in potassium has been noted which is being observed Stage II chronic renal disease Aspiration pneumonia Hyperparathyroidism and hypercalcemia Ischemic cardiomyopathy with baseline ejection fraction 20% Sacral decubitus ulcer Paroxysmal atrial fibrillation Plan: Continue breathing treatments continue home medications Observe off of antibiotics Repeat chest x-ray reviewed, continue show cardiomegaly no active infiltrate with aneurysm-like changes Further workup and plan of care as per clinical response of the patient We'll follow as needed Time with Patient: Greater than 30
--- NOTE | 2019-08-10 11:25 | PN ---
PROGRESS NOTE Patient is seen for followup for hypernatremia. He also has hypercalcemia, which appears to be secondary to primary hyperparathyroidism as PTH was elevated and patient was started on Sensipar. His serum sodium has been stable. The patient is maintained on oral Lasix currently. This morning he is more lethargic than yesterday. PHYSICAL EXAMINATION: On examination, blood pressure was 116/78, heart rate 90 per minute. He is afebrile. Examination of the heart S1, S2. Examination of the lungs, bilateral breath sounds are heard. Abdomen is soft, nontender. Examination of lower extremities shows trace edema bilaterally. LABS: Show sodium 139, potassium 4.6, chloride 104, CO2 is 31, BUN 12, creatinine 0.78. ASSESSMENT: 1. Hypernatremia, currently resolved. 2. Hypercalcemia secondary to primary hyperparathyroidism with PTH around 220 with a calcium level of 11.2, suggesting primary hyperparathyroidism. Currently maintained on Sensipar which I will continue for now. There may be also a component of immobilization contributing to the hypercalcemia. 3. Altered mental status. Associated electrolyte disturbance, currently improved. 4. Ischemic cardiomyopathy, ejection fraction about 20%. PLAN: Hold off on Lasix for now. Repeat labs in a.m. Continue with Sensipar. MMODL / IJN: [id number] /
[2019-08-11] MEDS ORDERED: FUROSEMIDE 40 MG TAB PO SCH (09:00)
== END 2019-08-10 12:06 | disposition home health service (06) | DRG 640 ==
LOC: 3SCARD 08-05 15:28 → 4SSUR 08-08 21:11
PROVIDERS: ADMIT Family Medicine; ATTEND Family Medicine
DX: E87.0 Hyperosmolality and hypernatremia (principal); G93.41 Metabolic encephalopathy; E44.0 Moderate protein-calorie malnutrition; I13.0 Hypertensive heart and chronic kidney disease with heart failure and stage 1 through stage 4 chronic kidney disease, or unspecified chronic kidney disease; N17.9 Acute kidney failure, unspecified; G91.2 (Idiopathic) normal pressure hydrocephalus; I50.22 Chronic systolic (congestive) heart failure; Z68.1 Body mass index [BMI] 19.9 or less, adult; L89.322 Pressure ulcer of left buttock, stage 2; L89.312 Pressure ulcer of right buttock, stage 2; L89.152 Pressure ulcer of sacral region, stage 2; D63.1 Anemia in chronic kidney disease; G20 Parkinson's disease; F02.80 Dementia in other diseases classified elsewhere, unspecified severity, without behavioral disturbance, psychotic disturbance, mood disturbance, and anxiety; E11.22 Type 2 diabetes mellitus with diabetic chronic kidney disease; E87.5 Hyperkalemia; N40.0 Benign prostatic hyperplasia without lower urinary tract symptoms; K21.9 Gastro-esophageal reflux disease without esophagitis; J44.9 Chronic obstructive pulmonary disease, unspecified; I48.0 Paroxysmal atrial fibrillation; I25.10 Atherosclerotic heart disease of native coronary artery without angina pectoris; N18.2 Chronic kidney disease, stage 2 (mild); G89.29 Other chronic pain; E78.5 Hyperlipidemia, unspecified; M19.90 Unspecified osteoarthritis, unspecified site; E21.0 Primary hyperparathyroidism; E03.9 Hypothyroidism, unspecified; R13.10 Dysphagia, unspecified; I71.9 Aortic aneurysm of unspecified site, without rupture; E04.9 Nontoxic goiter, unspecified; M54.9 Dorsalgia, unspecified; I25.5 Ischemic cardiomyopathy; I25.2 Old myocardial infarction; Z79.890 Hormone replacement therapy; Z79.899 Other long term (current) drug therapy; Z79.01 Long term (current) use of anticoagulants; Z79.02 Long term (current) use of antithrombotics/antiplatelets; Z95.5 Presence of coronary angioplasty implant and graft; Z71.3 Dietary counseling and surveillance; Z90.2 Acquired absence of lung [part of]; Z85.118 Personal history of other malignant neoplasm of bronchus and lung; Z87.442 Personal history of urinary calculi; Z87.81 Personal history of (healed) traumatic fracture; Z98.890 Other specified postprocedural states; Z87.891 Personal history of nicotine dependence; Z91.040 Latex allergy status; Z87.01 Personal history of pneumonia (recurrent)
CPT/HCPCS: 71045; 80048; 80053; 82140; 82306; 82607; 82652; 83970; 84439; 84443; 85025; 85027; 85610; 85730; 86334; 86335; 94640; 94760; 95816

== ENCOUNTER 2019-08-10 12:52 | Emergency (ER) | payer MEDICARE, OTHER ==
[2019-08-10 13:01] VITALS: BP 120/76; PULSE 76; RESP 16; TEMP 98
--- NOTE | 2019-08-10 13:01 | ED ---
Male Urogenital HPI - General Chief complaint: Urogenital Stated complaint: Catheter Issues Time Seen by Provider: 08/10/19 12:56 Source: EMS Mode of arrival: EMS Limitations: no limitations - History of Present Illness Initial comments: Patient is an 84-year-old male presenting to emergency Department with a chief complaint for catheter removal. Patient was at discharge earlier today from the hospital with a Peres catheter. EMS took the patient home but the family refused take the patient because they could not care for Peres catheter. Patient is return to the ED via EMS for catheter removal. Complaint: other (Peres catheter removal) - Related Data Home Medications Medication Instructions Recorded Confirmed RX: Levothyroxine Sodium 25 mcg PO DAILY@0600 05/19/16 08/05/19 [Synthroid] RX: Atorvastatin Calcium [Lipitor] 40 mg PO HS@209910/25/16 08/05/19 RX: Donepezil [Aricept] 10 mg PO HS@209910/25/16 08/05/19 RX: Baclofen [Lioresal] 10 mg PO TID@0600,1400,2200 04/10/17 08/05/19 RX: Tamsulosin HCl [Flomax] 0.4 mg PO BID@0900,209904/10/17 08/05/19 RX: Dabigatran [Pradaxa] 150 mg PO BID@0900,209904/14/17 08/05/19 RX: Potassium Chloride ER [K-Dur 20 meq PO TID@0900,1300,2100 07/06/17 08/05/19 20] RX: Amiodarone [Cordarone] 200 mg PO DAILY@89903/14/18 08/05/19 RX: Ergocalciferol [Vitamin D2 50,000 unit PO FR@89903/14/18 08/05/19 (DRISDOL)] RX: Melatonin 10 mg PO HS@209903/14/18 08/05/19 RX: Metoprolol Tartrate [Lopressor] 25 mg PO BID@0900,209903/14/18 08/05/19 RX: Nitroglycerin [Nitroglycerin 1 spray TRANSLINGU Q5M PRN 03/14/18 08/05/19 400MCG [place]] RX: Budesonide [Pulmicort] 0.5 mg INHALATION RT-BID 09/28/18 08/05/19 RX: Carboxymethylcellulose Sodium 1 drop BOTH EYES BID@0900,209909/28/18 08/05/19 [Refresh Tears] RX: INSULIN ASPART (NovoLOG) See Protocol SQ TID@0900,1300,1900 09/28/18 08/05/19 [NovoLOG (formulary)] RX: Metolazone [Zaroxolyn] 2.5 mg PO TUTH@0900 09/28/18 08/05/19 RX: Midodrine HCl [ProAmatine] 10 mg PO TID@0900,1300,209909/28/18 08/05/19 RX: Montelukast [Singulair] 10 mg PO HS@209909/28/18 08/05/19 RX: Famotidine [Pepcid] 20 mg PO DAILY@0900 11/17/18 08/05/19 RX: Insulin Glargine,Hum.rec.anlog 17 unit SQ HS@209911/17/18 08/05/19 [Basaglar Kwikpen U-100] RX: Allopurinol [Zyloprim] 300 mg PO DAILY 07/23/19 08/05/19 RX: Furosemide [Lasix] 40 mg PO BID 07/23/19 08/05/19 RX: Magnesium Oxide [Mag-Ox] 400 mg PO BID 07/23/19 08/05/19 RX: Pramox-Calamine 1-8% Lotion 1 applic TOPICAL HS 07/23/19 08/05/19 [Caladryl] RX: Primidone [Mysoline] 250 mg PO TID 07/23/19 08/05/19 Previous Rx's Medication Instructions Recorded RX: Ipratropium-Albuterol Nebulize 3 ml INHALATION RT-TID ampul.neb 10/02/18 [Duoneb 0.5 mg-3 mg/3 ml Soln] RX: Spironolactone [Aldactone] 12.5 mg PO DAILY@0900 #0 10/02/18 RX: Cinacalcet HCl [Sensipar] 60 mg PO BID #0 07/24/19 RX: Lisinopril [Zestril] 2.5 mg PO DAILY #30 tab 07/24/19 RX: Sennosides [Senokot] 8.6 mg PO DAILY PRN tab 07/24/19 Clopidogrel [Plavix] 75 mg PO DAILY #30 tablet 08/10/19 Allergies Allergy/AdvReac Type Severity Reaction Status Date / Time latex Allergy Rash/Hives Verified 08/05/19 18:20 Review of Systems ROS Statement: Those systems with pertinent positive or pertinent negative responses have been documented in the HPI. ROS Other: All systems not noted in ROS Statement are negative. Past Medical History Past Medical History: Atrial Fibrillation, Coronary Artery Disease (CAD), Cancer, Chest Pain / Angina, COPD, Dementia, Diabetes Mellitus, GERD/Reflux, Hyperlipidemia, Hypertension, Memory Impairment, Osteoarthritis (OA), Prostate Disorder, Thyroid Disorder Additional Past Medical History / Comment(s): Back pain r/t sciatica, right lung cancer, kidney stone, NSTEMI, dysphagia, BPH, hypothyroid, dementia, hyperparathyroidism, impaired gait. Last Myocardial Infarction Date:: History of Any Multi-Drug Resistant Organisms: None Reported Past Surgical History: Heart Catheterization With Stent Additional Past Surgical History / Comment(s): Lung ca removed from right lung (lobectomy), neck sx d/t to fx, stent to right groin. Past Anesthesia/Blood Transfusion Reactions: No Reported Reaction Date of Last Stent Placement:: 2016 Past Psychological History: No Psychological Hx Reported Smoking Status: Former smoker Past Alcohol Use History: None Reported, Occasional Past Drug Use History: None Reported - Past Family History Father History Unknown: Yes Mother History Unknown: Yes General Exam Limitations: no limitations General appearance: alert, in no apparent distress Head exam: Present: atraumatic Eye exam: Present: normal appearance ENT exam: Present: normal exam Neck exam: Present: normal inspection Respiratory exam: Present: normal lung sounds bilaterally Cardiovascular Exam: Present: regular rate, normal rhythm, normal heart sounds Extremities exam: Present: normal inspection Back exam: Present: normal inspection Neurological exam: Present: alert Psychiatric exam: Present: normal affect, normal mood Skin exam: Present: warm, intact, normal color Course Vital Signs 08/10/19 12:58 Temperature 98.0 F Pulse Rate 76 Respiratory 16 Rate Blood Pressure 120/76 O2 Sat by Pulse 99 Oximetry Medical Decision Making - Medical Decision Making Patient is an 84-year-old male presenting to emergency Department with a chief complaint of catheter removal. Patient was discharged earlier from the hospital and took home via EMS. Patient was returned by the EMS to the ED to have his Peres catheter removed. Patient will be discharged upon catheter removal. Disposition Clinical Impression: Encounter for Peres catheter removal Disposition: HOME SELF-CARE Condition: Stable Instructions (If sedation given, give patient instructions): Urinary Tract Infection in Men (ED) Additional Instructions: Follow-up primary care. Return to emergency department if symptoms worsen. Is patient prescribed a controlled substance at d/c from ED?: No Referrals: Katharine Israel MD [Primary Care Provider] - 1-2 days Time of Disposition: 13:01
== END 2019-08-10 13:05 | disposition home or self-care (01) ==
LOC: EC 12:52
DX: Z46.6 Encounter for fitting and adjustment of urinary device (principal); I48.91 Unspecified atrial fibrillation; I25.119 Atherosclerotic heart disease of native coronary artery with unspecified angina pectoris; E11.9 Type 2 diabetes mellitus without complications; J44.9 Chronic obstructive pulmonary disease, unspecified; F03.90 Unspecified dementia, unspecified severity, without behavioral disturbance, psychotic disturbance, mood disturbance, and anxiety; I10 Essential (primary) hypertension; E78.5 Hyperlipidemia, unspecified; E03.9 Hypothyroidism, unspecified; I25.2 Old myocardial infarction; Z79.890 Hormone replacement therapy; Z79.4 Long term (current) use of insulin; Z79.51 Long term (current) use of inhaled steroids; Z79.899 Other long term (current) drug therapy; Z91.040 Latex allergy status; Z87.891 Personal history of nicotine dependence; Z95.5 Presence of coronary angioplasty implant and graft; Z85.118 Personal history of other malignant neoplasm of bronchus and lung
CPT/HCPCS: 99283

== ENCOUNTER 2019-08-11 09:20 | Inpatient (IN) | payer MEDICARE, OTHER ==
[2019-08-11 09:28] LABS: Glucose,Whole Blood 203 mg/dL (75-99)
[2019-08-11] MEDS ORDERED: SODIUM CHLORIDE 0.9% 1,000 ML IV ONE (09:29)
[2019-08-11] MEDS ORDERED: SODIUM CHLORIDE 0.9% 500 ML 500 ML IV ONE (09:29)
[2019-08-11 09:45] LABS: Anisocytosis Slight; Basophils # (A) 0.1 k/uL (0-0.2); Basophils % (A) 1 %; Eosinophils # (A) 0.1 k/uL (0-0.7); Eosinophils % (A) 1 %; HCT 35.5 % (39.0-53.0); HGB 10.9 gm/dL (13.0-17.5); Hypochromasia Marked; Lymphocytes % (A) 19 %; MCH 27.9 pg (25.0-35.0); MCHC 30.9 g/dL (31.0-37.0); MCV 90.3 fL (80.0-100.0); Mean Platelet Volume 9.2; Monocytes # (A) 0.5 k/uL (0-1.0); Monocytes % (A) 5 %; Neutrophils # (A) 7.4 k/uL (1.3-7.7); Neutrophils % (A) 73 %; Platelet Count 286 k/uL (150-450); RBC 3.92 m/uL (4.30-5.90); RDW 16.7 % (11.5-15.5); WBC 10.2 k/uL (3.8-10.6)
[2019-08-11 09:59] LABS: Albumin 3.3 g/dL (3.5-5.0); Magnesium 2.2 mg/dL (1.6-2.3); Total Bilirubin 0.8 mg/dL (0.2-1.3); Total Protein 6.8 g/dL (6.3-8.2)
--- NOTE | 2019-08-11 10:05 | CT ---
EXAMINATION TYPE: CT brain wo con DATE OF EXAM: 08/11/2019 COMPARISON: Previous study dated 11/17/2018. HISTORY: Unresponsive CT DLP: 1154.4 mGycm Automated exposure control for dose reduction was used. FINDINGS: There are generalized changes of sulcal prominence and ventriculomegaly, compatible with atrophy. [place]oto tricular dilatation May BE out of keeping with the degree of sulcal prominence. I could not exclude e xclude some degree of normal pressure hydrocephalus. There is no acute focal lesion, mass effect or m idline shift identified. I do not see evidence of intracranial blood. There is mucoperiosteal thickening involving all of the sinuses is relative sparing of the sphenoid s inuses. There is underaeration of the right mastoid. This may be secondary to chronic right-sided mas toiditis. The bony calvarium is intact. IMPRESSION: 1. NO ACUTE INTRACRANIAL ABNORMALITY. 2. ATROPHIC CHANGE. 3. I COULD NOT EXCLUDE SOME DEGREE OF NORMAL PRESSURE HYDROCEPHALUS. 4. CHRONIC PANSINUSITIS WITH RELATIVE SPARING OF THE SPHENOID SINUSES. 5. 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
[2019-08-11 10:06] LABS: Calcium 13.4 mg/dL (8.4-10.2); Potassium 6.1 mmol/L (3.5-5.1)
[2019-08-11 10:08] LABS: Amorphous Sediment,Urine Rare /hpf; Appearance,Urine Clear (Clear); Bacteria,Urine Rare /hpf; Bilirubin,Urine 1+ (Negative); Blood,Urine Trace (Negative); Color,Urine Yellow; Glucose,Urine (UA) Negative (Negative); Hyaline Casts,Urine 180 /lpf (0-2); Ketones,Urine Negative (Negative); Leukocyte Esterase,Urine Trace (Negative); Mucus,Urine Occasional /hpf; Nitrite,Urine Negative (Negative); PH, Urine 6.5 (5.0-8.0); Protein,Urine 1+ (Negative); RBC,Urine 16 /hpf (0-5); Specific Gravity,Urine 1.018 (1.001-1.035); Squamous Epithelial Cell,Urine 1 /hpf (0-4); WBC,Urine 4 /hpf (0-5)
--- NOTE | 2019-08-11 10:11 | XR ---
EXAMINATION TYPE: XR chest 1V portable DATE OF EXAM: 08/11/2019 HISTORY: altered mental status. REFERENCE: Previous study dated 08/07/2019. FINDINGS: There is apparent elevation right hemidiaphragm. The heart is mildly enlarged. The lungs are clear. Pleural spaces are clear. There is calcification o f the aortic knuckle. IMPRESSION: MILD CARDIOMEGALY.
--- NOTE | 2019-08-11 10:43 | ED ---
Altered Mental Status HPI - General Chief Complaint: Altered Mental Status Stated Complaint: Unresponsive Time Seen by Provider: 08/11/19 09:20 Source: EMS, RN notes reviewed, old records reviewed Mode of arrival: EMS Limitations: altered mental status - History of Present Illness Initial Comments: This is a 84-year-old male history of multiple medical issues who was recently discharged from this facility after presenting in a similar fashion been dis covered to be hyper a tree make. He was just discharged on August 09. He was back yesterday for a Peres catheter removal. He apparently 71, slightly lethargic last evening and upon awaking this point family found to be minimally responsive. He was brought in by EMS. He did respond to painful stimuli did not respond to verbal commands. MD Complaint: decreased responsiveness - Related Data Home Medications Medication Instructions Recorded Confirmed Levothyroxine Sodium [Synthroid] 25 mcg PO DAILY@0600 05/19/16 08/11/19 Atorvastatin Calcium [Lipitor] 40 mg PO HS@209910/25/16 08/11/19 Donepezil [Aricept] 10 mg PO HS@209910/25/16 08/11/19 Baclofen [Lioresal] 10 mg PO TID@0600,1400,2200 04/10/17 08/11/19 Tamsulosin HCl [Flomax] 0.4 mg PO BID@09,209904/10/17 08/11/19 Dabigatran [Pradaxa] 150 mg PO BID@0900,209904/14/17 08/11/19 Potassium Chloride ER [K-Dur 20] 20 meq PO TID@0900,1300,2100 07/06/17 08/11/19 Amiodarone [Cordarone] 200 mg PO DAILY@89903/14/18 08/11/19 Ergocalciferol [Vitamin D2 50,000 unit PO FR@89903/14/18 08/11/19 (DRISDOL)] Melatonin 10 mg PO HS@209903/14/18 08/11/19 Metoprolol Tartrate [Lopressor] 25 mg PO BID@0900,209903/14/18 08/11/19 Nitroglycerin [Nitroglycerin 1 spray TRANSLINGU Q5M PRN 03/14/18 08/11/19 400MCG [place]] Budesonide [Pulmicort] 0.5 mg INHALATION RT-BID 09/28/18 08/11/19 Carboxymethylcellulose Sodium 1 drop BOTH EYES BID@0900,209909/28/18 08/11/19 [Refresh Tears] INSULIN ASPART (NovoLOG) [NovoLOG See Protocol SQ TID@0900,1300,1900 09/28/18 08/11/19 (formulary)] Metolazone [Zaroxolyn] 2.5 mg PO TUTH@0909/28/18 08/11/19 Midodrine HCl [ProAmatine] 10 mg PO TID@0900,1300,209909/28/18 08/11/19 Montelukast [Singulair] 10 mg PO HS@209909/28/18 08/11/19 Famotidine [Pepcid] 20 mg PO DAILY@0900 11/17/18 08/11/19 Insulin Glargine,Hum.rec.anlog 17 unit SQ HS@209911/17/18 08/11/19 [Basaglar [place] U-100] Allopurinol [Zyloprim] 300 mg PO DAILY 07/23/19 08/11/19 Furosemide [Lasix] 40 mg PO BID 07/23/19 08/11/19 Magnesium Oxide [Mag-Ox] 400 mg PO BID 07/23/19 08/11/19 Pramox-Calamine 1-8% Lotion 1 applic TOPICAL HS 07/23/19 08/11/19 [Caladryl] Primidone [Mysoline] 250 mg PO TID 07/23/19 08/11/19 Previous Rx's Medication Instructions Recorded Ipratropium-Albuterol Nebulize 3 ml INHALATION RT-TID ampul.neb 10/02/18 [Duoneb 0.5 mg-3 mg/3 ml Soln] Spironolactone [Aldactone] 12.5 mg PO DAILY@0900 #0 10/02/18 Cinacalcet HCl [Sensipar] 60 mg PO BID #0 07/24/19 Lisinopril [Zestril] 2.5 mg PO DAILY #30 tab 07/24/19 Sennosides [Senokot] 8.6 mg PO DAILY PRN tab 07/24/19 Clopidogrel [Plavix] 75 mg PO DAILY #30 tablet 08/10/19 Allergies Allergy/AdvReac Type Severity Reaction Status Date / Time latex Allergy Rash/Hives Verified 08/11/19 12:43 Review of Systems ROS Statement: Those systems with pertinent positive or pertinent negative responses have been documented in the HPI. ROS Other: All systems not noted in ROS Statement are negative. Limitations: ROS unobtainable due to patients medical condition Past Medical History Past Medical History: Atrial Fibrillation, Coronary Artery Disease (CAD), Cancer, Chest Pain / Angina, COPD, Dementia, Diabetes Mellitus, GERD/Reflux, Hyperlipidemia, Hypertension, Memory Impairment, Osteoarthritis (OA), Prostate Disorder, Thyroid Disorder Additional Past Medical History / Comment(s): Back pain r/t sciatica, right lung cancer, kidney stone, NSTEMI, dysphagia, BPH, hypothyroid, dementia, hyperparathyroidism, impaired gait. Last Myocardial Infarction Date:: History of Any Multi-Drug Resistant Organisms: None Reported Past Surgical History: Heart Catheterization With Stent Additional Past Surgical History / Comment(s): Lung ca removed from right lung (lobectomy), neck sx d/t to fx, stent to right groin. Past Anesthesia/Blood Transfusion Reactions: No Reported Reaction Date of Last Stent Placement:: 2016 Past Psychological History: No Psychological Hx Reported Smoking Status: Former smoker Past Alcohol Use History: None Reported, Occasional Past Drug Use History: None Reported - Past Family History Father History Unknown: Yes Mother History Unknown: Yes General Exam - General Exam Comments Initial Comments: This is a well-developed asthenic appearing male who was awake but obtunded he does respond to painful stimuli Limitations: altered mental status General appearance: obtunded Head exam: Present: atraumatic, normocephalic, normal inspection Eye exam: Present: normal appearance, PERRL, EOMI. Absent: scleral icterus, conjunctival injection, periorbital swelling ENT exam: Present: mucous membranes dry Neck exam: Present: normal inspection. Absent: tenderness, meningismus, lymphadenopathy Respiratory exam: Present: decreased breath sounds. Absent: respiratory distress, wheezes, rales, rhonchi, stridor Cardiovascular Exam: Present: regular rate, normal rhythm, normal heart sounds. Absent: systolic murmur, diastolic murmur, rubs, gallop, clicks GI/Abdominal exam: Present: soft, normal bowel sounds. Absent: distended, tenderness, guarding, rebound, rigid Rectal exam: Present: deferred Extremities exam: Present: normal inspection, normal capillary refill. Absent: tenderness, pedal edema, joint swelling, calf tenderness Back exam: Present: normal inspection Neurological exam: Present: alert, altered, CN II-XII intact Psychiatric exam: Present: other (Unable to evaluate) Skin exam: Present: warm, dry, intact, normal color. Absent: rash Course Vital Signs 08/11/19 08/11/19 08/11/19 09:22 09:34 09:40 Temperature 97.8 F Pulse Rate 96 89 80 Respiratory 18 16 20 Rate Blood Pressure 111/59 128/67 111/69 O2 Sat by Pulse 93 L 100 98 Oximetry 08/11/19 08/11/19 08/11/19 10:00 10:10 10:20 Temperature Pulse Rate 79 81 81 Respiratory 16 20 19 Rate Blood Pressure 120/69 113/71 119/64 O2 Sat by Pulse 100 100 100 Oximetry 08/11/19 12:27 Temperature Pulse Rate 79 Respiratory 18 Rate Blood Pressure 111/77 O2 Sat by Pulse 100 Oximetry - Reevaluation(s) Reevaluation #1: 08/11/19 13:17 Multiple reevaluation the patient revealed minimal change in his status. Reevaluation #2: 08/11/19 13:58 Date of onset of the patient's son and regarding the findings. Patient is a full code per family. I did discuss the case with Dr. Ruggiero. Patient be admitted to intensive care unit. Dr. Ngo is consulted and did come the emergency department to see the patient. Medical Decision Making - Lab Data Result diagrams: 08/11/19 09:30 08/11/19 10:20 Lab Results 08/11/19 08/11/19 08/11/19 Range/Units 09:25 09:30 09:30 WBC 10.2 (3.8-10.6) k/uL RBC 3.92 L (4.30-5.90) m/uL Hgb 10.9 L (13.0-17.5) gm/dL Hct 35.5 L (39.0-53.0) % MCV 90.3 (80.0-100.0) fL MCH 27.9 (25.0-35.0) pg MCHC 30.9 L (31.0-37.0) g/dL RDW 16.7 H (11.5-15.5) % Plt Count 286 (150-450) k/uL Neutrophils % 73 % Lymphocytes % 19 % Monocytes % 5 % Eosinophils % 1 % Basophils % 1 % Neutrophils # 7.4 (1.3-7.7) k/uL Lymphocytes # 2.0 (1.0-4.8) k/uL Monocytes # 0.5 (0-1.0) k/uL Eosinophils # 0.1 (0-0.7) k/uL Basophils # 0.1 (0-0.2) k/uL Hypochromasia Marked Anisocytosis Slight PT (9.0-12.0) sec INR (<1.2) APTT (22.0-30.0) sec Sodium (137-145) mmol/L Potassium (3.5-5.1) mmol/L Chloride (98-107) mmol/L Carbon Dioxide (22-30) mmol/L Anion Gap mmol/L BUN (9-20) mg/dL Creatinine (0.66-1.25) mg/dL Est GFR (CKD-EPI)AfAm (>60 ml/min/1.73 sqM) Est GFR (CKD-EPI)NonAf (>60 ml/min/1.73 sqM) Glucose (74-99) mg/dL POC Glucose (mg/dL) 203 H (75-99) mg/dL POC Glu [employer] Hatchery Assistant ID Oralia Person Calcium (8.4-10.2) mg/dL Magnesium (1.6-2.3) mg/dL Total Bilirubin (0.2-1.3) mg/dL AST (17-59) U/L ALT (4-49) U/L Alkaline Phosphatase (38-126) U/L Ammonia 11 (<30) umol/L Creatine Kinase (55-170) U/L Troponin I (0.000-0.034) ng/mL Total Protein (6.3-8.2) g/dL Albumin (3.5-5.0) g/dL Urine Color Urine Appearance (Clear) Urine pH (5.0-8.0) Ur Specific [place] (1.001-1.035) Urine Protein (Negative) Urine Glucose (UA) (Negative) Urine Ketones (Negative) Urine Blood (Negative) Urine Nitrite (Negative) Urine Bilirubin (Negative) Urine Urobilinogen (<2.0) mg/dL Ur Leukocyte Esterase (Negative) Urine RBC (0-5) /hpf Urine WBC (0-5) /hpf Ur Squamous Epith Cells (0-4) /hpf Amorphous Sediment (None) /hpf Urine Bacteria (None) /hpf Hyaline Casts (0-2) /lpf Urine Mucus (None) /hpf Urine Opiates Screen (NotDetected) Ur Oxycodone Screen (NotDetected) Urine Methadone Screen (NotDetected) Ur Propoxyphene Screen (NotDetected) Ur Barbiturates Screen (NotDetected) U Tricyclic Antidepress (NotDetected) Ur Phencyclidine Scrn (NotDetected) Ur Amphetamines Screen (NotDetected) U Methamphetamines Scrn (NotDetected) U Benzodiazepines Scrn (NotDetected) Urine Cocaine Screen (NotDetected) U Marijuana (THC) Screen (NotDetected) 08/11/19 08/11/19 08/11/19 Range/Units 09:30 09:30 09:30 WBC (3.8-10.6) k/uL RBC (4.30-5.90) m/uL Hgb (13.0-17.5) gm/dL Hct (39.0-53.0) % MCV (80.0-100.0) fL MCH (25.0-35.0) pg MCHC (31.0-37.0) g/dL RDW (11.5-15.5) % Plt Count (150-450) k/uL Neutrophils % % Lymphocytes % % Monocytes % % Eosinophils % % Basophils % % Neutrophils # (1.3-7.7) k/uL Lymphocytes # (1.0-4.8) k/uL Monocytes # (0-1.0) k/uL Eosinophils # (0-0.7) k/uL Basophils # (0-0.2) k/uL Hypochromasia Anisocytosis PT 10.8 (9.0-12.0) sec INR 1.0 (<1.2) APTT 20.0 L (22.0-30.0) sec Sodium 139 (137-145) mmol/L Potassium 6.1 H* (3.5-5.1) mmol/L Chloride 108 H (98-107) mmol/L Carbon Dioxide 28 (22-30) mmol/L Anion Gap 3 mmol/L BUN 25 H (9-20) mg/dL Creatinine 1.28 H (0.66-1.25) mg/dL Est GFR (CKD-EPI)AfAm 60 (>60 ml/min/1.73 sqM) Est GFR (CKD-EPI)NonAf 52 (>60 ml/min/1.73 sqM) Glucose 189 H (74-99) mg/dL POC Glucose (mg/dL) (75-99) mg/dL POC Glu Fish Hatchery Assistant ID Calcium 13.4 H* (8.4-10.2) mg/dL Magnesium 2.2 (1.6-2.3) mg/dL Total Bilirubin 0.8 (0.2-1.3) mg/dL AST 39 (17-59) U/L ALT 13 (4-49) U/L Alkaline Phosphatase 46 (38-126) U/L Ammonia (<30) umol/L Creatine Kinase 48 L (55-170) U/L Troponin I 0.013 (0.000-0.034) ng/mL Total Protein 6.8 (6.3-8.2) g/dL Albumin 3.3 L (3.5-5.0) g/dL Urine Color Urine Appearance (Clear) Urine pH (5.0-8.0) Ur Specific [place] (1.001-1.035) Urine Protein (Negative) Urine Glucose (UA) (Negative) Urine Ketones (Negative) Urine Blood (Negative) Urine Nitrite (Negative) Urine Bilirubin (Negative) Urine Urobilinogen (<2.0) mg/dL Ur Leukocyte Esterase (Negative) Urine RBC (0-5) /hpf Urine WBC (0-5) /hpf Ur Squamous Epith Cells (0-4) /hpf Amorphous Sediment (None) /hpf Urine Bacteria (None) /hpf Hyaline Casts (0-2) /lpf Urine Mucus (None) /hpf Urine Opiates Screen (NotDetected) Ur Oxycodone Screen (NotDetected) Urine Methadone Screen (NotDetected) Ur Propoxyphene Screen (NotDetected) Ur Barbiturates Screen (NotDetected) U Tricyclic Antidepress (NotDetected) Ur Phencyclidine Scrn (NotDetected) Ur Amphetamines Screen (NotDetected) U Methamphetamines Scrn (NotDetected) U Benzodiazepines Scrn (NotDetected) Urine Cocaine Screen (NotDetected) U Marijuana (THC) Screen (NotDetected) 08/11/19 08/11/19 Range/Units 09:37 10:20 WBC (3.8-10.6) k/uL RBC (4.30-5.90) m/uL Hgb (13.0-17.5) gm/dL Hct (39.0-53.0) % MCV (80.0-100.0) fL MCH (25.0-35.0) pg MCHC (31.0-37.0) g/dL RDW (11.5-15.5) % Plt Count (150-450) k/uL Neutrophils % % Lymphocytes % % Monocytes % % Eosinophils % % Basophils % % Neutrophils # (1.3-7.7) k/uL Lymphocytes # (1.0-4.8) k/uL Monocytes # (0-1.0) k/uL Eosinophils # (0-0.7) k/uL Basophils # (0-0.2) k/uL Hypochromasia Anisocytosis PT (9.0-12.0) sec INR (<1.2) APTT (22.0-30.0) sec Sodium (137-145) mmol/L Potassium 5.2 H (3.5-5.1) mmol/L Chloride (98-107) mmol/L Carbon Dioxide (22-30) mmol/L Anion Gap mmol/L BUN (9-20) mg/dL Creatinine (0.66-1.25) mg/dL Est GFR (CKD-EPI)AfAm (>60 ml/min/1.73 sqM) Est GFR (CKD-EPI)NonAf (>60 ml/min/1.73 sqM) Glucose (74-99) mg/dL POC Glucose (mg/dL) (75-99) mg/dL POC Glu Fish Hatchery Assistant ID Calcium (8.4-10.2) mg/dL Magnesium (1.6-2.3) mg/dL Total Bilirubin (0.2-1.3) mg/dL AST (17-59) U/L ALT (4-49) U/L Alkaline Phosphatase (38-126) U/L Ammonia (<30) umol/L Creatine Kinase (55-170) U/L Troponin I (0.000-0.034) ng/mL Total Protein (6.3-8.2) g/dL Albumin (3.5-5.0) g/dL Urine Color Yellow Urine Appearance Clear (Clear) Urine pH 6.5 (5.0-8.0) Ur Specific [place] 1.018 (1.001-1.035) Urine Protein 1+ H (Negative) Urine Glucose (UA) Negative (Negative) Urine Ketones Negative (Negative) Urine Blood Trace H (Negative) Urine Nitrite Negative (Negative) Urine Bilirubin 1+ H (Negative) Urine Urobilinogen 3.0 (<2.0) mg/dL Ur Leukocyte Esterase Trace H (Negative) Urine RBC 16 H (0-5) /hpf Urine WBC 4 (0-5) /hpf Ur Squamous Epith Cells 1 (0-4) /hpf Amorphous Sediment Rare H (None) /hpf Urine Bacteria Rare H (None) /hpf Hyaline Casts 180 H (0-2) /lpf Urine Mucus Occasional H (None) /hpf Urine Opiates Screen Not Detected (NotDetected) Ur Oxycodone Screen Not Detected (NotDetected) Urine Methadone Screen Not Detected (NotDetected) Ur Propoxyphene Screen Not Detected (NotDetected) Ur Barbiturates Screen Detected H (NotDetected) U Tricyclic Antidepress Not Detected (NotDetected) Ur Phencyclidine Scrn Not Detected (NotDetected) Ur Amphetamines Screen Not Detected (NotDetected) U Methamphetamines Scrn Not Detected (NotDetected) U Benzodiazepines Scrn Not Detected (NotDetected) Urine Cocaine Screen Not Detected (NotDetected) U Marijuana (THC) Screen Not Detected (NotDetected) - Radiology Data Radiology results: report reviewed (I did review the imaging and report no acute findings are seen at this time.), image reviewed Critical Care Time Critical Care Time: Yes Critical Care Time: 39 minutes of critical care time which includes initial presentation with history physical labs x-rays multiple reevaluation the patient discussed with the patient's family and several occasions review of old charting discussed with the admitting physician and the consult initial orders and documentation of the above Disposition Clinical Impression: Delirium due to general medical condition, Encephalopathy, Hypercalcemia, Dehydration, Acute kidney injury Disposition: ADMITTED IP TO THIS [facility] Condition: Serious Referrals: Katharine Israel MD [Primary Care Provider] - 1-2 days
[2019-08-11 10:53] LABS: Prothrombin Time 10.8 sec (9.0-12.0)
[2019-08-11 11:01] LABS: Amphetamine Screen,Urine Not Detected (NotDetected); Barbiturate Screen,Urine Detected (NotDetected); Benzodiazepines Screen,Urine Not Detected (NotDetected); Cocaine Screen,Urine Not Detected (NotDetected); Methadone Screen, Urine Not Detected (NotDetected); Opiate Screen,Urine Not Detected (NotDetected); Oxycodone Screen, Urine Not Detected (NotDetected); Phencyclidine Screen,Urine Not Detected (NotDetected); Tricyclic Antidepressant,Urine Not Detected (NotDetected); Urn Cannabinoid Scrn Not Detected (NotDetected)
[2019-08-11] MEDS ORDERED: NALOXONE 0.4 MG/ML 1 ML VIAL IV PRN (14:01)
[2019-08-11] MEDS ORDERED: SODIUM CHLORIDE 0.9% 1,000 ML IV SCH (14:15)
[2019-08-11 16:02] LABS: Glucose,Whole Blood 148 mg/dL (75-99)
--- NOTE | 2019-08-11 17:07 | P.HPIM ---
History of Present Illness H&P Date: 08/11/19 Chief Complaint: Encephalopathy This is an 84-year-old -[place] male one of Dr. Israel with a previous medical history significant for CAD post non-ST elevation [place] with ischemic cardiomyopathy recent echocardiogram showed ejection fraction 2024% with mild aortic stenosis and moderate mitral regurgitation, hypertension and hypertensive cardio vascular disease with left ventricular hypertrophy, diabetes mellitus type 2 with diabetic polyneuropathy, Parkinson disease generalized weakness wheelchair bound and vascular dementia along with paroxysmal atrial fibrillation benign prostatic hypertrophy osteoporosis with significant hypercalcemia was recently discharged from [facility] after he was admitted to the hospital for significant encephalopathy and the patient was sent home on 08/09/2019 he ended up going back to the emergency department at the [facility] yesterday because his Peres catheter was removed, and the patient was sent home however the patient was quite obtunded and his son ended up bringing him back to the emergency department at [facility] because of increased uptake mentation and mental status changes and was found to have a significant hypercalcemia he was admitted to the hospital he was started on IV fluid re suscitation the form of normal saline and 100 mL an hour patient's son wasn't bedside and he was concerned quite a bit about the patient mental status and he stated that his father was doing this for the past 2 weeks he has not been eating or drinking anything and he has not been taking his medications Review of Systems ROS unobtainable: due to mental status Past Medical History Past Medical History: Atrial Fibrillation, Coronary Artery Disease (CAD), Cancer, Chest Pain / Angina, COPD, Dementia, Diabetes Mellitus, GERD/Reflux, Hyperlipidemia, Hypertension, Memory Impairment, Osteoarthritis (OA), Prostate Disorder, Thyroid Disorder Additional Past Medical History / Comment(s): Back pain r/t sciatica, right lung cancer, kidney stone, NSTEMI, dysphagia, BPH, hypothyroid, dementia, hyperp arathyroidism, impaired gait. Last Myocardial Infarction Date:: History of Any Multi-Drug Resistant Organisms: None Reported Past Surgical History: Heart Catheterization With Stent Additional Past Surgical History / Comment(s): Lung ca removed from right lung (lobectomy), neck sx d/t to fx, stent to right groin. Past Anesthesia/Blood Transfusion Reactions: No Reported Reaction Date of Last Stent Placement:: 2017 Past Psychological History: No Psychological Hx Reported Smoking Status: Former smoker Past Alcohol Use History: None Reported, Occasional Past Drug Use History: None Reported - Past Family History Father History Unknown: Yes Mother History Unknown: Yes Medications and Allergies Home Medications Medication Instructions Recorded Confirmed Type Levothyroxine Sodium [Synthroid] 25 mcg PO DAILY@0600 05/19/16 08/11/19 History Atorvastatin Calcium [Lipitor] 40 mg PO HS@209910/25/16 08/11/19 History Donepezil [Aricept] 10 mg PO HS@209910/25/16 08/11/19 History Baclofen [Lioresal] 10 mg PO TID@0600,1400,2200 04/10/17 08/11/19 History Tamsulosin HCl [Flomax] 0.4 mg PO BID@0900,209904/10/17 08/11/19 History Dabigatran [Pradaxa] 150 mg PO BID@0900,2100 04/14/17 08/11/19 History Potassium Chloride ER [K-Dur 20] 20 meq PO TID@0900,1300,2100 07/06/17 08/11/19 History Amiodarone [Cordarone] 200 mg PO DAILY@0900 03/14/18 08/11/19 History Ergocalciferol [Vitamin D2 50,000 unit PO FR@0900 03/14/18 08/11/19 History (DRISDOL)] Melatonin 10 mg PO HS@209903/14/18 08/11/19 History Metoprolol Tartrate [Lopressor] 25 mg PO BID@0900,209903/14/18 08/11/19 History Nitroglycerin [Nitroglycerin 1 spray TRANSLINGU Q5M PRN 03/14/18 08/11/19 History 400MCG [place]] Budesonide [Pulmicort] 0.5 mg INHALATION RT-BID 09/28/18 08/11/19 History Carboxymethylcellulose Sodium 1 drop BOTH EYES BID@0900,209909/28/18 08/11/19 History [Refresh Tears] INSULIN ASPART (NovoLOG) [NovoLOG See Protocol SQ TID@0900,1300,1900 09/28/18 08/11/19 History (formulary)] Metolazone [Zaroxolyn] 2.5 mg PO TUTH@0900 09/28/18 08/11/19 History Midodrine HCl [ProAmatine] 10 mg PO TID@0900,1300,2100 09/28/18 08/11/19 History Montelukast [Singulair] 10 mg PO HS@2100 09/28/18 08/11/19 History Ipratropium-Albuterol Nebulize 3 ml INHALATION RT-TID ampul.neb 10/02/18 08/11/19 Rx [Duoneb 0.5 mg-3 mg/3 ml Soln] Spironolactone [Aldactone] 12.5 mg PO DAILY@0900 #0 10/02/18 08/11/19 Rx Famotidine [Pepcid] 20 mg PO DAILY@0900 11/17/18 08/11/19 History Insulin Glargine,Hum.rec.anlog 17 unit SQ HS@209911/17/18 08/11/19 History [Basaglar Kwikpen U-100] Allopurinol [Zyloprim] 300 mg PO DAILY 07/23/19 08/11/19 History Furosemide [Lasix] 40 mg PO BID 07/23/19 08/11/19 History Magnesium Oxide [Mag-Ox] 400 mg PO BID 07/23/19 08/11/19 History Pramox-Calamine 1-8% Lotion 1 applic TOPICAL HS 07/23/19 08/11/19 History [Caladryl] Primidone [Mysoline] 250 mg PO TID 07/23/19 08/11/19 History Cinacalcet HCl [Sensipar] 60 mg PO BID #0 07/24/19 08/11/19 Rx Lisinopril [Zestril] 2.5 mg PO DAILY #30 tab 07/24/19 08/11/19 Rx Sennosides [Senokot] 8.6 mg PO DAILY PRN tab 07/24/19 08/11/19 Rx Clopidogrel [Plavix] 75 mg PO DAILY #30 tablet 08/10/19 08/11/19 Rx Allergies Allergy/AdvReac Type Severity Reaction Status Date / Time latex Allergy Rash/Hives Verified 08/11/19 12:43 Physical Exam Vitals: Vital Signs Temp Pulse Resp BP Pulse Ox 02/01/20 15:44 97.8 F 81 16 120/64 100 08/11/19 14:35 81 16 120/64 100 08/11/19 12:27 79 18 111/77 100 08/11/19 10:20 81 19 119/64 100 08/11/19 10:10 81 20 113/71 100 08/11/19 10:00 79 16 120/69 100 08/11/19 09:40 80 20 111/69 98 08/11/19 09:34 89 16 128/67 100 08/11/19 09:22 97.8 F 96 18 111/59 93 L Intake and Output 08/11/19 08/11/19 08/11/19 06:59 14:59 22:59 Other: Weight 91.5 kg - Constitutional General appearance: average body habitus, no acute distress - EENT ENT: hard of hearing Ears: bilateral: normal - Neck Neck: no lymphadenopathy, no rigidity Carotids: bilateral: upstroke delayed Thyroid: bilateral: normal size - Respiratory Respiratory: bilateral: diminished, negative: dullness, rales, rhonchi, wheezing, prolonged expiration - Cardiovascular Rhythm: regular Heart sounds: normal: S1, S2 Abnormal Heart Sounds: systolic murmur, no S3 Gallop, no S4 Gallop - Gastrointestinal General gastrointestinal: normal bowel sounds, soft, no splenomegaly, no tenderness - Integumentary Integumentary: normal, normal turgor, ulcer (Stage III coccygeal ulcer) - Neurologic Neurologic: focal deficits - Psychiatric Psychiatric: no A&O x's 3, no appropriate affect, no intact judgment & insight Results CBC & Chem 7: 08/11/19 09:30 08/11/19 10:20 Labs: Abnormal Lab Results - Last 24 Hours (Table) 08/11/19 08/11/19 08/11/19 Range/Units 09:25 09:30 09:30 RBC 3.92 L (4.30-5.90) m/uL Hgb 10.9 L (13.0-17.5) gm/dL Hct 35.5 L (39.0-53.0) % MCHC 30.9 L (31.0-37.0) g/dL RDW 16.7 H (11.5-15.5) % APTT (22.0-30.0) sec Potassium 6.1 H* (3.5-5.1) mmol/L Chloride 108 H (98-107) mmol/L BUN 25 H (9-20) mg/dL Creatinine 1.28 H (0.66-1.25) mg/dL Glucose 189 H (74-99) mg/dL POC Glucose (mg/dL) 203 H (75-99) mg/dL Calcium 13.4 H* (8.4-10.2) mg/dL Creatine Kinase 48 L (55-170) U/L Albumin 3.3 L (3.5-5.0) g/dL Urine Protein (Negative) Urine Blood (Negative) Urine Bilirubin (Negative) Ur Leukocyte Esterase (Negative) Urine RBC (0-5) /hpf Amorphous Sediment (None) /hpf Urine Bacteria (None) /hpf Hyaline Casts (0-2) /lpf Urine Mucus (None) /hpf Ur Barbiturates Screen (NotDetected) 08/11/19 08/11/19 08/11/19 Range/Units 09:30 09:37 10:20 RBC (4.30-5.90) m/uL Hgb (13.0-17.5) gm/dL Hct (39.0-53.0) % MCHC (31.0-37.0) g/dL RDW (11.5-15.5) % APTT 20.0 L (22.0-30.0) sec Potassium 5.2 H (3.5-5.1) mmol/L Chloride (98-107) mmol/L BUN (9-20) mg/dL Creatinine (0.66-1.25) mg/dL Glucose (74-99) mg/dL POC Glucose (mg/dL) (75-99) mg/dL Calcium (8.4-10.2) mg/dL Creatine Kinase (55-170) U/L Albumin (3.5-5.0) g/dL Urine Protein 1+ H (Negative) Urine Blood Trace H (Negative) Urine Bilirubin 1+ H (Negative) Ur Leukocyte Esterase Trace H (Negative) Urine RBC 16 H (0-5) /hpf Amorphous Sediment Rare H (None) /hpf Urine Bacteria Rare H (None) /hpf Hyaline Casts 180 H (0-2) /lpf Urine Mucus Occasional H (None) /hpf Ur Barbiturates Screen Detected H (NotDetected) Thrombosis Risk Factor Assmnt - DVT/VTE Prophylaxis DVT/VTE Prophylaxis: Pharmacologic Prophylaxis ordered, Mechanical Prophylaxis ordered Assessment and Plan Assessment: Assessment and plan: 1. Acute mental status changes with metabolic encephalopathy likely related to hypercalcemia. We will continue IV fluid resuscitation the form of normal saline at 100 mL an hour we will monitor the patient very closely in intensive care unit, we'll consult Dr. Amin from ICU for further management monitor the pat ient calcium level as well as CMP. 2. CAD with ischemic cardiomyopathy and ejection fraction 25%. Patient is unable to take his home medication at this point I will start him on Lopressor 25 mg push every 12 hours. 3. Hypertension and hypertensive cardio vascular disease. Continue Lopressor 2.5 mg push every 12 hours. 4. Hyperlipidemia. Patient is not able to take his Lipitor. 5. Diabetes mellitus type 2. Continue patient on sliding scale insulin. 6. Parkinson's disease. Patient is not able to take his Proventil. 7. History of CVA. Patient will need to go back on Pradaxa when he is able to swallow medication. 8. Enlarged prostate. Stable. 9. Paroxysmal atrial fibrillation currently in sinus rhythm. Not able to take his medication at this point. 10. COPD. Continue DuoNeb 3 mL nebulization 4 times a day and Pulmicort 1 mg the position twice every day. 11. Hypercalcemia due to hyperparathyroidism. Continue IV fluid. 12. DVT prophylaxis. Heparin 5000 units subcutaneously every 12 hours. 13. GI prophylaxis. Continue Protonix 40 mg IV push every 24 hours. 14. Patient is full code as of now. 15. Overall prognosis guarded. 16. Discussed with her son. 17. Admit to inpatient. Estimate a length of stay 2 midnights .
[2019-08-11] MEDS ORDERED: INSULIN ASPART (NovoLOG) 100 UNIT/ML VIAL SQ SCH (17:30)
[2019-08-11] MEDS: INSULIN ASPART (NovoLOG) 100 UNIT/ML VIAL SQ SCH (18:26)
[2019-08-11] MEDS: IPRATROPIUM-ALBUTEROL 3 ML NEB INHALATION SCH (20:04)
[2019-08-11] MEDS: BUDESONIDE 0.5 MG/2 ML NEBU INHALATION SCH (20:04)
[2019-08-11] MEDS: METOPROLOL TARTRATE 5 MG/5 ML VIAL IVP SCH (20:18)
[2019-08-11] MEDS: ARTIFICIAL TEARS-HYPROMELLOSE DROPS 15 ML BTL BOTH EYES SCH (20:39)
[2019-08-11] MEDS: HEPARIN SODIUM,PORCINE 5,000 UNIT/ML 1 ML VIAL SQ SCH (20:40)
[2019-08-11 21:34] LABS: Glucose,Whole Blood 117 mg/dL (75-99)
[2019-08-11] MEDS: INSULIN DETEMIR (LEVEMIR) 100 UNIT/ML SYR SQ SCH (21:35)
[2019-08-11] MEDS: SODIUM CHLORIDE 0.9% 1,000 ML IV SCH (23:14)
[2019-08-12 00:07] LABS: Glucose,Whole Blood 115 mg/dL (75-99)
[2019-08-12] MEDS: INSULIN ASPART (NovoLOG) 100 UNIT/ML VIAL SQ SCH ×5 (00:28→23:55)
[2019-08-12 06:04] LABS: Glucose,Whole Blood 119 mg/dL (75-99)
--- NOTE | 2019-08-12 06:09 | XR ---
EXAMINATION TYPE: XR chest 1V portable DATE OF EXAM: 08/12/2019 HISTORY: shortness of breath. REFERENCE: Previous study dated 08/11/2019. FINDINGS: Heart size upper limits of normal. There is chronic apparent elevation right hemidiaphragm. The lungs appear clear. There is blunting of the right CP angle and I cannot exclude a small right e ffusion. IMPRESSION: 1. BORDERLINE CARDIOMEGALY 2. I CANNOT EXCLUDE A SMALL RIGHT EFFUSION.
[2019-08-12 06:19] LABS: Basophils % (A) 0 %; Eosinophils # (A) 0.1 k/uL (0-0.7); Eosinophils % (A) 2 %; HCT 35.3 % (39.0-53.0); HGB 10.1 gm/dL (13.0-17.5); Hypochromasia Marked; Lymphocytes # (A) 1.4 k/uL (1.0-4.8); Lymphocytes % (A) 18 %; MCH 26.6 pg (25.0-35.0); MCHC 28.6 g/dL (31.0-37.0); Mean Platelet Volume 7.8; Monocytes # (A) 0.4 k/uL (0-1.0); Monocytes % (A) 5 %; Neutrophils # (A) 5.6 k/uL (1.3-7.7); Neutrophils % (A) 73 %; Platelet Count 330 k/uL (150-450); RDW 15.9 % (11.5-15.5); WBC 7.7 k/uL (3.8-10.6)
[2019-08-12 06:36] LABS: Potassium 4.3 mmol/L (3.5-5.1)
[2019-08-12 06:43] LABS: Calcium 13.1 mg/dL (8.4-10.2)
[2019-08-12] MEDS: BUDESONIDE 0.5 MG/2 ML NEBU INHALATION SCH ×2 (07:11→19:57)
[2019-08-12] MEDS: IPRATROPIUM-ALBUTEROL 3 ML NEB INHALATION SCH ×3 (07:11→19:57)
[2019-08-12] MEDS: PANTOPRAZOLE 40 MG/10 ML VIAL IVP SCH (08:23)
[2019-08-12] MEDS: METOPROLOL TARTRATE 5 MG/5 ML VIAL IVP SCH ×2 (08:23→20:21)
[2019-08-12] MEDS: HEPARIN SODIUM,PORCINE 5,000 UNIT/ML 1 ML VIAL SQ SCH ×2 (08:24→20:21)
[2019-08-12] MEDS: SODIUM CHLORIDE 0.9% 1,000 ML IV SCH (08:24)
[2019-08-12] MEDS: ARTIFICIAL TEARS-HYPROMELLOSE DROPS 15 ML BTL BOTH EYES SCH ×2 (08:24→20:21)
[2019-08-12 08:55] LABS: Ionized Calcium 7.7 mg/dL (4.5-5.3)
[2019-08-12 09:02] LABS: Phosphorus 2.2 mg/dL (2.5-4.5)
--- NOTE | 2019-08-12 09:58 | CT ---
EXAMINATION TYPE: CT chest wo con DATE OF EXAM: 08/12/2019 COMPARISON: Previous study dated 07/23/2019. HISTORY: possible tumor or mass causing hypercalcemia CT DLP: 535.6 mGycm. Automated Exposure Control for Dose Reduction was Utilized. TECHNIQUE: CT scan of the thorax is performed without IV contrast. Findings: there are emphysematous changes throughout the lungs. There is a 4.8 mm noncalcified nodule in the anterior segment of the right upper lobe, best seen on image 16. This was not readily visible on the previous study. A second noncalcified nodule is noted in the anterior aspect of the right upp er lobe measuring 7.5 mm and best seen on image 19. No other definite parenchymal nodules are seen. There is no significant axillary, mediastinal or hilar adenopathy. The remainder the aorta is promine nt measuring 3.9 cm. The proximal arch is aneurysmal measuring 3.7 cm in the proximal descending thor acic aorta is aneurysmal measuring 3.4 cm. At the level of the aortic hiatus, the aorta is normal in caliber. There is no pleural or pericardial fluid. The heart is enlarged. Within the abdomen there are multiple hypoechoic lesions. There are 2 in the dome of the right lobe o f the liver a larger lesion seen in the caudate lobe measuring 4.8 cm. The remainder the visualized u pper abdomen is unremarkable with the exception of moderate atrophy of the pancreas.. IMPRESSION: 1. MULTIPLE RIGHT-SIDED PULMONARY NODULES. THIS RAISES A SUSPICION FOR METASTATIC DISEASE. 2. EMPHYSEMATOUS CHANGES THROUGHOUT THE LUNGS. 3. THORACIC AORTIC ANEURYSM WITH MAXIMAL TRANSVERSE DIAMETER OF 3.9 CM. 4. CARDIOMEGALY. 5. MULTIPLE HEPATIC LESIONS. IN LIGHT OF THE PULMONARY FINDINGS I COULD NOT EXCLUDE METASTATIC DISEAS E. ULTRASOUND OF THE LIVER WOULD BE SUGGESTED.
--- NOTE | 2019-08-12 10:12 | P.PN ---
Subjective This is an 84-year-old -[place] Islander male one of Dr. Israel with a previous medical history significant for CAD post non-ST elevation [place] with ischemic cardiomyopathy recent echocardiogram showed ejection fraction 2025% with mild aortic stenosis and moderate mitral regurgitation, hypertension and hypertensive cardio vascular disease with left ventricular hypertrophy, diabetes mellitus type 2 with diabetic polyneuropathy, Parkinson disease generalized weakness wheelchair bound and vascular dementia along with paroxysmal atrial fibrillation benign prostatic hypertrophy osteoporosis with significant hypercalcemia was recently discharged from [facility] after he was admitted to the hospital for significant encephalopathy and the patient was sent home on 08/09/2019 he ended up going back to the emergency department at the [facility] yesterday because his Peres catheter was removed, and the patient was sent home however the patient was quite obtunded and his son ended up bringing him back to the emergency department at [facility] because of increased uptake mentation and mental status changes and was found to have a significant hypercalcemia he was admitted to the hospital he was started on IV fluid resuscitation the form of normal saline and 100 mL an hour patient's son wasn't bedside and he was concerned quite a bit about the patient mental status and he stated that his father was doing this for the past 2 weeks he has not been eating or drinking anything and he has not been taking his medications 2/2: Patient is more alert and awake today. He is able to answer questions appropriately he is slow to respond. Patient's urinary output has been about 35 ML's per hour. A CT of the chest is ordered to rule out malignancy due to the hypercalcemia. Patient has history of hyperparathyroidism. W BC 7.7, hemoglobin 10.1, sodium 145, potassium 4.3, BUN 22, creatinine 0.95, calcium 13.1, I denies calcium 7.7, phosphorus 2.2. Blood pressure 142/70, heart rate 82, respiration rate 12, pulse ox a 98% on 2 L via nasal cannula. Review of Systems: ROS unobtainable: due to mental status Objective - Vital Signs Vital signs: Vital Signs Temp 97.7 F 08/12/19 08:00 Pulse 82 08/12/19 09:00 Resp 12 08/12/19 09:00 BP 142/70 08/12/19 09:00 Pulse Ox 98 08/12/19 09:00 Intake & Output 08/11/19 08/12/19 08/12/19 18:59 06:59 18:59 Intake Total 300 1250 300 Output Total 240 375 112 Balance 60 875 188 Weight 79 kg 81.4 kg Intake: IV 300 1250 300 Sodium Chloride 0.9% 1, 300 1200 300 000 ml @ 100 mls/hr IV . Q10H ONE Rx#:[id number] cefTRIAXone 2 gm In 50 Sodium Chloride 0.9% 50 ml @ 100 mls/hr IVPB Q24H [facility] Rx#:[id number] Output: Urine 240 375 112 Other: Voiding Method Indwelling Catheter Indwelling Catheter # Bowel Movements 1 - Constitutional General appearance: Present: average body habitus, no acute distress - EENT ENT: Present: hard of hearing - Neck Neck: Absent: lymphadenopathy, rigidity Carotids: bilateral: upstroke delayed Thyroid: bilateral: normal size - Respiratory Respiratory: bilateral: diminished, negative: dullness, rales, rhonchi, wheezing, prolonged expiration, prolonged inspiration - Cardiovascular Rhythm: regular Heart sounds: normal: S1, S2 Abnormal Heart Sounds: Present: systolic murmur. Absent: diastolic murmur, rub, S3 Gallop, S4 Gallop, click, other - Gastrointestinal General gastrointestinal: Present: normal bowel sounds, soft. Absent: splenomegaly, tenderness - Integumentary Integumentary: Present: decreased turgor, ulcer (Stage II coccygeal ulcer) - Neurologic Neurologic: Present: focal deficits - Psychiatric Psychiatric Comment(s): A and O 1, slow to respond, answers most questions appropriately - Labs CBC & Chem 7: 08/12/19 04:55 08/12/19 04:55 Labs: Abnormal Lab Results - Last 24 Hours (Table) 08/11/19 08/11/19 08/11/19 Range/Units 09:30 09:37 10:20 RBC (4.30-5.90) m/uL Hgb (13.0-17.5) gm/dL Hct (39.0-53.0) % MCHC (31.0-37.0) g/dL RDW (11.5-15.5) % APTT 20.0 L (22.0-30.0) sec Potassium 5.2 H (3.5-5.1) mmol/L Chloride (98-107) mmol/L Carbon Dioxide (22-30) mmol/L BUN (9-20) mg/dL Glucose (74-99) mg/dL POC Glucose (mg/dL) (75-99) mg/dL Calcium (8.4-10.2) mg/dL Ionized Calcium Jun (4.5-5.3) mg/dL Phosphorus (2.5-4.5) mg/dL Urine Protein 1+ H (Negative) Urine Blood Trace H (Negative) Urine Bilirubin 1+ H (Negative) Ur Leukocyte Esterase Trace H (Negative) Urine RBC 16 H (0-5) /hpf Amorphous Sediment Rare H (None) /hpf Urine Bacteria Rare H (None) /hpf Hyaline Casts 180 H (0-2) /lpf Urine Mucus Occasional H (None) /hpf Ur Barbiturates Screen Detected H (NotDetected) 08/11/19 08/11/19 08/12/19 Range/Units 16:00 21:32 00:07 RBC (4.30-5.90) m/uL Hgb (13.0-17.5) gm/dL Hct (39.0-53.0) % MCHC (31.0-37.0) g/dL RDW (11.5-15.5) % APTT (22.0-30.0) sec Potassium (3.5-5.1) mmol/L Chloride (98-107) mmol/L Carbon Dioxide (22-30) mmol/L BUN (9-20) mg/dL Glucose (74-99) mg/dL POC Glucose (mg/dL) 148 H 117 H 115 H (75-99) mg/dL Calcium (8.4-10.2) mg/dL Ionized Calcium Jun (4.5-5.3) mg/dL Phosphorus (2.5-4.5) mg/dL Urine Protein (Negative) Urine Blood (Negative) Urine Bilirubin (Negative) Ur Leukocyte Esterase (Negative) Urine RBC (0-5) /hpf Amorphous Sediment (None) /hpf Urine Bacteria (None) /hpf Hyaline Casts (0-2) /lpf Urine Mucus (None) /hpf Ur Barbiturates Screen (NotDetected) 08/12/19 08/12/19 08/12/19 Range/Units 04:55 04:55 06:03 RBC 3.80 L (4.30-5.90) m/uL Hgb 10.1 L (13.0-17.5) gm/dL Hct 35.3 L (39.0-53.0) % MCHC 28.6 L (31.0-37.0) g/dL RDW 15.9 H (11.5-15.5) % APTT (22.0-30.0) sec Potassium (3.5-5.1) mmol/L Chloride 110 H (98-107) mmol/L Carbon Dioxide 31 H (22-30) mmol/L BUN 22 H (9-20) mg/dL Glucose 114 H (74-99) mg/dL POC Glucose (mg/dL) 119 H (75-99) mg/dL Calcium 13.1 H* (8.4-10.2) mg/dL Ionized Calcium Jun (4.5-5.3) mg/dL Phosphorus (2.5-4.5) mg/dL Urine Protein (Negative) Urine Blood (Negative) Urine Bilirubin (Negative) Ur Leukocyte Esterase (Negative) Urine RBC (0-5) /hpf Amorphous Sediment (None) /hpf Urine Bacteria (None) /hpf Hyaline Casts (0-2) /lpf Urine Mucus (None) /hpf Ur Barbiturates Screen (NotDetected) 08/12/19 Range/Units 08:31 RBC (4.30-5.90) m/uL Hgb (13.0-17.5) gm/dL Hct (39.0-53.0) % MCHC (31.0-37.0) g/dL RDW (11.5-15.5) % APTT (22.0-30.0) sec Potassium (3.5-5.1) mmol/L Chloride (98-107) mmol/L Carbon Dioxide (22-30) mmol/L BUN (9-20) mg/dL Glucose (74-99) mg/dL POC Glucose (mg/dL) (75-99) mg/dL Calcium (8.4-10.2) mg/dL Ionized Calcium Jun 7.7 H* (4.5-5.3) mg/dL Phosphorus 2.2 L (2.5-4.5) mg/dL Urine Protein (Negative) Urine Blood (Negative) Urine Bilirubin (Negative) Ur Leukocyte Esterase (Negative) Urine RBC (0-5) /hpf Amorphous Sediment (None) /hpf Urine Bacteria (None) /hpf Hyaline Casts (0-2) /lpf Urine Mucus (None) /hpf Ur Barbiturates Screen (NotDetected)
[2019-08-12] MEDS ORDERED: SODIUM CHLORIDE 0.9% 250 ML with PAMIDRONATE 60 MG IV ONE ×2 (11:00)
[2019-08-12 11:56] LABS: Glucose,Whole Blood 105 mg/dL (75-99)
--- NOTE | 2019-08-12 12:00 | CONS ---
CONSULTATION REASON FOR CONSULTATION: Hypercalcemia. HISTORY OF PRESENT ILLNESS: Patient is an 84-year-old male who was admitted to the hospital with mental status changes. He was recently hospitalized for hypernatremia and was noted to have an elevated calcium level during his last admission. PTH was elevated as well, suggesting underlying primary hyperparathyroidism. Patient was started on Sensipar. However, his mentation worsened post discharge and patient came back within less than 2 days with worsening mentation. His PTH was 220 with calcium of 11.2 on 08/07/2019. The Sensipar is currently at 60 mg b.i.d. PAST MEDICAL HISTORY: Atrial fibrillation, coronary artery disease, type 2 diabetes, gastroesophageal reflux disease, hyperlipidemia, osteoarthritis, BPH, hypothyroidism, dementia, history of right lung cancer, nephrolithiasis, chronic back pain. PAST SURGICAL HISTORY: Cardiac catheterization coronary stent placement, right lung lobectomy for lung cancer. SOCIAL HISTORY: Patient is a former smoker. No history of drug abuse or alcohol abuse. MEDICATIONS: Medications at home prior to admission include: Synthroid, Lipitor, Aricept, baclofen, Flomax, Pradaxa, potassium, Cordarone, Lopressor, melatonin, Pulmicort, nitroglycerin, insulin, midodrine, Singulair, Aldactone, Pepcid, Lasix, Sensipar, Zestril, Senokot, Plavix. ALLERGIES: None. EXAMINATION: Patient is comfortable, awake. He is able to answer questions, not in any acute distress. Blood pressure is 133/66, heart rate 98 per minute. He is afebrile. Examination of the heart S1, S2. Examination of the lungs, bilateral breath sounds are heard. ABDOMEN: Soft, nontender. Examination of lower extremities shows no evidence of edema. FISCAL ACCOUNTANT exam shows patient is answering questions. He is still quite lethargic but mentation has improved since yesterday. LAB: Show sodium 145, potassium 4.3, chloride 110, CO2 is 31, BUN 22, creatinine 0.95, calcium 13.1, phosphorus 2.2. ASSESSMENT: 1. Hypercalcemia associated with primary hyperparathyroidism. I will give a dose of pamidronate. Continue with the Sensipar for now. Continue IV fluids but change to Ringer lactate given the history of hypernatremia and serum sodium slightly on the higher side. 2. Altered mentation secondary to hypercalcemia, somewhat improved now. 3. History of congestive heart failure, currently compensated. 4. Cardiomyopathy, ejection fraction 20%-25%. 5. Paroxysmal atrial fibrillation maintained on anticoagulation and amiodarone. PLAN: Continue with the Sensipar. Change IV fluids to Ringer lactate, pamidronate IV piggyback x1. Repeat labs in a.m. MMODL / IJN: [id number] /
[2019-08-12 13:18] VITALS: BMI 24.3
[2019-08-12] MEDS: SODIUM CHLORIDE 0.45% 1,000 ML IV SCH ×2 (13:50→23:55)
--- NOTE | 2019-08-12 14:42 | US ---
EXAMINATION TYPE: US liver DATE OF EXAM: 08/12/2019 COMPARISON: CT thorax of the same date CLINICAL HISTORY: possible metastatic disease, liver lesions present. EXAM MEASUREMENTS: Liver Length: 12.3 cm Gallbladder Wall: 0.2 cm CBD: not seen due to overlying bowel gas and below limitations cm Right Kidney: very limited visualization unable to measure ICU patient, unable to wake up during exam. Severe midline bowel gas. Assistance from nurse and son n eeded to move patients arm so tech could scan. Limited visualization. Technically difficult. Pancreas: Obscured by bowel gas Liver: very limited visualization, dome not seen, cyst measuring 3.7 x 4.4 cm Gallbladder: wnl as seen, limited views Evidence for sonographic Griffith's sign: no CBD: not seen due to overlying bowel gas and above limitations Right Kidney: very limited visualization upper pole cyst noted IMPRESSION: 1. The exam is extremely limited by above technical factors. Exam is nondiagnostic for evaluation of the liver. Given the CT findings MR liver mass protocol is recommended for the most accurate assessme nt. 2. Obscuration of the pancreas by overlying bowel gas. 3. No sonographic evidence of acute cholecystitis although the common bile duct is not seen. 4. Suboptimal evaluation of the right kidney with a probable right upper pole cyst.
[2019-08-12 18:30] LABS: Glucose,Whole Blood 95 mg/dL (75-99)
[2019-08-12] MEDS: INSULIN DETEMIR (LEVEMIR) 100 UNIT/ML SYR SQ SCH (20:20)
[2019-08-12 20:21] LABS: Glucose,Whole Blood 91 mg/dL (75-99)
[2019-08-12 23:52] LABS: Glucose,Whole Blood 85 mg/dL (75-99)
[2019-08-13 05:48] LABS: Anisocytosis Slight; Basophils % (A) 1 %; Eosinophils # (A) 0.1 k/uL (0-0.7); Eosinophils % (A) 2 %; HCT 32.5 % (39.0-53.0); HGB 9.4 gm/dL (13.0-17.5); Hypochromasia Marked; Lymphocytes # (A) 1.1 k/uL (1.0-4.8); Lymphocytes % (A) 19 %; MCH 26.8 pg (25.0-35.0); MCHC 28.8 g/dL (31.0-37.0); MCV 93.1 fL (80.0-100.0); Mean Platelet Volume 7.7; Monocytes # (A) 0.3 k/uL (0-1.0); Monocytes % (A) 5 %; Neutrophils # (A) 4.1 k/uL (1.3-7.7); Neutrophils % (A) 72 %; Platelet Count 273 k/uL (150-450); RBC 3.49 m/uL (4.30-5.90); RDW 16.1 % (11.5-15.5); WBC 5.7 k/uL (3.8-10.6)
[2019-08-13 05:57] LABS: African American GFR (CKD) >90 (>60 ml/min/1.73 sqM); Anion Gap 2 mmol/L; Blood Urea Nitrogen 16 mg/dL (9-20); Calcium 12.6 mg/dL (8.4-10.2); Carbon Dioxide 27 mmol/L (22-30); Chloride 113 mmol/L (98-107); Glucose 82 mg/dL (74-99); Non-African American GFR(CKD) 84 (>60 ml/min/1.73 sqM); Potassium 3.9 mmol/L (3.5-5.1); Sodium 142 mmol/L (137-145)
[2019-08-13 06:21] LABS: Glucose,Whole Blood 79 mg/dL (75-99)
[2019-08-13] MEDS ORDERED: DEXTROSE 5% IN WATER 1,000 ML IV ONE (06:27)
[2019-08-13] MEDS: INSULIN ASPART (NovoLOG) 100 UNIT/ML VIAL SQ SCH ×3 (06:30→19:37)
[2019-08-13] MEDS: IPRATROPIUM-ALBUTEROL 3 ML NEB INHALATION SCH ×3 (07:45→19:55)
[2019-08-13] MEDS: BUDESONIDE 0.5 MG/2 ML NEBU INHALATION SCH ×2 (07:45→19:55)
[2019-08-13] MEDS: ARTIFICIAL TEARS-HYPROMELLOSE DROPS 15 ML BTL BOTH EYES SCH ×2 (08:38→21:30)
[2019-08-13] MEDS: METOPROLOL TARTRATE 5 MG/5 ML VIAL IVP SCH ×2 (08:39→19:49)
[2019-08-13] MEDS: PANTOPRAZOLE 40 MG/10 ML VIAL IVP SCH (08:39)
[2019-08-13] MEDS: HEPARIN SODIUM,PORCINE 5,000 UNIT/ML 1 ML VIAL SQ SCH ×2 (08:39→19:48)
--- NOTE | 2019-08-13 09:06 | P.PN ---
Subjective Patient is seen in follow-up for hypercalcemia. Calcium is 12.6 today. Patient is more awake and alert but still nonverbal at this time. He is currently maintained on D5 at 75 mL an hour as his blood sugar was low yesterday. Hemodynamically stable. Vital signs are stable. General: The patient appeared well nourished and normally developed. HEENT: Head exam is unremarkable. Neck is without jugular venous distension. LUNGS: Lungs are clear to auscultation and percussion. Breath sounds decreased. HEART: Rate and Rhythm are regular. First and second heart sounds normal. No murmurs, rubs or gallops. ABDOMEN: Abdominal exam reveals normal bowel sounds. Non-tender and non- distended. No evidence of peritonitis. EXTREMITITES: No clubbing, cyanosis, or edema. Objective - Vital Signs Vital signs: Vital Signs Temp 98.7 F 08/13/19 00:00 Pulse 79 08/13/19 08:01 Resp 14 08/13/19 08:00 BP 129/73 08/13/19 08:00 Pulse Ox 100 08/13/19 08:00 Intake & Output 08/12/19 08/13/19 08/13/19 18:59 06:59 18:59 Intake Total 1050 1050 Output Total 339 370 Balance 711 680 Weight 81.4 kg Intake: IV 1050 1050 Sodium Chloride 0.45% 1, 300 1050 000 ml @ 75 mls/hr IV . [id number] [facility] Rx#:[id number] Sodium Chloride 0.9% 1, 500 000 ml @ 100 mls/hr IV . Q10H ONE Rx#:[id number] Sodium Chloride 0.9% 250 250 ml @ 83 mls/hr IV .Q3H1M ONE with Pamidronate 60 mg Rx#:[id number] Output: Urine 339 370 Other: Voiding Method Indwelling Catheter Indwelling Catheter Indwelling Catheter - Labs CBC & Chem 7: 08/13/19 05:18 08/13/19 05:18 Labs: Abnormal Lab Results - Last 24 Hours (Table) 08/12/19 08/12/19 08/13/19 Range/Units 08:31 11:54 05:18 RBC 3.49 L (4.30-5.90) m/uL Hgb 9.4 L (13.0-17.5) gm/dL Hct 32.5 L (39.0-53.0) % MCHC 28.8 L (31.0-37.0) g/dL RDW 16.1 H (11.5-15.5) % Chloride (98-107) mmol/L POC Glucose (mg/dL) 105 H (75-99) mg/dL Calcium (8.4-10.2) mg/dL Phosphorus 2.2 L (2.5-4.5) mg/dL 08/13/19 Range/Units 05:18 RBC (4.30-5.90) m/uL Hgb (13.0-17.5) gm/dL Hct (39.0-53.0) % MCHC (31.0-37.0) g/dL RDW (11.5-15.5) % Chloride 113 H (98-107) mmol/L POC Glucose (mg/dL) (75-99) mg/dL Calcium 12.6 H (8.4-10.2) mg/dL Phosphorus (2.5-4.5) mg/dL Assessment and Plan Plan: Assessment: 1. Hypercalcemia secondary to primary hyperparathyroidism. Recent workup including electrophoresis studies, vitamin D level and angiotensin-converting enzyme levels normal. PTH elevated above 200. 2. Mild hypernatremia improved with hypotonic fluids. Better. 3. Chronic systolic CHF with ejection fraction of 20-25% with moderate mitral regurgitation. 4. Insulin-dependent diabetes mellitus. 5. A. fib maintained on metoprolol. Currently rate controlled. Plan: Change IV fluids to D5 half-normal saline to be run at 70 mL an hour. Check chest x-ray tomorrow. Sensipar to be resumed once tolerating oral medications. Status post pamidronate 60 mg on 08/12/2019. Repeat electrolytes in the morning.
[2019-08-13] MEDS: DEXTROSE 5%-0.45% NACL 1,000 ML IV SCH ×2 (12:18→23:11)
[2019-08-13 12:22] LABS: Glucose,Whole Blood 108 mg/dL (75-99)
--- NOTE | 2019-08-13 14:11 | CDI ---
Documentation Clarification Form Date: 08/13/2019 01:34:25 PM From: Irina Allen RN, CCDS Admit Date: 08/11/2019 02:01:00 PM Patient Name: Jerman Segal Visit Number: [id number] Discharge Date: ATTENTION: The Clinical Documentation Specialists (CDI) and [facility] Coding Staff appreciate your assistance in clarifying documentation. Please respond to the clarification below the line at the bottom and electronically sign. The CDI & [facility] Coding staff will review the response and follow-up if needed. Please note: Queries are made part of the Legal Health Record. If you have any questions, please contact the author of this message via ITS. Dr. Capri Ruggiero Patient presented with altered mental status and a calcium level on 08/11/19 of 13.4. He has a history of hyperparathyroidism and further clarification is needed. History/Risk Factors: Hyperparathyrodism Clinical Indicators: 84-year-old male presented with altered mental status. He did respond to painful stimuli, did not respond to verbal commands. Vital sign 08/11/19@09:22: 111/59 96 18 97.8 93 % NC Labs 08/11/19 (09:25) Potassium 6.1, Calcium 13.4 Other Clinical Indicators: H&P on 08/11/19 has documentation of hypercalcemia due to hyperparathyroidism. Treatment: Monitor Calcium levels Dextrose 5% -@ 75 mls/hr IV : In your professional opinion, can you please clarify hyperparathyroidism? Primary Secondary Other, please specify Unable to determine (Last Revision: October 2017) hypercalcemia is secondary due to possible metastatic lung cancer MTDD
--- NOTE | 2019-08-13 14:13 | P.PN ---
Subjective Progress Note Date: 08/13/19 This is an 84-year-old -[place] male one of Dr. Israel with a previous medical history significant for CAD post non-ST elevation ND with ischemic cardiomyopathy recent echocardiogram showed ejection fraction 2025% with mild aortic stenosis and moderate mitral regurgitation, hypertension and hypertensive cardio vascular disease with left ventricular hypertrophy, diabetes mellitus type 2 with diabetic polyneuropathy, Parkinson disease generalized weakness wheelchair bound and vascular dementia along with paroxysmal atrial fibrillation benign prostatic hypertrophy osteoporosis with significant hypercalcemia was recently discharged from [facility] after he was admitted to the hospital for significant encephalopathy and the patient was sent home on 08/09/2019 he ended up going back to the emergency department at the [facility] yesterday because his Peres catheter was removed, and the patient was sent home however the patient was quite obtunded and his son ended up bringing him back to the emergency department at [facility] because of increased uptake mentation and mental status changes and was found to have a significant hypercalcemia he was admitted to the hospital he was started on IV fluid resuscitation the form of normal saline and 100 mL an hour patient's son wasn't bedside and he was concerned quite a bit about the patient mental status and he stated that his father was doing this for the past 2 weeks he has not been eating or drinking anything and he has not been taking his medications 2/2: Patient is more alert and awake today. He is able to answer questions appropriately he is slow to respond. Patient's urinary output has been about 35 ML's per hour. A CT of the chest is ordered to rule out malignancy due to the hypercalcemia. Patient has history of hyperparathyroidism. W BC 7.7, hemoglobin 10.1, sodium 145, potassium 4.3, BUN 22, creatinine 0.95, calcium 13.1, I denies calcium 7.7, phosphorus 2.2. Blood pressure 142/70, heart rate 82, respiration rate 12, pulse ox a 98% on 2 L via nasal cannula. 2/3: Patient remains in the intensive care unit. CT of the chest revealed multiple right-sided pulmonary nodules raising suspicion for metastatic disease. Emphysematous changes throughout the lungs. Thoracic aortic aneurysm 3.9 cm. Cardiomegaly. Multiple hepatic lesions, could not exclude metastatic disease. Ultrasound of the liver was limited and nondiagnostic for evaluation of the liver. No evidence of acute cholecystitis although common bile duct not seen. Suboptimal evaluation of right kidney and probable right cyst. Consult added for Dr. Arriaza. Patient is followed by Dr. Amin and nephrology. Repeat lab work to day reveals calcium of 12.6, hemoglobin 9.4. Review of Systems: ROS unobtainable: due to mental status Objective - Vital Signs Vital signs: Vital Signs Temp 98.7 F 08/13/19 00:00 Pulse 79 08/13/19 08:01 Resp 14 08/13/19 08:00 BP 129/73 08/13/19 08:00 Pulse Ox 100 08/13/19 08:00 Intake & Output 08/12/19 08/13/19 08/13/19 18:59 06:59 18:59 Intake Total 1050 1050 Output Total 339 370 Balance 711 680 Weight 81.4 kg Intake: IV 1050 1050 Sodium Chloride 0.45% 1, 300 1050 000 ml @ 75 mls/hr IV . [id number] [facility] Rx#:[id number] Sodium Chloride 0.9% 1, 500 000 ml @ 100 mls/hr IV . Q10H ONE Rx#:[id number] Sodium Chloride 0.9% 250 250 ml @ 83 mls/hr IV .Q3H1M ONE with Pamidronate 60 mg Rx#:[id number] Output: Urine 339 370 Other: Voiding Method Indwelling Catheter Indwelling Catheter Indwelling Catheter - Exam - Constitutional General appearance: Present: average body habitus, no acute distress, appears comfortable - EENT ENT: Present: hard of hearing - Neck Neck: Absent: lymphadenopathy, rigidity Carotids: bilateral: upstroke delayed Thyroid: bilateral: normal size - Respiratory Respiratory: bilateral: diminished, negative: dullness, rales, rhonchi, wheezing, prolonged expiration, prolonged inspiration - Cardiovascular Rhythm: regular Heart sounds: normal: S1, S2 Abnormal Heart Sounds: Present: systolic murmur. Absent: diastolic murmur, rub, S3 Gallop, S4 Gallop, click, other - Gastrointestinal General gastrointestinal: Present: normal bowel sounds, soft. Absent: splenomegaly, tenderness - Integumentary Integumentary: Present: decreased turgor, ulcer (Stage II coccygeal ulcer) - Neurologic Neurologic: Present: focal deficits - Psychiatric Psychiatric Comment(s): A and O 1, slow to respond, answers most questions appropriately - Labs CBC & Chem 7: 08/13/19 05:18 08/13/19 05:18 Labs: Abnormal Lab Results - Last 24 Hours (Table) 08/12/19 08/13/19 08/13/19 Range/Units 11:54 05:18 05:18 RBC 3.49 L (4.30-5.90) m/uL Hgb 9.4 L (13.0-17.5) gm/dL Hct 32.5 L (39.0-53.0) % MCHC 28.8 L (31.0-37.0) g/dL RDW 16.1 H (11.5-15.5) % Chloride 113 H (98-107) mmol/L POC Glucose (mg/dL) 105 H (75-99) mg/dL Calcium 12.6 H (8.4-10.2) mg/dL Assessment and Plan Plan: 1. Acute metabolic encephalopathy likely related to hypercalcemia most likely due to lung cancer. Continue D5 and half-normal saline at 70 mL per hour. Consults with Dr. Amin and nephrology appreciated. Consult with Dr. Arriaza added. 2. CAD with ischemic cardiomyopathy and ejection fraction 25%. Patient is unable to take his home medication at this point I will start him on Lopressor 2.5 mg push every 12 hours. 3. Hypertension and hypertensive cardiovascular disease. Continue Lopressor 2.5 mg push every 12 hours. 4. Hyperlipidemia. Patient is not able to take his Lipitor. 5. Diabetes mellitus type 2. Continue patient on sliding scale insulin. 6. Parkinson's disease. Patient is not able to take his Proventil. 7. History of CVA. Patient will need to go back on Pradaxa when he is able to swallow medication. 8. Enlarged prostate. Stable. 9. Paroxysmal atrial fibrillation currently in sinus rhythm. Not able to take his medication at this point. 10. COPD. Continue DuoNeb 3 mL nebulization 4 times a day and Pulmicort 1 mg the position twice every day. 11. Hypercalcemia due to hyperparathyroidism. Continue IV fluid. 12. DVT prophylaxis. Heparin 5000 units subcutaneously every 12 hours. 13. GI prophylaxis. Continue Protonix 40 mg IV push every 24 hours. 14. Patient is full code as of now. 15. Overall prognosis guarded. Discharge plan to be determined Impression and plan of care have been directed as dictated by the signing physician. Chioma Foreman nurse practitioner acting as scribe for signing physician.
[2019-08-13 17:31] LABS: Glucose,Whole Blood 95 mg/dL (75-99)
[2019-08-13] MEDS: INSULIN DETEMIR (LEVEMIR) 100 UNIT/ML SYR SQ SCH (19:51)
[2019-08-13 19:52] LABS: Glucose,Whole Blood 107 mg/dL (75-99)
[2019-08-14 00:05] LABS: Glucose,Whole Blood 110 mg/dL (75-99)
[2019-08-14] MEDS: INSULIN ASPART (NovoLOG) 100 UNIT/ML VIAL SQ SCH ×5 (00:19→21:33)
[2019-08-14 05:49] LABS: Glucose,Whole Blood 149 mg/dL (75-99)
[2019-08-14] MEDS: BUDESONIDE 0.5 MG/2 ML NEBU INHALATION SCH ×2 (07:51→19:57)
[2019-08-14] MEDS: IPRATROPIUM-ALBUTEROL 3 ML NEB INHALATION SCH ×3 (07:51→19:57)
[2019-08-14 08:34] LABS: African American GFR (CKD) >90 (>60 ml/min/1.73 sqM); Anion Gap 5 mmol/L; Blood Urea Nitrogen 11 mg/dL (9-20); Calcium 12.2 mg/dL (8.4-10.2); Carbon Dioxide 26 mmol/L (22-30); Chloride 113 mmol/L (98-107); Glucose 155 mg/dL (74-99); Non-African American GFR(CKD) 87 (>60 ml/min/1.73 sqM); Potassium 3.8 mmol/L (3.5-5.1); Sodium 144 mmol/L (137-145)
[2019-08-14 08:35] LABS: Anisocytosis Slight; Basophils % (A) 1 %; Eosinophils # (A) 0.1 k/uL (0-0.7); Eosinophils % (A) 2 %; HCT 32.4 % (39.0-53.0); HGB 9.5 gm/dL (13.0-17.5); Hypochromasia Marked; Lymphocytes # (A) 0.9 k/uL (1.0-4.8); Lymphocytes % (A) 15 %; MCH 27.4 pg (25.0-35.0); MCHC 29.3 g/dL (31.0-37.0); MCV 93.5 fL (80.0-100.0); Mean Platelet Volume 7.7; Monocytes # (A) 0.3 k/uL (0-1.0); Monocytes % (A) 4 %; Neutrophils # (A) 4.5 k/uL (1.3-7.7); Neutrophils % (A) 76 %; Platelet Count 245 k/uL (150-450); RBC 3.47 m/uL (4.30-5.90); RDW 16.3 % (11.5-15.5); WBC 5.9 k/uL (3.8-10.6)
[2019-08-14] MEDS: HEPARIN SODIUM,PORCINE 5,000 UNIT/ML 1 ML VIAL SQ SCH ×2 (08:45→21:34)
[2019-08-14] MEDS: ARTIFICIAL TEARS-HYPROMELLOSE DROPS 15 ML BTL BOTH EYES SCH ×2 (08:45→21:34)
[2019-08-14] MEDS: PANTOPRAZOLE 40 MG/10 ML VIAL IVP SCH (08:45)
--- NOTE | 2019-08-14 08:51 | XR ---
EXAMINATION TYPE: XR chest 1V portable DATE OF EXAM: 08/14/2019 COMPARISON: Prior chest x-ray and chest CT dated 08/12/2019 HISTORY: Abnormal chest x-ray, congestive heart failure, hypercalcemia and pulmonary nodules TECHNIQUE: Single frontal view of the chest is obtained. FINDINGS: Right hemidiaphragm is elevated, lung volumes are low. Right-sided pulmonary nodules are n ot seen on plain film. Aorta is dense and aneurysmal. No evident pneumothorax or pleural effusion. Th e heart is enlarged. Calcified node is suspected in the aorticopulmonary window region. IMPRESSION: Cardiomegaly, aortic aneurysm, question old granulomatous disease.
--- NOTE | 2019-08-14 09:43 | XR ---
EXAMINATION TYPE: XR chest 1V portable DATE OF EXAM: 08/14/2019 Comparison: 08/14/2019 Clinical History: 84-year-old male adventitious lung sounds Findings: Low lung volumes and crowded vascular markings. Lung bases are underpenetrated and not well assessed. Heart borderline enlarged. There seems to be some surgical clips in the right axilla. Calcified AP w indow lymph nodes suggesting prior granulomatous disease. Impression: Hypoventilatory changes with underpenetrated lung bases limiting assessment. Mild interstitial promin ence appears chronic, possible bronchitis or asthma.
[2019-08-14] MEDS: METOPROLOL TARTRATE 25 MG TAB PO SCH ×2 (10:26→21:34)
--- NOTE | 2019-08-14 10:35 | P.CNPUL ---
History of Present Illness Consult date: 08/14/19 (Late entry note from 08/13/2019) Reason for consult: dyspnea, COPD, lung mass, abnormal CXR/CT Chief complaint: Altered mental status, shortness of breath, hypercalcemia History of present illness: This is an 84-year-old -[place]ov[place] male one of Dr. Israel with a previous medical history significant for CAD post non-ST elevation [place] with ischemic cardiomyopathy recent echocardiogram showed ejection fraction 20-25% with mild aortic stenosis and moderate mitral regurgitation, hypertension and hypertensive cardio vascular disease with left ventricular hypertrophy, diabetes mellitus type 2 with diabetic polyneuropathy, Parkinson disease generalized weakness wheelchair bound and vascular dementia along with paroxysmal atrial fibrillation benign prostatic hypertrophy osteoporosis with significant hypercalcemia was recently discharged from [facility] after he was admitted to the hospital for significant encephalopathy and the patient was sent home on 08/09/2019 he ended up going back to the emergency department at the [facility] His Peres catheter was removed, and the patient was sent home however the patient was quite obtunded and his son ended up bringing him back to the emergency department at [facility] because of increased uptake mentation and mental status changes and was found to have a significant hypercalcemia he was admitted to the hospital he was started on IV fluid resuscitation the form of normal saline and 100 mL an hour, initial trial with IV hydration and Lasix was not successful, calcium level remains elevated including ionized calcium eventually required pamidronate infusion with that calcium levels are improving slowly, computed tomography scan of the chest ordered and reviewed, patient has right-sided multiple subcentimeter nodules, the densities in the liver are appeared to be cysts-like changes, patient is more awake at room air, mostly nonverbal and noncommunicative like baseline, chest x-ray from this morning reviewed as well Review of Systems All systems: negative Past Medical History Past Medical History: Atrial Fibrillation, Coronary Artery Disease (CAD), Cancer, Chest Pain / Angina, COPD, Dementia, Diabetes Mellitus, GERD/Reflux, Hyperlipidemia, Hypertension, Memory Impairment, Osteoarthritis (OA), Prostate Disorder, Thyroid Disorder Additional Past Medical History / Comment(s): Back pain r/t sciatica, right lung cancer, kidney stone, NSTEMI, dysphagia, BPH, hypothyroid, dementia, hyperparathyroidism, impaired gait. Last Myocardial Infarction Date:: History of Any Multi-Drug Resistant Organisms: None Reported Past Surgical History: Heart Catheterization With Stent Additional Past Surgical History / Comment(s): Lung ca removed from right lung (lobectomy), neck sx d/t to fx, stent to right groin. Past Anesthesia/Blood Transfusion Reactions: No Reported Reaction Date of Last Stent Placement:: 2016 Past Psychological History: No Psychological Hx Reported Smoking Status: Former smoker Past Alcohol Use History: None Reported, Occasional Past Drug Use History: None Reported - Past Family History Father History Unknown: Yes Family Medical History: No Reported History Additional Family Medical History / Comment(s): . Mother History Unknown: Yes Family Medical History: No Reported History Additional Family Medical History / Comment(s): . Medications and Allergies Home Medications Medication Instructions Recorded Confirmed Type Levothyroxine Sodium [Synthroid] 25 mcg PO DAILY@0600 05/19/16 08/11/19 History Atorvastatin Calcium [Lipitor] 40 mg PO HS@209910/25/16 08/11/19 History Donepezil [Aricept] 10 mg PO HS@209910/25/16 08/11/19 History Baclofen [Lioresal] 10 mg PO TID@0600,1400,2200 04/10/17 08/11/19 History Tamsulosin HCl [Flomax] 0.4 mg PO BID@0900,209904/10/17 08/11/19 History Dabigatran [Pradaxa] 150 mg PO BID@0900,2100 04/14/17 08/11/19 History Potassium Chloride ER [K-Dur 20] 20 meq PO TID@0900,1300,2100 07/06/17 08/11/19 History Amiodarone [Cordarone] 200 mg PO DAILY@0900 03/14/18 08/11/19 History Ergocalciferol [Vitamin D2 50,000 unit PO FR@89903/14/18 08/11/19 History (DRISDOL)] Melatonin 10 mg PO HS@209903/14/18 08/11/19 History Metoprolol Tartrate [Lopressor] 25 mg PO BID@0900,2100 03/14/18 08/11/19 History Nitroglycerin [Nitroglycerin 1 spray TRANSLINGU Q5M PRN 03/14/18 08/11/19 History 400[employer] [place]] Budesonide [Pulmicort] 0.5 mg INHALATION RT-BID 09/28/18 08/11/19 History Carboxymethylcellulose Sodium 1 drop BOTH EYES BID@0900,209909/28/18 08/11/19 History [Refresh Tears] INSULIN ASPART (NovoLOG) [NovoLOG See Protocol SQ TID@0900,1300,1900 09/28/18 08/11/19 History (formulary)] Metolazone [Zaroxolyn] 2.5 mg PO TUTH@0900 09/28/18 08/11/19 History Midodrine HCl [ProAmatine] 10 mg PO TID@0900,1300,209909/28/18 08/11/19 History Montelukast [Singulair] 10 mg PO HS@209909/28/18 08/11/19 History Ipratropium-Albuterol Nebulize 3 ml INHALATION RT-TID ampul.neb 10/02/18 08/11/19 Rx [Duoneb 0.5 mg-3 mg/3 ml Soln] Spironolactone [Aldactone] 12.5 mg PO DAILY@0900 #0 10/02/18 08/11/19 Rx Famotidine [Pepcid] 20 mg PO DAILY@0900 11/17/18 08/11/19 History Insulin Glargine,Hum.rec.anlog 17 unit SQ HS@209911/17/18 08/11/19 History [Basaglar Kwikpen U-100] Allopurinol [Zyloprim] 300 mg PO DAILY 07/23/19 08/11/19 History Furosemide [Lasix] 40 mg PO BID 07/23/19 08/11/19 History Magnesium Oxide [Mag-Ox] 400 mg PO BID 07/23/19 08/11/19 History Pramox-Calamine 1-8% Lotion 1 applic TOPICAL HS 07/23/19 08/11/19 History [Caladryl] Primidone [Mysoline] 250 mg PO TID 07/23/19 08/11/19 History Cinacalcet HCl [Sensipar] 60 mg PO BID #0 07/24/19 08/11/19 Rx Lisinopril [Zestril] 2.5 mg PO DAILY #30 tab 07/24/19 08/11/19 Rx Sennosides [Senokot] 8.6 mg PO DAILY PRN tab 07/24/19 08/11/19 Rx Clopidogrel [Plavix] 75 mg PO DAILY #30 tablet 08/10/19 08/11/19 Rx Allergies Allergy/AdvReac Type Severity Reaction Status Date / Time latex Allergy Rash/Hives Verified 08/11/19 12:43 Physical Exam Vitals: Vital Signs Temp Pulse Pulse Resp BP BP Pulse Ox 08/14/19 08:09 92 08/14/19 07:51 92 08/14/19 05:00 98.5 F 102 H 20 124/69 95 08/13/19 23:00 98.9 F 95 20 126/69 99 08/13/19 22:10 83 18 122/61 94 L 08/13/19 22:00 83 20 96/54 94 L 08/13/19 21:00 98.1 F 104 H 20 136/77 94 L 08/13/19 20:14 95 08/13/19 20:00 89 18 127/63 98 08/13/19 19:56 90 08/13/19 15:00 98.1 F 89 10 L 130/68 94 L Intake and Output 08/13/19 08/14/19 08/14/19 22:59 06:59 14:59 Intake Total 490 100 10 Output Total 215 1200 Balance 275 -1100 10 Intake: IV 490 Dextrose 5%-0.45% NaCl 1, 490 000 ml @ 70 mls/hr IV . [id number] [facility] Rx#:[id number] Oral 100 10 Output: Urine 215 1200 Other: Voiding Method Indwelling Catheter Indwelling Catheter Indwelling Catheter - Constitutional General appearance: average body habitus, disheveled, mild distress - EENT Eyes: EOMI, PERRLA Ears: bilateral: normal - Neck Neck: normal ROM Carotids: bilateral: upstroke normal Thyroid: bilateral: normal size - Respiratory Respiratory: bilateral: diminished, negative: dullness, rales, rhonchi, wheezing - Cardiovascular Rhythm: regular Heart sounds: normal: S1, S2 - Gastrointestinal General gastrointestinal: normal bowel sounds - Musculoskeletal Musculoskeletal: generalized weakness Results - Laboratory Findings CBC and BMP: 08/14/19 07:22 08/14/19 07:22 PT/INR, D-dimer PT 10.8 sec (9.0-12.0) 08/11/19 09:30 INR 1.0 (<1.2) 08/11/19 09:30 Abnormal lab findings: Abnormal Labs 08/11/19 08/11/19 08/11/19 09:25 09:30 09:30 RBC 3.92 L Hgb 10.9 L Hct 35.5 L MCHC 30.9 L RDW 16.7 H Lymphocytes # APTT Potassium 6.1 H* Chloride 108 H Carbon Dioxide BUN 25 H Creatinine 1.28 H Glucose 189 H POC Glucose (mg/dL) 203 H Calcium 13.4 H* Ionized Calcium Jun Phosphorus Creatine Kinase 48 L Albumin 3.3 L PTH Intact Urine Protein Urine Blood Urine Bilirubin Ur Leukocyte Esterase Urine RBC Amorphous Sediment Urine Bacteria Hyaline Casts Urine Mucus Ur Barbiturates Screen 08/11/19 08/11/19 08/11/19 09:30 09:37 10:20 RBC Hgb Hct MCHC RDW Lymphocytes # APTT 20.0 L Potassium 5.2 H Chloride Carbon Dioxide BUN Creatinine Glucose POC Glucose (mg/dL) Calcium Ionized Calcium Jun Phosphorus Creatine Kinase Albumin PTH Intact Urine Protein 1+ H Urine Blood Trace H Urine Bilirubin 1+ H Ur Leukocyte Esterase Trace H Urine RBC 16 H Amorphous Sediment Rare H Urine Bacteria Rare H Hyaline Casts 180 H Urine Mucus Occasional H Ur Barbiturates Screen Detected H 08/11/19 08/11/19 08/12/19 16:00 21:32 00:07 RBC Hgb Hct MCHC RDW Lymphocytes # APTT Potassium Chloride Carbon Dioxide BUN Creatinine Glucose POC Glucose (mg/dL) 148 H 117 H 115 H Calcium Ionized Calcium Jun Phosphorus Creatine Kinase Albumin PTH Intact Urine Protein Urine Blood Urine Bilirubin Ur Leukocyte Esterase Urine RBC Amorphous Sediment Urine Bacteria Hyaline Casts Urine Mucus Ur Barbiturates Screen 08/12/19 08/12/19 08/12/19 04:55 04:55 04:55 RBC 3.80 L Hgb 10.1 L Hct 35.3 L MCHC 28.6 L RDW 15.9 H Lymphocytes # APTT Potassium Chloride 110 H Carbon Dioxide 31 H BUN 22 H Creatinine Glucose 114 H POC Glucose (mg/dL) Calcium 13.1 H* Ionized Calcium Jun Phosphorus Creatine Kinase Albumin PTH Intact 281.0 H Urine Protein Urine Blood Urine Bilirubin Ur Leukocyte Esterase Urine RBC Amorphous Sediment Urine Bacteria Hyaline Casts Urine Mucus Ur Barbiturates Screen 08/12/19 08/12/19 08/12/19 06:03 08:31 11:54 RBC Hgb Hct MCHC RDW Lymphocytes # APTT Potassium Chloride Carbon Dioxide BUN Creatinine Glucose POC Glucose (mg/dL) 119 H 105 H Calcium Ionized Calcium Jun 7.7 H* Phosphorus 2.2 L Creatine Kinase Albumin PTH Intact Urine Protein Urine Blood Urine Bilirubin Ur Leukocyte Esterase Urine RBC Amorphous Sediment Urine Bacteria Hyaline Casts Urine Mucus Ur Barbiturates Screen 08/13/19 08/13/19 08/13/19 05:18 05:18 12:20 RBC 3.49 L Hgb 9.4 L Hct 32.5 L MCHC 28.8 L RDW 16.1 H Lymphocytes # APTT Potassium Chloride 113 H Carbon Dioxide BUN Creatinine Glucose POC Glucose (mg/dL) 108 H Calcium 12.6 H Ionized Calcium Jun Phosphorus Creatine Kinase Albumin PTH Intact Urine Protein Urine Blood Urine Bilirubin Ur Leukocyte Esterase Urine RBC Amorphous Sediment Urine Bacteria Hyaline Casts Urine Mucus Ur Barbiturates Screen 08/13/19 08/14/19 08/14/19 19:51 00:04 05:48 RBC Hgb Hct MCHC RDW Lymphocytes # APTT Potassium Chloride Carbon Dioxide BUN Creatinine Glucose POC Glucose (mg/dL) 107 H 110 H 149 H Calcium Ionized Calcium Jun Phosphorus Creatine Kinase Albumin PTH Intact Urine Protein Urine Blood Urine Bilirubin Ur Leukocyte Esterase Urine RBC Amorphous Sediment Urine Bacteria Hyaline Casts Urine Mucus Ur Barbiturates Screen 08/14/19 08/14/19 07:22 07:22 RBC 3.47 L Hgb 9.5 L Hct 32.4 L MCHC 29.3 L RDW 16.3 H Lymphocytes # 0.9 L APTT Potassium Chloride 113 H Carbon Dioxide BUN Creatinine Glucose 155 H POC Glucose (mg/dL) Calcium 12.2 H Ionized Calcium Jun Phosphorus Creatine Kinase Albumin PTH Intact Urine Protein Urine Blood Urine Bilirubin Ur Leukocyte Esterase Urine RBC Amorphous Sediment Urine Bacteria Hyaline Casts Urine Mucus Ur Barbiturates Screen - Diagnostic Findings Chest x-ray: report reviewed, image reviewed CT scan - chest: report reviewed, image reviewed Assessment and Plan Assessment: Severe hypercalcemia Right-sided multiple small subcentimeter pulmonary nodules Differential diagnoses include pulmonary sarcoidosis, metastatic disease, Metabolic encephalopathy related to hypercalcemia and baseline dementia Ischemic cardiomyopathy ejection fraction of 25% Mild aortic stenosis Hypertension hypertensive cardiovascular disease/dyslipidemia/type 2 diabetes mellitus Plan: Continue gentle rehydration Monitor calcium levels closely For more definitive diagnosis PET scan and possibly tissue diagnosis will be needed patient is not in a condition to undergo lung biopsy with high risk of complication Will reevaluate in outpatient setting Time with Patient: Greater than 30
--- NOTE | 2019-08-14 11:13 | P.PN ---
Subjective Patient is seen in follow-up for hypercalcemia. Calcium is 12.2 today. Patient is more awake and alert but still nonverbal at this time. He is currently maintained on D5 0.45% at 75 mL an hour. Hemodynamically stable. Still not tolerating oral pills due to risk for aspiration. Vital signs are stable. General: The patient appeared well nourished and normally developed. HEENT: Head exam is unremarkable. Neck is without jugular venous distension. LUNGS: Lungs are clear to auscultation and percussion. Breath sounds decreased. Scattered rhonchi. HEART: Rate and Rhythm are regular. First and second heart sounds normal. No murmurs, rubs or gallops. ABDOMEN: Abdominal exam reveals normal bowel sounds. Non-tender and non- distended. No evidence of peritonitis. EXTREMITITES: No clubbing, cyanosis, or edema. Objective - Vital Signs Vital signs: Vital Signs Temp 98.5 F 08/14/19 05:00 Pulse 92 08/14/19 08:09 Resp 20 08/14/19 05:00 BP 124/69 08/14/19 05:00 Pulse Ox 95 08/14/19 05:00 Intake & Output 08/13/19 08/14/19 08/14/19 18:59 06:59 18:59 Intake Total 560 590 10 Output Total 500 1415 Balance 60 -825 10 Intake: IV 560 490 Dextrose 5%-0.45% NaCl 1, 560 490 000 ml @ 70 mls/hr IV . [id number] [facility] Rx#:[id number] Oral 100 10 Output: Urine 500 1415 Other: Voiding Method Indwelling Catheter Indwelling Catheter Indwelling Catheter - Labs CBC & Chem 7: 08/14/19 07:22 08/14/19 07:22 Labs: Abnormal Lab Results - Last 24 Hours (Table) 08/13/19 08/13/19 08/14/19 Range/Units 12:20 19:51 00:04 RBC (4.30-5.90) m/uL Hgb (13.0-17.5) gm/dL Hct (39.0-53.0) % MCHC (31.0-37.0) g/dL RDW (11.5-15.5) % Lymphocytes # (1.0-4.8) k/uL Chloride (98-107) mmol/L Glucose (74-99) mg/dL POC Glucose (mg/dL) 108 H 107 H 110 H (75-99) mg/dL Calcium (8.4-10.2) mg/dL 08/14/19 08/14/19 08/14/19 Range/Units 05:48 07:22 07:22 RBC 3.47 L (4.30-5.90) m/uL Hgb 9.5 L (13.0-17.5) gm/dL Hct 32.4 L (39.0-53.0) % MCHC 29.3 L (31.0-37.0) g/dL RDW 16.3 H (11.5-15.5) % Lymphocytes # 0.9 L (1.0-4.8) k/uL Chloride 113 H (98-107) mmol/L Glucose 155 H (74-99) mg/dL POC Glucose (mg/dL) 149 H (75-99) mg/dL Calcium 12.2 H (8.4-10.2) mg/dL Assessment and Plan Plan: Assessment: 1. Hypercalcemia secondary to primary hyperparathyroidism. Recent workup including electrophoresis studies, vitamin D level and angiotensin-converting enzyme levels normal. PTH elevated above 200. Calcium level XII.2 today. 2. Mild hypernatremia improved with hypotonic fluids. Stable. 3. Chronic systolic CHF with ejection fraction of 20-25% with moderate mitral regurgitation. 4. Insulin-dependent diabetes mellitus. 5. A. fib maintained on metoprolol. Currently rate controlled. Plan: I will decrease rate of IV fluids to 50 mL an hour. Chest x-ray reviewed. No evidence of gross heart failure. Sensipar to be resumed once tolerating oral medications. Status post pamidronate 60 mg on 08/12/2019. Repeat electrolytes in the morning.
[2019-08-14 11:43] LABS: Glucose,Whole Blood 196 mg/dL (75-99)
[2019-08-14] MEDS ORDERED: IOPAMIDOL CONTRAST (ORAL USE) VIAL PO PRN (12:19)
[2019-08-14] MEDS: DEXTROSE 5%-0.45% NACL 1,000 ML IV SCH (12:29)
--- NOTE | 2019-08-14 14:09 | P.PN ---
Subjective Progress Note Date: 08/14/19 This is an 84-year-old -British male one of Dr. Israel with a previous medical history significant for CAD post non-ST elevation [place] with ischemic cardiomyopathy recent echocardiogram showed ejection fraction 2025% with mild aortic stenosis and moderate mitral regurgitation, hypertension and hypertensive cardio vascular disease with left ventricular hypertrophy, diabetes mellitus type 2 with diabetic polyneuropathy, Parkinson disease generalized weakness wheelchair bound and vascular dementia along with paroxysmal atrial fibrillation benign prostatic hypertrophy osteoporosis with significant hypercalcemia was recently discharged from [facility] after he was admitted to the hospital for significant encephalopathy and the patient was sent home on 08/09/2019 he ended up going back to the emergency department at the [facility] yesterday because his Peres catheter was removed, and the patient was sent home however the patient was quite obtunded and his son ended up bringing him back to the emergency department at [facility] because of increased uptake mentation and mental status changes and was found to have a significant hypercalcemia he was admitted to the hospital he was started on IV fluid resuscitation the form of normal saline and 100 mL an hour patient's son wasn't bedside and he was concerned quite a bit about the patient mental status and he stated that his father was doing this for the past 2 weeks he has not been eating or drinking anything and he has not been taking his medications 2/2: Patient is more alert and awake today. He is able to answer questions appropriately he is slow to respond. Patient's urinary output has been about 35 ML's per hour. A CT of the chest is ordered to rule out malignancy due to the hypercalcemia. Patient has history of hyperparathyroidism. W BC 7.7, hemoglobin 10.1, sodium 145, potassium 4.3, BUN 22, creatinine 0.95, calcium 13.1, I denies calcium 7.7, phosphorus 2.2. Blood pressure 142/70, heart rate 82, respiration rate 12, pulse ox a 98% on 2 L via nasal cannula. 2/3: Patient remains in the intensive care unit. CT of the chest revealed multiple right-sided pulmonary nodules raising suspicion for metastatic disease. Emphysematous changes throughout the lungs. Thoracic aortic aneurysm 3.9 cm. Cardiomegaly. Multiple hepatic lesions, could not exclude metastatic disease. Ultrasound of the liver was limited and nondiagnostic for evaluation of the liver. No evidence of acute cholecystitis although common bile duct not seen. Suboptimal evaluation of right kidney and probable right cyst. Consult added for Dr. Arriaza. Patient is followed by Dr. Amin and nephrology. Repeat lab work to day reveals calcium of 12.6, hemoglobin 9.4. 08/14: This morning, patient was having significant coughing with pured diet with nectar thick liquids. Chest x-ray was ordered that did not show any infiltrate. Speech therapy to reevaluate. Dr. Amin has evaluated and determined patient has not able for lung biopsy and at high risk for complication. Dr. Cruz has decrease IV fluids to 50 mL per hour. Sensipar to be resumed once tolerating oral medications. Repeat electrolytes in the morning. Discuss current situation with the on. What type of cancer his father has. Reiterated the patient is a poor candidate for any biopsy procedure. He is planning to discuss situation with the patient's . Review of Systems: ROS unobtainable: due to mental status Objective - Vital Signs Vital signs: Vital Signs Temp 98.5 F 08/14/19 05:00 Pulse 92 08/14/19 08:09 Resp 20 08/14/19 05:00 BP 124/69 08/14/19 05:00 Pulse Ox 95 08/14/19 05:00 Intake & Output 08/13/19 08/14/19 08/14/19 18:59 06:59 18:59 Intake Total 560 590 10 Output Total 500 1415 Balance 60 -825 10 Intake: IV 560 490 Dextrose 5%-0.45% NaCl 1, 560 490 000 ml @ 70 mls/hr IV . [id number] [facility] Rx#:[id number] Oral 100 10 Output: Urine 500 1415 Other: Voiding Method Indwelling Catheter Indwelling Catheter Indwelling Catheter - Exam - Constitutional General appearance: Present: average body habitus, no acute distress, appears comfortable - EENT ENT: Present: hard of hearing - Neck Neck: Absent: lymphadenopathy, rigidity Carotids: bilateral: upstroke delayed Thyroid: bilateral: normal size - Respiratory Respiratory: bilateral: diminished, negative: dullness, rales, rhonchi, wheezing, prolonged expiration, prolonged inspiration - Cardiovascular Rhythm: regular Heart sounds: normal: S1, S2 Abnormal Heart Sounds: Present: systolic murmur. Absent: diastolic murmur, rub, S3 Gallop, S4 Gallop, click, other - Gastrointestinal General gastrointestinal: Present: normal bowel sounds, soft. Absent: splen omegaly, tenderness - Integumentary Integumentary: Present: decreased turgor, ulcer (Stage II coccygeal ulcer) - Neurologic Neurologic: Present: focal deficits - Psychiatric Psychiatric Comment(s): A and O 1, slow to respond, answers most questions appropriately by nodding. He can lift his hand slightly, intermittent right arm tremor. - Labs CBC & Chem 7: 08/14/19 07:22 08/14/19 07:22 Labs: Abnormal Lab Results - Last 24 Hours (Table) 08/13/19 08/13/19 08/14/19 Range/Units 12:20 19:51 00:04 RBC (4.30-5.90) m/uL Hgb (13.0-17.5) gm/dL Hct (39.0-53.0) % MCHC (31.0-37.0) g/dL RDW (11.5-15.5) % Lymphocytes # (1.0-4.8) k/uL Chloride (98-107) mmol/L Glucose (74-99) mg/dL POC Glucose (mg/dL) 108 H 107 H 110 H (75-99) mg/dL Calcium (8.4-10.2) mg/dL 08/14/19 08/14/19 08/14/19 Range/Units 05:48 07:22 07:22 RBC 3.47 L (4.30-5.90) m/uL Hgb 9.5 L (13.0-17.5) gm/dL Hct 32.4 L (39.0-53.0) % MCHC 29.3 L (31.0-37.0) g/dL RDW 16.3 H (11.5-15.5) % Lymphocytes # 0.9 L (1.0-4.8) k/uL Chloride 113 H (98-107) mmol/L Glucose 155 H (74-99) mg/dL POC Glucose (mg/dL) 149 H (75-99) mg/dL Calcium 12.2 H (8.4-10.2) mg/dL Assessment and Plan Plan: 1. Acute metabolic encephalopathy likely related to hypercalcemia most likely due to lung cancer. Continue D5 and half-normal saline at 70 mL per hour. Consults with Dr. Amin and nephrology appreciated. Consult with Dr. Arriaza added. 2. CAD with ischemic cardiomyopathy and ejection fraction 25%. Patient is unable to take his home medication at this point I will start him on Lopressor 2.5 mg push every 12 hours. 3. Hypertension and hypertensive cardiovascular disease. Continue Lopressor 2.5 mg push every 12 hours. 4. Hyperlipidemia. Patient is not able to take his Lipitor. 5. Diabetes mellitus type 2. Continue patient on sliding scale insulin. 6. Parkinson's disease. Patient is not able to take his Proventil. 7. History of CVA. Patient will need to go back on Pradaxa when he is able to swallow medication. 8. Enlarged prostate. Stable. 9. Paroxysmal atrial fibrillation currently in sinus rhythm. Not able to take his medication at this point. 10. COPD. Continue DuoNeb 3 mL nebulization 4 times a day and Pulmicort 1 mg the position twice every day. 11. Hypercalcemia due to lung cancer and primary hyperparathyroidism. Continue IV fluid. 12. DVT prophylaxis. Heparin 5000 units subcutaneously every 12 hours. 13. GI prophylaxis. Continue Protonix 40 mg IV push every 24 hours. 14. Patient is full code as of now. 15. Overall prognosis guarded. Discharge plan to be determined Impression and plan of care have been directed as dictated by the signing physician. Chioma Foreman nurse practitioner acting as scribe for signing physician.
--- NOTE | 2019-08-14 15:41 | P.CONS ---
History of Present Illness - Reason for Consult Consult date: 08/14/19 liver and ling lesions Requesting physician: Chioma Foreman - Chief Complaint AMS - History of Present Illness Mr. Segal is a confused and lethargic -Citizen Of [place] male we have been asked to see due to abnormal findings of liver and lung lesions found on CT. He is no t able to communicate with us or follow commands, history is taken from review of medical records. No history of liver or lung cancers. Has PMH significant for CAD, NSTEMI, hypertension, DMII, neuropathy, Parkinsons, dementia, BPH, atrial fibrillation on plavix and pradaxa. He was recently hospitalized for encephalopathy, family brought him back patient became obtunded. He was found to hypercalcemic, Ca++ 13.4, he was admitted, given aredia and started on IV fluids. Non-contrast CT chest for hypercalcemia showed liver and lung lesions. Family reported pt decline over the last 2 weeks, poor oral intake. Review of Systems ROS unobtainable: due to mental status Past Medical History Past Medical History: Atrial Fibrillation, Coronary Artery Disease (CAD), Cancer, Chest Pain / Angina, COPD, Dementia, Diabetes Mellitus, GERD/Reflux, Hyperlipidemia, Hypertension, Memory Impairment, Osteoarthritis (OA), Prostate Disorder, Thyroid Disorder Additional Past Medical History / Comment(s): Back pain r/t sciatica, right lung cancer, kidney stone, NSTEMI, dysphagia, BPH, hypothyroid, dementia, hyperparathyroidism, impaired gait. Last Myocardial Infarction Date:: History of Any Multi-Drug Resistant Organisms: None Reported Past Surgical History: Heart Catheterization With Stent Additional Past Surgical History / Comment(s): Lung ca removed from right lung (lobectomy), neck sx d/t to fx, stent to right groin. Past Anesthesia/Blood Transfusion Reactions: No Reported Reaction Date of Last Stent Placement:: 2016 Past Psychological History: No Psychological Hx Reported Smoking Status: Former smoker Past Alcohol Use History: None Reported, Occasional Past Drug Use History: None Reported - Past Family History Father History Unknown: Yes Family Medical History: No Reported History Additional Family Medical History / Comment(s): . Mother History Unknown: Yes Family Medical History: No Reported History Additional Family Medical History / Comment(s): . Medications and Allergies Home Medications Medication Instructions Recorded Confirmed Type Levothyroxine Sodium [Synthroid] 25 mcg PO DAILY@0600 05/19/16 08/11/19 History Atorvastatin Calcium [Lipitor] 40 mg PO HS@209910/25/16 08/11/19 History Donepezil [Aricept] 10 mg PO HS@209910/25/16 08/11/19 History Baclofen [Lioresal] 10 mg PO TID@0600,1400,2200 04/10/17 08/11/19 History Tamsulosin HCl [Flomax] 0.4 mg PO BID@0900,209904/10/17 08/11/19 History Dabigatran [Pradaxa] 150 mg PO BID@0900,209904/14/17 08/11/19 History Potassium Chloride ER [K-Dur 20] 20 meq PO TID@0900,1300,209907/06/17 08/11/19 History Amiodarone [Cordarone] 200 mg PO DAILY@0900 03/14/18 08/11/19 History Ergocalciferol [Vitamin D2 50,000 unit PO FR@89903/14/18 08/11/19 History (DRISDOL)] Melatonin 10 mg PO HS@209903/14/18 08/11/19 History Metoprolol Tartrate [Lopressor] 25 mg PO BID@0900,209903/14/18 08/11/19 History Nitroglycerin [Nitroglycerin 1 spray TRANSLINGU Q5M PRN 03/14/18 08/11/19 History 400MCG [place]] Budesonide [Pulmicort] 0.5 mg INHALATION RT-BID 09/28/18 08/11/19 History Carboxymethylcellulose Sodium 1 drop BOTH EYES BID@0900,209909/28/18 08/11/19 History [Refresh Tears] INSULIN ASPART (NovoLOG) [NovoLOG See Protocol SQ TID@0900,1300,1900 09/28/18 08/11/19 History (formulary)] Metolazone [Zaroxolyn] 2.5 mg PO TUTH@0900 09/28/18 08/11/19 History Midodrine HCl [ProAmatine] 10 mg PO TID@0900,1300,209909/28/18 08/11/19 History Montelukast [Singulair] 10 mg PO HS@209909/28/18 08/11/19 History Ipratropium-Albuterol Nebulize 3 ml INHALATION RT-TID ampul.neb 10/02/18 08/11/19 Rx [Duoneb 0.5 mg-3 mg/3 ml Soln] Spironolactone [Aldactone] 12.5 mg PO DAILY@0900 #0 10/02/18 08/11/19 Rx Famotidine [Pepcid] 20 mg PO DAILY@0900 11/17/18 08/11/19 History Insulin Glargine,Hum.rec.anlog 17 unit SQ HS@209911/17/18 08/11/19 History [Basaglar Kwikpen U-100] Allopurinol [Zyloprim] 300 mg PO DAILY 07/23/19 08/11/19 History Furosemide [Lasix] 40 mg PO BID 07/23/19 08/11/19 History Magnesium Oxide [Mag-Ox] 400 mg PO BID 07/23/19 08/11/19 History Pramox-Calamine 1-8% Lotion 1 applic TOPICAL HS 07/23/19 08/11/19 History [Caladryl] Primidone [Mysoline] 250 mg PO TID 07/23/19 08/11/19 History Cinacalcet HCl [Sensipar] 60 mg PO BID #0 07/24/19 08/11/19 Rx Lisinopril [Zestril] 2.5 mg PO DAILY #30 tab 07/24/19 08/11/19 Rx Sennosides [Senokot] 8.6 mg PO DAILY PRN tab 07/24/19 08/11/19 Rx Clopidogrel [Plavix] 75 mg PO DAILY #30 tablet 08/10/19 08/11/19 Rx Allergies Allergy/AdvReac Type Severity Reaction Status Date / Time latex Allergy Rash/Hives Verified 08/11/19 12:43 Physical Exam Vitals: Vital Signs Temp Pulse Pulse Resp BP BP Pulse Ox 08/14/19 12:40 96 08/14/19 12:27 96 08/14/19 08:09 92 08/14/19 07:51 92 08/14/19 05:00 98.5 F 102 H 20 124/69 95 08/13/19 23:00 98.9 F 95 20 126/69 99 02/03/20 22:10 83 18 122/61 94 L 08/13/19 22:00 83 20 96/54 94 L 08/13/19 21:00 98.1 F 104 H 20 136/77 94 L 08/13/19 20:14 95 08/13/19 20:00 89 18 127/63 98 08/13/19 19:56 90 Intake and Output 08/14/19 08/14/19 08/14/19 06:59 14:59 22:59 Intake Total 100 10 Output Total 1200 Balance -1100 10 Intake: Oral 100 10 Output: Urine 1200 Other: Voiding Method Indwelling Catheter Indwelling Catheter - Constitutional General appearance: average body habitus, disheveled, no acute distress - EENT Eyes: anicteric sclerae, EOMI - Neck Neck: no lymphadenopathy - Respiratory Respiratory: bilateral: rhonchi - Cardiovascular Heart sounds: normal: S1, S2 leg Peripheral Edema: bilateral: Trace - Gastrointestinal General gastrointestinal: no absent bowel sounds, no decreased bowel sounds, no distended, no hepatomegaly, no hyperactive bowel sounds, normal bowel sounds, no organomegaly, no rigid, no scaphoid, soft, no splenomegaly, no tenderness, no umbilical hernia, no ventral hernia - Neurologic tremor noted, rigid L>R - Musculoskeletal Musculoskeletal: generalized weakness - Psychiatric unable to follow commands Psychiatric: no A&O x's 3, no appropriate affect, no intact judgment & insight Results CBC & Chem 7: 08/14/19 07:22 08/14/19 07:22 Labs: Abnormal Lab Results - Last 24 Hours (Table) 08/13/19 08/14/19 08/14/19 Range/Units 19:51 00:04 05:48 RBC (4.30-5.90) m/uL Hgb (13.0-17.5) gm/dL Hct (39.0-53.0) % MCHC (31.0-37.0) g/dL RDW (11.5-15.5) % Lymphocytes # (1.0-4.8) k/uL Chloride (98-107) mmol/L Glucose (74-99) mg/dL POC Glucose (mg/dL) 107 H 110 H 149 H (75-99) mg/dL Calcium (8.4-10.2) mg/dL 08/14/19 08/14/19 08/14/19 Range/Units 07:22 07:22 11:41 RBC 3.47 L (4.30-5.90) m/uL Hgb 9.5 L (13.0-17.5) gm/dL Hct 32.4 L (39.0-53.0) % MCHC 29.3 L (31.0-37.0) g/dL RDW 16.3 H (11.5-15.5) % Lymphocytes # 0.9 L (1.0-4.8) k/uL Chloride 113 H (98-107) mmol/L Glucose 155 H (74-99) mg/dL POC Glucose (mg/dL) 196 H (75-99) mg/dL Calcium 12.2 H (8.4-10.2) mg/dL Chest x-ray: report reviewed CT Scan - head: report reviewed US - abdomen: report reviewed Assessment and Plan (1) Lung nodule Narrative/Plan: CT with IV and oral contrast wanted for evaluation of lung and liver lesions. On hold until pt more alert and better able to manage secretions. Will f/u. Pt may need biopsy of easiest lesion to access Current Visit: Yes Status: Acute Priority: High Code(s): R91.1 - SOLITARY PULMONARY NODULE SNOMED Code(s): 903786980 (2) Liver lesion Current Visit: Yes Status: Acute Priority: High Code(s): K76.9 - LIVER DISEASE, UNSPECIFIED SNOMED Code(s): 966751679 (3) Hypercalcemia Narrative/Plan: Aredia already ordered and given. Cont to monitor Ca++ Labs to evaluate for a metabolic condition or paraproteinemia ordered. NM Bone scan-resched, pt unable to lay Current Visit: Yes Status: Acute Priority: High Code(s): E83.52 - HYPERCALCEMIA SNOMED Code(s): 64085712 Plan: Pt mental status is making it difficult for him to tolerate oral contrast and there are concerns for aspiration if he has to lay for scans so, we will delay scans for today and re-evaluate pt. Attests: I have performed H&P and developed impression and plan of care of patient, discussed with dictator. I agree with dictated note, documented as a scribe.
[2019-08-14 17:22] LABS: Glucose,Whole Blood 121 mg/dL (75-99)
[2019-08-14 18:39] LABS: Protein, Total 5.4 g/dL (6.2-8.2)
[2019-08-14 18:54] LABS: Ferritin 63.3 ng/mL (22.0-322.0)
[2019-08-14 19:21] LABS: % Iron Saturation 11.03 (15.00-50.00)
[2019-08-14 20:22] LABS: Glucose,Whole Blood 117 mg/dL (75-99)
[2019-08-14] MEDS: INSULIN DETEMIR (LEVEMIR) 100 UNIT/ML SYR SQ SCH (21:33)
[2019-08-15 07:07] LABS: Glucose,Whole Blood 137 mg/dL (75-99)
[2019-08-15] MEDS: PANTOPRAZOLE 40 MG/10 ML VIAL IVP SCH (07:23)
[2019-08-15] MEDS: INSULIN ASPART (NovoLOG) 100 UNIT/ML VIAL SQ SCH ×4 (07:23→21:59)
[2019-08-15] MEDS: HEPARIN SODIUM,PORCINE 5,000 UNIT/ML 1 ML VIAL SQ SCH ×2 (07:24→21:55)
[2019-08-15] MEDS: METOPROLOL TARTRATE 25 MG TAB PO SCH ×2 (07:24→21:55)
[2019-08-15] MEDS: ARTIFICIAL TEARS-HYPROMELLOSE DROPS 15 ML BTL BOTH EYES SCH ×2 (07:24→21:55)
[2019-08-15] MEDS: DEXTROSE 5%-0.45% NACL 1,000 ML IV SCH (07:34)
[2019-08-15 08:30] LABS: Free Kappa Lt Chain Qnt, Serum 2.76 mg/dL (0.33-1.94)
[2019-08-15] MEDS: IPRATROPIUM-ALBUTEROL 3 ML NEB INHALATION SCH ×3 (08:31→19:47)
[2019-08-15] MEDS: BUDESONIDE 0.5 MG/2 ML NEBU INHALATION SCH ×2 (08:31→19:47)
[2019-08-15 09:43] LABS: African American GFR (CKD) >90 (>60 ml/min/1.73 sqM); Anion Gap 3 mmol/L; Blood Urea Nitrogen 8 mg/dL (9-20); Calcium 12.1 mg/dL (8.4-10.2); Carbon Dioxide 27 mmol/L (22-30); Chloride 114 mmol/L (98-107); Glucose 154 mg/dL (74-99); Magnesium 1.9 mg/dL (1.6-2.3); Non-African American GFR(CKD) 86 (>60 ml/min/1.73 sqM); Potassium 3.5 mmol/L (3.5-5.1); Sodium 144 mmol/L (137-145)
--- NOTE | 2019-08-15 11:38 | P.PN ---
Subjective Patient is seen in follow-up for hypercalcemia. Calcium is 12.1 today. Patient is more awake and alert but still nonverbal at this time. He is currently maintained on D5 0.45% at 50 mL an hour. Hemodynamically stable. He is now tolerating oral pills. Vital signs are stable. General: The patient appeared well nourished and normally developed. HEENT: Head exam is unremarkable. Neck is without jugular venous distension. LUNGS: Lungs are clear to auscultation and percussion. Breath sounds decreased. Scattered rhonchi. HEART: Rate and Rhythm are regular. First and second heart sounds normal. No murmurs, rubs or gallops. ABDOMEN: Abdominal exam reveals normal bowel sounds. Non-tender and non- distended. No evidence of peritonitis. EXTREMITITES: No clubbing, cyanosis, or edema. Objective - Vital Signs Vital signs: Vital Signs Temp 98.1 F 08/15/19 05:08 Pulse 92 08/15/19 08:44 Resp 20 08/15/19 05:08 BP 116/58 08/15/19 05:08 Pulse Ox 98 08/15/19 05:08 Intake & Output 08/14/19 08/15/19 08/15/19 18:59 06:59 18:59 Intake Total 30 Output Total 1300 400 Balance -1270 -400 Intake: Oral 30 Output: Urine 1300 400 Other: Voiding Method Indwelling Catheter Indwelling Catheter Indwelling Catheter - Labs CBC & Chem 7: 08/14/19 07:22 08/15/19 08:12 Labs: Abnormal Lab Results - Last 24 Hours (Table) 08/14/19 08/14/19 08/14/19 Range/Units 07:22 07:22 07:22 Chloride (98-107) mmol/L BUN (9-20) mg/dL Glucose (74-99) mg/dL POC Glucose (mg/dL) (75-99) mg/dL Calcium (8.4-10.2) mg/dL Iron 29 L (65-175) ug/dL % Saturation 11.03 L (15.00-50.00) Total Protein (PEP) 5.4 L (6.2-8.2) g/dL PTH Intact 164.2 H (14.0-72.0) pg/mL Free [place] LC, Quant 2.76 H (0.33-1.94) mg/dL 08/14/19 08/14/19 08/14/19 Range/Units 11:41 17:20 20:21 Chloride (98-107) mmol/L BUN (9-20) mg/dL Glucose (74-99) mg/dL POC Glucose (mg/dL) 196 H 121 H 117 H (75-99) mg/dL Calcium (8.4-10.2) mg/dL Iron (65-175) ug/dL % Saturation (15.00-50.00) Total Protein (PEP) (6.2-8.2) g/dL PTH Intact (14.0-72.0) pg/mL Free [place] LC, Quant (0.33-1.94) mg/dL 08/15/19 08/15/19 Range/Units 07:00 08:12 Chloride 114 H (98-107) mmol/L BUN 8 L (9-20) mg/dL Glucose 154 H (74-99) mg/dL POC Glucose (mg/dL) 137 H (75-99) mg/dL Calcium 12.1 H (8.4-10.2) mg/dL Iron (65-175) ug/dL % Saturation (15.00-50.00) Total Protein (PEP) (6.2-8.2) g/dL PTH Intact (14.0-72.0) pg/mL Free [place] LC, Quant (0.33-1.94) mg/dL Assessment and Plan Plan: Assessment: 1. Hypercalcemia secondary to primary hyperparathyroidism. Recent workup including electrophoresis studies, vitamin D level and angiotensin-converting enzyme levels normal. PTH elevated above 200. Calcium level 12.1 today. 2. Mild hypernatremia improved with hypotonic fluids. Stable. 3. Chronic systolic CHF with ejection fraction of 20-25% with moderate mitral regurgitation. 4. Insulin-dependent diabetes mellitus. 5. A. fib maintained on metoprolol. Currently rate controlled. Plan: Maintain half-normal saline at 50 mL an hour. Resume Sensipar 60 mg twice daily. Status post pamidronate 60 mg on 08/12/2019. Repeat electrolytes in the morning. Son present at bedside. He wishes for no surgical intervention such as parathyroidectomy for the patient.
[2019-08-15 11:57] LABS: Glucose,Whole Blood 186 mg/dL (75-99)
--- NOTE | 2019-08-15 15:01 | P.PN ---
Subjective Progress Note Date: 08/15/19 This is an 84-year-old -[place] male one of Dr. Israel with a previous medical history significant for CAD post non-ST elevation [place] with ischemic cardiomyopathy recent echocardiogram showed ejection fraction 2025% with mild aortic stenosis and moderate mitral regurgitation, hypertension and hypertensive cardio vascular disease with left ventricular hypertrophy, diabetes mellitus type 2 with diabetic polyneuropathy, Parkinson disease generalized weakness wheelchair bound and vascular dementia along with paroxysmal atrial fibrillation benign prostatic hypertrophy osteoporosis with significant hypercalcemia was recently discharged from [facility] after he was admitted to the hospital for significant encephalopathy and the patient was sent home on 08/09/2019 he ended up going back to the emergency department at the [facility] yesterday because his Peres catheter was removed, and the patient was sent home however the patient was quite obtunded and his son ended up bringing him back to the emergency department at [facility] because of increased uptake mentation and mental status changes and was found to have a significant hypercalcemia he was admitted to the hospital he was started on IV fluid resuscitation the form of normal saline and 100 mL an hour patient's son wasn't bedside and he was concerned quite a bit about the patient mental status and he stated that his father was doing this for the past 2 weeks he has not been eating or drinking anything and he has not been taking his medications 2/2: Patient is more alert and awake today. He is able to answer questions appropriately he is slow to respond. Patient's urinary output has been about 35 ML's per hour. A CT of the chest is ordered to rule out malignancy due to the hypercalcemia. Patient has history of hyperparathyroidism. W BC 7.7, hemoglobin 10.1, sodium 145, potassium 4.3, BUN 22, creatinine 0.95, calcium 13.1, I denies calcium 7.7, phosphorus 2.2. Blood pressure 142/70, heart rate 82, respiration rate 12, pulse ox a 98% on 2 L via nasal cannula. 2/3: Patient remains in the intensive care unit. CT of the chest revealed multiple right-sided pulmonary nodules raising suspicion for metastatic disease. Emphysematous changes throughout the lungs. Thoracic aortic aneurysm 3.9 cm. Cardiomegaly. Multiple hepatic lesions, could not exclude metastatic disease. Ultrasound of the liver was limited and nondiagnostic for evaluation of the liver. No evidence of acute cholecystitis although common bile duct not seen. Suboptimal evaluation of right kidney and probable right cyst. Consult added for Dr. Arriaza. Patient is followed by Dr. Amin and nephrology. Repeat lab work to day reveals calcium of 12.6, hemoglobin 9.4. 08/14: This morning, patient was having significant coughing with pured diet with nectar thick liquids. Chest x-ray was ordered that did not show any infiltrate. Speech therapy to reevaluate. Dr. Amin has evaluated and determined patient has not able for lung biopsy and at high risk for complication. Dr. Cruz has decrease IV fluids to 50 mL per hour. Sensipar to be resumed once tolerating oral medications. Repeat electrolytes in the morning. Discuss current situation with the on. What type of cancer his father has. Reiterated the patient is a poor candidate for any biopsy procedure. He is planning to discuss situation with the patient's . 08/15: Patient has been seen by oncology with recommendations for CAT scan with IV and oral can dress to evaluate lung and liver lesions. Patient may need biopsy of the easiest lesion to access. Also recommended bone scan which was rescheduled patient was unable to lay flat. Mental status making it difficult for him to tolerate oral contrast and concerns for aspiration of a silver scans. Plan to delay scans and reevaluate patient. Angiotensin I converting enzyme, free kappa Light chain, free lambda light chain, immunofixation, methylmalonic acid, protein electrophoresis all ordered and pending. Patient is afebrile, heart rate 64, blood pressure 116/58, pulse ox 98% on room air. Iron 29, TIBC 263, saturation 11, ferritin 63.3, protein electrophoresis 5.4, parathyroid hormone intact is 164.2. Free [place] 2.76, free lambda 1.76. For the time of evaluation, patient's nurse and nursing educator met with the patient's son and at this point, no biopsy or further aggressive treatment. Our plan will be to transition to hospice care as the guardian is open to this. Review of Systems: ROS unobtainable: due to mental status Objective - Vital Signs Vital signs: Vital Signs Temp 98.1 F 08/15/19 05:08 Pulse 92 08/15/19 08:44 Resp 20 08/15/19 05:08 BP 116/58 08/15/19 05:08 Pulse Ox 98 02/05/20 05:08 Intake & Output 08/14/19 08/15/19 08/15/19 18:59 06:59 18:59 Intake Total 30 Output Total 1300 400 Balance -1270 -400 Intake: Oral 30 Output: Urine 1300 400 Other: Voiding Method Indwelling Catheter Indwelling Catheter - Exam - Constitutional General appearance: Present: average body habitus, no acute distress, appears comfortable - EENT ENT: Present: hard of hearing - Neck Neck: Absent: lymphadenopathy, rigidity Carotids: bilateral: upstroke delayed Thyroid: bilateral: normal size - Respiratory Respiratory: bilateral: diminished, negative: dullness, rales, rhonchi, wheezing, prolonged expiration, prolonged inspiration - Cardiovascular Rhythm: regular Heart sounds: normal: S1, S2 Abnormal Heart Sounds: Present: systolic murmur. Absent: diastolic murmur, rub, S3 Gallop, S4 Gallop, click, other - Gastrointestinal General gastrointestinal: Present: normal bowel sounds, soft. Absent: splenomegaly, tenderness Peres catheter draining clear kerry urine. - Integumentary Integumentary: Present: decreased turgor, ulcer (Stage II coccygeal ulcer) - Neurologic Neurologic: Present: focal deficits - Psychiatric Psychiatric Comment(s): A and O 1, slow to respond, answers most questions appropriately by nodding. He can lift his hand slightly, intermittent right arm tremor. - Labs CBC & Chem 7: 08/14/19 07:22 08/15/19 08:12 Labs: Abnormal Lab Results - Last 24 Hours (Table) 08/14/19 08/14/19 08/14/19 Range/Units 07:22 07:22 07:22 POC Glucose (mg/dL) (75-99) mg/dL Iron 29 L (65-175) ug/dL % Saturation 11.03 L (15.00-50.00) Total Protein (PEP) 5.4 L (6.2-8.2) g/dL PTH Intact 164.2 H (14.0-72.0) pg/mL Free [place] LC, Quant 2.76 H (0.33-1.94) mg/dL 08/14/19 08/14/19 08/14/19 Range/Units 11:41 17:20 20:21 POC Glucose (mg/dL) 196 H 121 H 117 H (75-99) mg/dL Iron (65-175) ug/dL % Saturation (15.00-50.00) Total Protein (PEP) (6.2-8.2) g/dL PTH Intact (14.0-72.0) pg/mL Free [place] LC, Quant (0.33-1.94) mg/dL 08/15/19 Range/Units 07:00 POC Glucose (mg/dL) 137 H (75-99) mg/dL Iron (65-175) ug/dL % Saturation (15.00-50.00) Total Protein (PEP) (6.2-8.2) g/dL PTH Intact (14.0-72.0) pg/mL Free [place] LC, Quant (0.33-1.94) mg/dL Assessment and Plan Plan: 1. Acute metabolic encephalopathy likely related to hypercalcemia most likely due to lung cancer. Continue D5 and half-normal saline at 70 mL per hour. Consults with Dr. Amin and nephrology appreciated. Consult with Dr. Arriaza appreciated. 2. CAD with ischemic cardiomyopathy and ejection fraction 25%. Patient is unable to take his home medication at this point I will start him on Lopressor 2.5 mg push every 12 hours. 3. Hypertension and hypertensive cardiovascular disease. Continue Lopressor 2.5 mg push every 12 hours. 4. Hyperlipidemia. Patient is not able to take his Lipitor. 5. Diabetes mellitus type 2. Continue patient on sliding scale insulin. 6. Parkinson's disease. Patient is not able to take his Proventil. 7. History of CVA. Patient will need to go back on Pradaxa when he is able to swallow medication. 8. Enlarged prostate. Stable. 9. Paroxysmal atrial fibrillation currently in sinus rhythm. Not able to take his medication at this point. 10. COPD. Continue DuoNeb 3 mL nebulization 4 times a day and Pulmicort 1 mg the position twice every day. 11. Hypercalcemia due to lung cancer and primary hyperparathyroidism. Continue IV fluid. 12. DVT prophylaxis. Heparin 5000 units subcutaneously every 12 hours. 13. GI prophylaxis. Continue Protonix 40 mg IV push every 24 hours. 14. Patient is full code as of now. 15. Overall prognosis guarded. Discharge plan: to be determined Impression and plan of care have been directed as dictated by the signing physician. Chioma Convery nurse practitioner acting as scribe for signing physician.
[2019-08-15 17:03] LABS: Glucose,Whole Blood 127 mg/dL (75-99)
--- NOTE | 2019-08-15 17:36 | P.PN ---
Subjective Progress Note Date: 08/15/19 Principal diagnosis: encephalopathy, hypercalcemia In follow-up today patient was a little more alert and oriented than yesterday, he denied hunger, thirst, pain or need to go to the bathroom. His son was at the bedside Objective - Vital Signs Vital signs: Vital Signs Temp 98.7 F 08/15/19 13:18 Pulse 73 08/15/19 13:18 Resp 18 08/15/19 13:18 BP 106/68 08/15/19 13:18 Pulse Ox 98 08/15/19 13:18 Intake & Output 08/14/19 08/15/19 08/15/19 18:59 06:59 18:59 Intake Total 30 Output Total 1300 400 275 Balance -1270 -400 -275 Weight 81.4 kg Intake: Oral 30 Output: Urine 1300 400 275 Other: Voiding Method Indwelling Catheter Indwelling Catheter Indwelling Catheter - Exam Well-developed, adequately nourished, frail -[place] male, no acute distress, alert, oriented to self and place, generalized tremor noted, general rigidity, S1, S2, bilateral breath sounds diminished, no wheezing, bowel sounds positive, no abdominal distention or hepatomegaly, no lower extremity swelling - Labs CBC & Chem 7: 08/14/19 07:22 08/15/19 08:12 Labs: Abnormal Lab Results - Last 24 Hours (Table) 08/14/19 08/14/19 08/14/19 Range/Units 07:22 07:22 07:22 Chloride (98-107) mmol/L BUN (9-20) mg/dL Glucose (74-99) mg/dL POC Glucose (mg/dL) (75-99) mg/dL Calcium (8.4-10.2) mg/dL Iron 29 L (65-175) ug/dL % Saturation 11.03 L (15.00-50.00) Total Protein (PEP) 5.4 L (6.2-8.2) g/dL PTH Intact 164.2 H (14.0-72.0) pg/mL Free [place] LC, Quant 2.76 H (0.33-1.94) mg/dL 08/14/19 08/15/19 08/15/19 Range/Units 20:21 07:00 08:12 Chloride 114 H (98-107) mmol/L BUN 8 L (9-20) mg/dL Glucose 154 H (74-99) mg/dL POC Glucose (mg/dL) 117 H 137 H (75-99) mg/dL Calcium 12.1 H (8.4-10.2) mg/dL Iron (65-175) ug/dL % Saturation (15.00-50.00) Total Protein (PEP) (6.2-8.2) g/dL PTH Intact (14.0-72.0) pg/mL Free [place] LC, Quant (0.33-1.94) mg/dL 08/15/19 08/15/19 Range/Units 11:55 16:57 Chloride (98-107) mmol/L BUN (9-20) mg/dL Glucose (74-99) mg/dL POC Glucose (mg/dL) 186 H 127 H (75-99) mg/dL Calcium (8.4-10.2) mg/dL Iron (65-175) ug/dL % Saturation (15.00-50.00) Total Protein (PEP) (6.2-8.2) g/dL PTH Intact (14.0-72.0) pg/mL Free [place] LC, Quant (0.33-1.94) mg/dL Assessment and Plan (1) Lung nodule Current Visit: Yes Status: Acute Priority: High Code(s): R91.1 - SOLITARY PULMONARY NODULE SNOMED Code(s): 761148691 (2) Liver lesion Current Visit: Yes Status: Acute Priority: High Code(s): K76.9 - LIVER DISEASE, UNSPECIFIED SNOMED Code(s): 581949614 (3) Hypercalcemia Narrative/Plan: Aredia already ordered and given. Cont to monitor Ca++ Labs to evaluate for a metabolic condition or paraproteinemia ordered. Current Visit: Yes Status: Acute Priority: High Code(s): E83.52 - HYPERCALCEMIA SNOMED Code(s): 72199369 Plan: Patient's son was very distressed. We explained to the son that the patient has lung and liver nodules that are highly suspicious for malignancy especially based on his presentation. We encouraged him to let nursing know if, after speaking with his mother, if they wanted to proceed with any further workup on his father. We will remain available for any questions or concerns. All imaging has been canceled at this time. Attests: I have performed H&P and developed impression and plan of care of patient, discussed with dictator. I agree with dictated note, documented as a scribe.
[2019-08-15 21:35] LABS: Glucose,Whole Blood 214 mg/dL (75-99)
[2019-08-15] MEDS: CINACALCET 30 MG TAB PO SCH (21:55)
[2019-08-15] MEDS: INSULIN DETEMIR (LEVEMIR) 100 UNIT/ML SYR SQ SCH (21:59)
[2019-08-16] MEDS: DEXTROSE 5%-0.45% NACL 1,000 ML IV SCH ×2 (05:30→23:27)
[2019-08-16 07:09] LABS: Glucose,Whole Blood 223 mg/dL (75-99)
[2019-08-16] MEDS: PANTOPRAZOLE 40 MG/10 ML VIAL IVP SCH (07:54)
[2019-08-16] MEDS: CINACALCET 30 MG TAB PO SCH ×2 (07:55→22:25)
[2019-08-16] MEDS: METOPROLOL TARTRATE 25 MG TAB PO SCH ×2 (07:55→22:25)
[2019-08-16] MEDS: HEPARIN SODIUM,PORCINE 5,000 UNIT/ML 1 ML VIAL SQ SCH (07:55)
[2019-08-16] MEDS: ARTIFICIAL TEARS-HYPROMELLOSE DROPS 15 ML BTL BOTH EYES SCH ×2 (07:56→22:21)
[2019-08-16] MEDS: INSULIN ASPART (NovoLOG) 100 UNIT/ML VIAL SQ SCH ×4 (07:56→22:22)
[2019-08-16] MEDS: IPRATROPIUM-ALBUTEROL 3 ML NEB INHALATION SCH ×3 (08:33→20:14)
[2019-08-16] MEDS: BUDESONIDE 0.5 MG/2 ML NEBU INHALATION SCH ×2 (08:33→20:14)
--- NOTE | 2019-08-16 10:54 | P.PN ---
Subjective Patient is seen in follow-up for hypercalcemia. Calcium is 12.1 as of yesterday. Patient is more awake and alert but still nonverbal at this time. He is currently maintained on D5 0.45% at 50 mL an hour. Hemodynamically stable. He is now tolerating oral pills. Vital signs are stable. General: The patient appeared well nourished and normally developed. HEENT: Head exam is unremarkable. Neck is without jugular venous distension. LUNGS: Lungs are clear to auscultation and percussion. Breath sounds decreased. Scattered rhonchi. HEART: Rate and Rhythm are regular. First and second heart sounds normal. No murmurs, rubs or gallops. ABDOMEN: Abdominal exam reveals normal bowel sounds. Non-tender and non- distended. No evidence of peritonitis. EXTREMITITES: No clubbing, cyanosis, or edema. Objective - Vital Signs Vital signs: Vital Signs Temp 99.0 F 08/16/19 04:40 Pulse 88 08/16/19 08:48 Resp 22 08/16/19 04:40 BP 113/61 08/16/19 04:40 Pulse Ox 97 08/16/19 04:40 Intake & Output 08/15/19 08/16/19 08/16/19 18:59 06:59 18:59 Output Total 275 700 Balance -275 -700 Weight 81.4 kg Output: Urine 275 700 Uretheral (Peres) 150 Other: Voiding Method Indwelling Catheter Indwelling Catheter Indwelling Catheter # Bowel Movements 0 - Labs CBC & Chem 7: 08/14/19 07:22 08/15/19 08:12 Labs: Abnormal Lab Results - Last 24 Hours (Table) 08/15/19 08/15/19 08/15/19 Range/Units 11:55 16:57 21:33 POC Glucose (mg/dL) 186 H 127 H 214 H (75-99) mg/dL 08/16/19 Range/Units 07:06 POC Glucose (mg/dL) 223 H (75-99) mg/dL Assessment and Plan Plan: Assessment: 1. Hypercalcemia secondary to primary hyperparathyroidism. Recent workup including electrophoresis studies, vitamin D level and angiotensin-converting enzyme levels normal. PTH elevated above 200. Calcium level 12.1 as of yesterday. 2. Mild hypernatremia improved with hypotonic fluids. Stable. 3. Chronic systolic CHF with ejection fraction of 20-25% with moderate mitral regurgitation. 4. Insulin-dependent diabetes mellitus. 5. A. fib maintained on metoprolol. Currently rate controlled. Plan: Maintain half-normal saline at 50 mL an hour. Continue Sensipar 60 mg twice daily. Status post pamidronate 60 mg on 08/12/2019. Repeat electrolytes in the morning. Case was discussed with the patient's son. He wishes for no surgical intervention such as parathyroidectomy for the patient.
[2019-08-16 11:37] LABS: Glucose,Whole Blood 203 mg/dL (75-99)
[2019-08-16 11:40] LABS: ALT 11 U/L (4-49); AST 20 U/L (17-59); African American GFR (CKD) >90 (>60 ml/min/1.73 sqM); Albumin 2.6 g/dL (3.5-5.0); Alkaline Phosphatase 57 U/L (38-126); Anion Gap 7 mmol/L; Blood Urea Nitrogen 7 mg/dL (9-20); Carbon Dioxide 26 mmol/L (22-30); Chloride 112 mmol/L (98-107); Glucose 181 mg/dL (74-99); Non-African American GFR(CKD) 89 (>60 ml/min/1.73 sqM); Potassium 3.3 mmol/L (3.5-5.1); Sodium 145 mmol/L (137-145); Total Bilirubin 0.2 mg/dL (0.2-1.3); Total Protein 5.6 g/dL (6.3-8.2)
[2019-08-16 12:59] LABS: Albumin 2.33 g/dL (3.80-4.90); Gamma Globulin 0.85 g/dL (0.70-1.50)
--- NOTE | 2019-08-16 13:54 | P.PN ---
Subjective Progress Note Date: 08/16/19 Principal diagnosis: Hypercalcemia likely related to hyperparathyroidism, small subcentimeter few pulmonary nodules and right upper lobe, hyperparathyroidism, ischemic cardiomyopathy ejection fraction of 25%, aortic stenosis, advanced dementia and Alzheimer's disease, hypertension hypertensive cardiovascular disease, type 2 diabetes mellitus 08/16/2019, patient seen eval reexamined awake but nonverbal and noncommunicative, it remains a challenge to supplemental forward to this patient, mental status has improved as calcium level is coming down most recent calcium is 12.1, the computed tomography scan of the chest reviewed very small subcentimeter few nodules are seen predominantly in the right upper lobe of clinical significance unknown, they are too small to do the biopsy will prefer to observe it for now as biopsy cavities highly risk of complications Objective - Vital Signs Vital signs: Vital Signs Temp 99.0 F 08/16/19 04:40 Pulse 88 08/16/19 12:42 Resp 22 08/16/19 04:40 BP 113/61 08/16/19 04:40 Pulse Ox 97 08/16/19 04:40 Intake & Output 08/15/19 08/16/19 08/16/19 18:59 06:59 18:59 Output Total 275 700 Balance -275 -700 Weight 81.4 kg Output: Urine 275 700 Uretheral (Peres) 150 Other: Voiding Method Indwelling Catheter Indwelling Catheter Indwelling Catheter # Bowel Movements 0 - Exam Constitutional General appearance: average body habitus, disheveled, mild distress - EENT Eyes: EOMI, PERRLA Ears: bilateral: normal - Neck Neck: normal ROM Carotids: bilateral: upstroke normal Thyroid: bilateral: normal size - Respiratory Respiratory: bilateral: diminished, negative: dullness, rales, rhonchi, wheezing - Cardiovascular Rhythm: regular Heart sounds: normal: S1, S2 - Gastrointestinal General gastrointestinal: normal bowel sounds - Musculoskeletal Musculoskeletal: generalized weakness - Labs CBC & Chem 7: 08/14/19 07:22 08/16/19 10:47 Labs: Abnormal Lab Results - Last 24 Hours (Table) 08/14/19 08/15/19 08/15/19 Range/Units 07:22 16:57 21:33 Potassium (3.5-5.1) mmol/L Chloride (98-107) mmol/L BUN (9-20) mg/dL Glucose (74-99) mg/dL POC Glucose (mg/dL) 127 H 214 H (75-99) mg/dL Calcium (8.4-10.2) mg/dL Total Protein (6.3-8.2) g/dL Albumin (3.5-5.0) g/dL Albumin (PEP) 2.33 L (3.80-4.90) g/dL [id number] 0.45 H (0.10-0.40) g/dL 08/16/19 08/16/19 08/16/19 Range/Units 07:06 10:47 11:35 Potassium 3.3 L (3.5-5.1) mmol/L Chloride 112 H (98-107) mmol/L BUN 7 L (9-20) mg/dL Glucose 181 H (74-99) mg/dL POC Glucose (mg/dL) 223 H 203 H (75-99) mg/dL Calcium 11.0 H (8.4-10.2) mg/dL Total Protein 5.6 L (6.3-8.2) g/dL Albumin 2.6 L (3.5-5.0) g/dL Albumin (PEP) (3.80-4.90) g/dL Roncw-7-Afwuxccfu (0.10-0.40) g/dL Assessment and Plan Assessment: Severe hypercalcemia Likely primary hyperparathyroidism as parathormone level was high Right-sided multiple small subcentimeter pulmonary nodules involving the right upper lobe Would recommend a PET scan/serial computed tomography scan as outpatient Metabolic encephalopathy related to hypercalcemia and baseline dementia Ischemic cardiomyopathy ejection fraction of 25% Mild aortic stenosis Hypertension hypertensive cardiovascular disease/dyslipidemia/type 2 diabetes mellitus Plan: Continue gentle rehydration Monitor calcium levels closely, status post pamidronate infusion Would recommend a computed tomography scan short-term in 3-6 month or a PET scan Will reevaluate in outpatient setting Time with Patient: Greater than 30
[2019-08-16] MEDS ORDERED: SENNOSIDES 8.6 MG TAB PO PRN (15:27)
--- NOTE | 2019-08-16 15:32 | P.PN ---
Subjective Progress Note Date: 08/16/19 This is an 84-year-old -[place] male one of Dr. Israel with a previous medical history significant for CAD post non-ST elevation MD with ischemic cardiomyopathy recent echocardiogram showed ejection fraction 2025% with mild aortic stenosis and moderate mitral regurgitation, hypertension and hypertensive cardio vascular disease with left ventricular hypertrophy, diabetes mellitus type 2 with diabetic polyneuropathy, Parkinson disease generalized weakness wheelchair bound and vascular dementia along with paroxysmal atrial fibrillation benign prostatic hypertrophy osteoporosis with significant hypercalcemia was recently discharged from [facility] after he was admitted to the hospital for significant encephalopathy and the patient was sent home on 08/09/2019 he ended up going back to the emergency department at the [facility] yesterday because his Peres catheter was removed, and the patient was sent home however the patient was quite obtunded and his son ended up bringing him back to the emergency department at [facility] because of increased uptake mentation and mental status changes and was found to have a significant hypercalcemia he was admitted to the hospital he was started on IV fluid resuscitation the form of normal saline and 100 mL an hour patient's son wasn't bedside and he was concerned quite a bit about the patient mental status and he stated that his father was doing this for the past 2 weeks he has not been eating or drinking anything and he has not been taking his medications 2/2: Patient is more alert and awake today. He is able to answer questions appropriately he is slow to respond. Patient's urinary output has been about 35 ML's per hour. A CT of the chest is ordered to rule out malignancy due to the hypercalcemia. Patient has history of hyperparathyroidism. W BC 7.7, hemoglobin 10.1, sodium 145, potassium 4.3, BUN 22, creatinine 0.95, calcium 13.1, I denies calcium 7.7, phosphorus 2.2. Blood pressure 142/70, heart rate 82, respiration rate 12, pulse ox a 98% on 2 L via nasal cannula. 2/3: Patient remains in the intensive care unit. CT of the chest revealed multiple right-sided pulmonary nodules raising suspicion for metastatic disease. Emphysematous changes throughout the lungs. Thoracic aortic aneurysm 3.9 cm. Cardiomegaly. Multiple hepatic lesions, could not exclude metastatic disease. Ultrasound of the liver was limited and nondiagnostic for evaluation of the liver. No evidence of acute cholecystitis although common bile duct not seen. Suboptimal evaluation of right kidney and probable right cyst. Consult added for Dr. Arriaza. Patient is followed by Dr. Amin and nephrology. Repeat lab work to day reveals calcium of 12.6, hemoglobin 9.4. 08/14: This morning, patient was having significant coughing with pured diet with nectar thick liquids. Chest x-ray was ordered that did not show any infiltrate. Speech therapy to reevaluate. Dr. Amin has evaluated and determined patient has not able for lung biopsy and at high risk for complication. Dr. Cruz has decrease IV fluids to 50 mL per hour. Sensipar to be resumed once tolerating oral medications. Repeat electrolytes in the morning. Discuss current situation with the on. What type of cancer his father has. Reiterated the patient is a poor candidate for any biopsy procedure. He is planning to discuss situation with the patient's . 08/15: Patient has been seen by oncology with recommendations for CAT scan with IV and oral can dress to evaluate lung and liver lesions. Patient may need biopsy of the easiest lesion to access. Also recommended bone scan which was rescheduled patient was unable to lay flat. Mental status making it difficult for him to tolerate oral contrast and concerns for aspiration of a silver scans. Plan to delay scans and reevaluate patient. Angiotensin I converting enzyme, free kappa Light chain, free lambda light chain, immunofixation, methylmalonic acid, protein electrophoresis all ordered and pending. Patient is afebrile, heart rate 64, blood pressure 116/58, pulse ox 98% on room air. Iron 29, TIBC 263, saturation 11, ferritin 63.3, protein electrophoresis 5.4, parathyroid hormone intact is 164.2. Free Elida 2.76, free lambda 1.76. For the time of evaluation, patient's nurse and assistant in nursing met with the patient's son and at this point, no biopsy or further aggressive treatment. Our plan will be to transition to hospice care as the guardian is open to this. 08/16: The patient is more awake and alert today. He was able to all of his breakfast. Patient is afebrile, heart rate 88, blood pressure 113/61, pulse ox 97% on room air. Patient is followed by oncology, nephrology and pulmonary medicine. Pulmonary nodules are very small and 2 small to biopsy. Liver lesion seems to be a cyst. Dr. Amin has recommended PET scan as an outpatient. Patient is on Sensipar 60 mg twice daily. Repeat blood work reveals potassium 3.3, BUN 7, creatinine 0.68, calcium 11. military technology manager to discuss discharge planning with the patient's son. Patient may benefit from palliative care. Review of Systems: ROS unobtainable: due to mental status Objective - Vital Signs Vital signs: Vital Signs Temp 99.0 F 08/16/19 04:40 Pulse 78 08/16/19 04:40 Resp 22 08/16/19 04:40 BP 113/61 08/16/19 04:40 Pulse Ox 97 08/16/19 04:40 Intake & Output 08/15/19 08/16/19 08/16/19 18:59 06:59 18:59 Output Total 275 700 Balance -275 -700 Weight 81.4 kg Output: Urine 275 700 Uretheral (Peres) 150 Other: Voiding Method Indwelling Catheter Indwelling Catheter Indwelling Catheter # Bowel Movements 0 - Exam - Constitutional General appearance: Present: average body habitus, no acute distress, appears comfortable - EENT ENT: Present: hard of hearing - Neck Neck: Absent: lymphadenopathy, rigidity Carotids: bilateral: upstroke delayed Thyroid: bilateral: normal size - Respiratory Respiratory: bilateral: diminished, negative: dullness, rales, rhonchi, wheezing, prolonged expiration, prolonged inspiration - Cardiovascular Rhythm: regular Heart sounds: normal: S1, S2 Abnormal Heart Sounds: Present: systolic murmur. Absent: diastolic murmur, rub, S3 Gallop, S4 Gallop, click, other - Gastrointestinal General gastrointestinal: Present: normal bowel sounds, soft. Absent: splenomegaly, tenderness Peres catheter draining clear kerry urine. - Integumentary Integumentary: Present: decreased turgor, ulcer (Stage II coccygeal ulcer) - Neurologic Neurologic: Present: focal deficits - Psychiatric Psychiatric Comment(s): A and O 1, slow to respond, answers most questions appropriately by nodding. - Labs CBC & Chem 7: 08/14/19 07:22 08/16/19 10:47 Labs: Abnormal Lab Results - Last 24 Hours (Table) 08/15/19 08/15/19 08/15/19 Range/Units 08:12 11:55 16:57 Chloride 114 H (98-107) mmol/L BUN 8 L (9-20) mg/dL Glucose 154 H (74-99) mg/dL POC Glucose (mg/dL) 186 H 127 H (75-99) mg/dL Calcium 12.1 H (8.4-10.2) mg/dL 08/15/19 08/16/19 Range/Units 21:33 07:06 Chloride (98-107) mmol/L BUN (9-20) mg/dL Glucose (74-99) mg/dL POC Glucose (mg/dL) 214 H 223 H (75-99) mg/dL Calcium (8.4-10.2) mg/dL Assessment and Plan Plan: 1. Acute metabolic encephalopathy likely related to hypercalcemia secondary to hyperparathyroidism, primary. Continue D5 and half-normal saline at 50 mL per hour, sensitive 60 mg twice daily. Consults with Dr. Amin and nephrology appreciated. Consult with Dr. Arriaza appreciated. 2. CAD with ischemic cardiomyopathy and ejection fraction 25%. Patient will be resumed on Lopressor 25 mg oral twice daily. 3. Hypertension and hypertensive cardiovascular disease. Continue Lopressor . 4. Hyperlipidemia. Resume Lipitor. 5. Diabetes mellitus type 2. Continue patient on sliding scale insulin, Levemir 8 units at bedtime. 6. Parkinson's disease. Patient is not able to take his Proventil. 7. History of CVA. Resume Pradaxa. 8. Enlarged prostate. Stable. Resume Flomax 0.4 mg twice daily 9. Paroxysmal atrial fibrillation currently in sinus rhythm. Resume Lopressor and Pradaxa 10. COPD. Continue DuoNeb 3 mL nebulization 4 times a day and Pulmicort 1 mg the position twice every day, resume Singulair 10 mg at bedtime. 11. Hypercalcemia due to primary hyperparathyroidism. Continue IV fluid. 12. DVT prophylaxis. Resume Pradaxa. 13. GI prophylaxis. Continue Protonix 40 mg IV push every 24 hours. 14. Patient is full code as of now. 15. Overall prognosis guarded. 16. Pulmonary nodules of unclear etiology. Discharge plan: to be determined Impression and plan of care have been directed as dictated by the signing physician. Chioma Foreman nurse practitioner acting as scribe for signing physician.
[2019-08-16] MEDS ORDERED: POTASSIUM CHLORIDE ER 20 MEQ TAB.ER PO STA (16:08)
[2019-08-16 17:34] LABS: Glucose,Whole Blood 199 mg/dL (75-99)
[2019-08-16 21:34] LABS: Glucose,Whole Blood 195 mg/dL (75-99)
[2019-08-16] MEDS: TAMSULOSIN 0.4 MG CAP.ER.24H PO SCH (22:21)
[2019-08-16] MEDS: INSULIN DETEMIR (LEVEMIR) 100 UNIT/ML SYR SQ SCH (22:23)
[2019-08-16] MEDS: ATORVASTATIN 40 MG TAB PO SCH (22:24)
[2019-08-16] MEDS: DABIGATRAN 150 MG CAP PO SCH (22:24)
[2019-08-16] MEDS: MONTELUKAST 10 MG TAB PO SCH (22:25)
[2019-08-17] MEDS: LEVOTHYROXINE 25 MCG TAB PO SCH (05:31)
[2019-08-17 07:13] LABS: Glucose,Whole Blood 166 mg/dL (75-99)
[2019-08-17 08:56] LABS: ALT 12 U/L (4-49); AST 20 U/L (17-59); African American GFR (CKD) >90 (>60 ml/min/1.73 sqM); Albumin 2.5 g/dL (3.5-5.0); Alkaline Phosphatase 56 U/L (38-126); Anion Gap 3 mmol/L; Blood Urea Nitrogen 7 mg/dL (9-20); Calcium 10.3 mg/dL (8.4-10.2); Carbon Dioxide 25 mmol/L (22-30); Chloride 114 mmol/L (98-107); Glucose 168 mg/dL (74-99); Non-African American GFR(CKD) >90 (>60 ml/min/1.73 sqM); Potassium 3.6 mmol/L (3.5-5.1); Sodium 142 mmol/L (137-145); Total Bilirubin 0.3 mg/dL (0.2-1.3); Total Protein 5.6 g/dL (6.3-8.2)
[2019-08-17] MEDS: BUDESONIDE 0.5 MG/2 ML NEBU INHALATION SCH ×2 (09:17→20:51)
[2019-08-17] MEDS: IPRATROPIUM-ALBUTEROL 3 ML NEB INHALATION SCH ×3 (09:17→20:51)
[2019-08-17] MEDS: TAMSULOSIN 0.4 MG CAP.ER.24H PO SCH ×2 (09:32→21:13)
[2019-08-17] MEDS: PANTOPRAZOLE 40 MG/10 ML VIAL IVP SCH (09:32)
[2019-08-17] MEDS: CLOPIDOGREL 75 MG TAB PO SCH (09:32)
[2019-08-17] MEDS: SPIRONOLACTONE 25 MG TAB PO SCH (09:32)
[2019-08-17] MEDS: DABIGATRAN 150 MG CAP PO SCH ×2 (09:32→21:14)
[2019-08-17] MEDS: CINACALCET 30 MG TAB PO SCH ×2 (09:32→21:14)
[2019-08-17] MEDS: METOPROLOL TARTRATE 25 MG TAB PO SCH ×2 (09:33→21:13)
[2019-08-17] MEDS: INSULIN ASPART (NovoLOG) 100 UNIT/ML VIAL SQ SCH ×4 (09:33→21:15)
[2019-08-17] MEDS: ARTIFICIAL TEARS-HYPROMELLOSE DROPS 15 ML BTL BOTH EYES SCH ×2 (09:46→21:14)
--- NOTE | 2019-08-17 11:55 | P.PN ---
Subjective Patient is seen in follow-up for hypercalcemia. Calcium level 10.3 today. Patient is more awake and alert but still nonverbal at this time. He is currently maintained on D5 0.45% at 50 mL an hour. Hemodynamically stable. He is now tolerating oral pills. No changes overnight. Vital signs are stable. General: The patient appeared well nourished and normally developed. HEENT: Head exam is unremarkable. Neck is without jugular venous distension. LUNGS: Lungs are clear to auscultation and percussion. Breath sounds decreased. Scattered rhonchi. HEART: Rate and Rhythm are regular. First and second heart sounds normal. No murmurs, rubs or gallops. ABDOMEN: Abdominal exam reveals normal bowel sounds. Non-tender and non- distended. No evidence of peritonitis. EXTREMITITES: No clubbing, cyanosis, or edema. Objective - Vital Signs Vital signs: Vital Signs Temp 98.5 F 08/17/19 05:23 Pulse 84 08/17/19 09:28 Resp 27 H 08/17/19 05:23 BP 128/63 08/17/19 05:23 Pulse Ox 97 08/17/19 05:23 Intake & Output 08/16/19 08/17/19 08/17/19 18:59 06:59 18:59 Intake Total 300 Output Total 400 775 Balance -100 -775 Intake: Oral 300 Output: Urine 400 775 Uretheral (Peres) 250 Other: Voiding Method Indwelling Catheter Indwelling Catheter - Labs CBC & Chem 7: 08/14/19 07:22 08/17/19 08:06 Labs: Abnormal Lab Results - Last 24 Hours (Table) 08/14/19 08/16/19 08/16/19 Range/Units 07:22 17:24 21:33 Chloride (98-107) mmol/L BUN (9-20) mg/dL Creatinine (0.66-1.25) mg/dL Glucose (74-99) mg/dL POC Glucose (mg/dL) 199 H 195 H (75-99) mg/dL Calcium (8.4-10.2) mg/dL Total Protein (6.3-8.2) g/dL Albumin (3.5-5.0) g/dL Albumin (PEP) 2.33 L (3.80-4.90) g/dL Vsajm-[id number] 0.45 H (0.10-0.40) g/dL 08/17/19 08/17/19 Range/Units 07:12 08:06 Chloride 114 H (98-107) mmol/L BUN 7 L (9-20) mg/dL Creatinine 0.62 L (0.66-1.25) mg/dL Glucose 168 H (74-99) mg/dL POC Glucose (mg/dL) 166 H (75-99) mg/dL Calcium 10.3 H (8.4-10.2) mg/dL Total Protein 5.6 L (6.3-8.2) g/dL Albumin 2.5 L (3.5-5.0) g/dL Albumin (PEP) (3.80-4.90) g/dL [id number]-[id number] (0.10-0.40) g/dL Assessment and Plan Plan: Assessment: 1. Hypercalcemia secondary to primary hyperparathyroidism. Recent workup including electrophoresis studies, vitamin D level and angiotensin-converting enzyme levels normal. PTH elevated above 200. Calcium level trending down. 10.3 today. 2. Mild hypernatremia improved with hypotonic fluids. Better. 3. Chronic systolic CHF with ejection fraction of 20-25% with moderate mitral regurgitation. 4. Insulin-dependent diabetes mellitus. 5. A. fib maintained on metoprolol. Currently rate controlled. Plan: Maintain half-normal saline at 50 mL an hour. Continue Sensipar 60 mg twice daily. Status post pamidronate 60 mg on 08/12/2019. Repeat electrolytes in the morning. Case was discussed with the patient's son. He wishes for no surgical intervention such as parathyroidectomy for the patient.
[2019-08-17 12:19] LABS: Glucose,Whole Blood 180 mg/dL (75-99)
--- NOTE | 2019-08-17 14:54 | P.PN ---
Subjective Progress Note Date: 08/17/19 Principal diagnosis: Hypercalcemia likely related to hyperparathyroidism, small subcentimeter few pulmonary nodules and right upper lobe, hyperparathyroidism, ischemic cardiomyopathy ejection fraction of 25%, aortic stenosis, advanced dementia and Alzheimer's disease, hypertension hypertensive cardiovascular disease, type 2 diabetes mellitus 08/17/2019, patient seen eval examined during the rounds labs reviewed medications reviewed, calcium is down to 10.3 patient remains awake and alert but remains nonverbal, patient is being considered for palliative therapy by the staff no new recommendations at this time 08/16/2019, patient seen eval reexamined awake but nonverbal and noncommunicative, it remains a challenge to supplemental forward to this patient, mental status has improved as calcium level is coming down most recent calcium is 12.1, the computed tomography scan of the chest reviewed very small subcentimeter few nodules are seen predominantly in the right upper lobe of clinical significance unknown, they are too small to do the biopsy will prefer to observe it for now as biopsy cavities highly risk of complications Objective - Vital Signs Vital signs: Vital Signs Temp 98.5 F 08/17/19 05:23 Pulse 80 08/17/19 13:32 Resp 27 H 08/17/19 05:23 BP 128/63 08/17/19 05:23 Pulse Ox 97 08/17/19 05:23 Intake & Output 08/16/19 08/17/19 08/17/19 18:59 06:59 18:59 Intake Total 300 Output Total 400 775 Balance -100 -775 Weight 81.4 kg Intake: Oral 300 Output: Urine 400 775 Uretheral (Peres) 250 Other: Voiding Method Indwelling Catheter Indwelling Catheter Indwelling Catheter - Exam Constitutional General appearance: average body habitus, disheveled, mild distress - EENT Eyes: EOMI, PERRLA Ears: bilateral: normal - Neck Neck: normal ROM Carotids: bilateral: upstroke normal Thyroid: bilateral: normal size - Respiratory Respiratory: bilateral: diminished, negative: dullness, rales, rhonchi, wheezing - Cardiovascular Rhythm: regular Heart sounds: normal: S1, S2 - Gastrointestinal General gastrointestinal: normal bowel sounds - Musculoskeletal Musculoskeletal: generalized weakness - Labs CBC & Chem 7: 08/14/19 07:22 08/17/19 08:06 Labs: Abnormal Lab Results - Last 24 Hours (Table) 08/16/19 08/16/19 08/17/19 Range/Units 17:24 21:33 07:12 Chloride (98-107) mmol/L BUN (9-20) mg/dL Creatinine (0.66-1.25) mg/dL Glucose (74-99) mg/dL POC Glucose (mg/dL) 199 H 195 H 166 H (75-99) mg/dL Calcium (8.4-10.2) mg/dL Total Protein (6.3-8.2) g/dL Albumin (3.5-5.0) g/dL 08/17/19 08/17/19 Range/Units 08:06 12:09 Chloride 114 H (98-107) mmol/L BUN 7 L (9-20) mg/dL Creatinine 0.62 L (0.66-1.25) mg/dL Glucose 168 H (74-99) mg/dL POC Glucose (mg/dL) 180 H (75-99) mg/dL Calcium 10.3 H (8.4-10.2) mg/dL Total Protein 5.6 L (6.3-8.2) g/dL Albumin 2.5 L (3.5-5.0) g/dL Assessment and Plan Assessment: Severe hypercalcemia Likely primary hyperparathyroidism as parathormone level was high Right-sided multiple small subcentimeter pulmonary nodules involving the right upper lobe Would recommend a PET scan/serial computed tomography scan as outpatient Metabolic encephalopathy related to hypercalcemia and baseline dementia Ischemic cardiomyopathy ejection fraction of 25% Mild aortic stenosis Hypertension hypertensive cardiovascular disease/dyslipidemia/type 2 diabetes mellitus Plan: Continue gentle rehydration Monitor calcium levels closely, status post pamidronate infusion Would recommend a computed tomography scan short-term in 3-6 month or a PET scan Will reevaluate in outpatient setting We'll wait for the family's advice Time with Patient: Greater than 30
--- NOTE | 2019-08-17 15:14 | P.PN ---
Subjective Progress Note Date: 08/17/19 This is an 84-year-old -[place] male one of Dr. Israel with a previous medical history significant for CAD post non-ST elevation [place] with ischemic cardiomyopathy recent echocardiogram showed ejection fraction 2025% with mild aortic stenosis and moderate mitral regurgitation, hypertension and hypertensive cardio vascular disease with left ventricular hypertrophy, diabetes mellitus type 2 with diabetic polyneuropathy, Parkinson disease generalized weakness wheelchair bound and vascular dementia along with paroxysmal atrial fibrillation benign prostatic hypertrophy osteoporosis with significant hypercalcemia was recently discharged from [facility] after he was admitted to the hospital for significant encephalopathy and the patient was sent home on 08/09/2019 he ended up going back to the emergency department at the [facility] yesterday because his Peres catheter was removed, and the patient was sent home however the patient was quite obtunded and his son ended up bringing him back to the emergency department at [facility] because of increased uptake mentation and mental status changes and was found to have a significant hypercalcemia he was admitted to the hospital he was started on IV fluid resuscitation the form of normal saline and 100 mL an hour patient's son wasn't bedside and he was concerned quite a bit about the patient mental status and he stated that his father was doing this for the past 2 weeks he has not been eating or drinking anything and he has not been taking his medications 2/2: Patient is more alert and awake today. He is able to answer questions appropriately he is slow to respond. Patient's urinary output has been about 35 ML's per hour. A CT of the chest is ordered to rule out malignancy due to the hypercalcemia. Patient has history of hyperparathyroidism. W BC 7.7, hemoglobin 10.1, sodium 145, potassium 4.3, BUN 22, creatinine 0.95, calcium 13.1, I denies calcium 7.7, phosphorus 2.2. Blood pressure 142/70, heart rate 82, respiration rate 12, pulse ox a 98% on 2 L via nasal cannula. 2/3: Patient remains in the intensive care unit. CT of the chest revealed multiple right-sided pulmonary nodules raising suspicion for metastatic disease. Emphysematous changes throughout the lungs. Thoracic aortic aneurysm 3.9 cm. Cardiomegaly. Multiple hepatic lesions, could not exclude metastatic disease. Ultrasound of the liver was limited and nondiagnostic for evaluation of the liver. No evidence of acute cholecystitis although common bile duct not seen. Suboptimal evaluation of right kidney and probable right cyst. Consult added for Dr. Arriaza. Patient is followed by Dr. Amin and nephrology. Repeat lab work to day reveals calcium of 12.6, hemoglobin 9.4. 08/14: This morning, patient was having significant coughing with pured diet with nectar thick liquids. Chest x-ray was ordered that did not show any infiltrate. Speech therapy to reevaluate. Dr. Amin has evaluated and determined patient has not able for lung biopsy and at high risk for complication. Dr. Cruz has decrease IV fluids to 50 mL per hour. Sensipar to be resumed once tolerating oral medications. Repeat electrolytes in the morning. Discuss current situation with the on. What type of cancer his father has. Reiterated the patient is a poor candidate for any biopsy procedure. He is planning to discuss situation with the patient's . 08/15: Patient has been seen by oncology with recommendations for CAT scan with IV and oral can dress to evaluate lung and liver lesions. Patient may need biopsy of the easiest lesion to access. Also recommended bone scan which was rescheduled patient was unable to lay flat. Mental status making it difficult for him to tolerate oral contrast and concerns for aspiration of a silver scans. Plan to delay scans and reevaluate patient. Angiotensin I converting enzyme, free kappa Light chain, free lambda light chain, immunofixation, methylmalonic acid, protein electrophoresis all ordered and pending. Patient is afebrile, heart rate 64, blood pressure 116/58, pulse ox 98% on room air. Iron 29, TIBC 263, saturation 11, ferritin 63.3, protein electrophoresis 5.4, parathyroid hormone intact is 164.2. Free [place] 2.76, free lambda 1.76. For the time of evaluation, patient's nurse and professional nursing assistant met with the patient's son and at this point, no biopsy or further aggressive treatment. Our plan will be to transition to hospice care as the guardian is open to this. 08/16: The patient is more awake and alert today. He was able to all of his breakfast. Patient is afebrile, heart rate 88, blood pressure 113/61, pulse ox 97% on room air. Patient is followed by oncology, nephrology and pulmonary medicine. Pulmonary nodules are very small and 2 small to biopsy. Liver lesion seems to be a cyst. Dr. Amin has recommended PET scan as an outpatient. Patient is on Sensipar 60 mg twice daily. Repeat blood work reveals potassium 3.3, BUN 7, creatinine 0.68, calcium 11. paid search manager to discuss discharge planning with the patient's son. Patient may benefit from palliative care. 08/17: paid search manager discussed discharge planning with the patient's son over the phone yesterday and was determined the patient would be palliative care and return home. Repeat calcium this morning is at 10.3. Patient a 25% of his breakfast. Plan will be to Maintain Peres catheter at home since he is palliative care and he has decubitus ulcer. The patient was prepared for discharge home and when son arrived he was upset and wanted to know when the biopsy was going to be done. Oncology had mentioned doing a biopsy of the liver lesion which appears to be a cyst and we had recommended not to pursue this. Oncology also is in agreement at this time if we are feeling that it is a cyst. Patient's son is refusing to take the patient home. Nephrology has recommended maintaining D5 half-normal saline at 50 mL an hour and continue Sensipar 60 mg twice daily. Review of Systems: ROS unobtainable: due to mental status Objective - Vital Signs Vital signs: Vital Signs Temp 97.8 F 08/17/19 14:27 Pulse 79 08/17/19 14:27 Resp 18 08/17/19 14:27 BP 113/64 08/17/19 14:27 Pulse Ox 98 08/17/19 14:27 Intake & Output 08/16/19 08/17/19 08/17/19 18:59 06:59 18:59 Intake Total 300 Output Total 400 775 Balance -100 -775 Weight 81.4 kg Intake: Oral 300 Output: Urine 400 775 Uretheral (Peres) 250 Other: Voiding Method Indwelling Catheter Indwelling Catheter Indwelling Catheter - Exam - Constitutional General appearance: Present: average body habitus, no acute distress, appears comfortable - EENT ENT: Present: hard of hearing - Neck Neck: Absent: lymphadenopathy, rigidity Carotids: bilateral: upstroke delayed Thyroid: bilateral: normal size - Respiratory Respiratory: bilateral: diminished, negative: dullness, rales, rhonchi, wheezing, prolonged expiration, prolonged inspiration - Cardiovascular Rhythm: regular Heart sounds: normal: S1, S2 Abnormal Heart Sounds: Present: systolic murmur. Absent: diastolic murmur, rub, S3 Gallop, S4 Gallop, click, other - Gastrointestinal General gastrointestinal: Present: normal bowel sounds, soft. Absent: splenomegaly, tenderness Peres catheter draining clear kerry urine. - Integumentary Integumentary: Present: decreased turgor, ulcer (Stage II coccygeal ulcer) - Neurologic Neurologic: Present: focal deficits - Psychiatric Psychiatric Comment(s): A and O 1, slow to respond, answers most questions appropriately by nodding. - Labs CBC & Chem 7: 08/14/19 07:22 08/17/19 08:06 Labs: Abnormal Lab Results - Last 24 Hours (Table) 08/16/19 08/16/19 08/17/19 Range/Units 17:24 21:33 07:12 Chloride (98-107) mmol/L BUN (9-20) mg/dL Creatinine (0.66-1.25) mg/dL Glucose (74-99) mg/dL POC Glucose (mg/dL) 199 H 195 H 166 H (75-99) mg/dL Calcium (8.4-10.2) mg/dL Total Protein (6.3-8.2) g/dL Albumin (3.5-5.0) g/dL 08/17/19 08/17/19 Range/Units 08:06 12:09 Chloride 114 H (98-107) mmol/L BUN 7 L (9-20) mg/dL Creatinine 0.62 L (0.66-1.25) mg/dL Glucose 168 H (74-99) mg/dL POC Glucose (mg/dL) 180 H (75-99) mg/dL Calcium 10.3 H (8.4-10.2) mg/dL Total Protein 5.6 L (6.3-8.2) g/dL Albumin 2.5 L (3.5-5.0) g/dL Assessment and Plan Plan: 1. Acute metabolic encephalopathy likely related to hypercalcemia secondary to hyperparathyroidism, primary. Continue D5 and half-normal saline at 50 mL per hour, sensitive 60 mg twice daily. Consults with Dr. Amin and nephrology appreciated. Consult with Dr. Arriaza appreciated. 2. CAD with ischemic cardiomyopathy and ejection fraction 25%. Patient will be resumed on Lopressor 25 mg oral twice daily. 3. Hypertension and hypertensive cardiovascular disease. Continue Lopressor . 4. Hyperlipidemia. Resume Lipitor. 5. Diabetes mellitus type 2. Continue patient on sliding scale insulin, Levemir 8 units at bedtime. 6. Parkinson's disease. Patient is not able to take his Proventil. 7. History of CVA. Resume Pradaxa. 8. Enlarged prostate. Stable. Resume Flomax 0.4 mg twice daily 9. Paroxysmal atrial fibrillation currently in sinus rhythm. Resume Lopressor and Pradaxa 10. COPD. Continue DuoNeb 3 mL nebulization 4 times a day and Pulmicort 1 mg the position twice every day, resume Singulair 10 mg at bedtime. 11. Hypercalcemia due to primary hyperparathyroidism. Continue IV fluid. 12. DVT prophylaxis. Resume Pradaxa. 13. GI prophylaxis. Continue Protonix 40 mg IV push every 24 hours. 14. Patient is full code as of now. 15. Overall prognosis guarded. 16. Pulmonary nodules of unclear etiology. Discharge plan: Home with palliative care Impression and plan of care have been directed as dictated by the signing physician. Chioma Foreman nurse practitioner acting as scribe for signing phys ician.
[2019-08-17 16:51] LABS: Glucose,Whole Blood 159 mg/dL (75-99)
[2019-08-17 20:33] LABS: Glucose,Whole Blood 195 mg/dL (75-99)
[2019-08-17] MEDS: ATORVASTATIN 40 MG TAB PO SCH (21:13)
[2019-08-17] MEDS: MONTELUKAST 10 MG TAB PO SCH (21:13)
[2019-08-17] MEDS: DEXTROSE 5%-0.45% NACL 1,000 ML IV SCH (21:15)
[2019-08-17] MEDS: INSULIN DETEMIR (LEVEMIR) 100 UNIT/ML SYR SQ SCH (21:15)
[2019-08-18] MEDS: LEVOTHYROXINE 25 MCG TAB PO SCH (04:58)
[2019-08-18 07:15] LABS: Glucose,Whole Blood 159 mg/dL (75-99)
[2019-08-18] MEDS: PANTOPRAZOLE 40 MG/10 ML VIAL IVP SCH (08:06)
[2019-08-18] MEDS: METOPROLOL TARTRATE 25 MG TAB PO SCH ×2 (08:06→21:18)
[2019-08-18] MEDS: CLOPIDOGREL 75 MG TAB PO SCH (08:06)
[2019-08-18] MEDS: SPIRONOLACTONE 25 MG TAB PO SCH (08:07)
[2019-08-18] MEDS: TAMSULOSIN 0.4 MG CAP.ER.24H PO SCH ×2 (08:07→21:18)
[2019-08-18] MEDS: INSULIN ASPART (NovoLOG) 100 UNIT/ML VIAL SQ SCH ×4 (08:07→21:52)
[2019-08-18] MEDS: ARTIFICIAL TEARS-HYPROMELLOSE DROPS 15 ML BTL BOTH EYES SCH ×2 (08:16→21:36)
[2019-08-18] MEDS: CINACALCET 30 MG TAB PO SCH ×2 (08:20→21:19)
[2019-08-18] MEDS: DABIGATRAN 150 MG CAP PO SCH ×2 (08:21→21:19)
[2019-08-18] MEDS: IPRATROPIUM-ALBUTEROL 3 ML NEB INHALATION SCH ×3 (09:40→21:11)
[2019-08-18] MEDS: BUDESONIDE 0.5 MG/2 ML NEBU INHALATION SCH ×2 (09:40→21:11)
[2019-08-18 11:50] LABS: Glucose,Whole Blood 212 mg/dL (75-99)
--- NOTE | 2019-08-18 13:30 | P.PN ---
Subjective Progress Note Date: 08/18/19 Follow-up for hypercalcemia, nonverbal Objective - Vital Signs Vital signs: Vital Signs Temp 98.4 F 08/18/19 05:00 Pulse 75 08/18/19 05:00 Resp 20 08/18/19 05:00 BP 114/66 08/18/19 05:00 Pulse Ox 99 08/18/19 05:00 Intake & Output 08/17/19 08/18/19 08/18/19 18:59 06:59 18:59 Intake Total 650 300 200 Output Total 450 200 Balance 200 100 200 Weight 81.4 kg Intake: Oral 650 300 200 Output: Urine 450 200 Other: Voiding Method Indwelling Catheter Indwelling Catheter Indwelling Catheter - Exam No acute distress S1-S2 heard Decreased breath sounds Trace edema - Labs CBC & Chem 7: 08/14/19 07:22 08/17/19 08:06 Labs: Abnormal Lab Results - Last 24 Hours (Table) 08/17/19 08/17/19 08/18/19 Range/Units 16:48 20:24 07:12 POC Glucose (mg/dL) 159 H 195 H 159 H (75-99) mg/dL 08/18/19 Range/Units 11:46 POC Glucose (mg/dL) 212 H (75-99) mg/dL Assessment and Plan Assessment: #1 hypercalcemia secondary to primary hyperparathyroidism. On Sensipar. #2 hyponatremia improved. #3 systolic CHF EF of 20-25%. #4 insulin-dependent diabetes #5 atrial fibrillation Plan: #1 with calcium better, on Sensipar 60 mg twice a day. #2 no new labs today. #3 stop IV fluids.
--- NOTE | 2019-08-18 13:40 | P.PN ---
Subjective Progress Note Date: 08/18/19 This is an 84-year-old -[place] male one of Dr. Israel with a previous medical history significant for CAD post non-ST elevation [place] with ischemic cardiomyopathy recent echocardiogram showed ejection fraction 2025% with mild aortic stenosis and moderate mitral regurgitation, hypertension and hypertensive cardio vascular disease with left ventricular hypertrophy, diabetes mellitus type 2 with diabetic polyneuropathy, Parkinson disease generalized weakness wheelchair bound and vascular dementia along with paroxysmal atrial fibrillation benign prostatic hypertrophy osteoporosis with significant hypercalcemia was recently discharged from [facility] after he was admitted to the hospital for significant encephalopathy and the patient was sent home on 08/09/2019 he ended up going back to the emergency department at the [facility] yesterday because his Peres catheter was removed, and the patient was sent home however the patient was quite obtunded and his son ended up bringing him back to the emergency department at [facility] because of increased uptake mentation and mental status changes and was found to have a significant hypercalcemia he was admitted to the hospital he was started on IV fluid resuscitation the form of normal saline and 100 mL an hour patient's son wasn't bedside and he was concerned quite a bit about the patient mental status and he stated that his father was doing this for the past 2 weeks he has not been eating or drinking anything and he has not been taking his medications 2/2: Patient is more alert and awake today. He is able to answer questions appropriately he is slow to respond. Patient's urinary output has been about 35 ML's per hour. A CT of the chest is ordered to rule out malignancy due to the hypercalcemia. Patient has history of hyperparathyroidism. W BC 7.7, hemoglobin 10.1, sodium 145, potassium 4.3, BUN 22, creatinine 0.95, calcium 13.1, I denies calcium 7.7, phosphorus 2.2. Blood pressure 142/70, heart rate 82, respiration rate 12, pulse ox a 98% on 2 L via nasal cannula. 2/3: Patient remains in the intensive care unit. CT of the chest revealed multiple right-sided pulmonary nodules raising suspicion for metastatic disease. Emphysematous changes throughout the lungs. Thoracic aortic aneurysm 3.9 cm. Cardiomegaly. Multiple hepatic lesions, could not exclude metastatic disease. Ultrasound of the liver was limited and nondiagnostic for evaluation of the liver. No evidence of acute cholecystitis although common bile duct not seen. Suboptimal evaluation of right kidney and probable right cyst. Consult added for Dr. Arriaza. Patient is followed by Dr. Amin and nephrology. Repeat lab work to day reveals calcium of 12.6, hemoglobin 9.4. 08/14: This morning, patient was having significant coughing with pured diet with nectar thick liquids. Chest x-ray was ordered that did not show any infiltrate. Speech therapy to reevaluate. Dr. Amin has evaluated and determined patient has not able for lung biopsy and at high risk for complication. Dr. Cruz has decrease IV fluids to 50 mL per hour. Sensipar to be resumed once tolerating oral medications. Repeat electrolytes in the morning. Discuss current situation with the on. What type of cancer his father has. Reiterated the patient is a poor candidate for any biopsy procedure. He is planning to discuss situation with the patient's . 08/15: Patient has been seen by oncology with recommendations for CAT scan with IV and oral can dress to evaluate lung and liver lesions. Patient may need biopsy of the easiest lesion to access. Also recommended bone scan which was rescheduled patient was unable to lay flat. Mental status making it difficult for him to tolerate oral contrast and concerns for aspiration of a silver scans. Plan to delay scans and reevaluate patient. Angiotensin I converting enzyme, free kappa Light chain, free lambda light chain, immunofixation, methylmalonic acid, protein electrophoresis all ordered and pending. Patient is afebrile, heart rate 64, blood pressure 116/58, pulse ox 98% on room air. Iron 29, TIBC 263, saturation 11, ferritin 63.3, protein electrophoresis 5.4, parathyroid hormone intact is 164.2. Free [place] 2.76, free lambda 1.76. For the time of evaluation, patient's nurse and director school of nursing met with the patient's son and at this point, no biopsy or further aggressive treatment. Our plan will be to transition to hospice care as the guardian is open to this. 08/16: The patient is more awake and alert today. He was able to all of his breakfast. Patient is afebrile, heart rate 88, blood pressure 113/61, pulse ox 97% on room air. Patient is followed by oncology, nephrology and pulmonary medicine. Pulmonary nodules are very small and 2 small to biopsy. Liver lesion seems to be a cyst. Dr. Amin has recommended PET scan as an outpatient. Patient is on Sensipar 60 mg twice daily. Repeat blood work reveals potassium 3.3, BUN 7, creatinine 0.68, calcium 11. truck rental manager to discuss discharge planning with the patient's son. Patient may benefit from palliative care. 08/17: truck rental manager discussed discharge planning with the patient's son over the phone yesterday and was determined the patient would be palliative care and return home. Repeat calcium this morning is at 10.3. Patient a 25% of his breakfast. Plan will be to Maintain Peres catheter at home since he is palliative care and he has decubitus ulcer. The patient was prepared for discharge home and when son arrived he was upset and wanted to know when the biopsy was going to be done. Oncology had mentioned doing a biopsy of the liver lesion which appears to be a cyst and we had recommended not to pursue this. Oncology also is in agreement at this time if we are feeling that it is a cyst. Patient's son is refusing to take the patient home. Nephrology has recommended maintaining D5 half-normal saline at 50 mL an hour and continue Sensipar 60 mg twice daily. 08/18: Patient has been afebrile, heart rate 75, blood pressure 114/66, pulse ox 99% on room air. Blood sugars run between [address] Israel called patient's son/guardian to update him on the patient's current condition and prognosis. ALL questions have been answered. Recommendations for hospice were discussed. Patient son discuss situation with his mother. Guardian is insisting the patient undergo biopsy of the liver lesion despite known prognosis, despite complications. This will be ordered for his mental sa tisfaction only as there is no plan for any intervention pending results of the biopsy. Interventional radiology will be consulted with plan for possible biopsy on Tuesday. Review of Systems: ROS unobtainable: due to mental status Objective - Vital Signs Vital signs: Vital Signs Temp 98.4 F 08/18/19 05:00 Pulse 75 08/18/19 05:00 Resp 20 08/18/19 05:00 BP 114/66 08/18/19 05:00 Pulse Ox 99 08/18/19 05:00 Intake & Output 08/17/19 08/18/19 08/18/19 18:59 06:59 18:59 Intake Total 650 300 200 Output Total 450 200 Balance 200 100 200 Weight 81.4 kg Intake: Oral 650 300 200 Output: Urine 450 200 Other: Voiding Method Indwelling Catheter Indwelling Catheter Indwelling Catheter - Exam - Constitutional General appearance: Present: average body habitus, no acute distress, appears comfortable on evaluation - EENT ENT: Present: hard of hearing - Neck Neck: Absent: lymphadenopathy, rigidity Carotids: bilateral: upstroke delayed Thyroid: bilateral: normal size - Respiratory Respiratory: bilateral: diminished, negative: dullness, rales, rhonchi, wheezing, prolonged expiration, prolonged inspiration - Cardiovascular Rhythm: regular Heart sounds: normal: S1, S2 Abnormal Heart Sounds: Present: systolic murmur. Absent: diastolic murmur, rub, S3 Gallop, S4 Gallop, click, other - Gastrointestinal General gastrointestinal: Present: normal bowel sounds, soft. Absent: splenomegaly, tenderness Peres catheter draining clear kerry urine. - Integumentary Integumentary: Present: decreased turgor, ulcer (Stage II coccygeal ulcer) - Neurologic Neurologic: Present: focal deficits - Psychiatric Psychiatric Comment(s): A and O 1, slow to respond, answers most questions appropriately by nodding. - Labs CBC & Chem 7: 08/14/19 07:22 08/17/19 08:06 Labs: Abnormal Lab Results - Last 24 Hours (Table) 08/17/19 08/17/19 08/17/19 Range/Units 12:09 16:48 20:24 POC Glucose (mg/dL) 180 H 159 H 195 H (75-99) mg/dL 08/18/19 08/18/19 Range/Units 07:12 11:46 POC Glucose (mg/dL) 159 H 212 H (75-99) mg/dL Assessment and Plan Plan: 1. Acute metabolic encephalopathy likely related to hypercalcemia secondary to hyperparathyroidism, primary. Continue D5 and half-normal saline at 50 mL per hour, sensitive 60 mg twice daily. Consults with Dr. Amin and nephrology appreciated. Consult with Dr. Arriaza appreciated. 2. CAD with ischemic cardiomyopathy and ejection fraction 25%. Patient will be resumed on Lopressor 25 mg oral twice daily. 3. Hypertension and hypertensive cardiovascular disease. Continue Lopressor . 4. Hyperlipidemia. Resume Lipitor. 5. Diabetes mellitus type 2. Continue patient on sliding scale insulin, Levemir 8 units at bedtime. 6. Parkinson's disease. Patient is not able to take his Proventil. 7. History of CVA. Resume Pradaxa. 8. Enlarged prostate. Stable. Resume Flomax 0.4 mg twice daily 9. Paroxysmal atrial fibrillation currently in sinus rhythm. Resume Lopressor and Pradaxa 10. COPD. Continue DuoNeb 3 mL nebulization 4 times a day and Pulmicort 1 mg the position twice every day, resume Singulair 10 mg at bedtime. 11. Hypercalcemia due to primary hyperparathyroidism. Continue IV fluid. 12. DVT prophylaxis. Resume Pradaxa. 13. GI prophylaxis. Continue Protonix 40 mg IV push every 24 hours. 14. Patient is full code as of now. 15. Overall prognosis guarded. 16. Pulmonary nodules of unclear etiology. 17. Liver cyst. Biopsy on Tuesday. Interventional radiology consult. Discharge plan: Home with palliative care. Dr. Israel contacted patient's son regarding discharge planning, plan of care, prognosis. Impression and plan of care have been directed as dictated by the signing physician. Chioma Foreman nurse practitioner acting as scribe for signing physician.
--- NOTE | 2019-08-18 14:01 | P.PN ---
Subjective Progress Note Date: 08/18/19 Principal diagnosis: Hypercalcemia likely related to hyperparathyroidism, small subcentimeter few pulmonary nodules and right upper lobe, hyperparathyroidism, ischemic cardiomyopathy ejection fraction of 25%, aortic stenosis, advanced dementia and Alzheimer's disease, hypertension hypertensive cardiovascular disease, type 2 diabetes mellitus 08/18/2019, patient seen eval examined during the rounds labs reviewed medications reviewed patient is awake open his eyes follow simple commands trying to communicate, regimen level was not checked today as scheduled shows normal eyes yesterday patient has been on Sensipar, I reviewed finding of the CAT scan with the staff, 08/17/2019, patient seen eval examined during the rounds labs reviewed medications reviewed, calcium is down to 10.3 patient remains awake and alert but remains nonverbal, patient is being considered for palliative therapy by the staff no new recommendations at this time 08/16/2019, patient seen eval reexamined awake but nonverbal and noncommunicative, it remains a challenge to supplemental forward to this patient, mental status has improved as calcium level is coming down most recent calcium is 12.1, the computed tomography scan of the chest reviewed very small subcentimeter few nodules are seen predominantly in the right upper lobe of clinical significance unknown, they are too small to do the biopsy will prefer to observe it for now as biopsy cavities highly risk of complications Objective - Vital Signs Vital signs: Vital Signs Temp 98.4 F 08/18/19 05:00 Pulse 75 08/18/19 05:00 Resp 20 08/18/19 05:00 BP 114/66 08/18/19 05:00 Pulse Ox 99 08/18/19 05:00 Intake & Output 08/17/19 08/18/19 08/18/19 18:59 06:59 18:59 Intake Total 650 300 200 Output Total 450 200 Balance 200 100 200 Weight 81.4 kg Intake: Oral 650 300 200 Output: Urine 450 200 Other: Voiding Method Indwelling Catheter Indwelling Catheter Indwelling Catheter - Exam Constitutional General appearance: average body habitus, disheveled, mild distress - EENT Eyes: EOMI, PERRLA Ears: bilateral: normal - Neck Neck: normal ROM Carotids: bilateral: upstroke normal Thyroid: bilateral: normal size - Respiratory Respiratory: bilateral: diminished, negative: dullness, rales, rhonchi, wheezing - Cardiovascular Rhythm: regular Heart sounds: normal: S1, S2 - Gastrointestinal General gastrointestinal: normal bowel sounds - Musculoskeletal Musculoskeletal: generalized weakness - Labs CBC & Chem 7: 08/14/19 07:22 08/17/19 08:06 Labs: Abnormal Lab Results - Last 24 Hours (Table) 08/17/19 08/17/19 08/18/19 Range/Units 16:48 20:24 07:12 POC Glucose (mg/dL) 159 H 195 H 159 H (75-99) mg/dL 08/18/19 Range/Units 11:46 POC Glucose (mg/dL) 212 H (75-99) mg/dL Assessment and Plan Assessment: Severe hypercalcemia resolved now Likely primary hyperparathyroidism as parathormone level was high Right-sided multiple small subcentimeter pulmonary nodules involving the right upper lobe Would recommend a PET scan/serial computed tomography scan as outpatient Metabolic encephalopathy related to hypercalcemia and baseline dementia Ischemic cardiomyopathy ejection fraction of 25% Mild aortic stenosis Hypertension hypertensive cardiovascular disease/dyslipidemia/type 2 diabetes mellitus Plan: Continue gentle rehydration Monitor calcium levels closely, status post pamidronate infusion now on Sensipar Would recommend a computed tomography scan short-term in 3-6 month or a PET scan as outpatient Will reevaluate in outpatient setting Time with Patient: Greater than 30
[2019-08-18 16:54] LABS: Glucose,Whole Blood 135 mg/dL (75-99)
[2019-08-18 20:36] LABS: Glucose,Whole Blood 184 mg/dL (75-99)
[2019-08-18] MEDS: ATORVASTATIN 40 MG TAB PO SCH (21:18)
[2019-08-18] MEDS: MONTELUKAST 10 MG TAB PO SCH (21:18)
[2019-08-18] MEDS: INSULIN DETEMIR (LEVEMIR) 100 UNIT/ML SYR SQ SCH (21:19)
[2019-08-19] MEDS: LEVOTHYROXINE 25 MCG TAB PO SCH (05:01)
[2019-08-19 07:06] LABS: Glucose,Whole Blood 170 mg/dL (75-99)
[2019-08-19] MEDS: METOPROLOL TARTRATE 25 MG TAB PO SCH ×2 (07:44→20:42)
[2019-08-19] MEDS: SPIRONOLACTONE 25 MG TAB PO SCH (07:44)
[2019-08-19] MEDS: INSULIN ASPART (NovoLOG) 100 UNIT/ML VIAL SQ SCH ×4 (07:45→21:31)
[2019-08-19] MEDS: CINACALCET 30 MG TAB PO SCH ×2 (07:45→20:41)
[2019-08-19] MEDS: TAMSULOSIN 0.4 MG CAP.ER.24H PO SCH ×2 (07:45→20:42)
[2019-08-19] MEDS: PANTOPRAZOLE 40 MG/10 ML VIAL IVP SCH (07:45)
[2019-08-19] MEDS: CLOPIDOGREL 75 MG TAB PO SCH (07:46)
[2019-08-19] MEDS: ARTIFICIAL TEARS-HYPROMELLOSE DROPS 15 ML BTL BOTH EYES SCH ×2 (07:46→20:42)
[2019-08-19] MEDS: DABIGATRAN 150 MG CAP PO SCH (07:47)
--- NOTE | 2019-08-19 09:17 | P.PN ---
Subjective Progress Note Date: 08/19/19 Principal diagnosis: Hypercalcemia likely related to hyperparathyroidism, small subcentimeter few pulmonary nodules and right upper lobe, hyperparathyroidism, ischemic cardiomyopathy ejection fraction of 25%, aortic stenosis, advanced dementia and Alzheimer's disease, hypertension hypertensive cardiovascular disease, type 2 diabetes mellitus 08/19/2019, patient seen eval examined during the rounds overall no significant change, remains awake and alert on room air his saturation is 95% to 99% blood pressure is 136/76, he remains afebrile 08/18/2019, patient seen eval examined during the rounds labs reviewed medications reviewed patient is awake open his eyes follow simple commands trying to communicate, regimen level was not checked today as scheduled shows normal eyes yesterday patient has been on Sensipar, I reviewed finding of the CAT scan with the staff, 08/17/2019, patient seen eval examined during the rounds labs reviewed medications reviewed, calcium is down to 10.3 patient remains awake and alert but remains nonverbal, patient is being considered for palliative therapy by the staff no new recommendations at this time 08/16/2019, patient seen eval reexamined awake but nonverbal and noncommunicative, it remains a challenge to supplemental forward to this patient, mental status has improved as calcium level is coming down most recent calcium is 12.1, the computed tomography scan of the chest reviewed very small subcentimeter few nodules are seen predominantly in the right upper lobe of clinical significance unknown, they are too small to do the biopsy will prefer to observe it for now as biopsy cavities highly risk of complications Objective - Vital Signs Vital signs: Vital Signs Temp 97.6 F 08/19/19 05:00 Pulse 87 08/19/19 05:00 Resp 20 08/19/19 05:00 BP 136/75 08/19/19 05:00 Pulse Ox 99 08/19/19 05:00 Intake & Output 08/18/19 08/19/19 08/19/19 18:59 06:59 18:59 Intake Total 400 200 400 Output Total 300 600 Balance 100 -400 400 Intake: Oral 400 200 400 Output: Urine 300 600 Other: Voiding Method Indwelling Catheter Indwelling Catheter Indwelling Catheter # Bowel Movements 0 - Exam Constitutional General appearance: average body habitus, disheveled, mild distress - EENT Eyes: EOMI, PERRLA Ears: bilateral: normal - Neck Neck: normal ROM Carotids: bilateral: upstroke normal Thyroid: bilateral: normal size - Respiratory Respiratory: bilateral: diminished, negative: dullness, rales, rhonchi, wheezing - Cardiovascular Rhythm: regular Heart sounds: normal: S1, S2 - Gastrointestinal General gastrointestinal: normal bowel sounds - Musculoskeletal Musculoskeletal: generalized weakness - Labs CBC & Chem 7: 08/14/19 07:22 08/17/19 08:06 Labs: Abnormal Lab Results - Last 24 Hours (Table) 08/18/19 08/18/19 08/18/19 Range/Units 11:46 16:50 20:24 POC Glucose (mg/dL) 212 H 135 H 184 H (75-99) mg/dL 08/19/19 Range/Units 06:57 POC Glucose (mg/dL) 170 H (75-99) mg/dL Assessment and Plan Assessment: Severe hypercalcemia resolved now Likely primary hyperparathyroidism as parathormone level was high Right-sided multiple small subcentimeter pulmonary nodules involving the right upper lobe Would recommend a PET scan/serial computed tomography scan as outpatient Metabolic encephalopathy related to hypercalcemia and baseline dementia Ischemic cardiomyopathy ejection fraction of 25% Mild aortic stenosis Hypertension hypertensive cardiovascular disease/dyslipidemia/type 2 diabetes mellitus Plan: Continue gentle rehydration Monitor calcium levels closely, status post pamidronate infusion now on Sensipar Would recommend a computed tomography scan short-term in 3-6 month or a PET scan as outpatient Will reevaluate in outpatient setting Time with Patient: Greater than 30
[2019-08-19] MEDS: BUDESONIDE 0.5 MG/2 ML NEBU INHALATION SCH ×2 (09:54→20:38)
[2019-08-19] MEDS: IPRATROPIUM-ALBUTEROL 3 ML NEB INHALATION SCH ×3 (09:54→20:38)
[2019-08-19 09:55] LABS: ALT 12 U/L (4-49); AST 20 U/L (17-59); African American GFR (CKD) >90 (>60 ml/min/1.73 sqM); Albumin 2.8 g/dL (3.5-5.0); Alkaline Phosphatase 61 U/L (38-126); Anion Gap 8 mmol/L; Blood Urea Nitrogen 9 mg/dL (9-20); Calcium 10.1 mg/dL (8.4-10.2); Carbon Dioxide 23 mmol/L (22-30); Chloride 109 mmol/L (98-107); Glucose 164 mg/dL (74-99); Non-African American GFR(CKD) >90 (>60 ml/min/1.73 sqM); Potassium 3.6 mmol/L (3.5-5.1); Sodium 140 mmol/L (137-145); Total Bilirubin 0.3 mg/dL (0.2-1.3); Total Protein 6.1 g/dL (6.3-8.2)
[2019-08-19 12:08] LABS: Glucose,Whole Blood 176 mg/dL (75-99)
--- NOTE | 2019-08-19 12:29 | P.PN ---
Subjective Progress Note Date: 08/19/19 Follow-up for hypercalcemia, nonverbal Objective - Vital Signs Vital signs: Vital Signs Temp 97.6 F 08/19/19 05:00 Pulse 88 08/19/19 10:07 Resp 20 08/19/19 05:00 BP 136/75 08/19/19 05:00 Pulse Ox 99 08/19/19 05:00 Intake & Output 08/18/19 08/19/19 08/19/19 18:59 06:59 18:59 Intake Total 400 200 400 Output Total 300 600 Balance 100 -400 400 Intake: Oral 400 200 400 Output: Urine 300 600 Other: Voiding Method Indwelling Catheter Indwelling Catheter Indwelling Catheter # Bowel Movements 0 - Exam No acute distress S1-S2 heard Decreased breath sounds Trace edema - Labs CBC & Chem 7: 08/14/19 07:22 08/19/19 09:06 Labs: Abnormal Lab Results - Last 24 Hours (Table) 08/18/19 08/18/19 08/19/19 Range/Units 16:50 20:24 06:57 Chloride (98-107) mmol/L Creatinine (0.66-1.25) mg/dL Glucose (74-99) mg/dL POC Glucose (mg/dL) 135 H 184 H 170 H (75-99) mg/dL Total Protein (6.3-8.2) g/dL Albumin (3.5-5.0) g/dL 08/19/19 08/19/19 Range/Units 09:06 12:03 Chloride 109 H (98-107) mmol/L Creatinine 0.59 L (0.66-1.25) mg/dL Glucose 164 H (74-99) mg/dL POC Glucose (mg/dL) 176 H (75-99) mg/dL Total Protein 6.1 L (6.3-8.2) g/dL Albumin 2.8 L (3.5-5.0) g/dL Assessment and Plan Assessment: #1 hypercalcemia secondary to primary hyperparathyroidism. On Sensipar. #2 hyponatremia improved. #3 systolic CHF EF of 20-25%. #4 insulin-dependent diabetes #5 atrial fibrillation Plan: #1 with calcium better, on Sensipar 60 mg twice a day. #2 renal function stable monitor off IV fluids
--- NOTE | 2019-08-19 13:31 | P.PN ---
Subjective Progress Note Date: 08/19/19 This is an 84-year-old -[place] male one of Dr. Israel with a previous medical history significant for CAD post non-ST elevation MS with ischemic cardiomyopathy recent echocardiogram showed ejection fraction 2025% with mild aortic stenosis and moderate mitral regurgitation, hypertension and hypertensive cardio vascular disease with left ventricular hypertrophy, diabetes mellitus type 2 with diabetic polyneuropathy, Parkinson disease generalized weakness wheelchair bound and vascular dementia along with paroxysmal atrial fibrillation benign prostatic hypertrophy osteoporosis with significant hypercalcemia was recently discharged from [facility] after he was admitted to the hospital for significant encephalopathy and the patient was sent home on 08/09/2019 he ended up going back to the emergency department at the [facility] yesterday because his Peres catheter was removed, and the patient was sent home however the patient was quite obtunded and his son ended up bringing him back to the emergency department at [facility] because of increased uptake mentation and mental status changes and was found to have a significant hypercalcemia he was admitted to the hospital he was started on IV fluid resuscitation the form of normal saline and 100 mL an hour patient's son wasn't bedside and he was concerned quite a bit about the patient mental status and he stated that his father was doing this for the past 2 weeks he has not been eating or drinking anything and he has not been taking his medications 2/2: Patient is more alert and awake today. He is able to answer questions appropriately he is slow to respond. Patient's urinary output has been about 35 ML's per hour. A CT of the chest is ordered to rule out malignancy due to the hypercalcemia. Patient has history of hyperparathyroidism. W BC 7.7, hemoglobin 10.1, sodium 145, potassium 4.3, BUN 22, creatinine 0.95, calcium 13.1, I denies calcium 7.7, phosphorus 2.2. Blood pressure 142/70, heart rate 82, respiration rate 12, pulse ox a 98% on 2 L via nasal cannula. 2/3: Patient remains in the intensive care unit. CT of the chest revealed multiple right-sided pulmonary nodules raising suspicion for metastatic disease. Emphysematous changes throughout the lungs. Thoracic aortic aneurysm 3.9 cm. Cardiomegaly. Multiple hepatic lesions, could not exclude metastatic disease. Ultrasound of the liver was limited and nondiagnostic for evaluation of the liver. No evidence of acute cholecystitis although common bile duct not seen. Suboptimal evaluation of right kidney and probable right cyst. Consult added for Dr. Arriaza. Patient is followed by Dr. Amin and nephrology. Repeat lab work to day reveals calcium of 12.6, hemoglobin 9.4. 08/14: This morning, patient was having significant coughing with pured diet with nectar thick liquids. Chest x-ray was ordered that did not show any infiltrate. Speech therapy to reevaluate. Dr. Amin has evaluated and determined patient has not able for lung biopsy and at high risk for complication. Dr. Cruz has decrease IV fluids to 50 mL per hour. Sensipar to be resumed once tolerating oral medications. Repeat electrolytes in the morning. Discuss current situation with the on. What type of cancer his father has. Reiterated the patient is a poor candidate for any biopsy procedure. He is planning to discuss situation with the patient's . 08/15: Patient has been seen by oncology with recommendations for CAT scan with IV and oral can dress to evaluate lung and liver lesions. Patient may need biopsy of the easiest lesion to access. Also recommended bone scan which was rescheduled patient was unable to lay flat. Mental status making it difficult for him to tolerate oral contrast and concerns for aspiration of a silver scans. Plan to delay scans and reevaluate patient. Angiotensin I converting enzyme, free kappa Light chain, free lambda light chain, immunofixation, methylmalonic acid, protein electrophoresis all ordered and pending. Patient is afebrile, heart rate 64, blood pressure 116/58, pulse ox 98% on room air. Iron 29, TIBC 263, saturation 11, ferritin 63.3, protein electrophoresis 5.4, parathyroid hormone intact is 164.2. Free [place] 2.76, free lambda 1.76. For the time of evaluation, patient's nurse and certified nursing attendant met with the patient's son and at this point, no biopsy or further aggressive treatment. Our plan will be to transition to hospice care as the guardian is open to this. 08/16: The patient is more awake and alert today. He was able to all of his breakfast. Patient is afebrile, heart rate 88, blood pressure 113/61, pulse ox 97% on room air. Patient is followed by oncology, nephrology and pulmonary medicine. Pulmonary nodules are very small and 2 small to biopsy. Liver lesion seems to be a cyst. Dr. Amin has recommended PET scan as an outpatient. Patient is on Sensipar 60 mg twice daily. Repeat blood work reveals potassium 3.3, BUN 7, creatinine 0.68, calcium 11. general manager [employer] data cloud to discuss discharge planning with the patient's son. Patient may benefit from palliative care. 08/17: general manager [employer] data cloud discussed discharge planning with the patient's son over the phone yesterday and was determined the patient would be palliative care and return home. Repeat calcium this morning is at 10.3. Patient a 25% of his breakfast. Plan will be to Maintain Peres catheter at home since he is palliative care and he has decubitus ulcer. The patient was prepared for discharge home and when son arrived he was upset and wanted to know when the biopsy was going to be done. Oncology had mentioned doing a biopsy of the liver lesion which appears to be a cyst and we had recommended not to pursue this. Oncology also is in agreement at this time if we are feeling that it is a cyst. Patient's son is refusing to take the patient home. Nephrology has recommended maintaining D5 half-normal saline at 50 mL an hour and continue Sensipar 60 mg twice daily. 08/18: Patient has been afebrile, heart rate 75, blood pressure 114/66, pulse ox 99% on room air. Blood sugars run between [address] Israel called patient's son/guardian to update him on the patient's current condition and prognosis. ALL questions have been answered. Recommendations for hospice were discussed. Patient son discuss situation with his mother. Guardian is insisting the patient undergo biopsy of the liver lesion despite known prognosis, despite complications. This will be ordered for his mental sa tisfaction only as there is no plan for any intervention pending results of the biopsy. Interventional radiology will be consulted with plan for possible biopsy on Tuesday. 08/19: Patient denies any new complaints. Patient is able to nod to answer questions. We are going forward with biopsy of the liver tomorrow. Pradaxa and Plavix were placed on hold and patient's last dose was yesterday for both. Patient is afebrile, heart rate 88, blood pressure 138/81, pulse ox 97% on room air. Repeat blood work reveals BUN 9 creatinine 0.19, calcium 10.1. Review of Systems: ROS unobtainable: due to mental status/difficulty communicating Objective - Vital Signs Vital signs: Vital Signs Temp 97.6 F 08/19/19 05:00 Pulse 88 08/19/19 10:07 Resp 20 08/19/19 05:00 BP 136/75 08/19/19 05:00 Pulse Ox 99 08/19/19 05:00 Intake & Output 08/18/19 08/19/19 08/19/19 18:59 06:59 18:59 Intake Total 400 200 700 Output Total 300 600 Balance 100 -400 700 Intake: Oral 400 200 700 Output: Urine 300 600 Other: Voiding Method Indwelling Catheter Indwelling Catheter Indwelling Catheter # Bowel Movements 0 - Exam - Constitutional General appearance: Present: average body habitus, no acute distress, appears comfortable on evaluation - EENT ENT: Present: hard of hearing - Neck Neck: Absent: lymphadenopathy, rigidity Carotids: bilateral: upstroke delayed Thyroid: bilateral: normal size - Respiratory Respiratory: bilateral: diminished, negative: dullness, rales, rhonchi, wheezing, prolonged expiration, prolonged inspiration - Cardiovascular Rhythm: regular Heart sounds: normal: S1, S2 Abnormal Heart Sounds: Present: systolic murmur. Absent: diastolic murmur, rub, S3 Gallop, S4 Gallop, click, other - Gastrointestinal General gastrointestinal: Present: normal bowel sounds, soft. Absent: splenomegaly, tenderness Peres catheter draining clear kerry urine. - Integumentary Integumentary: Present: decreased turgor, ulcer (Stage II coccygeal ulcer) - Neurologic Neurologic: Present: focal deficits - Psychiatric Psychiatric Comment(s): A and O 1-2, slow to respond, answers most questions appropriately by nodding. - Labs CBC & Chem 7: 08/14/19 07:22 08/19/19 09:06 Labs: Abnormal Lab Results - Last 24 Hours (Table) 08/18/19 08/18/19 08/19/19 Range/Units 16:50 20:24 06:57 Chloride (98-107) mmol/L Creatinine (0.66-1.25) mg/dL Glucose (74-99) mg/dL POC Glucose (mg/dL) 135 H 184 H 170 H (75-99) mg/dL Total Protein (6.3-8.2) g/dL Albumin (3.5-5.0) g/dL 08/19/19 08/19/19 Range/Units 09:06 12:03 Chloride 109 H (98-107) mmol/L Creatinine 0.59 L (0.66-1.25) mg/dL Glucose 164 H (74-99) mg/dL POC Glucose (mg/dL) 176 H (75-99) mg/dL Total Protein 6.1 L (6.3-8.2) g/dL Albumin 2.8 L (3.5-5.0) g/dL Assessment and Plan Plan: 1. Acute metabolic encephalopathy likely related to hypercalcemia secondary to hyperparathyroidism, primary. Continue D5 and half-normal saline at 50 mL per hour, sensitive 60 mg twice daily. Consults with Dr. Amin and nephrology appreciated. Consult with Dr. Arriaza appreciated. 2. CAD with ischemic cardiomyopathy and ejection fraction 25%. Patient will be resumed on Lopressor 25 mg oral twice daily. 3. Hypertension and hypertensive cardiovascular disease. Continue Lopressor . 4. Hyperlipidemia. Resume Lipitor. 5. Diabetes mellitus type 2. Continue patient on sliding scale insulin, Levemir 8 units at bedtime. 6. Parkinson's disease. Patient is not able to take his Proventil. 7. History of CVA. Resume Pradaxa. 8. Enlarged prostate. Stable. Resume Flomax 0.4 mg twice daily 9. Paroxysmal atrial fibrillation currently in sinus rhythm. Resume Lopressor and Pradaxa 10. COPD. Continue DuoNeb 3 mL nebulization 4 times a day and Pulmicort 1 mg the position twice every day, resume Singulair 10 mg at bedtime. 11. Hypercalcemia due to primary hyperparathyroidism. Continue IV fluid. 12. DVT prophylaxis. Resume Pradaxa. 13. GI prophylaxis. Continue Protonix 40 mg IV push every 24 hours. 14. Patient is full code as of now. 15. Overall prognosis guarded. 16. Pulmonary nodules of unclear etiology. 17. Liver cyst. Biopsy on Tuesday. Interventional radiology consult. Pradaxa and Plavix on hold for now and will be resumed following procedure. Discharge plan: Home with palliative care. Dr. Israel contacted patient's son regarding discharge planning, plan of care, prognosis. Impression and plan of care have been directed as dictated by the signing physician. Chioma Foreman nurse practitioner acting as scribe for signing physician.
[2019-08-19 16:47] LABS: Glucose,Whole Blood 169 mg/dL (75-99)
[2019-08-19] MEDS: MONTELUKAST 10 MG TAB PO SCH (20:41)
[2019-08-19] MEDS: ATORVASTATIN 40 MG TAB PO SCH (20:42)
[2019-08-19 21:24] LABS: Glucose,Whole Blood 175 mg/dL (75-99)
[2019-08-19] MEDS: INSULIN DETEMIR (LEVEMIR) 100 UNIT/ML SYR SQ SCH (21:31)
[2019-08-20 00:44] VITALS: RESP 16
[2019-08-20] MEDS: LEVOTHYROXINE 25 MCG TAB PO SCH (05:27)
[2019-08-20 07:18] LABS: Glucose,Whole Blood 165 mg/dL (75-99)
[2019-08-20] MEDS: BUDESONIDE 0.5 MG/2 ML NEBU INHALATION SCH (07:42)
[2019-08-20] MEDS: IPRATROPIUM-ALBUTEROL 3 ML NEB INHALATION SCH ×2 (07:42→12:55)
[2019-08-20] MEDS: METOPROLOL TARTRATE 25 MG TAB PO SCH (08:29)
[2019-08-20] MEDS: SPIRONOLACTONE 25 MG TAB PO SCH (08:29)
[2019-08-20] MEDS: PANTOPRAZOLE 40 MG/10 ML VIAL IVP SCH (08:29)
[2019-08-20] MEDS: CINACALCET 30 MG TAB PO SCH (08:29)
[2019-08-20] MEDS: INSULIN ASPART (NovoLOG) 100 UNIT/ML VIAL SQ SCH ×3 (08:29→17:17)
[2019-08-20] MEDS: ARTIFICIAL TEARS-HYPROMELLOSE DROPS 15 ML BTL BOTH EYES SCH (08:30)
[2019-08-20] MEDS: TAMSULOSIN 0.4 MG CAP.ER.24H PO SCH (08:30)
[2019-08-20 08:50] LABS: Anisocytosis Slight; HCT 33.5 % (39.0-53.0); HGB 9.9 gm/dL (13.0-17.5); Hypochromasia Marked; MCH 27.2 pg (25.0-35.0); MCHC 29.6 g/dL (31.0-37.0); MCV 91.7 fL (80.0-100.0); Mean Platelet Volume 7.5; Platelet Count 319 k/uL (150-450); RBC 3.65 m/uL (4.30-5.90); RDW 16.6 % (11.5-15.5)
[2019-08-20 09:02] LABS: ALT 12 U/L (4-49); AST 28 U/L (17-59); African American GFR (CKD) >90 (>60 ml/min/1.73 sqM); Albumin 2.7 g/dL (3.5-5.0); Alkaline Phosphatase 56 U/L (38-126); Anion Gap 6 mmol/L; Blood Urea Nitrogen 9 mg/dL (9-20); Calcium 9.7 mg/dL (8.4-10.2); Carbon Dioxide 24 mmol/L (22-30); Chloride 110 mmol/L (98-107); Glucose 166 mg/dL (74-99); Non-African American GFR(CKD) >90 (>60 ml/min/1.73 sqM); Sodium 140 mmol/L (137-145); Total Bilirubin 0.5 mg/dL (0.2-1.3); Total Protein 5.8 g/dL (6.3-8.2)
[2019-08-20 09:07] LABS: Potassium 3.7 mmol/L (3.5-5.1)
[2019-08-20 09:11] LABS: Prothrombin Time 10.8 sec (9.0-12.0)
[2019-08-20 12:20] LABS: Glucose,Whole Blood 164 mg/dL (75-99)
[2019-08-20 13:58] VITALS: BP 113/70; PULSE 74; TEMP 98
[2019-08-20 16:52] LABS: Glucose,Whole Blood 158 mg/dL (75-99)
--- NOTE | 2019-08-21 15:30 | P.PN ---
Subjective Progress Note Date: 08/21/19 This is an 84-year-old -Iranian male one of Dr. Israel with a previous medical history significant for CAD post non-ST elevation CO with ischemic cardiomyopathy recent echocardiogram showed ejection fraction 2025% with mild aortic stenosis and moderate mitral regurgitation, hypertension and hypertensive cardio vascular disease with left ventricular hypertrophy, diabetes mellitus type 2 with diabetic polyneuropathy, Parkinson disease generalized weakness wheelchair bound and vascular dementia along with paroxysmal atrial fibrillation benign prostatic hypertrophy osteoporosis with significant hypercalcemia was recently discharged from [facility] after he was admitted to the hospital for significant encephalopathy and the patient was sent home on 08/09/2019 he ended up going back to the emergency department at the [facility] yesterday because his Peres catheter was removed, and the patient was sent home however the patient was quite obtunded and his son ended up bringing him back to the emergency department at [facility] because of increased uptake mentation and mental status changes and was found to have a significant hypercalcemia he was admitted to the hospital he was started on IV fluid resuscitation the form of normal saline and 100 mL an hour patient's son wasn't bedside and he was concerned quite a bit about the patient mental status and he stated that his father was doing this for the past 2 weeks he has not been eating or drinking anything and he has not been taking his medications 2/2: Patient is more alert and awake today. He is able to answer questions appropriately he is slow to respond. Patient's urinary output has been about 35 ML's per hour. A CT of the chest is ordered to rule out malignancy due to the hypercalcemia. Patient has history of hyperparathyroidism. W BC 7.7, hemoglobin 10.1, sodium 145, potassium 4.3, BUN 22, creatinine 0.95, calcium 13.1, I denies calcium 7.7, phosphorus 2.2. Blood pressure 142/70, heart rate 82, respiration rate 12, pulse ox a 98% on 2 L via nasal cannula. 2/3: Patient remains in the intensive care unit. CT of the chest revealed multiple right-sided pulmonary nodules raising suspicion for metastatic disease. Emphysematous changes throughout the lungs. Thoracic aortic aneurysm 3.9 cm. Cardiomegaly. Multiple hepatic lesions, could not exclude metastatic disease. Ultrasound of the liver was limited and nondiagnostic for evaluation of the liver. No evidence of acute cholecystitis although common bile duct not seen. Suboptimal evaluation of right kidney and probable right cyst. Consult added for Dr. Arriaza. Patient is followed by Dr. Amin and nephrology. Repeat lab work t sheldon reveals calcium of 12.6, hemoglobin 9.4. 08/14: This morning, patient was having significant coughing with pured diet with nectar thick liquids. Chest x-ray was ordered that did not show any infiltrate. Speech therapy to reevaluate. Dr. Amin has evaluated and determined patient has not able for lung biopsy and at high risk for complication. Dr. Cruz has decrease IV fluids to 50 mL per hour. Sensipar to be resumed once tolerating oral medications. Repeat electrolytes in the morning. Discuss current situation with the on. What type of cancer his father has. Reiterated the patient is a poor candidate for any biopsy procedure. He is planning to discuss situation with the patient's . 08/15: Patient has been seen by oncology with recommendations for CAT scan with IV and oral can dress to evaluate lung and liver lesions. Patient may need biopsy of the easiest lesion to access. Also recommended bone scan which was rescheduled patient was unable to lay flat. Mental status making it difficult for him to tolerate oral contrast and concerns for aspiration of a silver scans. Plan to delay scans and reevaluate patient. Angiotensin I converting enzyme, free kappa Light chain, free lambda light chain, immunofixation, methylmalonic acid, protein electrophoresis all ordered and pending. Patient is afebrile, heart rate 64, blood pressure 116/58, pulse ox 98% on room air. Iron 29, TIBC 263, saturation 11, ferritin 63.3, protein electrophoresis 5.4, parathyroid hormone intact is 164.2. Free [place] 2.76, free lambda 1.76. For the time of evaluation, patient's nurse and nursing professor met with the patient's son and at this point, no biopsy or further aggressive treatment. Our plan will be to transition to hospice care as the guardian is open to this. 08/16: The patient is more awake and alert today. He was able to all of his breakfast. Patient is afebrile, heart rate 88, blood pressure 113/61, pulse ox 97% on room air. Patient is followed by oncology, nephrology and pulmonary medicine. Pulmonary nodules are very small and 2 small to biopsy. Liver lesion seems to be a cyst. Dr. Amin has recommended PET scan as an outpatient. Patient is on Sensipar 60 mg twice daily. Repeat blood work reveals potassium 3.3, BUN 7, creatinine 0.68, calcium 11. manager engine to discuss discharge planning with the patient's son. Patient may benefit from palliative care. 08/17: manager engine discussed discharge planning with the patient's son over the phone yesterday and was determined the patient would be palliative care and return home. Repeat calcium this morning is at 10.3. Patient a 25% of his breakfast. Plan will be to Maintain Peres catheter at home since he is palliative care and he has decubitus ulcer. The patient was prepared for discharge home and when son arrived he was upset and wanted to know when the biopsy was going to be done. Oncology had mentioned doing a biopsy of the liver lesion which appears to be a cyst and we had recommended not to pursue this. Oncology also is in agreement at this time if we are feeling that it is a cyst. Patient's son is refusing to take the patient home. Nephrology has recommended maintaining D5 half-normal saline at 50 mL an hour and continue Sensipar 60 mg twice daily. 08/18: Patient has been afebrile, heart rate 75, blood pressure 114/66, pulse ox 99% on room air. Blood sugars run between [address] Israel called patient's son/guardian to update him on the patient's current condition and prognosis. ALL questions have been answered. Recommendations for hospice were discussed. Patient son discuss situation with his mother. Guardian is insisting the patient undergo biopsy of the liver lesion despite known prognosis, despite complications. This will be ordered for his mental s atisfaction only as there is no plan for any intervention pending results of the biopsy. Interventional radiology will be consulted with plan for possible biopsy on Tuesday. 08/19: Patient denies any new complaints. Patient is able to nod to answer questions. We are going forward with biopsy of the liver tomorrow. Pradaxa and Plavix were placed on hold and patient's last dose was yesterday for both. Patient is afebrile, heart rate 88, blood pressure 138/81, pulse ox 97% on room air. Repeat blood work reveals BUN 9 creatinine 0.19, calcium 10.1. 08/20: Repeat blood work reveals WBC 8.0, WBC 9.9, platelet count 319. Sodium 140, potassium 3.7, chloride 110, CO2 24, BUN 9, creatinine 2.57, calcium 9.7. Patient has been afebrile, blood pressure 122/51, heart rate 76, blood pressure 98% on room air. Dr. Zambrano has reviewed the patient's films from current 2015. There are cystic changes on the liver without any mass or lesion that can be biopsied. 08/21 patient was admitted to hospice inpatient yesterday secondary to his home devices, discuss with the son today, Mr. Le, and have explained to him hospice program, and is in acceptance with the regimen that is provided, home cristhian tments, no further future hospitalizations are necessary, we will abandon aggressive treatments for the hypernatremia hypokalemia and failure to thrive issues as per family decision, no plans for any PEG feedings, son have abandoned any biopsy of the lung or liver, cystic changes aren't liver not requiring any biopsy at this time, and biopsy of the lung nodule, is deemed too dangerous for the patient. Assessment and Plan Plan: Hospice management, comfort care measures, DO NOT RESUSCITATE, home hospice program on discharge, devices and equipments are placed, medications are readjusted 1. Acute metabolic encephalopathy likely related to hypercalcemia secondary to hyperparathyroidism, primary. Continue Sensipar 60 mg twice daily. Consults with Dr. Amin and nephrology appreciated. Consult with Dr. Arriaza appreciated. As per previous admissions 2. CAD with ischemic cardiomyopathy and ejection fraction 25%. Patient will be resumed on Lopressor 25 mg oral twice daily. 3. Hypertension and hypertensive cardiovascular disease. Continue Lopressor . 4. Hyperlipidemia. Discontinue Lipitor. 5. Diabetes mellitus type 2. Continue patient on sliding scale insulin, Levemir 8 units at bedtime. 6. Parkinson's disease. Patient is not able to take his Proventil. 7. History of CVA. Resume Pradaxa. 8. Enlarged prostate. Stable. 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 Paroxysmal atrial fibrillation currently in sinus rhythm. Resume Lopressor and Pradaxa 10. COPD. Continue DuoNeb 3 mL nebulization 4 times a day and Pulmicort 1 mg the position twice every day, resume Singulair 10 mg at bedtime. 11. Hypercalcemia due to primary hyperparathyroidism. Sensipar, multiple treatments made for this one include [place], and IV hydration, however hydration cannot be maintained at home, with recurrent admissions secondary to this. 16. Pulmonary nodules of unclear etiology. 17. Liver cyst . Interventional radiology consult has reviewed multiple imaging, no biopsy was advised and was canceled, son aware of this recommendation. Pradaxa and Plavix on hold for now and will be resumed following procedure. . Patient [facility], DO NOT RESUSCITATE, home hospice program . Overall prognosis guarded. Objective - Vital Signs Vital signs: Vital Signs Temp 98.0 F 08/20/19 13:56 Pulse 74 08/20/19 14:59 Resp 16 08/20/19 14:59 BP 113/70 08/20/19 13:56 Pulse Ox 100 08/20/19 13:56 Intake & Output 08/20/19 08/21/19 08/21/19 18:59 06:59 18:59 Intake Total 520 Output Total 1000 Balance -480 Intake: Oral 520 Output: Urine 1000 Other: Voiding Method Indwelling Catheter # Voids 0 # Bowel Movements 0 - Labs CBC & Chem 7: 08/20/19 08:16 08/20/19 08:16 Labs: Abnormal Lab Results - Last 24 Hours (Table) 08/20/19 Range/Units 16:50 POC Glucose (mg/dL) 158 H (75-99) mg/dL
--- NOTE | 2019-08-21 21:23 | P.PN ---
Subjective Progress Note Date: 08/20/19 Principal diagnosis: Hypercalcemia likely related to hyperparathyroidism, small subcentimeter few pulmonary nodules and right upper lobe, hyperparathyroidism, ischemic cardiomyopathy ejection fraction of 25%, aortic stenosis, advanced dementia and Alzheimer's disease, hypertension hypertensive cardiovascular disease, type 2 diabetes mellitus 08/20/2019, patient seen and evaluated examined care plan discussed with the staff at length overall labs remained stable including calcium level patient is awake and alert,, patient appeared to be considered for hospice we'll sign off at this point to be called as needed 08/19/2019, patient seen eval examined during the rounds overall no significant change, remains awake and alert on room air his saturation is 95% to 99% blood pressure is 136/76, he remains afebrile 08/18/2019, patient seen eval examined during the rounds labs reviewed medications reviewed patient is awake open his eyes follow simple commands trying to communicate, regimen level was not checked today as scheduled shows normal eyes yesterday patient has been on Sensipar, I reviewed finding of the CAT scan with the staff, 08/17/2019, patient seen eval examined during the rounds labs reviewed medications reviewed, calcium is down to 10.3 patient remains awake and alert but remains nonverbal, patient is being considered for palliative therapy by the staff no new recommendations at this time 08/16/2019, patient seen eval reexamined awake but nonverbal and noncommunicative, it remains a challenge to supplemental forward to this patient, mental status has improved as calcium level is coming down most recent calcium is 12.1, the computed tomography scan of the chest reviewed very small subcentimeter few nodules are seen predominantly in the right upper lobe of clinical significance unknown, they are too small to do the biopsy will prefer to observe it for now as biopsy cavities highly risk of complications Objective - Vital Signs Vital signs: Vital Signs Temp 98.0 F 08/20/19 13:56 Pulse 74 08/20/19 13:56 Resp 16 08/20/19 13:56 BP 113/70 08/20/19 13:56 Pulse Ox 100 08/20/19 13:56 Intake & Output 08/19/19 08/20/19 08/20/19 18:59 06:59 18:59 Intake Total 1000 520 Output Total 300 800 500 Balance 700 -800 20 Intake: Oral 1000 520 Output: Urine 300 800 500 Uretheral (Peres) 300 Other: Voiding Method Indwelling Catheter Indwelling Catheter Indwelling Catheter # Voids 1 0 # Bowel Movements 0 - Exam Constitutional General appearance: average body habitus, disheveled, mild distress - EENT Eyes: EOMI, PERRLA Ears: bilateral: normal - Neck Neck: normal ROM Carotids: bilateral: upstroke normal Thyroid: bilateral: normal size - Respiratory Respiratory: bilateral: diminished, negative: dullness, rales, rhonchi, wheezing - Cardiovascular Rhythm: regular Heart sounds: normal: S1, S2 - Gastrointestinal General gastrointestinal: normal bowel sounds - Musculoskeletal Musculoskeletal: generalized weakness - Labs CBC & Chem 7: 08/20/19 08:16 08/20/19 08:16 Labs: Abnormal Lab Results - Last 24 Hours (Table) 08/19/19 08/19/19 08/20/19 Range/Units 16:44 21:20 07:16 RBC (4.30-5.90) m/uL Hgb (13.0-17.5) gm/dL Hct (39.0-53.0) % MCHC (31.0-37.0) g/dL RDW (11.5-15.5) % Chloride (98-107) mmol/L Creatinine (0.66-1.25) mg/dL Glucose (74-99) mg/dL POC Glucose (mg/dL) 169 H 175 H 165 H (75-99) mg/dL Total Protein (6.3-8.2) g/dL Albumin (3.5-5.0) g/dL 08/20/19 08/20/19 08/20/19 Range/Units 08:16 08:16 12:19 RBC 3.65 L (4.30-5.90) m/uL Hgb 9.9 L (13.0-17.5) gm/dL Hct 33.5 L (39.0-53.0) % MCHC 29.6 L (31.0-37.0) g/dL RDW 16.6 H (11.5-15.5) % Chloride 110 H (98-107) mmol/L Creatinine 0.57 L (0.66-1.25) mg/dL Glucose 166 H (74-99) mg/dL POC Glucose (mg/dL) 164 H (75-99) mg/dL Total Protein 5.8 L (6.3-8.2) g/dL Albumin 2.7 L (3.5-5.0) g/dL Assessment and Plan Assessment: Severe hypercalcemia resolved now Likely primary hyperparathyroidism as parathormone level was high Right-sided multiple small subcentimeter pulmonary nodules involving the right upper lobe Would recommend a PET scan/serial computed tomography scan as outpatient Metabolic encephalopathy related to hypercalcemia and baseline dementia Ischemic cardiomyopathy ejection fraction of 25% Mild aortic stenosis Hypertension hypertensive cardiovascular disease/dyslipidemia/type 2 diabetes mellitus Plan: Continue gentle rehydration supportive care and hospice care and agreed will follow as needed Time with Patient: Greater than 30
--- NOTE | 2019-08-22 09:08 | P.DS ---
Providers Date of admission: 08/11/19 14:01 Expected date of discharge: 08/20/19 Attending physician: Capri Ruggiero Consults: 08/11/19 14:36 Consult Physician Stat Consulting Provider: Derek Amin Consult Reason/Comments: ICU management Do you want consulting provider notified?: Yes 08/11/19 22:36 Consult Physician Routine Consulting Provider: Kristie Mcclendon Consult Reason/Comments: hypercalcemia and PATI Do you want consulting provider notified?: Yes, Notify in am 08/13/19 11:30 Consult Physician Routine Consulting Provider: Greg Arriaza Consult Reason/Comments: CT scan w multiple nodules Do you want consulting provider notified?: Yes Primary care physician: Katharine Israel [facility] Course: This is an 84-year-old -Citizen Of [place] male one of Dr. Israel with a previous medical history significant for CAD post non-ST elevation HI with ischemic cardiomyopathy recent echocardiogram showed ejection fraction 2024% with mild aortic stenosis and moderate mitral regurgitation, hypertension and hypertensive cardio vascular disease with left ventricular hypertrophy, diabetes mellitus type 2 with diabetic polyneuropathy, Parkinson disease generalized weakness wheelchair bound and vascular dementia along with paroxysmal atrial fibrillation benign prostatic hypertrophy osteoporosis with significant hypercalcemia was recently discharged from [facility] after he was admitted to the hospital for significant encephalopathy and the patient was sent home on 08/09/2019 he ended up going back to the emergency department at the [facility] yesterday because his Peres catheter was removed, and the patient was sent home however the patient was quite obtunded and his son ended up bringing him back to the emergency department at [facility] because of increased uptake mentation and mental status changes and was found to have a significant hypercalcemia he was admitted to the hospital he was started on IV fluid resuscitation the form of normal saline and 100 mL an hour patient's son wasn't bedside and he was concerned quite a bit about the patient mental status and he stated that his father was doing this for the past 2 weeks he has not been eating or drinking anything and he has not been taking his medications 2/2: Patient is more alert and awake today. He is able to answer questions appropriately he is slow to respond. Patient's urinary output has been about 35 ML's per hour. A CT of the chest is ordered to rule out malignancy due to the hypercalcemia. Patient has history of hyperparathyroidism. W BC 7.7, hemoglobin 10.1, sodium 145, potassium 4.3, BUN 22, creatinine 0.95, calcium 13.1, I denies calcium 7.7, phosphorus 2.2. Blood pressure 142/70, heart rate 82, respiration rate 12, pulse ox a 98% on 2 L via nasal cannula. 2: Patient remains in the intensive care unit. CT of the chest revealed multiple right-sided pulmonary nodules raising suspicion for metastatic disease. Emphysematous changes throughout the lungs. Thoracic aortic aneurysm 3.9 cm. Cardiomegaly. Multiple hepatic lesions, could not exclude metastatic disease. Ultrasound of the liver was limited and nondiagnostic for evaluation of the liver. No evidence of acute cholecystitis although common bile duct not seen. Suboptimal evaluation of right kidney and probable right cyst. Consult added for Dr. Arriaza. Patient is followed by Dr. Amin and nephrology. Repeat lab work today reveals calcium of 12.6, hemoglobin 9.4. 08/14: This morning, patient was having significant coughing with pured diet with nectar thick liquids. Chest x-ray was ordered that did not show any infiltrate. Speech therapy to reevaluate. Dr. Amin has evaluated and determined patient has not able for lung biopsy and at high risk for complication. Dr. Cruz has decrease IV fluids to 50 mL per hour. Sensipar to be resumed once tolerating oral medications. Repeat electrolytes in the morning. Discuss current situation with the on. What type of cancer his father has. Reiterated the patient is a poor candidate for any biopsy procedure. He is planning to discuss situation with the patient's . 08/15: Patient has been seen by oncology with recommendations for CAT scan with IV and oral can dress to evaluate lung and liver lesions. Patient may need biopsy of the easiest lesion to access. Also recommended bone scan which was rescheduled patient was unable to lay flat. Mental status making it difficult for him to tolerate oral contrast and concerns for aspiration of a silver scans. Plan to delay scans and reevaluate patient. Angiotensin I converting enzyme, free kappa Light chain, free lambda light chain, immunofixation, methylmalonic acid, protein electrophoresis all ordered and pending. Patient is afebrile, heart rate 64, blood pressure 116/58, pulse ox 98% on room air. Iron 29, TIBC 263, saturation 11, ferritin 63.3, protein electrophoresis 5.4, parathyroid hormone intact is 164.2. Free [place] 2.76, free lambda 1.76. For the time of evaluation, patient's nurse and nursing care partner met with the patient's son and at this point, no biopsy or further aggressive treatment. Our plan will be to transition to hospice care as the guardian is open to this. 08/16: The patient is more awake and alert today. He was able to all of his breakfast. Patient is afebrile, heart rate 88, blood pressure 113/61, pulse ox 97% on room air. Patient is followed by oncology, nephrology and pulmonary medicine. Pulmonary nodules are very small and 2 small to biopsy. Liver lesion seems to be a cyst. Dr. Amin has recommended PET scan as an outpatient. Patient is on Sensipar 60 mg twice daily. Repeat blood work reveals potassium 3.3, BUN 7, creatinine 0.68, calcium 11. seafood manager to discuss discharge planning with the patient's son. Patient may benefit from palliative care. 08/17: seafood manager discussed discharge planning with the patient's son over the phone yesterday and was determined the patient would be palliative care and return home. Repeat calcium this morning is at 10.3. Patient a 25% of his breakfast. Plan will be to Maintain Peres catheter at home since he is palliative care and he has decubitus ulcer. The patient was prepared for discharge home and when son arrived he was upset and wanted to know when the biopsy was going to be done. Oncology had mentioned doing a biopsy of the liver lesion which appears to be a cyst and we had recommended not to pursue this. Oncology also is in agreement at this time if we are feeling that it is a cyst. Patient's son is refusing to take the patient home. Nephrology has recommended maintaining D5 half-normal saline at 50 mL an hour and continue Sensipar 60 mg twice daily. 08/18: Patient has been afebrile, heart rate 75, blood pressure 114/66, pulse ox 99% on room air. Blood sugars run between [address] Israel called patient's son/guardian to update him on the patient's current condition and prognosis. ALL questions have been answered. Recommendations for hospice were discussed. Patient son discuss situation with his mother. Guardian is insisting the patient undergo biopsy of the liver lesion despite known prognosis, despite complications. This will be ordered for his mental satisfaction only as there is no plan for any intervention pending results of the biopsy. Interventional radiology will be consulted with plan for possible biopsy on Tuesday. 08/19: Patient denies any new complaints. Patient is able to nod to answer questions. We are going forward with biopsy of the liver tomorrow. Pradaxa and Plavix were placed on hold and patient's last dose was yesterday for both. Patient is afebrile, heart rate 88, blood pressure 138/81, pulse ox 97% on room air. Repeat blood work reveals BUN 9 creatinine 0.19, calcium 10.1. 08/20: Repeat blood work reveals WBC 8.0, WBC 9.9, platelet count 319. Sodium 140, potassium 3.7, chloride 110, CO2 24, BUN 9, creatinine 2.57, calcium 9.7. Patient has been afebrile, blood pressure 122/51, heart rate 76, blood pressure 98% on room air. Dr. Zambrano has reviewed the patient's films from current 2015. There are cystic changes on the liver without any mass or lesion that can be biopsied. A long discussion with the patient's guardian, it was determined the patient will be made hospice. [facility] was involved and patient was transitioned to inpatient GIP service. Patient was subsequently discharged to home on August 21. Discharge diagnoses: 1. Acute metabolic encephalopathy likely related to hypercalcemia secondary to hyperparathyroidism, primary. 2. CAD with ischemic cardiomyopathy and ejection fraction 25%. 3. Hypertension and hypertensive cardiovascular disease. 4. Hyperlipidemia. 5. Diabetes mellitus type 2. 6. Parkinson's disease. 7. History of CVA. 8. Enlarged prostate. Stable. 9. Paroxysmal atrial fibrillation currently in sinus rhythm. 10. COPD. 11. Hypercalcemia due to primary hyperparathyroidism. 12. Pulmonary nodules of unclear etiology. 13. Liver cyst. Discharge plan: Home with [facility]. Impression and plan of care have been directed as dictated by the signing physician. Chioma Foreman nurse practitioner acting as scribe for signing physician. Patient Condition at Discharge: Good Plan - Discharge Summary New Discharge Prescriptions: Continue Levothyroxine Sodium [Synthroid] 25 mcg PO DAILY@0600 Dabigatran [Pradaxa] 150 mg PO BID@0900,2100 Nitroglycerin [Nitroglycerin 400MCG [place]] 1 spray TRANSLINGU Q5M PRN PRN Reason: CHEST PAIN Metoprolol Tartrate [Lopressor] 25 mg PO BID@0900,2100 Melatonin 10 mg PO HS@2100 INSULIN ASPART (NovoLOG) [NovoLOG (formulary)] See Protocol SQ TID@0900,1300, 1900 Carboxymethylcellulose Sodium [Refresh Tears] 1 drop BOTH EYES BID@0900,2099 Budesonide [Pulmicort] 0.5 mg INHALATION RT-BID Ipratropium-Albuterol Nebulize [Duoneb 0.5 mg-3 mg/3 ml Soln] 3 ml INHALATION RT-TID ampul.neb Spironolactone [Aldactone] 12.5 mg PO DAILY@0900 #0 Sennosides [Senokot] 8.6 mg PO DAILY PRN tab PRN Reason: Constipation Cinacalcet HCl [Sensipar] 60 mg PO BID #0 Changed Insulin Glargine,Hum.rec.anlog [Basaglar Kwikpen U-100] 8 unit SQ HS@2100 #0 Discontinued Donepezil [Aricept] 10 mg PO HS@2100 Atorvastatin Calcium [Lipitor] 40 mg PO HS@2100 Baclofen [Lioresal] 10 mg PO TID@0600,1400,2200 Tamsulosin HCl [Flomax] 0.4 mg PO BID@0900,2100 Potassium Chloride ER [K-Dur 20] 20 meq PO TID@0900,1300,2100 Ergocalciferol [Vitamin D2 (DRISDOL)] 50,000 unit PO FR@0900 Amiodarone [Cordarone] 200 mg PO DAILY@0900 Midodrine HCl [ProAmatine] 10 mg PO TID@0900,1300,2100 Metolazone [Zaroxolyn] 2.5 mg PO TUTH@0900 Montelukast [Singulair] 10 mg PO HS@2100 Famotidine [Pepcid] 20 mg PO DAILY@0900 Allopurinol [Zyloprim] 300 mg PO DAILY Furosemide [Lasix] 40 mg PO BID Magnesium Oxide [Mag-Ox] 400 mg PO BID Pramox-Calamine 1-8% Lotion [Caladryl] 1 applic TOPICAL HS Primidone [Mysoline] 250 mg PO TID Lisinopril [Zestril] 2.5 mg PO DAILY #30 tab Clopidogrel [Plavix] 75 mg PO DAILY #30 tablet Discharge Medication List Levothyroxine Sodium [Synthroid] 25 mcg PO DAILY@0600 05/19/16 [History] Dabigatran [Pradaxa] 150 mg PO BID@0900,2100 04/14/17 [History] Melatonin 10 mg PO HS@209903/14/18 [History] Metoprolol Tartrate [Lopressor] 25 mg PO BID@0900,209903/14/18 [History] Nitroglycerin [Nitroglycerin 400MCG [place]] 1 spray TRANSLINGU Q5M PRN 03/14/18 [History] Budesonide [Pulmicort] 0.5 mg INHALATION RT-BID 09/28/18 [History] Carboxymethylcellulose Sodium [Refresh Tears] 1 drop BOTH EYES BID@0900,209909/28/18 [History] INSULIN ASPART (NovoLOG) [NovoLOG (formulary)] See Protocol SQ TID@0900,1300,1900 09/28/18 [History] Ipratropium-Albuterol Nebulize [Duoneb 0.5 mg-3 mg/3 ml Soln] 3 ml INHALATION RT-TID ampul.neb 10/02/18 [Rx] Spironolactone [Aldactone] 12.5 mg PO DAILY@0900 #0 10/02/18 [Rx] Cinacalcet HCl [Sensipar] 60 mg PO BID #0 07/24/19 [Rx] Sennosides [Senokot] 8.6 mg PO DAILY PRN tab 07/24/19 [Rx] Insulin Glargine,Hum.rec.anlog [Basaglar Kwikpen U-100] 8 unit SQ HS@2099 #0 08/17/19 [Rx] Follow up Appointment(s)/Referral(s): Katharine Israel MD [Primary Care Provider] - 1 Week (office will call you with appt. time and date.) [facility], [NON-STAFF] - (Homecare and Palliative care.) Derek Amin MD [STAFF PHYSICIAN] - 1 Week (please call offfice to set up appt. time and date.) Discharge Disposition: DISCH TO HOSPICE MED FACILTY
== END 2019-08-20 18:54 | disposition hospice, inpatient (51) | DRG 180 ==
LOC: EC 09:20 → 2SICU 14:01 → 6NMEDSUR 08-13 22:42
PROVIDERS: ADMIT Internal Medicine; ATTEND Internal Medicine
DX: C78.01 Secondary malignant neoplasm of right lung (principal); L89.153 Pressure ulcer of sacral region, stage 3; G93.41 Metabolic encephalopathy; E87.0 Hyperosmolality and hypernatremia; F05 Delirium due to known physiological condition; I50.22 Chronic systolic (congestive) heart failure; N17.9 Acute kidney failure, unspecified; E03.9 Hypothyroidism, unspecified; E11.42 Type 2 diabetes mellitus with diabetic polyneuropathy; E78.5 Hyperlipidemia, unspecified; E86.0 Dehydration; F01.50 Vascular dementia, unspecified severity, without behavioral disturbance, psychotic disturbance, mood disturbance, and anxiety; F02.80 Dementia in other diseases classified elsewhere, unspecified severity, without behavioral disturbance, psychotic disturbance, mood disturbance, and anxiety; G20 Parkinson's disease; G30.9 Alzheimer's disease, unspecified; I35.0 Nonrheumatic aortic (valve) stenosis; I11.0 Hypertensive heart disease with heart failure; I25.10 Atherosclerotic heart disease of native coronary artery without angina pectoris; I25.2 Old myocardial infarction; Z51.5 Encounter for palliative care; Z66 Do not resuscitate; I25.5 Ischemic cardiomyopathy; I48.0 Paroxysmal atrial fibrillation; I71.2 Thoracic aortic aneurysm, without rupture; J44.9 Chronic obstructive pulmonary disease, unspecified; M81.0 Age-related osteoporosis without current pathological fracture; N28.1 Cyst of kidney, acquired; N40.0 Benign prostatic hyperplasia without lower urinary tract symptoms; K76.9 Liver disease, unspecified; Z79.01 Long term (current) use of anticoagulants; Z79.02 Long term (current) use of antithrombotics/antiplatelets; Z79.4 Long term (current) use of insulin; Z79.890 Hormone replacement therapy; Z79.899 Other long term (current) drug therapy; Z85.118 Personal history of other malignant neoplasm of bronchus and lung; Z90.2 Acquired absence of lung [part of]; Z86.73 Personal history of transient ischemic attack (TIA), and cerebral infarction without residual deficits; Z87.442 Personal history of urinary calculi; Z87.891 Personal history of nicotine dependence; Z91.14 Patient's other noncompliance with medication regimen; Z95.5 Presence of coronary angioplasty implant and graft; Z99.3 Dependence on wheelchair; M54.31 Sciatica, right side; G89.29 Other chronic pain; M10.9 Gout, unspecified; M19.90 Unspecified osteoarthritis, unspecified site; E21.0 Primary hyperparathyroidism
CPT/HCPCS: 36415; 70450; 71045; 71250; 76705; 80048; 80053; 80306; 81001; 82140; 82164; 82330; 82550; 82728; 83540; 83550; 83735; 83883; 83921; 83970; 84100; 84132; 84165; 84484; 85025; 85027; 85610; 85730; 86334; 93005; 94640; 94760; 96360; 96361; 99291

== ENCOUNTER 2019-08-20 17:47 | Inpatient (IN) | payer MEDICAID ==
[2019-08-20] MEDS ORDERED: SENNOSIDES 8.6 MG TAB PO PRN (18:00)
[2019-08-20] MEDS ORDERED: INSULIN DETEMIR (LEVEMIR) 100 UNIT/ML SYR SQ SCH (21:00)
[2019-08-20] MEDS: IPRATROPIUM-ALBUTEROL 3 ML NEB INHALATION SCH (22:31)
[2019-08-20] MEDS: BUDESONIDE 0.5 MG/2 ML NEBU INHALATION SCH (22:31)
[2019-08-20] MEDS: INSULIN ASPART (NovoLOG) 100 UNIT/ML VIAL SQ SCH (23:54)
[2019-08-20] MEDS: TAMSULOSIN 0.4 MG CAP.ER.24H PO SCH (23:55)
[2019-08-20] MEDS: CINACALCET 30 MG TAB PO SCH (23:55)
[2019-08-20] MEDS: METOPROLOL TARTRATE 25 MG TAB PO SCH (23:55)
[2019-08-20] MEDS: ARTIFICIAL TEARS-HYPROMELLOSE DROPS 15 ML BTL BOTH EYES SCH (23:56)
[2019-08-21] MEDS ORDERED: LEVOTHYROXINE 25 MCG TAB PO SCH (06:00)
[2019-08-21] MEDS: IPRATROPIUM-ALBUTEROL 3 ML NEB INHALATION SCH ×2 (07:06→13:14)
[2019-08-21] MEDS: BUDESONIDE 0.5 MG/2 ML NEBU INHALATION SCH (07:06)
[2019-08-21 07:30] LABS: Glucose,Whole Blood 178 mg/dL (75-99)
[2019-08-21] MEDS ORDERED: SPIRONOLACTONE 25 MG TAB PO SCH (09:00)
[2019-08-21] MEDS: TAMSULOSIN 0.4 MG CAP.ER.24H PO SCH (09:05)
[2019-08-21] MEDS: METOPROLOL TARTRATE 25 MG TAB PO SCH (09:05)
[2019-08-21] MEDS: INSULIN ASPART (NovoLOG) 100 UNIT/ML VIAL SQ SCH (09:07)
[2019-08-21] MEDS: ARTIFICIAL TEARS-HYPROMELLOSE DROPS 15 ML BTL BOTH EYES SCH (09:07)
[2019-08-21] MEDS: CINACALCET 30 MG TAB PO SCH (10:18)
[2019-08-21 12:04] LABS: Glucose,Whole Blood 147 mg/dL (75-99)
[2019-08-21] MEDS ORDERED: INSULIN ASPART (NovoLOG) 100 UNIT/ML VIAL SQ SCH (12:30)
[2019-08-21 14:21] VITALS: BMI 24.3
[2019-08-21 14:42] VITALS: BP 104/62; PULSE 80; RESP 17; TEMP 98
== END 2019-08-21 16:24 | disposition hospice, home (50) | DRG 951 ==
LOC: 6NMEDSUR 18:58
PROVIDERS: ADMIT Family Medicine; ATTEND Family Medicine
DX: Z51.5 Encounter for palliative care (principal); L89.153 Pressure ulcer of sacral region, stage 3; G93.41 Metabolic encephalopathy; E11.42 Type 2 diabetes mellitus with diabetic polyneuropathy; F01.50 Vascular dementia, unspecified severity, without behavioral disturbance, psychotic disturbance, mood disturbance, and anxiety; G20 Parkinson's disease; K76.89 Other specified diseases of liver; I11.9 Hypertensive heart disease without heart failure; Z66 Do not resuscitate; E21.0 Primary hyperparathyroidism; I48.0 Paroxysmal atrial fibrillation; J43.9 Emphysema, unspecified; I25.10 Atherosclerotic heart disease of native coronary artery without angina pectoris; I25.5 Ischemic cardiomyopathy; I08.0 Rheumatic disorders of both mitral and aortic valves; E78.5 Hyperlipidemia, unspecified; N40.0 Benign prostatic hyperplasia without lower urinary tract symptoms; R13.10 Dysphagia, unspecified; R91.8 Other nonspecific abnormal finding of lung field; M81.0 Age-related osteoporosis without current pathological fracture; M19.90 Unspecified osteoarthritis, unspecified site; M54.41 Lumbago with sciatica, right side; E03.9 Hypothyroidism, unspecified; R26.9 Unspecified abnormalities of gait and mobility; H91.90 Unspecified hearing loss, unspecified ear; I25.2 Old myocardial infarction; Z79.890 Hormone replacement therapy; Z79.4 Long term (current) use of insulin; Z79.51 Long term (current) use of inhaled steroids; Z79.899 Other long term (current) drug therapy; Z99.3 Dependence on wheelchair; Z86.73 Personal history of transient ischemic attack (TIA), and cerebral infarction without residual deficits; Z85.118 Personal history of other malignant neoplasm of bronchus and lung; Z87.442 Personal history of urinary calculi; Z95.5 Presence of coronary angioplasty implant and graft; Z90.2 Acquired absence of lung [part of]; Z98.890 Other specified postprocedural states; Z95.828 Presence of other vascular implants and grafts; Z87.891 Personal history of nicotine dependence
CPT/HCPCS: 94640